=== PATIENT | female | born 1945 | race Caucasian/White ===

== ENCOUNTER 2016-10-11 08:05 | Observation (INO) ==
[2016-10-11] MEDS ORDERED: Nitroglycerin 25 MG/250 ML INFUS..BTL IVC SCH (08:15)
[2016-10-11 08:36] LABS: Basophils % 0.2 %; Eosinophils % 0.6 %; Hemoglobin 14.2 g/dL (11.5-15.4); Immature Granulocytes % 0.6 % (0-4); Lymphocytes # 2.1 K/mcL (0.6-4.6); Lymphocytes % 38.7 %; Mean Corpuscular HGB Conc 34.6 g/dL (31.6-35.5); Mean Corpuscular Hemoglobin 32.4 pg (28.0-33.3); Mean Corpuscular Volume 93.6 fL (83.0-100.0); Mean Platelet Volume 8.8 fL (9.4-12.4); Monocytes # 0.5 K/mcL (0.0-1.3); Monocytes % 8.7 %; Neutrophils # 2.8 K/mcL (1.6-8.9); Platelet Count 291 K/mcL (140-400); Red Blood Count 4.38 M/mcL (3.82-4.97); Red Cell Distribution Width 12.4 % (11.5-14.5); Segmented Neutrophils % 51.2 %
[2016-10-11 08:41] LABS: Prothrombin Time 11.2 Seconds (9.4-12.1)
[2016-10-11 08:43] LABS: Activated Partial Thrombo Time 28.5 Seconds (26.0-36.0)
[2016-10-11 08:44] LABS: BUN/Creatinine Ratio 15 (6-26); Blood Urea Nitrogen 13 mg/dL (7-20); Calcium 9.8 mg/dL (8.6-10.8); Carbon Dioxide 22 mEq/L (19-29); Chloride 102 mEq/L (98-109); Glucose 206 mg/dL (70-99); Osmolality,Calculated 288 (280-300); Potassium 3.7 mEq/L (3.5-4.5); Sodium 136 mEq/L (136-145); eGFR For African Americans > 60 (> 60); eGFR For Non-African Americans > 60 (> 60)
[2016-10-11] MEDS ORDERED: Acetaminophen 325 MG TABLET PO ONE (09:01)
[2016-10-11] MEDS ORDERED: *HR* Heparin 5,000 UNIT/ML VIAL IVP ONE (09:02)
[2016-10-11] MEDS ORDERED: *HR* Heparin 5,000 UNIT/ML VIAL IVP PRN ×2 (09:02)
[2016-10-11] MEDS ORDERED: Heparin 25,000 UNIT/500 ML D5W 25,000 UNIT/500 ML MLS IVC SCH (09:15)
--- NOTE | 2016-10-11 09:15 | Emergency Department Note ---
Disposition Clinical Impression: CAD (coronary artery disease) Qualifiers: Coronary Disease-Associated Artery/Lesion type: unspecified vessel or lesion type [place] vs. transplanted heart: [place] heart Associated angina: with stable angina Qualified Code(s): I25.118 - Atherosclerotic heart disease of [place] coronary artery with other forms of angina pectoris Hypertension Qualifiers: Hypertension type: other secondary hypertension Qualified Code(s): I15.8 - Other secondary hypertension Chest pain Qualifiers: Chest pain type: unspecified Qualified Code(s): R07.9 - Chest pain, unspecified Disposition: Admitted As Inpatient Condition: Good Time of Disposition: 09:40 Chest Pain HPI - General Stated Complaint: Chest Pain Time Seen by Provider: 10/11/16 08:08 Source: patient Limitations: no limitations Vital Signs Reviewed: Yes Nursing Notes Reviewed: Yes - History of Present Illness HPI Narrative: Patient presented to emergency room with complaint of chest pain and pressure up into her right neck. She says this is very similar to the other times when she needed catheterization. She was seen by her heel top lift splitter Dr. Irwin yesterday for these exact same complaints and was scheduled for an outpatient catheterization this coming Sunday. Patient went home last night and the symptoms came back again acutely in the middle the night. She taken 3 nitroglycerin home with some intermittent relief of the symptoms. She said that the pain will completely level come back within 30 minutes. Patient side to come in the emergency room at that time for evaluation. Denies any other symptoms changes or trauma at this time Pt complaint: chest pain Onset (ago): [employer] [facility] [facility] [employer] Duration: constant Onset: during rest Pain Location: substernal Severity: moderate Severity scale (1-10): 7 Quality: tightness, aching, heaviness, similar to prior [place] Improves with: nitroglycerin Worsens with: nothing - Related Data Home Medications Medication Instructions Recorded Confirmed Alprazolam [Xanax 0.25 MG Tablet] 0.25 mg PO BID PRN 07/12/16 10/11/16 Aspirin 81 mg PO DAILY 07/12/16 10/11/16 Clopidogrel [Plavix] 75 mg PO DAILY 07/12/16 10/11/16 Isosorbide MONOnitrate [Isosorbide 240 mg PO DAILY 07/12/16 10/11/16 Mononitrate ER] Nitroglycerin [Nitrostat] 0.4 mg SL AD PRN 07/12/16 10/11/16 Pantoprazole Sodium [Protonix] 40 mg PO BID 07/12/16 10/11/16 Ubidecarenone/Vit E Acetate [Co 200 mg PO DAILY 07/12/16 10/11/16 Q-10 100 mg Softgel] Glimepiride [Glimepiride] 1.5 mg PO BID 08/16/16 10/11/16 Metformin [Glucophage] 500 mg PO BID 08/16/16 10/11/16 Metoprolol Tartrate [Metoprolol 50 mg PO BID 08/16/16 10/11/16 Tartrate] Cholecalciferol (D-3) [Vitamin D] 2,000 unit PO DAILY 10/11/16 10/11/16 Loratadine [Allergy Relief] 10 mg PO DAILY 10/11/16 10/11/16 Previous Rx's Medication Instructions Recorded Lisinopril [Zestril] 10 mg PO DAILY #15 tablet 07/14/16 Allergies Allergy/AdvReac Type Severity Reaction Status Date / Time penicillin V Allergy Anaphylaxis Verified 08/16/16 08:11 atorvastatin [From Lipitor] AdvReac Muscle Pain Verified 08/16/16 08:11 All systems ED: reviewed and negative except as stated. Constitutional: Denies: fever, chills, weakness Cardiovascular: Reports: chest pain. Denies: palpitations, dyspnea on exertion , orthopnea, edema, syncope Respiratory: Denies: cough, dyspnea, wheezes, hemoptysis, sputum production Gastrointestinal: Denies: abdominal pain, nausea, vomiting, diarrhea, constipation Genitourinary: Denies: urgency, dysuria, frequency, hematuria, discharge Musculoskeletal: Denies: back pain, neck pain, joint swelling Integumentary: Denies: rash, abrasion, lesions, change in hair/nails Neurological: Denies: headache Psychiatric: Denies: anxiety Endocrine: Denies: fatigue Chest Pain PMH - Past Medical History Medical history: Reports: coronary artery disease, diabetes, GERD, kidney stones , liver disease, myocardial infarction, other Surgical history: Reports: hysterectomy, other Psychiatric history: Reports: no psych history LAP WELDER history: Reports: no LAP WELDER history - Social History Smoking Status: Never smoker Alcohol use: Reports: occasionally Drug use: Reports: none Physical Exam - General Limitations: no limitations General appearance: alert, in no apparent distress - Head Head exam: atraumatic, normocephalic - Neck Neck exam: Present: normal inspection, full ROM, trachea midline. Absent: tenderness, meningismus, lymphadenopathy - Chest Chest inspection: Present: normal inspection, symmetric chest wall rise. Absent : tenderness - Respiratory Respiratory exam: Present: normal lung sounds bilaterally. Absent: respiratory distress, wheezes, stridor, accessory muscle use - Cardiovascular Cardiovascular exam: Present: regular rate, normal rhythm, normal heart sounds - Abdominal Exam Abdominal exam: Present: soft, Non-Tender, normal bowel sounds. Absent: tenderness, distention, guarding, rebound, rigidity - Extremities Exam Extremities exam: Present: normal inspection, full ROM, normal capillary refill. Absent: tenderness, pedal edema - Back Exam Back exam: Present: normal inspection, full ROM. Absent: tenderness, CVA tenderness (R), CVA tenderness (L) - Neurological Exam Neurological exam: Present: alert, oriented X3 - Psychiatric Psychiatric exam: Present: normal affect, normal mood - Skin Skin exam: Present: warm, dry, intact, normal color Course Course Narrative: Patient seen and examined the time of arrival. See history of present illness. This is a 71-year-old female that presents emergency room today for evaluation of chest pressure similar to previous stenting. She has a partially [address] She is not taking any blood thinners according to her. Patient had onset of symptoms yesterday that resolved later last night and came on again acutely today. She was evaluated by her heel top lift splitter Dr. Irwin yesterday afternoon the office and he had scheduled for an outpatient catheterization on this coming Sunday. Patient has not been able to tolerate a control his symptoms at home today. She will up acutely with the chest pressure and pain up into the right side of her neck. She took 3 nitroglycerin at that time possibly 45 minutes apart. In between each nitroglycerin treatment she had complete resolution of the symptoms. She came back here today for evaluation because she was concerned about the chest pressure and pain. Patient otherwise has no other complaints no recent changes in medications and no recent illnesses. She is concerned about a cardiac source. EKG done on initial triage shows normal sinus rhythm no acute ST segment changes at this time. This was compared to an EKG done on 08/16/16. Because of her history and symptom presentation cardiac evaluation will be ordered at this time including EKG and basic left her workup and troponins. Chest x-ray also ordered. CT head as well as the patient complaining of a headache but appears to be secondary to the neck pain related up in the right side of her neck. Patient was discussed with the heel top lift splitter Dr. Irby.. We will review the patient's presentation his surgery and evaluation by Dr. Irwin yesterday. He recommended admission to hospital for arrangement like symptoms and then she will get set up for catheterization at some point. We will continue monitoring in emergency room until disposition is completed admission process to be completed as well. Patient given aspirin at this time. Vital signs are stable she is afebrile nitroglycerin drip to be secondary to symptom control - Reevaluation(s) Reevaluation #1: Labs all within normal limits except for a mildly elevated troponin at 0.05. Patient's symptoms of uncontrolled nitroglycerin drip. Tylenol was given for her headache. Consultation with the hospitalist Dr. Capps was completed. Detailed review of the patient's presentation symptoms and consultation with the heel top lift splitter were discussed. Heparin drip was ordered secondary to ACS protocol. Patient is in no distress resting comfortably in the bed at this time. Symptoms abated completely resolved. No other intervention requested this time hospitals. Patient be admitted to the floor for evaluation and the most likely catheterization and his hospital course of care. EKG again was reviewed and does not show any acute pathology. Troponin is mildly elevated. This will be trended 3. Patient stable admission process completed this point Time: 09:37 Vital Signs Temperature 98.3 F 10/11/16 08:13 Pulse Rate 79 10/11/16 08:13 Respiratory Rate 16 10/11/16 08:13 Blood Pressure 154/92 10/11/16 08:13 O2 Sat by Pulse Oximetry 100 10/11/16 08:13 Temperature 98.3 F 10/11/16 08:13 Pulse Rate 75 10/11/16 09:45 Respiratory Rate 16 10/11/16 09:45 Blood Pressure 142/83 10/11/16 09:45 O2 Sat by Pulse Oximetry 97 10/11/16 09:45 Oxygen Delivery Oxygen Delivery Room Air Chest Pain - MDM Narrative Medical decision making narrative: Chest pain, ACS, patient will have catheterization - Medical Records Medical records reviewed: Yes I reviewed the patient's medical records. - Lab Data Lab results reviewed: Yes I reviewed the patient's lab results. Result diagrams: 10/11/16 08:12 10/11/16 08:12 Lab Results 10/11/16 10/11/16 10/11/16 Range/Units 08:12 08:12 08:12 WBC 5.4 (4.3-11.1) K/mcL RBC 4.38 (3.82-4.97) M/mcL Hgb 14.2 D (11.5-15.4) g/dL Hct 41.0 (35.3-44.9) % MCV 93.6 (83.0-100.0) fL MCH 32.4 (28.0-33.3) pg MCHC 34.6 (31.6-35.5) g/dL RDW 12.4 (11.5-14.5) % Plt Count 291 (140-400) K/mcL MPV 8.8 L (9.4-12.4) fL Immature Gran % 0.6 (0-4) % Seg Neutrophils % 51.2 % Lymphocytes % 38.7 % Monocytes % 8.7 % Eosinophils % 0.6 % Basophils % 0.2 % Neutrophils # 2.8 (1.6-8.9) K/mcL Lymphocytes # 2.1 (0.6-4.6) K/mcL Monocytes # 0.5 (0.0-1.3) K/mcL Eosinophils # 0.0 (0.0-0.6) K/mcL Basophils # 0.0 (0.0-0.2) K/mcL PT 11.2 (9.4-12.1) Seconds INR 1.0 APTT 28.5 (26.0-36.0) Seconds Sodium (136-145) mEq/L Potassium (3.5-4.5) mEq/L Chloride (98-109) mEq/L Carbon Dioxide (19-29) mEq/L BUN (7-20) mg/dL Creatinine (0.57-1.11) mg/dL Est GFR ( Amer) (> 60) Est GFR (Non-Af Amer) (> 60) BUN/Creatinine Ratio (6-26) Glucose (70-99) mg/dL Calculated Osmolality (280-300) Calcium (8.6-10.8) mg/dL Troponin I (0-0.03) ng/mL B-Natriuretic Peptide 41 (0-100) pg/mL 10/11/16 10/11/16 Range/Units 08:12 08:12 WBC (4.3-11.1) K/mcL RBC (3.82-4.97) M/mcL Hgb (11.5-15.4) g/dL Hct (35.3-44.9) % MCV (83.0-100.0) fL MCH (28.0-33.3) pg MCHC (31.6-35.5) g/dL RDW (11.5-14.5) % Plt Count (140-400) K/mcL MPV (9.4-12.4) fL Immature Gran % (0-4) % Seg Neutrophils % % Lymphocytes % % Monocytes % % Eosinophils % % Basophils % % Neutrophils # (1.6-8.9) K/mcL Lymphocytes # (0.6-4.6) K/mcL Monocytes # (0.0-1.3) K/mcL Eosinophils # (0.0-0.6) K/mcL Basophils # (0.0-0.2) K/mcL PT (9.4-12.1) Seconds INR APTT (26.0-36.0) Seconds Sodium 136 (136-145) mEq/L Potassium 3.7 (3.5-4.5) mEq/L Chloride 102 (98-109) mEq/L Carbon Dioxide 22 (19-29) mEq/L BUN 13 (7-20) mg/dL Creatinine 0.88 (0.57-1.11) mg/dL Est GFR ( Amer) > 60 (> 60) Est GFR (Non-Af Amer) > 60 (> 60) BUN/Creatinine Ratio 15 (6-26) Glucose 206 H (70-99) mg/dL Calculated Osmolality 288 (280-300) Calcium 9.8 (8.6-10.8) mg/dL Troponin I 0.05 H* (0-0.03) ng/mL B-Natriuretic Peptide (0-100) pg/mL - Radiology Data Radiology results reviewed: Yes I reviewed the patient's radiology results. Chest x-ray is negative The mediastinum or infiltrate. No acute signs of intrathoracic pathology. Reviewed by myself and confirmed by radiology. CT of the head is negative for acute intracranial bleed - EKG Data EKG attestation: Yes I reviewed and interpreted this EKG. EKG shows normal: sinus rhythm, axis, intervals, QRS complexes, ST-T waves Rate: normal Rhythm: NSR [place]/QRS: normal When compared to previous EKG there are: no significant changes Interpretation: no acute changes, unchanged when compared to prior tracing (date ) (eKG reviewed from 08/16/16) Heart Score - Score History: Moderately Suspicious EKG: Non Specific repolarisation Disturbance Age: Greater than 65 Risk Factors: Equal/Greater than 3 risk factor or history of atherosclerotic disease Troponin: 1-3x normal limit HEART Score Total: 7 Attestation Statement - Attestation Attestation: I examined this patient and my medical decision-making was reviewed with the Resident Physician. I agree with the documented findings, disposition and treatment plan as described except to the extent set forth below. ROS negative except as noted by Dr. Jimenez. CP suspicious for ischemia, scheduled for cath in 5 days, last cath 2 years ago. Pain resolved w NTG (APAP given for NTG TREVIZO), only residual throbbing in left trapezius. Troponin mildly elevated at 0.05. Anticoagulation ordered (no sx of abnormal bleeding), admitted.
[2016-10-11] MEDS ORDERED: Acetaminophen 325 MG TABLET PO PRN ×2 (11:06→14:39)
[2016-10-11] MEDS ORDERED: *HR* Morphine 2 MG/ML SYRINGE IVP PRN (11:06)
[2016-10-11] MEDS ORDERED: Ondansetron 4 MG/2 ML VIAL IVP PRN (11:06)
[2016-10-11] MEDS ORDERED: Naloxone 0.4 MG/ML INJ IVP PRN (11:06)
[2016-10-11] MEDS ORDERED: ALPRAZolam 0.25 MG TABLET PO PRN (11:12)
--- NOTE | 2016-10-11 11:29 | Internal Med History&Physical ---
<Julieth Wilcox - Last Filed: 10/11/16 11:58> Date of Encounter: 10/11/16 Time of Encounter: 11:00 Assessment and Plan (1) Unstable angina Current visit: Yes Status: Acute 1 patient has been awaken overnight with chest pain, which continues despite 3 nitroglycerin. She has history of CAD and stent placements. We will continue with heparin drip as well as nitroglycerin and titrate for chest pain 2 continuous cardiac monitoring 3 cycle cardiac troponins 4 cardiology consult is for cardiac catheterization-nothing by mouth after midnight 5 cardiac diet (2) DVT prophylaxis Current visit: Yes Status: Acute 1 on heparin drip (3) CAD (coronary artery disease) Current visit: Yes Status: Chronic 1 has cardiac stents will continue with dual antiplatelet therapy-continue with beta shlomo Nicholas will check lipid profile-we will hold Imdur for now due to on nitroglycerin drip Qualifiers: Coronary Disease-Associated Artery/Lesion type: unspecified vessel or lesion type [place] vs. transplanted heart: [place] heart Associated angina: with stable angina Qualified Code(s): I25.118 - Atherosclerotic heart disease of [place] coronary artery with other forms of angina pectoris (4) Diabetes mellitus type 2, noninsulin dependent Current visit: Yes Status: Chronic 1 patient is on metformin and glyburide at home will hold for now Accu-Cheks before meals at bedtime with slight scale insulin goal is for postprandial less than 180 Internal Medicine - H&P: HPI Chief complaint: CP Admitted From: Home History of present illness: Ms. Seth is a 71 year old female with past medical history of CAD with stents 6 -diabetes2 hypertension. According to the patient she was awake and Sunday morning approximately 3 or 4:00 in the morning by chest pain which she described as burning starting in her right arm radiating to her right neck and the pain is relieved with nitroglycerin. She went to see her hide cooking operator Dr. Irwin later that day, he scheduled a cardiac catheter for next Sunday. The patient was awakened this morning approximately 4 AM again with burning in her right arm radiating to her neck. She took a nitroglycerin and the pain was relieved however it returned within 1 hour and again she took a nitroglycerin. In 1 hour the patient experienced sharp midsternal chest pain with shortness of breath nausea she again took a nitroglycerin which relieved her pain and went to the emergency department for evaluation. According to the patient she has been experiencing this type of chest pain off and on since about June. She has had cardiac catheter in the past with 6 stents placed in the last catheterization was performed 2 years ago. She has been seen by cardiology for this chest pain and she states she has been putting off having the catheterization but now she knows it is time because the chest pain is very similar to when she had her last catheterization. In the emergency department the patient's first set of cardiac troponins were elevated at 0.05. Chest x- ray with no acute process and CT of head was completed due to patient had a headache on presentation was negative EKG with normal sinus rhythm noted some T- wave inversion in leads V4 V5. ER spoke with Dr. Mendoza concerning patient, suggesting admit patient and he will see concerning possible cardiac catheterization. Patient started on heparin drip as well as nitroglycerin drip. Presently the patient denies any chest pain or shortness of breath she is hemodynamically stable at this time. I reviewed this case with Dr. Capps who agrees with plan. Past Med Surg Social Fam HX - Past Medical History Medical history: coronary artery disease, diabetes, GERD, kidney stones, liver disease, myocardial infarction, other Psychiatric history: no psych history - Past Surgical History Surgical History: hysterectomy, other - Social History Smoking Status: Never smoker Smokeless Tobacco Status: No Alcohol use: occasionally Drug use: none - Family History Father Living Status: Grandmother Hx Family Endocrine Disorder: Yes (Diabetes) Internal Medicine - H&P: Meds Alprazolam [Xanax 0.25 MG Tablet] 0.25 mg PO BID PRN 07/12/16 [History] Aspirin 81 mg PO DAILY 07/12/16 [History] Clopidogrel [Plavix] 75 mg PO DAILY 07/12/16 [History] Isosorbide MONOnitrate [Isosorbide Mononitrate ER] 240 mg PO DAILY 07/12/16 [ History] Nitroglycerin [Nitrostat] 0.4 mg SL AD PRN 07/12/16 [History] Pantoprazole Sodium [Protonix] 40 mg PO BID 07/12/16 [History] Ubidecarenone/Vit E Acetate [Co Q-10 100 mg Softgel] 200 mg PO DAILY 07/12/16 [ History] Lisinopril [Zestril] 10 mg PO DAILY #15 tablet 07/14/16 [Rx] Glimepiride [Glimepiride] 1.5 mg PO BID 08/16/16 [History] Metformin [Glucophage] 500 mg PO BID 08/16/16 [History] Metoprolol Tartrate [Metoprolol Tartrate] 50 mg PO BID 08/16/16 [History] Cholecalciferol (D-3) [Vitamin D] 2,000 unit PO DAILY 10/11/16 [History] Loratadine [Allergy Relief] 10 mg PO DAILY 10/11/16 [History] Allergies penicillin V Allergy (Verified 08/16/16 08:11) Anaphylaxis atorvastatin [From Lipitor] Adverse Reaction (Verified 08/16/16 08:11) Muscle Pain All Systems PM: A 10-system review of systems was performed and is negative for pertinent findings except as documented above in the HPI. - Constitutional Constitutional: no chills, no fever(s), no night sweats - Cardiovascular Cardiovascular ROS IM: chest pain - Respiratory Respiratory: no cough, no dyspnea, no wheezing, no excessive phlegm production - Gastrointestinal Gastrointestinal: nausea - Genitourinary Genitourinary: no change in urinary stream, no dysuria, no flank pain, no hematuria - Neurological Neurological ROS: no confusion, no convulsions, no focal weakness, no numbness, no tingling, no tremor(s) - Constitutional Vitals: Temp Pulse Resp BP Pulse Ox 97.6 F 62 18 153/89 98 10/11/16 10:55 10/11/16 10:55 10/11/16 10:55 10/11/16 10:55 10/11/16 10:55 General appearance: Present: A&O X 3, answers questions appropriately - Head Head exam: Present: atraumatic, normocephalic - Eye Eye exam: Present: PERRL, conjuntiva pink, sclera anicteric Pupils: Present: PERRL - Respiratory Respiratory exam: Present: CTAB. Absent: accessory muscle use, rales, rhonchi, wheezes - GI/Abdominal GI/Abdominal exam: Present: normal bowel sounds, soft, no peritoneal signs. Absent: distended, tenderness - Extremities Exam Extremities exam: Present: warm, radial pulses palpable and symetrical. Absent : calf tenderness, cyanotic, pedal edema - Neurological Exam Neurological exam: Present: CN II-XII intact, oriented X3, no focal deficits. Absent: pronater drift, facial droop, speech deficit - Skin Skin exam: Present: dry, intact Internal Med - H&P Results - Labs CBC & Chem 7: 10/11/16 08:12 10/11/16 08:12 - EKG Data EKG shows normal: sinus rhythm - EKG Data Prior EKG available for review: yes When compared to previous EKG: there is no significant change EKG comments: 10/11/16 12:17 T-wave inversion in V4 V5 reviewed EKG with Dr. Guido - Diagnostic Studies Chest x-ray Additional comments: Per radiology read no acute cardiopulmonary process <Cassandra Young - Last Filed: 10/11/16 15:59> Internal Medicine - H&P: HPI History of present illness: Ms. Seth is a 71 year old female All Systems PM: A 10-system review of systems was performed and is negative for pertinent findings except as documented above in the HPI. - Constitutional Vitals: Temp Pulse Resp BP Pulse Ox 97.6 F 71 14 124/70 98 10/11/16 10:55 10/11/16 13:12 10/11/16 13:12 10/11/16 13:12 10/11/16 14:42 Internal Med - H&P Results - Labs CBC & Chem 7: 10/11/16 08:12 10/11/16 08:12 Labs: Cardiac Enzymes 10/11/16 Range/Units 14:19 Troponin I 0.15 H* (0-0.03) ng/mL - Attending Attestation I examined this patient and reviewed laboratory, imaging and all diagnostic data. My medical decision-making was reviewed with ANGELICA Clancy. I agree with the documented findings, disposition and treatment plan as described below. Place patient in observation status. 71-year-old female with concern for unstable angina, started on heparin drip and nitroglycerin due to intractable chest pain. Cardiology consulted for possible LHC.
[2016-10-11] MEDS ORDERED: Dextrose Gel 15 GM PO PRN ×2 (11:30)
[2016-10-11] MEDS ORDERED: *HR* Dextrose 50 % in Water (Syg) 50 ML SYRINGE IVP PRN (11:30)
[2016-10-11] MEDS ORDERED: D5% in Water 1,000 ML IV PRN (11:30)
[2016-10-11] MEDS: Insulin LISPRO 300 UNITS/3 ML VIAL SQ SCH ×2 (12:26→18:15)
--- NOTE | 2016-10-11 13:57 | Pre-Sedation Evaluation ---
Pre-sedation evaluation - Pre-sedation checklist Date of procedure: 10/11/16 Procedure: [facility] Recent Vitals: Last Vital Signs Temp 97.6 F 10/11/16 10:55 Pulse 71 10/11/16 13:12 Resp 14 10/11/16 13:12 BP 124/70 10/11/16 13:12 Pulse Ox 99 10/11/16 13:12 H&P (including ROS) documented in medical record: Yes Previous reaction to sedatives/anesthetics: No Dietary Status: No solid food in preceding 4 hrs and no liquid in preceding 2 hrs Airway Assessment: Patient can open mouth completely, TMJ function normal ASA Classification *see protocol: CLASS II-Mild systemic disease Plan of Care: Pt appropriate candidate for procedure/moderate/conscious sedation , Risks/benefits of procedure/sedation discussed w/ patient/family
--- NOTE | 2016-10-11 14:25 | Cardiology History & Physical ---
Date of Encounter: 10/11/16 Time of Encounter: 15:30 Assessment and Plan (1) Unstable angina Current Visit: Yes Status: Acute LHC today. 1% chance of [place]//CVA/bleeding/[place]/contrast allergy explained to patient. She is aware and agreeable with proceeding. Continue medical therapy. The assessment and plan as outlined above was discussed with the patient and/or family members who expressed understanding and agreement. All questions were answered. (2) Hypertension Current Visit: Yes Status: Acute The assessment and plan as outlined above was discussed with the patient and/or family members who expressed understanding and agreement. All questions were answered. Qualifiers: Hypertension type: other secondary hypertension Qualified Code(s): I15.8 - Other secondary hypertension (3) CAD (coronary artery disease) Current Visit: Yes Status: Chronic The assessment and plan as outlined above was discussed with the patient and/or family members who expressed understanding and agreement. All questions were answered. Qualifiers: Coronary Disease-Associated Artery/Lesion type: unspecified vessel or lesion type [place] vs. transplanted heart: [place] heart Associated angina: with stable angina Qualified Code(s): I25.118 - Atherosclerotic heart disease of [place] coronary artery with other forms of angina pectoris History of Present Illness Chief complaint: chest pain HPI: Ms. Seth is a 71 year old female with history of CAD s/p PCI RCA and LAD 2014. FFR of proximal LAD and LCX that year were not significant followed by stress test 08/2015 without ischemia. She continues to complain of chest pain that radiates into her neck and was to have outpatient LHC on Sunday but had another severe episode overnight prompting her hospitalization. Past Med Surg Social Fam HX - Past Medical History Medical history: coronary artery disease, diabetes, GERD, kidney stones, liver disease, myocardial infarction, other Psychiatric history: no psych history - Past Surgical History Surgical History: hysterectomy, other - Social History Smoking Status: Never smoker Smokeless Tobacco Status: No Alcohol use: occasionally Drug use: none - Family History Father History Unknown: Yes Adopted: [place]: Adolfo Dyer Age: 48 Family Member Ethnicity: Non- Living Status: Age at : 48 Hx Family Cardiac Disorders: Yes Hx Family Respiratory Disorders: Yes (COPD) Hx Family Cancer: No Hx Family GI Disorders: No Hx Family Genitourinary Disorders: No Hx Family Endocrine Disorder: No Hx Family Musculoskeletal Disorders: No Hx Family Neuromuscular Disorders: No Hx Family Neurologic Disorders: No Hx Family HEENT Disorders: No Hx Family Autoimmune Disorders: No Hx Family Reproductive Disorders: No Hx Family Psychosocial Disorders: Yes (DEPRESSION) Hx Family Medical Disorders: No Grandmother Hx Family Endocrine Disorder: Yes (Diabetes) Medications and Allergies Alprazolam [Xanax 0.25 MG Tablet] 0.25 mg PO BID PRN 07/12/16 [History] Aspirin 81 mg PO DAILY 07/12/16 [History] Clopidogrel [Plavix] 75 mg PO DAILY 07/12/16 [History] Isosorbide MONOnitrate [Isosorbide Mononitrate ER] 240 mg PO DAILY 07/12/16 [ History] Nitroglycerin [Nitrostat] 0.4 mg SL AD PRN 07/12/16 [History] Pantoprazole Sodium [Protonix] 40 mg PO BID 07/12/16 [History] Ubidecarenone/Vit E Acetate [Co Q-10 100 mg Softgel] 200 mg PO DAILY 07/12/16 [ History] Lisinopril [Zestril] 10 mg PO DAILY #15 tablet 07/14/16 [Rx] Glimepiride [Glimepiride] 1.5 mg PO BID 08/16/16 [History] Metformin [Glucophage] 500 mg PO BID 08/16/16 [History] Metoprolol Tartrate [Metoprolol Tartrate] 50 mg PO BID 08/16/16 [History] Cholecalciferol (D-3) [Vitamin D] 2,000 unit PO DAILY 10/11/16 [History] Loratadine [Allergy Relief] 10 mg PO DAILY 10/11/16 [History] Allergies penicillin V Allergy (Verified 08/16/16 08:11) Anaphylaxis atorvastatin [From Lipitor] Adverse Reaction (Verified 08/16/16 08:11) Muscle Pain All Systems Review: A 10-system review of systems was performed and is negative for pertinent findings except as documented above in the HPI. - Constitutional Constitutional: no chills, no fever(s) - EENT Eyes: no blurred vision, no loss of vision Nose, mouth and throat: no bleeding gums, no epistaxis - Cardiovascular Cardiovascular: chest pain at rest, chest pain with exertion - Respiratory Respiratory: no hemoptysis, no wheezing - Gastrointestinal Gastrointestinal: no hematemesis, no hematochezia - Genitourinary Genitourinary: no dysuria, no hematuria - Musculoskeletal Musculoskeletal: no arthralgias, no myalgias - Integumentary Integumentary: no erythema, no rash - Neurological Neurological: no dizziness, no focal weakness - Psychiatric Psychiatric: no anxiety, no depression - Hematological/Lymphatic Hematologic/Lymphatic: no easy bleeding, no easy bruising Physical Examination Vital Signs, Last 4 Hours Temp Pulse Resp BP Pulse Ox 10/11/16 13:12 71 14 124/70 99 10/11/16 10:55 97.6 F 62 18 153/89 98 10/11/16 10:30 16 145/96 10/11/16 10:00 69 16 143/86 99 General: Conversant HEENT: Atraumatic Neck: No JVD Cardiac: Reg Rate and Rhythm, Normal S1 and S2 Lungs: Normal Breath Sounds Neuro: Alert and responsive Abdomen: Soft Skin: No rashes noted on visualized skin Musculoskeletal: No Chest Wall Tenderness Extremities: No Clubbing, No Cyanosis, No Edema, Normal Pulses Results 10/11/16 08:12 10/11/16 08:12 - EKG Interpretation EKG results cardiology: personally reviewed
[2016-10-11] MEDS ORDERED: Verapamil 5 MG/2 ML VIAL ONE (14:46)
[2016-10-11] MEDS ORDERED: 0.9 % Sodium Chloride 1,000 ML ONE ×2 (14:46→15:15)
[2016-10-11] MEDS ORDERED: Heparin 1,000 UNITS/500 mL NS 500 ML ONE (14:47)
[2016-10-11] MEDS ORDERED: *HR* Heparin 10,000 UNIT/10 ML VIAL ONE (14:47)
[2016-10-11] MEDS ORDERED: Nitroglycerin 1,000 MCG/10 ML VIAL IV ONE (14:47)
[2016-10-11] MEDS ORDERED: *HR* Midazolam HCl 5 MG/5 ML VIAL IVP ONE (15:21)
[2016-10-11] MEDS ORDERED: *HR* FentaNYL (PF) 100 MCG/2 ML VIAL ONE (15:21)
[2016-10-11] MEDS ORDERED: *HR* Midazolam HCl 2 MG/2 ML VIAL ONE (16:03)
[2016-10-11 16:54] LABS: Hematocrit 35.7 % (35.3-44.9); Hemoglobin 12.5 g/dL (11.5-15.4); Mean Corpuscular Hemoglobin 32.2 pg (28.0-33.3); Mean Platelet Volume 8.8 fL (9.4-12.4); Platelet Count 257 K/mcL (140-400); Red Blood Count 3.88 M/mcL (3.82-4.97); Red Cell Distribution Width 12.2 % (11.5-14.5)
[2016-10-11 17:08] LABS: INR 1.1; Prothrombin Time 12.1 Seconds (9.4-12.1)
[2016-10-11 17:27] LABS: Activated Partial Thrombo Time 163.6 Seconds (26.0-36.0)
[2016-10-11 17:32] LABS: Heparin anti-factor XA UFH 0.93 IU/mL (0.30-0.70)
--- NOTE | 2016-10-11 18:09 | Invasive Diagnostic Lab Proc ---
Name: Lidia Seth Date of Study: 10/11/2016 Date: 1945 Ht: 66.1in Medical Record#: [id number] Age: 71 Wt: 147.71lb Gender: Female BSA: 1.76 Order #: [id number] BMI: 23.74 Physicians Procedure Physician: Jerod Garner MD, [facility] Referring MD: Myranda Lauren DO Referring MD: Staff Name Position Time In Sites, Rachell RT (R) Monitor 03:23 PM Rocío Hanley RT (R) Scrub 03:23 PM Obdulia Panda RN Quill Cleaning Machine Operator 03:23 PM Kylah Roe RN Quill Cleaning Machine Operator Kylah Roe RN Quill Cleaning Machine Operator 03:26 PM Indications Indication Non-Stemi Procedures Performed Procedure L HRT ARTERY/VENTRICLE ANGIO PRQ CARD YOSELIN STENT W/ANGIO 1 VSL MOD SED OTH PHYS/QHP 5/>YRS MOD SED OTHER PHYS/QHP EA Pre-Procedure Checklist Informed consent is complete signed and on chart. H\\T\\P is on chart. ID band is on and ID verified with patient. Patient NPO for procedure The procedure was described for the patient and questions were answered. Blood Pressure: 124/70 ECG is on chart. Rhythm: NSR Plan of Care Patient will tolerate the procedure without complications. Adequate level of comfort will be maintained. Hemodynamics will remain stable Patient will recover from procedure without complications. Respiratory function will be maintained. Cardiac rhythm will remain stable. Patient temperature will be maintained. Patient and/or family have verbalized understanding of the procedure. Patient Education Intravenous Access Time IV Size Location DC'd Fluid/Drip Rate Units RN 02:59 PM 18g 1 09/20" Patent On Arrival Lt Antecubital 0.9NaCl 25 ml/hr Kylah Roe RN Allergies lovastatin Amoxicillin penicillin V atorvastatin Vital Signs Time BP (mmHg) HR (bpm) O2 Sat. RR (bpm) LOC 03:03 PM 124 / 70 71 98 % 14 5 = Fully awake and oriented or at pre-proc level 03:28 PM / % 4 = Oriented but drowsy 03:21 PM 173 / 86 69 100 % 19 03:25 PM 163 / 82 74 100 % 10 03:30 PM 149 / 80 73 100 % 13 03:35 PM 154 / 79 72 100 % 15 03:40 PM 158 / 86 80 100 % 10 03:45 PM 157 / 69 74 100 % 14 03:50 PM 159 / 78 75 100 % 16 03:55 PM 159 / 82 80 100 % 13 04:00 PM 171 / 88 78 100 % 30 04:20 PM 174 / 82 65 99 % 18 5 = Fully awake and oriented or at pre-proc level 04:35 PM 156 / 86 68 98 % 18 5 = Fully awake and oriented or at pre-proc level 04:55 PM 154 / 87 63 97 % 18 5 = Fully awake and oriented or at pre-proc level 05:10 PM 143 / 88 65 98 % 18 5 = Fully awake and oriented or at pre-proc level 05:30 PM 146 / 96 65 97 % 16 5 = Fully awake and oriented or at pre-proc level 05:45 PM 138 / 73 68 98 % 18 5 = Fully awake and oriented or at pre-proc level Procedural Medications Time Medication Dose Units Method Given By 03:27 PM Oxygen 2 L/min nasal cannula Obdulia Panda RN 03:27 PM Versed 3 mg Intravenous Obdulia Panda RN 03:27 PM Fentanyl 50 mcg Intravenous Obdulia Panda RN 03:27 PM Oxygen 6 L/min simple face mask Obdulia Panda RN 03:31 PM Lidocaine 2% 15 ml Subcutaneous Jerod Garner MD, FACC 03:41 PM Heparin 3500 units Intravenous Kylah Roe RN 03:42 PM Oxygen 4 L/min nasal cannula Kylah Roe RN 03:46 PM Nitroglycerin 100 mcg Intracoronary Jerod Garner MD 03:59 PM Plavix 300 mg Orally Kylah Roe RN ASA Classification: CLASS II- Mild systemic disease (i.e. well-controlled diabetes, hypertension, asthma, cigarette smoking) Truman Score Preprocedure Postprocedure Activity 2- Moves 4 extremities sustained head lift Activity 2- Moves 4 extremities sustained head lift Circulation 2- SBP +/= 20 points of pre-anesthetic level Circulation 2- SBP +/= 20 points of pre-anesthetic level Consciousness 2- Awake and alert oriented x 3 Consciousness 2- Awake and alert oriented x 3 O2 Saturation 2- Able to maintain O2 satruation of 92% on room air O2 Saturation 2- Able to maintain O2 satruation of 92% on room air Respiratory 2- Able to deep breathe and cough well Respiratory 2- Able to deep breathe and cough well Total Score 10 Total Score 10 Contrast Agent: Isovue Diagnostic Contrast: 113 ml Total Contrast: 113 ml Fluoro Dose: 411 mGy Activated Clotting Time Time Seconds to Clot 04:01 PM 226 05:10 PM 162 Procedure Log Time Note Enter By 02:56 PM CathStat 03:19 PM Vitals capture started with the following parameters, Patient=Adult, Interval=5 min, Initial Hsvcvnbu=900 mmHg, Deflation Rate=5 mmHg, Cuff placed on Right Arm 03:21 PM HR=69 bpm, AQSP=501/86 mmhg, JiI8=097 %, Resp=19 B/min 03:22 PM Pt arrived to bundle tier and labeler 2 at 15:22 [email or web address] 03:22 PM Patient charges- Angio tray pack, Navilyst 3mm J, Pulse Oximetry and ACIST tubing and transducer [email or web address] 03:22 PM Physician arrived 15:22 [email or web address] 03:22 PM Meet and greet completed [email or web address] 03:22 PM Sign in performed according to hospital policy. [email or web address] 03:22 PM Procedure start 15:22 [email or web address] 03:23 PM Rachell Claros RT (R) Position: Monitor Time in: 15:23 [email or web address] 03:23 PM Rocío Hanley RT (R) Position: Scrub Time in: 15:23 [email or web address] 03:23 PM Obdulia Panda RN Position: Quill Cleaning Machine Operator Time in: 15:23 [email or web address] 03:23 PM Recorded ECG: HR=75 Condition=Condition 1 03:25 PM HR=74 bpm, SZMI=205/82 mmhg, UxE0=208 %, Resp=10 B/min 03:26 PM Kylah Roe RN Position: Quill Cleaning Machine Operator Time in: 15:26 tsites 03:27 PM Hair removed from procedure site in procedure lab using clippers. Bilateral groin prepped with Chloraprep by Rachell Claros (R) then patient draped. Skin intact. tsites 03: PM Time: 15:27 Oxygen on at 2 L/min per nasal cannula by Obdulia Panda RN 03: PM Time: 15:27 Versed 3 mg Intravenous Given by Obdulia Panda RN 03: PM Time: 15:27 Fentanyl 50 mcg Intravenous Given by Obdulia Panda RN 03: PM Time: 15:27 Oxygen on at 6 L/min per simple face mask by Obdulia Panda RN tsites 03:27 PM Time: 15:27 Patient comfortable and pain free: Yes tsites 03:28 PM Time: 15:28LOC: 4 = Oriented but drowsy tsites 03:28 PM Clinical Presentation: Non-STEMI tsites 03:30 PM Time out performed according to hospital policy tsites 03:30 PM HR=73 bpm, CAOH=416/80 mmhg, VqV2=121.0 %, Resp=13 B/min 03:30 PM Pressure channel 1 zero failed. 03:30 PM Pressure channel 1 zeroed. 03:31 PM Time: 15:31 15 ml Lidocaine 2% to right groin Subcutaneous Given by Jerod Garner MD, [facility] tsites 03:32 PM Access obtained by percutaneous puncture. 5Fr 10cm Terumo [place] sheath placed in right Femoral artery. [id number] tsites 03:32 PM 0.035 145cm Navilyst 3mmJ wire [id number] tsites 03:32 PM 5Fr FL 4 catheter inserted over the wire [facility] tsites 03:33 PM LCA angiography performed in multiple views. tsites 03:33 PM Recorded Pressure: Ao, HR=74, Condition=Condition 1 (Aorta) Ao 144/80/109 03:34 PM wire reinserted catheter removed tsites 03:34 PM 5Fr FR 4 catheter inserted over the wire DN tsites 03:35 PM HR=72 bpm, IMKA=343/79 mmhg, KwH2=335.0 %, Resp=15 B/min 03:35 PM Recorded Pressure: Ao, HR=74, Condition=Condition 1 (Aorta) Ao 162/67/117 03:36 PM RCA angiography performed in multiple views. tsites 03:37 PM wire reinserted catheter removed tsites 03:37 PM 5Fr Pigtail catheter inserted over the wire [facility] tsites 03:37 PM Catheter selectively placed in left ventricle tsites 03:37 PM Recorded Pressure: LV, HR=80, Condition=Condition 1 (Left Ventricle) LV 170/-18/10 03:37 PM Bolus angiogram of left Ventricle complete: 10 ml/sec for a total of 20 mls tsites 03:38 PM Recorded Pressure: LV, Ao, HR=85, Condition=Condition 1 (Left Ventricle) LV 192/49/55, (Aorta) Ao 190/81/129 03:38 PM Catheter removed tsites 03:39 PM PCI lesion in Mid LAD. Pre Stenosis: 85 Pre ZAC Flow: 3: Complete and Brisk Flow/Perfusion tsites 03:39 PM PCI lesion in Mid LAD. tsites 03:39 PM Sheath exchanged for a 6 Fr 11 cm Cordis Mayte sheath [id number] tsites 03:40 PM 6Fr EBU 3.25 Medtronic guide catheter was used to cannulate the PCI vessel successfully. reused? No tsites 03:40 PM HR=80 bpm, IBFO=200/86 mmhg, KkL0=592.0 %, Resp=10 B/min 03:40 PM .014 PT Graphix 182cm guide wire across target lesion- successful. reused? No tsites 03:40 PM Inflation device was opened. tsites 03:41 PM Time: 15:41 Heparin 3500 units Intravenous Given by Kylah Roe RN tsites 03:42 PM Time: 15:42 Oxygen on at 4 L/min per nasal cannula by Kylah Roe RN tsites 03:42 PM reshaping wire tsites 03:43 PM Recorded Pressure: Ao, HR=77, Condition=Condition 1 (Aorta) Ao 158/74/109 03:45 PM HR=74 bpm, CBHP=494/69 mmhg, DqY2=667.0 %, Resp=14 B/min 03:46 PM Time: 15:46 Nitroglycerin 100 mcg Intracoronary Given by Jerod Garner MD tsites 03:47 PM 2.0 mm x 12 mm Mini Trek Rx balloon across target lesion- successful. reused? No tsites 03:48 PM Balloon inflated @ 12 obdulio for 11 seconds tsites 03:49 PM Balloon catheter removed intact. tsites 03:49 PM 2.25mm x 20mm Synergy drug-eluting stent across target lesion- successful Lot #[id number] tsites 03:50 PM HR=75 bpm, GIWW=652/78 mmhg, ZzB6=829 %, Resp=16 B/min 03:51 PM Stent deployed @ 14 obdulio for 7 seconds tsites 03:52 PM Stent delivery system removed intact. tsites 03:52 PM 2.25 mm x 12mm NC Emerge balloon across target lesion- successful. reused? No tsites 03:53 PM Balloon inflated @ 18 obdulio for 8 seconds tsites 03:53 PM Balloon inflated @ 18 obdulio for 14 seconds tsites 03:54 PM Balloon catheter removed intact. tsites 03:54 PM Guide wire removed intact. tsites 03:54 PM Guide catheter removed intact. tsites 03:55 PM HR=80 bpm, SLHV=441/82 mmhg, ZgX2=630.0 %, Resp=13 B/min 03:56 PM Bolus angiogram of right Femoral complete: 2 ml/sec for a total of 4 mls tsites 03:56 PM Coronary Dominance: right tsites 03:56 PM Lesion found in Proximal LAD. Pre Stenosis: 60 Pre ZAC Flow: tsites 03:56 PM Lesion found in Proximal Circumflex. Pre Stenosis: 60 Pre ZAC Flow: tsites 03:56 PM Proximal Left Anterior Descending Coronary Artery with 60% stenosis. If graft is supplying this territory, % stenosis. tsites 03:56 PM Mid/Distal Left Anterior Descending Coronary Artery and diagonal branches with 85% stenosis. If graft is supplying this area, % stenosis tsites 03:56 PM Circumflex, Obtuse Marginal, Left Posterior Descending, and Left Posterolateral Coronary Arteries with 60 % stenosis. If graft is supplying this area, % stenosis tsites 03:56 PM Procedure completed at 15:56 tsites 03:57 PM Sign out completed: Radiation Dose 411 mGy Fluoro Time: 7.4 Isovue 370 - 500ml contrast 113 ml given by Jerod Garner MD, [facility]. Complications: NoneCardiac Rehab Consult needed: YesConfirmed administered medications: Yes tsites 03:57 PM Isovue 370 - 500ml,1 Bottle(s) used. tsites 03:57 PM Sheath left in place to be pulled on floor/holding areaV+Pad tsites 03:57 PM Post ECG NSR tsites 03:57 PM Post Blood Pressure 159/82 tsites 03:57 PM 15:57 Post Pulses Bilateral DP \\T\\ PT 1+ tsites 03:57 PM Information taught Cardiac Cath and PCI tsites 03:58 PM Education needs Procedure, Plan of Care, and Responsibilities of Patient in Care tsites 03:58 PM Learning barriers :None tsites 03:58 PM Education Methods Verbal tsites 03:58 PM Education evaluation Able to repeat information tsites 03:58 PM Site status No bleeding/hematoma - Rt Groin as reported by Rocío Hanley RT (R) at 15:58 tsites 03:58 PM Opsite applied tsites 03:58 PM Plavix, Effient or Brilinta given Yes tsites 03:59 PM Time: 15:59 Plavix 300 mg Orally Given by Kylah Roe RN tsites 04:00 PM Patient out of room: 15:59 tsites 04:00 PM Family placed in consult room. tsites 04:00 PM HR=78 bpm, DCUD=302/88 mmhg, FeM1=897 %, Resp=30 B/min 04:01 PM At 16:01 the ACT was 226 seconds. tsites 04:01 PM Report given to antonio WOLFE Pt taken to Room #10. 16:01 tsites 04:04 PM Delay to floor Bed availability room dirty tsites 04:04 PM Report given to patrice WOLFE Pt taken to Holding room Room #3. 16:04 tsites 05:08 PM ACT drawn [email or web address] 05:10 PM At 17:10 the ACT was 162 seconds. [email or web address] 05:14 PM Arterial sheath pulled by Patrice Mcqueen RN, V+Pad closure device used. [email or web address] 05:22 PM Report given to Marisol WOLFE Pt taken to [facility] Room #34. 17:22 [email or web address] 05:38 PM pressure still being held per Nena Mcqueen RN [email or web address] 05:43 PM Manual pressure continues with [facility] RT at present. [email or web address] 05:55 PM Hemostasis obtained to right femoral artery [email or web address] 06:05 PM Patient out of room: 18:05 [email or web address] 06:05 PM Patient transported to [address] [place] [address] Complications Complication None Hemodynamics Pressures Site Systolic/A Wave Diastolic/V Wave Mean AO 144 80 109 AO 162 67 117 LV 170 -18 10 LV 192 49 55 AO 190 81 129 AO 158 74 109 Post Procedure Information Blood Pressure: 159/82 mmHg Rhythm: NSR Post procedural instructions were given Closure Device Time Device Success/Fail 10/11/2016 4:05:00 PM V+Pad Site Checks Time Location Status Staff Sheath In? Note 03:58 PM Rt Groin No bleeding/hematoma Rocío Hanley RT (R) Yes 04:20 PM Rt Groin No bleeding/ No Hematoma Patrice Mcqueen RN Yes 04:35 PM Rt Groin No bleeding/ No Hematoma Patrice Mcqueen RN Yes 04:55 PM Rt Groin No bleeding/ No Hematoma Patrice Mcqueen RN Yes 05:10 PM Rt Groin No bleeding/ No Hematoma Patrice Mcqueen RN Yes 05:32 PM Rt Groin Bleeding Patrice Mcqueen RN 05:45 PM Rt Groin No bleeding/ No Hematoma Patrice Mcqueen RN Pulses Time Site Pre-Procedure Post-Procedure Note 10/11/2016 3:03:00 PM Bilateral radial 2+ 10/11/2016 3:03:00 PM Bilateral DP \\T\\ PT 2+ 3:57:00 PM Bilateral DP \\T\\ PT 1+ 10/11/2016 4:20:00 PM Bilateral DP \\T\\ PT 1+ 10/11/2016 4:55:00 PM Bilateral DP \\T\\ PT 1+ Updated by Patrice Mcqueen RN on 10/11/2016 6:05:54 PM Patrice Mcqueen RN electronically signed on 10/11/2016 6:06:30 PM with status of Final
[2016-10-11] MEDS: Aspirin 81 MG TAB.CHEW PO SCH (20:38)
[2016-10-11] MEDS ORDERED: Insulin LISPRO 300 UNITS/3 ML VIAL SQ SCH (21:00)
[2016-10-12] MEDS ORDERED: Nitroglycerin 0.4 MG TAB.SUBL SL ONE (03:43)
[2016-10-12 05:25] LABS: Basophils % 0.2 %; Eosinophils % 0.7 %; Hematocrit 36.3 % (35.3-44.9); Hemoglobin 12.7 g/dL (11.5-15.4); Immature Granulocytes % 0.3 % (0-4); Lymphocytes # 2.2 K/mcL (0.6-4.6); Lymphocytes % 36.5 %; Mean Corpuscular Hemoglobin 32.1 pg (28.0-33.3); Mean Corpuscular Volume 91.7 fL (83.0-100.0); Mean Platelet Volume 8.8 fL (9.4-12.4); Monocytes # 0.5 K/mcL (0.0-1.3); Monocytes % 7.9 %; Neutrophils # 3.3 K/mcL (1.6-8.9); Platelet Count 253 K/mcL (140-400); Red Blood Count 3.96 M/mcL (3.82-4.97); Red Cell Distribution Width 12.2 % (11.5-14.5); Segmented Neutrophils % 54.4 %
[2016-10-12 05:41] LABS: BUN/Creatinine Ratio 17 (6-26); Blood Urea Nitrogen 13 mg/dL (7-20); Calcium 9.3 mg/dL (8.6-10.8); Carbon Dioxide 23 mEq/L (19-29); Chloride 104 mEq/L (98-109); Chol/HDL Ratio 5.7 (0-4.9); Cholesterol 223 mg/dL (< 200); Glucose 133 mg/dL (70-99); HDL Cholesterol 39 mg/dL (40-59); LDL Cholesterol,Calculated 139 mg/dL (0-99); Osmolality,Calculated 286 (280-300); Potassium 4.2 mEq/L (3.5-4.5); Sodium 137 mEq/L (136-145); Triglycerides 223 mg/dL (< 150); eGFR For African Americans > 60 (> 60); eGFR For Non-African Americans > 60 (> 60)
--- NOTE | 2016-10-12 06:11 | Electrocardiograph Report ---
Test Date: 2016-10-11 Pat Name: Lidia Seth Department: 105 Room: 2N4 Gender: F Staffing And Scheduling Coordinator: CYNTHIA : 1945 Requested By: Gonzalo Jimenez Order Number: [id number] Reading MD: Clarence Fritz MD Measurements Intervals [place] Rate: 79 P: 51 [place]: 164 QRS: 59 QRSD: 105 T: 45 QT: 323 QTc: 357 Interpretive Statements SINUS RHYTHM NONSPECIFIC T-WAVE ABNORMALITY Electronically Signed On 10-12-16 06:08:26 EST by Clarence Fritz MD
[2016-10-12] MEDS: Insulin LISPRO 300 UNITS/3 ML VIAL SQ SCH ×2 (08:15→11:57)
[2016-10-12] MEDS: Aspirin 81 MG TAB.CHEW PO SCH (08:17)
[2016-10-12] MEDS ORDERED: Cholecalciferol (D-3) 1,000 UNIT TABLET PO SCH (09:00)
[2016-10-12] MEDS ORDERED: Aspirin 81 MG TAB.CHEW PO SCH (09:00)
[2016-10-12] MEDS ORDERED: Loratadine 10 MG TABLET PO SCH (09:00)
--- NOTE | 2016-10-12 10:41 | Invasive Diagnostic Lab ---
Name: Lidia Seth Date of Study: 10/11/2016 Date: 1945 Ht: 168.0 cm /66.1 in Medical Record#: [id number] Age: 71 Wt: 67. kg / 147.71 lb Account/Order#: [id number] Gender: Female BSA: 1.76 Order #: [id number] Fluoro Dose: 411 mGy BMI: 23.74 Procedure Physician: Jerod Garner MD, [facility] Referring MD: Myranda Lauren DO Referring MD: Procedures Performed: LEFT HEART CATH Stent w/ PTCA Single Major Vessel Moderate sedation Iliofemoral angiography Indications: Non-Stemi Impressions: There is severe one vessel coronary artery disease. The left ventricle is normal and has normal contractility EF 55% Patient had successful PTCA/Drug-Eluting Stent placement in the mid LAD. Stent placed from a prior procedure in the Proximal RCA is patent. Stent placed from a prior procedure in the ostial-Mid RCA is patent. Recommendations: Optimal medical therapy of patient's disease. Aggressive risk factor modification. Patient being referred for cardiac rehab. History/Risk Factors: GERD Diabetes Family History of CAD Prior [place] Procedure Access obtained in the right Femoral artery by percutaneous puncture Patient had successful PTCA/Drug-Eluting Stent placement in the mid LAD. Complications: None Contrast: Isovue 113ml Closure Device: V+Pad Hemodynamics: Pressures Site Systolic/ A Wave Diastolic/ V Wave End Diastolic/ Mean HR AO 144 80 109 74 AO 162 67 117 74 LV 170 -18 10 80 LV 192 49 55 85 AO 190 81 129 85 AO 158 74 109 77 LV Ventriculography Ejection Method: LV Gram Ejection Fraction: 55% Wall Motion: MAYEN Anterobasal Normal Anterolateral Normal Apical: Normal Inferoapical Normal Inferobasal Normal Coronary Dominance: right Lesion Findings/Interventions * Left Main Coronary Artery The LMCA is angiographically free of disease. * Left Anterior Descending There is a 60% stenosis in the Proximal LAD. FFR was not significant for this lesion which has not changed compared to 2015 There is a 20 mm long, 90% stenosis in the Mid LAD. The lesion has a ZAC flow of 3 and has no thrombus present. An intervention was performed on the Mid LAD with a final stenosis of 0%. There were no lesion complications. The final ZAC flow was 3. * Circumflex There is a 60% stenosis in the Proximal Circumflex. Similar to previous angiogram 2014 with FFR not significant. * Right Coronary Artery The Proximal RCA has patent stents present from a previous procedure. The RCA is angiographically free of disease. The Mid RCA has patent stents present from a previous procedure. The Right PDA is angiographically free of disease. Visualized portion of external iliac, SFA, SPINNING MULE OPERATOR, and profunda without significant disease. Interventional Device(s) Vessel Segment Type Name Diameter (mm) Length (mm) Mid LAD Balloon Mini Trek Rx 2 12 Mid LAD Drug Eluting Stent Synergy 2.25 20 Mid LAD Balloon NC Emerge 2.25 12 Updated by Rachellha Claros, RT (R) on 10/11/2016 4:11:07 PM Jerod Garner MD, FACC electronically signed on 10/12/2016 10:36:38 AM with status of Final
--- NOTE | 2016-10-12 10:58 | Cardiology Progress Note ---
Date of Encounter: 10/12/16 Time of Encounter: 10:56 Assessment and Plan (1) Unstable angina Current Visit: Yes Status: Acute Patient presented with chest pain and troponin found to be elevated at 0.05, 0.15, and 0.10. LHC revealed a 90% stenosis in the mid LAD. She had a successful PTCA and drug- eluting stent placement to the mid LAD. 60% stenosis pLAD, 60% stenosis pLCx. There were patent stent in the proximal and mid RCA. DAPT with asa and plavix for a minimum of 1 year. continue Lopressor. Patient reports myalgias with statins. She has tried multiple times to take a statin with the same side effects. Healthy diet and exercise discussed. Chest pain reported last night. Chest pain was atypical and occurred on inspiration. She did have nonspecific T-wave changes in her anterior lateral leads. EKG was reviewed with Dr. Garner. If she is ambulating in the hallway this morning without chest pain okay for discharge from cardiology standpoint. Patient ambulated around the [facility] unit for 6 minutes. She denied any chest pain. Continue sublingual nitroglycerin and isosorbide as needed. Follow-up will be coordinated by [place] [facility], to be scheduled in 1-2 weeks. Please call with questions. (2) CAD (coronary artery disease) Current Visit: Yes Status: Chronic History of RCA and LAD stents in 2014. Status post PCI to the mid LAD with a drug-eluting stent and PTCA. See plan above. Qualifiers: Coronary Disease-Associated Artery/Lesion type: unspecified vessel or lesion type [place] vs. transplanted heart: [place] heart Associated angina: with stable angina Qualified Code(s): I25.118 - Atherosclerotic heart disease of [place] coronary artery with other forms of angina pectoris (3) Dyslipidemia Current Visit: Yes Status: Acute Lipids reviewed with patient. We discussed statin therapy. She reports trying multiple different statin. Complains of myalgia while on statins. Healthy diet and exercise discussed. Discussion w patient/family: The assessment and plan as outlined above was discussed with the patient and/or family members who expressed understanding and agreement. All questions were answered. Thank you for involving us in the care of your patient. Please call with any questions. Subjective Principal diagnosis: NSTEMI Interval history: Mrs. Seth denies c/o midsternal chest pain for a few seconds last night while resting in bed. She reported to the nurse that she was not given her scheduled Xanax. She was given Xanax after her chest pain. She did not have any recurrent pain. Her EKG did show sinus rhythm with a heart rate of 61, nonspecific moderate T-wave abnormalities in leads V2 through V5. Repeat EKG this morning showed persistent T wave inversions in leads V2 through V5. She denies chest pain at this time. Objective Vital Signs Temp Pulse Resp BP Pulse Ox 10/12/16 06:52 97.7 F 75 18 130/69 98 10/12/16 04:40 98.3 F 70 16 128/80 96 10/12/16 04:20 133/71 10/11/16 23:14 67 16 139/79 97 10/11/16 22:21 71 16 134/77 98 10/11/16 22:00 70 142/78 10/11/16 21:45 65 139/75 10/11/16 21:30 65 145/78 10/11/16 21:15 68 10/11/16 19:45 77 16 161/84 97 10/11/16 19:30 77 156/78 10/11/16 19:19 97.9 F 73 15 138/74 97 10/11/16 19:15 71 138/74 10/11/16 19:00 68 159/72 97 10/11/16 18:45 63 149/85 97 10/11/16 18:30 68 13 165/93 96 10/11/16 18:15 64 156/94 98 10/11/16 18:05 68 171/88 10/11/16 14:42 98 10/11/16 13:12 71 14 124/70 99 Intake and Output 10/11/16 10/12/16 10/12/16 23:59 07:59 15:59 Intake Total 220 / 220 Output Total 300 / 300 Balance -80 / -80 Intake: Oral 220 / 220 Output: Urine 300 / 300 Other: # Voids 1 Weight 67.2 kg Blood Glucose* 229 132 Patient Weight 10/12/16 23:59 Weight 67.2 kg General: Conversant, No Apparent Distress HEENT: Atraumatic, Normocephaly, Mucus Membranes Moist Neck: No JVD, Normal carotid pulses Cardiac: Reg Rate and Rhythm, Normal S1 and S2, No Murmur Lungs: Normal Breath Sounds, No Wheeze, Rales, Rhonchi Neuro: Alert and responsive, No focal deficits noted Abdomen: Soft, Non-Tender Skin: No rashes noted on visualized skin Musculoskeletal: No Chest Wall Tenderness Extremities: No Clubbing, No Cyanosis, No Edema, Normal Pulses Results 10/12/16 05:09 10/12/16 05:09 Lab Results 10/11/16 10/11/16 10/11/16 14:19 16:38 16:38 WBC 4.9 Hgb 12.5 D Hct 35.7 Plt Count 257 INR 1.1 APTT 163.6 H* D Sodium Potassium Chloride Carbon Dioxide BUN Creatinine Glucose Calcium Troponin I 0.15 H* 10/11/16 10/12/16 10/12/16 20:28 05:09 05:09 WBC 6.1 Hgb 12.7 Hct 36.3 Plt Count 253 INR APTT Sodium 137 Potassium 4.2 Chloride 104 Carbon Dioxide 23 BUN 13 Creatinine 0.77 Glucose 133 H Calcium 9.3 Troponin I 0.10 H* - Imaging and Cardiology Echo: report reviewed Cardiac cath: report reviewed - EKG Interpretation EKG results cardiology: personally reviewed Consult Discharge Plan - Plan
--- NOTE | 2016-10-12 11:08 | Electrocardiograph Report ---
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
--- NOTE | 2016-10-12 11:08 | Electrocardiograph Report ---
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
[2016-10-12 11:49] VITALS: BP 129/68
--- NOTE | 2016-10-12 12:41 | Discharge Summary ---
Date of Encounter: 10/12/16 Time of Encounter: 12:38 - Discharge Diagnosis (1) Unstable angina Priority: Primary Status: Acute (2) CAD (coronary artery disease) Priority: Secondary Status: Chronic Qualifiers: Coronary Disease-Associated Artery/Lesion type: unspecified vessel or lesion type [place] vs. transplanted heart: [place] heart Associated angina: with stable angina Qualified Code(s): I25.118 - Atherosclerotic heart disease of [place] coronary artery with other forms of angina pectoris (3) Dyslipidemia Priority: Secondary Status: Acute (4) Hypertension Priority: Secondary Status: Chronic Qualifiers: Hypertension type: essential hypertension Qualified Code(s): I10 - Essential (primary) hypertension (5) Diabetes mellitus type 2, noninsulin dependent Priority: Secondary Status: Chronic (6) GERD (gastroesophageal reflux disease) Priority: Secondary Status: Chronic Qualifiers: Esophagitis presence: without esophagitis Qualified Code(s): K21.9 - Gastro -esophageal reflux disease without esophagitis - Discharge Medications Home Medications: Alprazolam [Xanax 0.25 MG Tablet] 0.25 mg PO BID PRN 07/12/16 [History] Aspirin 81 mg PO DAILY 07/12/16 [History] Clopidogrel [Plavix] 75 mg PO DAILY 07/12/16 [History] Isosorbide MONOnitrate [Isosorbide Mononitrate ER] 240 mg PO DAILY 07/12/16 [ History] Nitroglycerin [Nitrostat] 0.4 mg SL AD PRN 07/12/16 [History] Pantoprazole Sodium [Protonix] 40 mg PO BID 07/12/16 [History] Ubidecarenone/Vit E Acetate [Co Q-10 100 mg Softgel] 200 mg PO DAILY 07/12/16 [ History] Lisinopril [Zestril] 10 mg PO DAILY #15 tablet 07/14/16 [Rx] Glimepiride 1.5 mg PO BID 08/16/16 [History] Metformin [Glucophage] 500 mg PO BID 08/16/16 [History] Metoprolol Tartrate 50 mg PO BID 08/16/16 [History] Cholecalciferol (D-3) [Vitamin D] 2,000 unit PO DAILY 10/11/16 [History] Loratadine [Allergy Relief] 10 mg PO DAILY 10/11/16 [History] Allergies/Adverse Reactions: Allergies penicillin V Allergy (Verified 08/16/16 08:11) Anaphylaxis atorvastatin [From Lipitor] Adverse Reaction (Verified 08/16/16 08:11) Muscle Pain Procedures/tests Complete & Pending: Procedures Performed prior 72 hours Category Date Time Status CL Cardiac Catheterization [CL] 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 10/11/16 14:32 Completed ECG 12 lead ECG [ECG] Routine Y 10/12/16 04:07 Completed EKG [ECG 12 lead ECG] [ECG] Stat Y 10/12/16 03:40 Completed Date of admission: 10/11/16 09:55 Primary care physician: Myranda Lauren DO Consults: 10/11/16 11:57 Consult to Cardiology [CONS] Routine Comment: Consulting Provider: Elizabeth Serrano Reason for Consult: CP- possible cardiac cath - notifed by ED Time Notified: 11:57 Call Completed: No 10/11/16 16:10 Consult to Cardiac Rehabilitation-Phase1 [CONS] Routine Comment: Reason for Consult: post op cath Call Completed: Yes Discharging clinician: Carl Vincent Anticipated date of discharge: 10/12/16 - Patient Status Disposition: Home, Self-Care Overall status at discharge: patient is progressing back to baseline - Discharge Instructions Instructions: Chest Pain (DC), Urinary Tract Infection in Women (DC), Diabetes Mellitus Type 2 in Adults (DC), Chronic Hypertension (DC) Follow Up With: Myranda Lauren DO [Primary Care Provider] - Forms: ED Satisfaction Letter - Diet and Activity Activity: increase activity as tolerated Diet: advance to your usual diet Hospital course: Ms. Seth is a 71 year old female with hx of DM, HTN and CAD presented to ED with chest pain. She was to have an outpatient LHC next week. She was found to have a slightly elevated troponin and was subsequently placed in observation for unstable angina. Ms. Seth was placed in observation on [place]. She was evaluated by cardiology and due to her symptoms, labs and prior history she was taken for LHC. She was found to have 90% occlusion of LAD and had PTCA and drug eluting stent. She tolerated this well. During the night she developed some chest tightness - ultimately relieved with her home Xanax. In the morning of 10/12/16 she was feeling well. She was able to ambulate in the [facility] without discomfort. At that time she was cleared for discharge by cardiology. Currently she is asymptomatic. Her BP is good and she is afebrile. She is medically stable for discharge home. - Time Spent with Patient Total time spent providing and/or coordinating discharge services: 40min - Constitutional Vitals: Temp Pulse Resp BP Pulse Ox 97.4 F L 71 18 129/68 98 10/12/16 11:46 10/12/16 11:46 10/12/16 11:46 10/12/16 11:46 10/12/16 12:29 General appearance: Present: A&O X 3, answers questions appropriately - Head Head exam: Present: normocephalic - Eye Eye exam: Present: conjuntiva pink - ENT ENT exam: Present: mucous membranes moist - Respiratory Respiratory exam: Present: CTAB. Absent: wheezes - Cardiovascular Cardiovascular exam: Present: RRR. Absent: tachycardia - GI/Abdominal GI/Abdominal exam: Present: soft. Absent: tenderness - Extremities Exam Extremities exam: Present: warm. Absent: pedal edema - Neurological Exam Neurological exam: Present: alert, oriented X3 - Psychiatric Psychiatric exam: Present: normal affect, normal mood - Skin Skin exam: Present: warm. Absent: rash
== END 2016-10-12 13:20 | disposition home or self-care (01) ==
LOC: EMEROO 08:05 → 2NENU 08:05
PROVIDERS: ADMIT Internal Medicine; ATTEND Internal Medicine

== ENCOUNTER 2016-12-13 15:56 | Observation (INO) ==
--- NOTE | 2016-12-13 16:04 | Emergency Department Note ---
Disposition Clinical Impression: Dyslipidemia, Diabetes mellitus type 2, noninsulin dependent, CAD (coronary artery disease), Hypertension, Chest pain, Abnormal EKG, Abnormal EKG, Frail elderly Disposition: Admitted As Inpatient General Adult HPI - General Stated complaint: Chest Pain Time Seen by Provider: 12/13/16 16:02 - History of Present Illness HPI Narrative: 71-year-old female with a history of coronary disease status post recent stent placement in September of this year reports the emergency department complaining of midsternal chest pain which is sharp. The patient has had no syncope or coughing up blood. She has had a cough which she attributes to her AISHA inhibitor. There is no history of leg swelling or pain or syncope. The patient has no previous history of DVT PE or cancer. No history of aneurysm. The patient denies abdominal pain vomiting or diarrhea. She states she does have gallbladder disease but does not have right upper abdominal pain. There is no history of bloody stool. The patient does take antiplatelet agents. There is no history of fever or tearing back pain. The patient has had no trauma or rash. There is no history of radiating pain to the left arm or left jaw or right side. No jaundice or icterus described. She reports she has another coronary artery over 65% occluded which was not stented. - Related Data Home Medications Medication Instructions Recorded Confirmed Alprazolam [Xanax 0.25 MG Tablet] 0.25 mg PO BID PRN 07/12/16 10/31/16 Aspirin 81 mg PO DAILY 07/12/16 10/31/16 Clopidogrel [Plavix] 75 mg PO DAILY 07/12/16 10/31/16 Isosorbide MONOnitrate [Isosorbide 240 mg PO DAILY 07/12/16 10/31/16 Mononitrate ER] Nitroglycerin [Nitrostat] 0.4 mg SL PRN PRN 07/12/16 10/31/16 Pantoprazole Sodium [Protonix] 40 mg PO BID 07/12/16 10/31/16 Ubidecarenone/Vit E Acetate [Co 200 mg PO DAILY 07/12/16 10/31/16 Q-10 100 mg Softgel] Glimepiride 1.5 mg PO BID 08/16/16 10/31/16 Metformin [Glucophage] 500 mg PO BID 08/16/16 10/31/16 Metoprolol Tartrate 50 mg PO BID 08/16/16 10/31/16 Cholecalciferol (D-3) [Vitamin D] 2,000 unit PO DAILY 10/11/16 10/31/16 Loratadine [Allergy Relief] 10 mg PO DAILY 10/11/16 10/31/16 Lactobacillus Acidophilus 2 each PO DAILY 10/31/16 10/31/16 [Acidophilus] Previous Rx's Medication Instructions Recorded Lisinopril [Zestril] 10 mg PO DAILY #15 tablet 07/14/16 Allergies Allergy/AdvReac Type Severity Reaction Status Date / Time penicillin V Allergy Anaphylaxis Verified 08/16/16 08:11 atorvastatin [From Lipitor] AdvReac Muscle Pain Verified 08/16/16 08:11 All systems ED: reviewed and negative except as stated. 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 Absent: scleral icterus, conjunctival injection, miosis, mydriasis - ENT ENT exam: normal exam, normal oropharynx, mucous membranes moist, TM's normal bilaterally, normal external ear exam - Neck Neck exam: Present: normal inspection, full ROM, trachea midline - Chest Chest inspection: Present: symmetric chest wall rise. Absent: tenderness - Respiratory Respiratory exam: Present: normal lung sounds bilaterally. Absent: respiratory distress - Cardiovascular Cardiovascular exam: Present: normal rhythm, tachycardia - Abdominal Exam Abdominal exam: Present: soft, Non-Tender. Absent: tenderness, distention, guarding, rebound, rigidity, normal bowel sounds, trauma, Markham's sign, pulsatile mass - Extremities Exam Extremities exam: Present: normal inspection, full ROM, normal capillary refill. Absent: tenderness, pedal edema, joint swelling, calf tenderness - Expanded Lower Extremity Exam Lower leg exam: Absent: Homans' sign Neurovascular/Tendon exam: Absent: pulse deficit, motor deficit, sensory deficit , tendon deficit, extremity cold to touch, pallor - Back Exam Back exam: Present: normal inspection, full ROM. Absent: tenderness, CVA tenderness (R), CVA tenderness (L), vertebral tenderness - Neurological Exam Neurological exam: Present: alert, oriented X3, CN II-XII intact. Absent: motor sensory deficit - Psychiatric Psychiatric exam: Present: normal affect, normal mood - Skin Skin exam: Present: warm, dry, intact, normal color. Absent: rash, cyanosis, diaphoresis, erythema, pallor, mottled Course Vital Signs Temperature 98.0 F 12/13/16 16:01 Pulse Rate 114 12/13/16 16:01 Respiratory Rate 18 12/13/16 16:01 Blood Pressure 177/100 12/13/16 16:01 O2 Sat by Pulse Oximetry 98 12/13/16 16:01 Temperature 98.0 F 12/13/16 16:01 Pulse Rate 114 12/13/16 16:01 Respiratory Rate 18 12/13/16 16:01 Blood Pressure 177/100 12/13/16 16:01 O2 Sat by Pulse Oximetry 98 12/13/16 16:01 Oxygen Delivery Oxygen Delivery Room Air Medical Decision Making - MDM Narrative Medical decision making narrative: The patient is elderly, has a history of diabetes, hypertension, hyperlipidemia , CAD, multiple coronary stents, and abnormal EKG and is complaining of chest pain. Based on her risk factors and acute presentation, I thought it be appropriate to admit the patient to the hospital. Aspirin was given the ED as well as morphine and Zofran. The patient is currently stable. - Lab Data Lab results reviewed: Yes I reviewed the patient's lab results. Result diagrams: 12/13/16 16:17 12/13/16 16:17 Lab Results 12/13/16 12/13/16 12/13/16 Range/Units 16:17 16:17 16:17 WBC 5.8 (4.3-11.1) K/mcL RBC 3.99 (3.82-4.97) M/mcL Hgb 12.9 (11.5-15.4) g/dL Hct 36.5 (35.3-44.9) % MCV 91.5 (83.0-100.0) fL MCH 32.3 (28.0-33.3) pg MCHC 35.3 (31.6-35.5) g/dL RDW 13.2 (11.5-14.5) % Plt Count 312 (140-400) K/mcL MPV 9.0 L (9.4-12.4) fL Immature Gran % 0.3 (0-4) % Seg Neutrophils % 55.9 % Lymphocytes % 33.5 % Monocytes % 9.0 % Eosinophils % 1.0 % Basophils % 0.3 % Neutrophils # 3.2 (1.6-8.9) K/mcL Lymphocytes # 1.9 (0.6-4.6) K/mcL Monocytes # 0.5 (0.0-1.3) K/mcL Eosinophils # 0.1 (0.0-0.6) K/mcL Basophils # 0.0 (0.0-0.2) K/mcL Immature Plt Fraction 1.8 (1.1-6.1) % PT 10.6 (9.4-12.1) Seconds INR 1.0 APTT 26.3 (26.0-36.0) Seconds Sodium 140 (136-145) mEq/L Potassium 3.7 (3.5-4.5) mEq/L Chloride 104 (98-109) mEq/L Carbon Dioxide 20 (19-29) mEq/L BUN 12 (7-20) mg/dL Creatinine 0.86 (0.57-1.11) mg/dL Est GFR ( Amer) > 60 (> 60) Est GFR (Non-Af Amer) > 60 (> 60) BUN/Creatinine Ratio 14 (6-26) Glucose 162 H (70-99) mg/dL Calculated Osmolality 293 (280-300) Calcium 9.8 (8.6-10.8) mg/dL Total Bilirubin 0.4 (0.2-1.2) mg/dL Direct Bilirubin 0.1 (0.0-0.5) mg/dL Indirect Bilirubin 0.3 (0.0-1.2) mg/dL AST 16 (5-34) Units/L ALT 16 (0-55) Units/L Alkaline Phosphatase 70 (38-126) Units/L Serum Total Protein 7.9 (6.0-8.3) g/dL Albumin 4.2 (3.5-5.0) g/dL Globulin 3.7 H (2.4-3.5) g/dL Albumin/Globulin Ratio 1.1 (1.1-2.2) Lipase 43 (8-78) Units/L - Radiology Data Radiology results reviewed: Yes I reviewed the patient's radiology results. - EKG Data EKG #1 EKG shows normal: sinus rhythm Rate: tachycardia When compared to previous EKG there are: other (Slight ST depressions laterally , possibly rate related, abnormal EKG.)
[2016-12-13] MEDS ORDERED: Aspirin 325 MG TABLET PO ONE (16:13)
[2016-12-13] MEDS ORDERED: *HR* Morphine 2 MG/ML SYRINGE IVP ONE (16:13)
[2016-12-13] MEDS ORDERED: Ondansetron 4 MG/2 ML VIAL IVP ONE (16:14)
[2016-12-13 16:41] LABS: Basophils % 0.3 %; Eosinophils # 0.1 K/mcL (0.0-0.6); Hematocrit 36.5 % (35.3-44.9); Hemoglobin 12.9 g/dL (11.5-15.4); Immature Granulocytes % 0.3 % (0-4); Immature Platelets 1.8 % (1.1-6.1); Lymphocytes # 1.9 K/mcL (0.6-4.6); Lymphocytes % 33.5 %; Mean Corpuscular HGB Conc 35.3 g/dL (31.6-35.5); Mean Corpuscular Hemoglobin 32.3 pg (28.0-33.3); Mean Corpuscular Volume 91.5 fL (83.0-100.0); Monocytes # 0.5 K/mcL (0.0-1.3); Neutrophils # 3.2 K/mcL (1.6-8.9); Platelet Count 312 K/mcL (140-400); Red Blood Count 3.99 M/mcL (3.82-4.97); Red Cell Distribution Width 13.2 % (11.5-14.5); Segmented Neutrophils % 55.9 %
[2016-12-13 16:51] LABS: Prothrombin Time 10.6 Seconds (9.4-12.1)
[2016-12-13 16:54] LABS: Activated Partial Thrombo Time 26.3 Seconds (26.0-36.0)
[2016-12-13 17:03] LABS: Alanine Aminotransferase 16 Units/L (0-55); Albumin 4.2 g/dL (3.5-5.0); Albumin/Globulin Ratio 1.1 (1.1-2.2); Alkaline Phosphatase 70 Units/L (38-126); Aspartate Amino Transferase 16 Units/L (5-34); BUN/Creatinine Ratio 14 (6-26); Bilirubin,Direct 0.1 mg/dL (0.0-0.5); Bilirubin,Indirect 0.3 mg/dL (0.0-1.2); Bilirubin,Total 0.4 mg/dL (0.2-1.2); Blood Urea Nitrogen 12 mg/dL (7-20); Calcium 9.8 mg/dL (8.6-10.8); Carbon Dioxide 20 mEq/L (19-29); Chloride 104 mEq/L (98-109); Globulin 3.7 g/dL (2.4-3.5); Glucose 162 mg/dL (70-99); Lipase 43 Units/L (8-78); Osmolality,Calculated 293 (280-300); Potassium 3.7 mEq/L (3.5-4.5); Sodium 140 mEq/L (136-145); Total Protein 7.9 g/dL (6.0-8.3); eGFR For African Americans > 60 (> 60); eGFR For Non-African Americans > 60 (> 60)
[2016-12-13 17:07] LABS: C-Reactive Protein 1 mg/L (Less than 5)
--- NOTE | 2016-12-13 20:06 | Internal Med History&Physical ---
Date of Encounter: 12/13/16 Time of Encounter: 20:02 Assessment and Plan (1) Chest pain Current visit: No Status: Acute History of coronary artery disease, stent placed in Sep 2016. Taking DAPT. Will check trend of troponins. Telemetry monitoring. Continue with aspirin, Plavix, statins. Cardio evaluation for further recommendations. DVT prophylaxis. D/W patient. Qualifiers: Chest pain type: unspecified Qualified Code(s): R07.9 - Chest pain, unspecified (2) Diabetes mellitus type 2, noninsulin dependent Current visit: Yes Status: Chronic Monitor fingerstick. Insulin sliding scale for now. Hold metformin. (3) CAD (coronary artery disease) Current visit: Yes Status: Chronic Qualifiers: Coronary Disease-Associated Artery/Lesion type: three [place] artery [place] vs. transplanted heart: three affiliated heart Associated angina: angina presence unspecified Qualified Code(s): I25.10 - Atherosclerotic heart disease of [place] coronary artery without angina pectoris (4) Hypertension Current visit: Yes Status: Chronic Qualifiers: Hypertension type: essential hypertension Qualified Code(s): I10 - Essential (primary) hypertension (5) GERD (gastroesophageal reflux disease) Current visit: No Status: Chronic Qualifiers: Esophagitis presence: without esophagitis Qualified Code(s): K21.9 - Gastro -esophageal reflux disease without esophagitis Internal Medicine - H&P: HPI Chief complaint: Chest pain Admitted From: Emergency Dept Plans for Post Hospital Care: Home History of present illness: Ms. Seth is a 71 year old female with past medical history of coronary artery disease, she underwent a PTCA with drug eluting stent placed in the medial LAD on September of this year, hypertension, diabetes, cholelithiasis. She presented to our emergency department complaining of substernal chest pain, pressure-like , intermittent which is started 2 days ago. Upon presentation to the emergency department her blood pressure was 177/100, heart rate 114, oxygen saturation 98% , respiratory rate 18 minutes, temperature 90.8. Chest x-ray unremarkable. Initial blood work was otherwise unremarkable. Troponin was 0.00. The patient was admitted for further management and workup. On my encounter with the patient she was already in the observation unit, she denies chest pain, shortness of breath, fever, chills, diarrhea, constipation. She states it has been dealing with issues with her gallbladder for a few years already. She is taking both aspirin and Plavix as prescribed, she follows up with cardiology on a regular basis, her creative art director is Dr. Irwin. Past Med Surg Social Fam HX - Past Medical History Medical history: arthritis, coronary artery disease, diabetes, GERD, GI bleed, hyperlipidemia, hypertension, kidney stones, myocardial infarction Psychiatric history: no psych history - Past Surgical History Surgical History: hysterectomy, other - Social History Smoking Status: Never smoker Smokeless Tobacco Status: No Alcohol use: occasionally Drug use: none - Family History Mother Living Status: Hx Family Medical Disorders: Yes (esophageal varicies) Father Adopted: No Family Member Ethnicity: Non- Living Status: Hx Family Cardiac Disorders: Yes (smoker) Hx Family Respiratory Disorders: Yes (smoker) Hx Family Cancer: No Hx Family GI Disorders: Yes (self) Hx Family Endocrine Disorder: Yes (self, cousin,mother) Hx Family Neuromuscular Disorders: No Hx Family Neurologic Disorders: Yes (grandfather) Hx Family HEENT Disorders: No Hx Family Autoimmune Disorders: No Grandmother Hx Family Endocrine Disorder: Yes (Diabetes) Internal Medicine - H&P: Meds Alprazolam [Xanax 0.25 MG Tablet] 0.25 mg PO HS 07/12/16 [History] Aspirin 81 mg PO DAILY 07/12/16 [History] Clopidogrel [Plavix] 75 mg PO DAILY 07/12/16 [History] Isosorbide MONOnitrate [Isosorbide Mononitrate ER] 240 mg PO DAILY 07/12/16 [ History] Nitroglycerin [Nitrostat] 0.4 mg SL Q5M PRN 07/12/16 [History] Pantoprazole Sodium [Protonix] 40 mg PO BID 07/12/16 [History] Ubidecarenone/Vit E Acetate [Co Q-10 100 mg Softgel] 200 mg PO DAILY 07/12/16 [ History] Lisinopril [Zestril] 10 mg PO DAILY #15 tablet 07/14/16 [Rx] Glimepiride 1.5 mg PO BID 08/16/16 [History] Metformin [Glucophage] 500 mg PO BID 08/16/16 [History] Metoprolol Tartrate 50 mg PO BID 08/16/16 [History] Cholecalciferol (D-3) [Vitamin D] 2,000 unit PO DAILY 10/11/16 [History] Loratadine [Allergy Relief] 10 mg PO DAILY PRN 10/11/16 [History] Atorvastatin Calcium [Lipitor] 20 mg PO TUFR 12/13/16 [History] Dicyclomine [Bentyl] 10 mg PO QID PRN 12/13/16 [History] Sucralfate [Carafate] 1 gm PO TIDAC 12/13/16 [History] Allergies penicillin V Allergy (Verified 08/16/16 08:11) Anaphylaxis All Systems PM: A 10-system review of systems was performed and is negative for pertinent findings except as documented above in the HPI. - Constitutional Constitutional: as per HPI, no chills, no fever(s), no night sweats - EENT Eyes: as per HPI, no change in vision, no discharge, no pain, no photophobia Ears: as per HPI, no ear discharge, no ear pain, no tinnitus Nose, mouth and throat: as per HPI, no dysphagia, no nasal discharge, no neck pain, no sore throat - Breasts Breasts: as per HPI - Cardiovascular Cardiovascular ROS IM: as per HPI, no chest pain, no diaphoresis, no dyspnea, no lightheadedness, no palpitations, no syncope - Respiratory Respiratory: as per HPI, no cough, no dyspnea, no wheezing, no excessive phlegm production - Gastrointestinal Gastrointestinal: as per HPI, no abdominal pain, no diarrhea, no hematemesis, no hematochezia, no melena, no nausea, no vomiting - Genitourinary Genitourinary: as per HPI, no change in urinary stream, no dysuria, no flank pain, no hematuria Menstruation: as per HPI - Musculoskeletal Musculoskeletal ROS IM: as per HPI, no numbness, no tingling - Integumentary Integumentary IM: as per HPI, no rash, no unusual bruising - Neurological Neurological ROS: as per HPI, no confusion, no convulsions, no focal weakness, no numbness, no tingling, no tremor(s) - Psychiatric Psychiatric: as per HPI - Endocrine Endocrine IM: as per HPI - Hematologic/Lymphatic Hematologic/Lymphatic: as per HPI, no easy bruising - Allergic/Immunologic Allergic/Immunologic: as per HPI - Constitutional Vitals: Temp Pulse Resp BP Pulse Ox 98.1 F 79 12 119/50 96 03/29/17 18:53 12/13/16 18:53 12/13/16 18:53 12/13/16 18:53 12/13/16 18:53 General appearance: Present: cooperative, A&O X 3, pleasant, no acute distress - Head Head exam: Present: atraumatic, normocephalic - Eye Eye exam: Present: PERRL, conjuntiva pink, sclera anicteric Pupils: Present: PERRL - Neck Neck exam general surgery: Present: supple, trachea midline. Absent: lymphadenopathy - Respiratory Respiratory exam: Present: CTAB. Absent: accessory muscle use, rales, rhonchi, wheezes - Cardiovascular Cardiovascular exam: Present: RRR, +S1, +S2. Absent: diastolic murmur, gallop, rubs, systolic murmur - GI/Abdominal GI/Abdominal exam: Present: normal bowel sounds, soft, no peritoneal signs. Absent: distended, tenderness - Extremities Exam Extremities exam: Present: warm, radial pulses palpable and symetrical. Absent : calf tenderness, cyanotic, pedal edema - Neurological Exam Neurological exam: Present: CN II-XII intact, oriented X3, no focal deficits. Absent: pronater drift, facial droop, speech deficit - Skin Skin exam: Present: dry, intact Internal Med - H&P Results - Labs CBC & Chem 7: 12/13/16 16:17 12/13/16 16:17
[2016-12-13] MEDS ORDERED: Naloxone 0.4 MG/ML INJ IVP PRN (20:10)
[2016-12-13] MEDS ORDERED: Ondansetron 4 MG/2 ML VIAL IVP PRN (20:10)
[2016-12-13] MEDS ORDERED: *HR* Morphine 2 MG/ML SYRINGE IVP PRN (20:10)
[2016-12-13] MEDS ORDERED: Acetaminophen 325 MG TABLET PO PRN (20:10)
[2016-12-13] MEDS ORDERED: Nitroglycerin 0.4 MG TAB.SUBL SL PRN (20:12)
[2016-12-13] MEDS ORDERED: *HR* Morphine 2 MG/ML SYRINGE ONE (20:56)
[2016-12-13] MEDS ORDERED: ALPRAZolam 0.25 MG TABLET PO SCH (21:00)
[2016-12-14] MEDS ORDERED: *HR* Heparin 5,000 UNIT/ML VIAL SQ SCH (06:00)
[2016-12-14] MEDS ORDERED: Aspirin 81 MG TAB.CHEW PO SCH (09:00)
[2016-12-14] MEDS ORDERED: Isosorbide MONOnitrate (24 HR) 60 MG TAB.ER.24H PO SCH (09:00)
[2016-12-14] MEDS ORDERED: Cholecalciferol (D-3) 1,000 UNIT TABLET PO SCH (09:00)
--- NOTE | 2016-12-14 10:46 | Cardiology Consult Note ---
<Maynor Garza - Last Filed: 12/14/16 10:42> Date of Encounter: 12/13/16 Time of Encounter: 10:42 Assessment and Plan (1) Chest pain Current Visit: Yes Status: Acute Presents with mostly atypical CP--has been constant since Sunday after eating Mozzarella sticks. It does however worsen with exertion, but also worsens with cough and deep breaths. Somewhat reproducible on palpation. Troponins negative x 3. No acute EKG changes. [facility] 10/11/2016: Left main normal. LAD proximal 60% stenosis (FFR not significant) , mid LAD 95% stenosis (YOSELIN placed). Circumflex proximal 60% stenosis. RCA proximal and mid patent stents. RPDA normal. Reviewed films with Dr. Garner, interventional and he sees no reason to repeat [facility] at this time. Continue ASA, Statin, Plavix, BB, Imdur. Will start Ranexa 500mg BID. Hypertensive on presentation, now resolved. Anticipate cardiology will sign off after seen and evaluated by Dr. Veliz. Follow-up with Dr. Irwin as outpt in 2-3 weeks. Qualifiers: Chest pain type: unspecified Qualified Code(s): R07.9 - Chest pain, unspecified (2) CAD (coronary artery disease) Current Visit: Yes Status: Chronic [facility] 10/11/2016: Left main normal. LAD proximal 60% stenosis (FFR not significant) , mid LAD 95% stenosis (YOSELIN placed). Circumflex proximal 60% stenosis. RCA proximal and mid patent stents. RPDA normal. Continue ASA, Plavix, Statin, BB, Nitrates. Qualifiers: Coronary Disease-Associated Artery/Lesion type: [place] artery [place] vs. transplanted heart: [place] heart Associated angina: angina presence unspecified Qualified Code(s): I25.10 - Atherosclerotic heart disease of [place] coronary artery without angina pectoris (3) Hypertension Current Visit: Yes Status: Chronic Hypertensive on admission, now resolved. Continue to monitor. Qualifiers: Hypertension type: essential hypertension Qualified Code(s): I10 - Essential (primary) hypertension Discussion w patient/family: The assessment and plan as outlined above was discussed with the patient and/or family members who expressed understanding and agreement. All questions were answered. Thank you for involving us in the care of your patient. Please call with any questions. I will discuss all the above with Dr. Veliz and make changes as necessary. History of Present Illness Consult date: 12/14/16 Requesting physician: Kun Jacobson Consult reason: chest pain Chief complaint: chest pain History of present illness: Ms. Seth is a 71 year old female with PMH of CAD, prior PCI to RCA (3 Brant 2014 , 1 YOSELIN 2013), and prior PCI to LAD (1 YOSELIN 2013, 1 YOSELIN 2016). [facility] 10/11/16 that resulted in YOSELIN placement in the mid LAD. Patent stents in the proximal and mid RCA. Pt presented to ED for chest pain that has been constant since Sunday. She reports it is across her upper chest, sharp and heavy, worse with exertion, deep inspiration and coughing. Currently CP 11/24. No worsening of dyspnea. She does report Sunday she ate mozzarella sticks from [employer]. On presentation BP elevated 177/100 and HR was 112, SR. Troponins have been negative. No EKG changes. Prior cardiovascular testing: Holter monitor 09/2015: Rare PACs averaging 1/h. Rare PACs averaging 0.4/h. Carotid duplex 09/2015: Minimal plaque bilaterally. Exercise nuclear stress test 08/25/2015: Negative for ischemia or prior infarct. Fair exercise capacity. Echocardiogram 07/13/2016: LVEF 60-65%. Normal LV, RV size and function. Mild diastolic dysfunction. No significant pulmonary hypertension. No significant valvular dysfunction. [facility] 10/11/2016: Left main normal. LAD proximal 60% stenosis (FFR not significant) , mid LAD 95% stenosis (YOSELIN placed). Circumflex proximal 60% stenosis. RCA proximal and mid patent stents. RPDA normal. Past Med Surg Social Fam HX - Past Medical History Medical history: arthritis, coronary artery disease, diabetes, GERD, GI bleed, hyperlipidemia, hypertension, kidney stones, myocardial infarction Psychiatric history: no psych history - Past Surgical History Surgical History: angioplasty/stent, hysterectomy, other - Social History Smoking Status: Never smoker Smokeless Tobacco Status: No Alcohol use: occasionally Drug use: none - Family History Mother Living Status: Hx Family Medical Disorders: Yes (esophageal varicies) Father Adopted: No Family Member Ethnicity: Non- Living Status: Hx Family Cardiac Disorders: Yes (smoker) Hx Family Respiratory Disorders: Yes (smoker) Hx Family Cancer: No Hx Family GI Disorders: Yes (self) Hx Family Endocrine Disorder: Yes (self, cousin,mother) Hx Family Neuromuscular Disorders: No Hx Family Neurologic Disorders: Yes (grandfather) Hx Family HEENT Disorders: No Hx Family Autoimmune Disorders: No Grandmother Hx Family Endocrine Disorder: Yes (Diabetes) Medications and Allergies Alprazolam [Xanax 0.25 MG Tablet] 0.25 mg PO HS 07/12/16 [History] Aspirin 81 mg PO DAILY 07/12/16 [History] Clopidogrel [Plavix] 75 mg PO DAILY 07/12/16 [History] Isosorbide MONOnitrate [Isosorbide Mononitrate ER] 240 mg PO DAILY 07/12/16 [ History] Nitroglycerin [Nitrostat] 0.4 mg SL Q5M PRN 07/12/16 [History] Pantoprazole Sodium [Protonix] 40 mg PO BID 07/12/16 [History] Ubidecarenone/Vit E Acetate [Co Q-10 100 mg Softgel] 200 mg PO DAILY 07/12/16 [ History] Lisinopril [Zestril] 10 mg PO DAILY #15 tablet 07/14/16 [Rx] Glimepiride 1.5 mg PO BID 08/16/16 [History] Metformin [Glucophage] 500 mg PO BID 08/16/16 [History] Metoprolol Tartrate 50 mg PO BID 08/16/16 [History] Cholecalciferol (D-3) [Vitamin D] 2,000 unit PO DAILY 10/11/16 [History] Loratadine [Allergy Relief] 10 mg PO DAILY PRN 10/11/16 [History] Atorvastatin Calcium [Lipitor] 20 mg PO TUFR 12/13/16 [History] Dicyclomine [Bentyl] 10 mg PO QID PRN 12/13/16 [History] Sucralfate [Carafate] 1 gm PO TIDAC 12/13/16 [History] Allergies penicillin V Allergy (Verified 08/16/16 08:11) Anaphylaxis All Systems Review: A 10-system review of systems was performed and is negative for pertinent findings except as documented above in the HPI. - Cardiovascular Cardiovascular: as per HPI, chest pain at rest, chest pain with exertion Physical Examination Vital Signs, Last 4 Hours Temp Pulse Resp BP Pulse Ox 12/14/16 08:11 97.8 F 67 14 100/59 97 Vital Signs Temp Pulse Resp BP Pulse Ox 12/14/16 08:11 97.8 F 67 14 100/59 97 12/14/16 04:40 97.7 F 61 16 104/60 96 12/13/16 23:30 98.0 F 69 16 112/61 97 12/13/16 18:53 98.1 F 79 12 119/50 96 12/13/16 18:14 16 144/99 12/13/16 16:01 98.0 F 114 18 177/100 98 Intake and Output 12/13/16 12/14/16 12/14/16 23:59 07:59 15:59 Other: Weight 68.901 kg 70.67 kg Blood Glucose* 128 Patient Weight 12/14/16 23:59 Weight 70.67 kg General: Conversant, No Apparent Distress HEENT: Atraumatic, Normocephaly, Mucus Membranes Moist Neck: No JVD, Normal carotid pulses Cardiac: Reg Rate and Rhythm, Normal S1 and S2, No Murmur Lungs: Normal Breath Sounds, No Wheeze, Rales, Rhonchi Neuro: Alert and responsive, No focal deficits noted Abdomen: Soft, Non-Tender Skin: No rashes noted on visualized skin Musculoskeletal: No Chest Wall Tenderness Extremities: No Clubbing, No Cyanosis, No Edema, Normal Pulses Results 12/13/16 16:17 12/13/16 16:17 Lab Results 12/13/16 12/14/16 20:21 01:50 Troponin I 0.00 0.01 Short CBC 12/13/16 Range/Units 16:17 WBC 5.8 (4.3-11.1) K/mcL Hgb 12.9 (11.5-15.4) g/dL Hct 36.5 (35.3-44.9) % Plt Count 312 (140-400) K/mcL Neutrophils # 3.2 (1.6-8.9) K/mcL BMP 12/13/16 Range/Units 16:17 Sodium 140 (136-145) mEq/L Potassium 3.7 (3.5-4.5) mEq/L Chloride 104 (98-109) mEq/L Carbon Dioxide 20 (19-29) mEq/L BUN 12 (7-20) mg/dL Creatinine 0.86 (0.57-1.11) mg/dL Glucose 162 H (70-99) mg/dL Calcium 9.8 (8.6-10.8) mg/dL Cardiac Enzymes 12/14/16 12/13/16 12/13/16 Range/Units 01:50 20:21 16:17 Troponin I 0.01 0.00 0.00 (0-0.03) ng/mL Liver Function 12/13/16 Range/Units 16:17 Total Bilirubin 0.4 (0.2-1.2) mg/dL Direct Bilirubin 0.1 (0.0-0.5) mg/dL AST 16 (5-34) Units/L ALT 16 (0-55) Units/L Alkaline Phosphatase 70 (38-126) Units/L Albumin 4.2 (3.5-5.0) g/dL Impressions Chest X-Ray 12/13/16 16:02 IMPRESSION: No acute abnormality. D/ / Axel Alejo MD / Axel Alejo MD Interpreting Provider: Axel Alejo MD Active Medications Acetaminophen (Tylenol) 650 mg PO Q6HR PRN PRN Reason: Mild Pain (1-3) Stop: 06/14/17 20:11 Last Admin: 12/14/16 08:01 Dose: 650 mg Alprazolam (Xanax) 0.25 mg PO HS [facility] PRN Reason: Protocol Stop: 06/14/17 21:01 Last Admin: 12/13/16 22:23 Dose: 0.25 mg Aspirin (Aspirin) 81 mg PO DAILY [facility] Stop: 06/15/17 09:01 Last Admin: 12/14/16 07:42 Dose: 81 mg Clopidogrel Bisulfate (Plavix) 75 mg PO DAILY [facility] Stop: 06/15/17 09:01 Last Admin: 12/14/16 07:42 Dose: 75 mg Heparin Sodium (Porcine) (Heparin) 5,000 unit SQ Q12HCO [facility] Stop: 06/15/17 06:01 Last Admin: 12/14/16 05:57 Dose: 5,000 unit Isosorbide Mononitrate (Imdur) 240 mg PO DAILY [facility] Stop: 06/15/17 09:01 Last Admin: 12/14/16 07:42 Dose: 240 mg Metoprolol Tartrate (Lopressor) 50 mg PO BID [facility] Stop: 06/14/17 21:01 Last Admin: 12/14/16 07:41 Dose: 50 mg Morphine Sulfate (Morphine Sulfate) 2 mg IVP Q4HR PRN PRN Reason: Severe Pain (7-10) Stop: 06/14/17 20:11 Last Admin: 12/13/16 20:58 Dose: 2 mg Naloxone HCl (Narcan) 0.4 mg IVP Q2MIN PRN PRN Reason: Opioid Reversal Stop: 06/14/17 20:11 Nitroglycerin (Nitroglycerin) 0.4 mg SL Q5M PRN PRN Reason: Chest Pain Stop: 06/14/17 20:13 Omeprazole (Prilosec) 20 mg PO BID [facility] Stop: 06/14/17 21:01 Last Admin: 12/14/16 07:42 Dose: 20 mg Ondansetron HCl (Zofran) 4 mg IVP Q8HR PRN PRN Reason: Nausea And Vomiting Stop: 06/14/17 20:11 Simvastatin (Zocor) 40 mg PO TUFR [facility] Stop: 06/16/17 20:13 Vitamin D (Vitamin D) 2,000 unit PO DAILY [facility] Stop: 06/15/17 09:01 Last Admin: 12/14/16 07:42 Dose: 2,000 unit - Imaging and Cardiology Chest Xray: report reviewed Echo: report reviewed Cardiac cath: report reviewed - EKG Interpretation EKG results cardiology: personally reviewed (Sinus tach, rate 112.), other (24 hour tele AVG HR 69, SR, no significant pauses or arrhythmias.) Consult Discharge Plan - Plan Referrals: Myranda Lauren DO [Primary Care Provider] - 12/19/16 2:15 pm <Georgette Veliz - Last Filed: 12/14/16 12:41> Date of Encounter: 12/13/16 Assessment and Plan Discussion w patient/family: The assessment and plan as outlined above was discussed with the patient and/or family members who expressed understanding and agreement. All questions were answered. Thank you for involving us in the care of your patient. Please call with any questions. History of Present Illness History of present illness: Ms. Seth is a 71 year old female All Systems Review: A 10-system review of systems was performed and is negative for pertinent findings except as documented above in the HPI. Physical Examination Vital Signs, Last 4 Hours Temp Pulse Resp BP Pulse Ox 12/14/16 12:05 97.9 F 67 14 164/74 99 Results 12/13/16 16:17 12/13/16 16:17 Lab Results 12/13/16 12/14/16 20:21 01:50 Troponin I 0.00 0.01 - Attending Attestation I examined this patient and my medical decision-making was reviewed with the BRAILLE PROOFREADER/PA/Advanced Practice Nurse/Resident Physician. I agree with the documented findings, disposition and treatment plan. Ms. Seth presents with atypical symptoms described as constant since Sunday and precipitated by eating Mozzarella sticks and sometimes worse with deep inspiration. Although she feels that symptoms are worse with exertion. I described to the patient that the objective data do not support a cardiac cause to her symptoms; no ECG changes, negative troponin, mixed presentation of symptoms. Also, it would be unusual to develop obstructive CAD in the time interval since her last cath earlier this year. We also had Dr. Garner review her most recent cath films and concluded that there does not appear to be any lesions to intervene upon. I described this to the patient. However, she was very upset, crying and somewhat histrionic in her responses. She feels as if we are making this "all in her head." She seemed very upset. She feels that her symptoms may be similar to symptoms she had prior to last cath. I then suggested that although a cath is not absolutely indicated, it would provide a diagnostic evaluation for her symptoms. She was educated on the risks of the procedure which have to be weighed against the benefits. After a discussion of the R/B/A, she declined cath. We discussed this a few times and each time she declined cath. She is interested in following up with GI. She will also follow up with her primary gymnastic coach as an outpatient. We will sign off. Please call with questions.
[2016-12-14] MEDS ORDERED: Ranolazine 500 MG TAB.ER.12H PO SCH (11:00)
[2016-12-14 12:06] VITALS: BP 164/74
--- NOTE | 2016-12-14 14:27 | Discharge Summary ---
Date of Encounter: 12/13/16 Time of Encounter: 09:30 - Discharge Diagnosis (1) Chest pain Priority: Primary Status: Acute Comments: Patient reports chest pain since August. In September she had a heart catheter and stent, YOSELIN, placed. Patient states that she has never been pain-free, and pain is worse when she is at cardiac rehabilitation but does any exertion. Until 3 days ago, patient had sharp intermittent right chest pain with radiation into her right neck. 3 days ago changed to midsternal chest pressure that was aggravated with exertion. She also still had the right upper chest pain with radiation into her neck. Patient states that about 5-6 days ago she was assisting her son with moving some boxes, and then the day that the heaviness began she had increased exertion and had done a lot of walking that day. Pain is slightly reproducible with palpation over the sternum. She denies nausea vomiting or diaphoresis. Patient states that she has an intermittent cough as well, states that she believes it is from her lisinopril, however after listening to her describe it as a tickle in her throat and she can feel mucus in her throat, I feel that is more allergy related and I will give her Claritin and Flonase for home. Cardiology was here to see patient and she was insistent that the chest pain has not changed. Dr. Veliz did offer to heart catheter the patient, patient declined. EKG is normal sinus. Her films were reviewed by cardiology and IR. We will continue her aspirin, statin, Plavix, beta shlomo, Imdur, and we will start Ranexa 500 mg twice a day. She is to follow-up with Dr. Irwin outpatient in 2-3 weeks. Qualifiers: Chest pain type: unspecified Qualified Code(s): R07.9 - Chest pain, unspecified (2) CAD (coronary artery disease) Priority: Secondary Status: Chronic Comments: Plan as above. Qualifiers: Coronary Disease-Associated Artery/Lesion type: [place] artery [place] vs. transplanted heart: [place] heart Associated angina: angina presence unspecified Qualified Code(s): I25.10 - Atherosclerotic heart disease of [place] coronary artery without angina pectoris (3) Diabetes mellitus type 2, noninsulin dependent Priority: Secondary Status: Chronic Comments: Patient will continue home medications. Follow-up with primary care physician. A1c was 6.2% less than 2 months ago. Serum glucose is 162 today. (4) Hypertension Priority: Secondary Status: Chronic Comments: Chronic. Continue home medications. Qualifiers: Hypertension type: essential hypertension Qualified Code(s): I10 - Essential (primary) hypertension (5) GERD (gastroesophageal reflux disease) Priority: Secondary Status: Chronic Comments: Chronic. Continue home medications. Qualifiers: Esophagitis presence: without esophagitis Qualified Code(s): K21.9 - Gastro -esophageal reflux disease without esophagitis - Discharge Medications Prescriptions: Fluticasone Propionate Nasal [Flonase] 50 mcg NS DAILY #1 bottle Ranolazine [Ranexa] 500 mg PO BID #60 tab.er.12h Home Medications: Alprazolam [Xanax 0.25 MG Tablet] 0.25 mg PO HS 07/12/16 [History] Aspirin 81 mg PO DAILY 07/12/16 [History] Clopidogrel [Plavix] 75 mg PO DAILY 07/12/16 [History] Isosorbide MONOnitrate [Isosorbide Mononitrate ER] 240 mg PO DAILY 07/12/16 [ History] Nitroglycerin [Nitrostat] 0.4 mg SL Q5M PRN 07/12/16 [History] Pantoprazole Sodium [Protonix] 40 mg PO BID 07/12/16 [History] Ubidecarenone/Vit E Acetate [Co Q-10 100 mg Softgel] 200 mg PO DAILY 07/12/16 [ History] Lisinopril [Zestril] 10 mg PO DAILY #15 tablet 07/14/16 [Rx] Glimepiride 1.5 mg PO BID 08/16/16 [History] Metformin [Glucophage] 500 mg PO BID 08/16/16 [History] Metoprolol Tartrate 50 mg PO BID 08/16/16 [History] Cholecalciferol (D-3) [Vitamin D] 2,000 unit PO DAILY 10/11/16 [History] Loratadine [Allergy Relief] 10 mg PO DAILY PRN 10/11/16 [History] Atorvastatin Calcium [Lipitor] 20 mg PO TUFR 12/13/16 [History] Dicyclomine [Bentyl] 10 mg PO QID PRN 12/13/16 [History] Sucralfate [Carafate] 1 gm PO TIDAC 12/13/16 [History] Fluticasone Propionate Nasal [Flonase] 50 mcg NS DAILY #1 bottle 12/14/16 [Rx] Ranolazine [Ranexa] 500 mg PO BID #60 tab.er.12h 12/14/16 [Rx] Allergies/Adverse Reactions: Allergies penicillin V Allergy (Verified 08/16/16 08:11) Anaphylaxis Date of admission: 12/13/16 17:28 Primary care physician: Myranda Lauren DO Consults: 12/14/16 07:00 Consult to Cardiology [CONS] Routine Comment: Consulting Provider: Cardiology Maggie Reason for Consult: chest pain, S/P PTCA YOSELIN LAD sep 2016 Call Completed: No Discharging clinician: Yesenia Queen Anticipated date of discharge: 12/14/16 - Patient Status Disposition: Home, Self-Care Condition: Good Functional capacity at discharge: independent ambulation Overall status at discharge: patient is back to baseline - Discharge Instructions Follow Up With: Myranda Lauren DO [Primary Care Provider] - 12/19/16 2:15 pm Forms: ED Satisfaction Letter Additional Instructions: Please follow up with Dr. Costello for your A1c, you may need to see the family living educator, or have a medication adjustment. Start Ranexa 500mg by mouth 2 times daily Start Flonase, 1 spray each nostril daily. Follow up with Dr. Irwin in 2-3 weeks. Continue the rest of your home medications Return to ER as needed for any other problems or concerns, or if you begin to have any other symptoms. - Diet and Activity Activity: as per the cardiac rehab, increase activity as tolerated Diet: advance to your usual diet Hospital course: Ms. Seth is a 71 year old female who was admitted in the hospital last night with chest pain. She has had chest pain since approximately August. She had a left heart catheter in September with drug-eluting stent placement. She has had pain since. She reports increasing pain with cardiac rehabilitation and exertion. She describes it as right upper chest pain that radiates into her neck, sometimes with shortness of breath, denies nausea or vomiting. 3 days ago the pain changed into a midsternal pressure without radiation. This began after walking in a parking lot multiple times, and assisting her son with moving some boxes some days before. Pain can be reproduced slightly with palpation over sternum. Patient appears to be very anxious and begins talking rapidly. Her lungs are clear, troponins are negative 3, patient has been evaluated by cardiology here today. We will start her on Ranexa 500 mg by mouth twice a day in addition to her regular home medications. She reports a cough that she attempts to attribute to her lisinopril, however in listening to her discuss it it sounds more like postnasal drip and she states that it started about 3 weeks ago and agrees that it could just be allergy season. She already has Claritin listed as a home medication and I will give her Flonase. Her chest x-ray is negative for any new cardiopulmonary disease or process. All of her labs are within normal limits. Her glucose is slightly elevated, as is her A1c. She will will follow up with her family doctor for this as we discussed. She is stable for discharge. - Time Spent with Patient Total time spent providing and/or coordinating discharge services: Greater than 30 minutes - Constitutional Vitals: Temp Pulse Resp BP Pulse Ox 97.9 F 67 14 164/74 99 12/14/16 12:05 12/14/16 12:05 12/14/16 12:05 12/14/16 12:05 12/14/16 12:05 General appearance: Present: cooperative, A&O X 3, pleasant, no acute distress, answers questions appropriately - Head Head exam: Present: normal inspection - Eye Eye exam: Present: normal appearance, conjuntiva pink - ENT ENT exam: Present: mucous membranes moist, normal exam - Neck Neck exam general surgery: Present: normal inspection. Absent: lymphadenopathy , tenderness - Respiratory Respiratory exam: Present: CTAB. Absent: rales, respiratory distress, rhonchi, stridor, wheezes, tachypnea - Cardiovascular Cardiovascular exam: Present: RRR, +S1, +S2. Absent: diastolic murmur, systolic murmur - GI/Abdominal GI/Abdominal exam: Present: normal bowel sounds, soft. Absent: hepatomegaly, tenderness - Extremities Exam Extremities exam: Present: normal capillary refill, normal inspection, warm, radial pulses palpable and symetrical. Absent: pedal edema, tenderness
--- NOTE | 2016-12-14 16:53 | Electrocardiograph Report ---
[place] [id number] Test Date: 2016-12-13 Pat Name: Lidia Seth Department: 103 Room: 3B32 Gender: F Code Inspector: ANDREW : 1945 Requested By: Prasanna Leonard Order Number: [id number] Reading MD: Jerod Garner MD Measurements Intervals [place] Rate: 112 P: 74 [place]: 162 QRS: 73 QRSD: 97 T: 74 QT: 300 QTc: 366 Interpretive Statements SINUS TACHYCARDIA RIGHT ATRIAL ENLARGEMENT Electronically Signed On 12-14-2016 16:52:15 EDT by Jerod Garner MD
== END 2016-12-14 15:30 | disposition home or self-care (01) ==
LOC: 3BNU 15:56 → EMEROO 15:56 → 3BNU 18:28
PROVIDERS: ADMIT Internal Medicine; ATTEND Registered Nurse

== ENCOUNTER 2017-01-08 10:31 | Inpatient (IN) ==
[2017-01-08] MEDS ORDERED: *HR* Heparin 10,000 UNIT/10 ML VIAL ONE (13:06)
[2017-01-08] MEDS ORDERED: Heparin 1,000 UNITS/500 mL NS 500 ML ONE (13:06)
[2017-01-08] MEDS ORDERED: 0.9 % Sodium Chloride 2,000 ML ONE (13:06)
[2017-01-08] MEDS ORDERED: Verapamil 5 MG/2 ML VIAL ONE (13:14)
[2017-01-08] MEDS ORDERED: Nitroglycerin 1,000 MCG/10 ML VIAL IV ONE ×2 (13:15→14:10)
[2017-01-08] MEDS ORDERED: *HR* FentaNYL (PF) 100 MCG/2 ML VIAL ONE ×2 (13:19→14:04)
[2017-01-08] MEDS ORDERED: *HR* Midazolam HCl 5 MG/5 ML VIAL IVP ONE (13:19)
--- NOTE | 2017-01-08 13:22 | Cardiology History & Physical ---
Date of Encounter: 01/08/17 Time of Encounter: 13:18 Assessment and Plan (1) STEMI (ST elevation myocardial infarction) Current Visit: Yes Status: Acute ST elevation throughout leads s/p outpt exercise stress test. Severe chest pain >10/10 R/B/A of LHC discussed. Pt agreed to proceed, taken emergently to pathology laboratory aide. BMP within 30 days showed normal renal function. Further recommendations to follow cath results. ASA, Statin, Plavix, BB, AISHA-I. Pt admitted as inpt under cardiology service. Qualifiers: Involved coronary artery: unspecified coronary artery Qualified Code(s): I21.3 - ST elevation (STEMI) myocardial infarction of unspecified site (2) CAD (coronary artery disease) Current Visit: Yes Status: Chronic Hx of multiple PCIs, as recent as 09/2016. ASA, Plavix, Statin, BB, nitrates. Taken emergently to pathology laboratory aide for STEMI. Qualifiers: Coronary Disease-Associated Artery/Lesion type: [place] artery [place] vs. transplanted heart: [place] heart Associated angina: angina presence unspecified Qualified Code(s): I25.10 - Atherosclerotic heart disease of [place] coronary artery without angina pectoris History of Present Illness Chief complaint: Chest Pain HPI: Ms. Seth is a 71 year old female with a significant history of CAD, prior PCI to RCA (3 Brant 2014, 1 YOSELIN 2013), and prior PCI to LAD (1 YOSELIN 2013, 1 YOSELIN 09/2016 ). Since revascularization, she has been having recurrent chest discomfort. She was seen by Dr. Irwin 01/04/17 at which time an exercise nuclear stress test was ordered. She presented to stress lab today. She was able to achieve her target HR, but experienced sudden, severe chest pain. After stopping the treadmill, 1 spray of sublingual nitro was administered. Shortly after, she had EKG changes, ST elevation throughout and a STEMI was called. Pt was given sublingual nitro and two 325mg ASA to crush with no relief. R/B/A to C were discussed. Pt agreed and was taken emergenty to pathology laboratory aide. Prior cardiovascular testing: Holter monitor 09/2015: Rare PACs averaging 1/h. Rare PACs averaging 0.4/h. Carotid duplex 09/2015: Minimal plaque bilaterally. Exercise nuclear stress test 08/25/2015: Negative for ischemia or prior infarct. Fair exercise capacity. Echocardiogram 01/2015: EF 55-60%. Mild AI. No pulmonary hypertension. Echocardiogram 07/13/2016: LVEF 60-65%. Normal LV, RV size and function. Mild diastolic dysfunction. No significant pulmonary hypertension. No significant valvular dysfunction. [facility] 10/11/2016: Left main normal. LAD proximal 60% stenosis (FFR not significant) , mid LAD 95% stenosis (YOSELIN placed). Circumflex proximal 60% stenosis. RCA proximal and mid patent stents. RPDA normal. Past Med Surg Social Fam HX - Past Medical History Medical history: arthritis, coronary artery disease, diabetes, GERD, GI bleed, hyperlipidemia, hypertension, kidney stones, myocardial infarction Psychiatric history: no psych history - Past Surgical History Surgical History: angioplasty/stent, hysterectomy, other - Social History Smoking Status: Never smoker Smokeless Tobacco Status: No Alcohol use: occasionally Drug use: none - Family History Mother Living Status: Father Adopted: No Family Member Ethnicity: Non- Living Status: Hx Family Cardiac Disorders: Yes (smoker) Hx Family Respiratory Disorders: Yes (smoker) Hx Family Cancer: No Hx Family GI Disorders: Yes (self) Hx Family Endocrine Disorder: Yes (self, cousin,mother) Hx Family Neuromuscular Disorders: No Hx Family Neurologic Disorders: Yes (grandfather) Hx Family HEENT Disorders: No Hx Family Autoimmune Disorders: No Grandmother Hx Family Endocrine Disorder: Yes (Diabetes) Medications and Allergies Alprazolam [Xanax 0.25 MG Tablet] 0.25 mg PO HS 07/12/16 [History] Aspirin 81 mg PO DAILY 07/12/16 [History] Clopidogrel [Plavix] 75 mg PO DAILY 07/12/16 [History] Isosorbide MONOnitrate [Isosorbide Mononitrate ER] 240 mg PO DAILY 07/12/16 [ History] Nitroglycerin [Nitrostat] 0.4 mg SL Q5M PRN 07/12/16 [History] Pantoprazole Sodium [Protonix] 40 mg PO BID 07/12/16 [History] Ubidecarenone/Vit E Acetate [Co Q-10 100 mg Softgel] 200 mg PO DAILY 07/12/16 [ History] Lisinopril [Zestril] 10 mg PO DAILY #15 tablet 07/14/16 [Rx] Glimepiride 1.5 mg PO BID 08/16/16 [History] Metformin [Glucophage] 500 mg PO BID 08/16/16 [History] Metoprolol Tartrate 50 mg PO BID 08/16/16 [History] Cholecalciferol (D-3) [Vitamin D] 2,000 unit PO DAILY 10/11/16 [History] Loratadine [Allergy Relief] 10 mg PO DAILY PRN 10/11/16 [History] Atorvastatin Calcium [Lipitor] 20 mg PO TUFR 12/13/16 [History] Dicyclomine [Bentyl] 10 mg PO QID PRN 12/13/16 [History] Sucralfate [Carafate] 1 gm PO TIDAC 12/13/16 [History] Fluticasone Propionate Nasal [Flonase] 50 mcg NS DAILY #1 bottle 12/14/16 [Rx] Ranolazine [Ranexa] 500 mg PO BID #60 tab.er.12h 12/14/16 [Rx] Allergies penicillin V Allergy (Verified 08/16/16 08:11) Anaphylaxis All Systems Review: A 10-system review of systems was performed and is negative for pertinent findings except as documented above in the HPI. - Cardiovascular Cardiovascular: as per HPI, chest pain at rest, chest pain with exertion, dyspnea on exertion - Respiratory Respiratory: dyspnea Physical Examination General: Conversant, Other (severe chest pain, anxious) HEENT: Atraumatic, Normocephaly, Mucus Membranes Moist Neck: No JVD, Normal carotid pulses Cardiac: Reg Rate and Rhythm, Normal S1 and S2, No Murmur Lungs: Normal Breath Sounds, No Wheeze, Rales, Rhonchi Neuro: Alert and responsive, No focal deficits noted Abdomen: Soft, Non-Tender Skin: No rashes noted on visualized skin Musculoskeletal: No Chest Wall Tenderness Extremities: No Clubbing, No Cyanosis, No Edema, Normal Pulses Results - Imaging and Cardiology Echo: report reviewed Cardiac cath: pending - EKG Interpretation EKG results cardiology: personally reviewed (ST elevation throughout)
[2017-01-08] MEDS ORDERED: *HR* Adenosine 6 MG/2 ML VIAL IVP ONE (13:40)
[2017-01-08] MEDS ORDERED: Nitroglycerin 0.4 MG TAB.SUBL SL PRN (14:30)
[2017-01-08] MEDS ORDERED: Loratadine 10 MG TABLET PO PRN (14:30)
[2017-01-08] MEDS ORDERED: Acetaminophen 325 MG TABLET PO ONE (15:01)
[2017-01-08] MEDS ORDERED: Ondansetron 4 MG/2 ML VIAL IVP PRN (15:22)
[2017-01-08] MEDS ORDERED: *HR* Morphine 2 MG/ML SYRINGE IVP PRN (15:22)
--- NOTE | 2017-01-08 15:22 | Pre-Sedation Evaluation ---
Pre-sedation evaluation - Pre-sedation checklist Date of procedure: 01/08/17 Procedure: [facility] Recent Vitals: VS as documented in eMR H&P (including ROS) documented in medical record: Yes Previous reaction to sedatives/anesthetics: No Dietary Status: No solid food in preceding 4 hrs and no liquid in preceding 2 hrs Dentition: No loose teeth or bridges ASA Classification *see protocol: CLASS II-Mild systemic disease, E-EMERGENCY- Add to any of the above to indicate emergent Plan of Care: Pt appropriate candidate for procedure/moderate/conscious sedation , Risks/benefits of procedure/sedation discussed w/ patient/family, If not NPO; Risk of intake outweiged by necessity to perform procedure
--- NOTE | 2017-01-08 15:40 | Invasive Diagnostic Lab Proc ---
Name: Lidia Seth Date of Study: 01/08/2017 Date: 1945 Ht: 66.0in Medical Record#: [id number] Age: 71 Wt: 148.37lb Gender: Female BSA: 1.76 Order #: [id number] BMI: 23.96 Physicians Procedure Physician: [facility]ner MD, [facility] Referring MD: Referring MD: Staff Name Position Time In Sandra Mariano RT (R) Monitor 01:20 PM Rachell Ardon RT (R) Scrub 01:20 PM Obdulia Panda RN Solar Energy Technician 01:20 PM Kylah Roe RN Monitor 02:08 PM Indications Indication Non-Stemi Procedures Performed Procedure L HRT ARTERY/VENTRICLE ANGIO IV Doppler BLD Flow 1st Vessel PRQ CARD BM STENT W/ANGIO 1 VSL IV Doppler BLD Flow Ad'l Vessel PRQ CARD YOSELIN STENT W/ANGIO 1 VSL Pre-Procedure Checklist Informed consent is complete signed and on chart. H\\T\\P is on chart. ID band is on and ID verified with patient. Patient NPO for procedure The procedure was described for the patient and questions were answered. Blood Pressure: 179/111 ECG is on chart. Rhythm: Sinus Tachycardia Plan of Care Patient will tolerate the procedure without complications. Adequate level of comfort will be maintained. Hemodynamics will remain stable Patient will recover from procedure without complications. Respiratory function will be maintained. Cardiac rhythm will remain stable. Patient temperature will be maintained. Patient and/or family have verbalized understanding of the procedure. Patient Education Intravenous Access Time IV Size Location DC'd Fluid/Drip Rate Units RN 01:22 PM 22g 1" Patent On Arrival Lt Antecubital 0.9NaCl 25 ml/hr Kylah Roe RN 01:22 PM 22g 1" Patent On Arrival Rt Hand Allergies lovastatin Amoxicillin penicillin V atorvastatin Vital Signs Time BP (mmHg) HR (bpm) O2 Sat. RR (bpm) LOC 01:16 PM 171 / 94 106 100 % 16 5 = Fully awake and oriented or at pre-proc level 01:21 PM / % 4 = Oriented but drowsy 01:21 PM / % 4 = Oriented but drowsy 02:17 PM / % 4 = Oriented but drowsy 02:17 PM / % 4 = Oriented but drowsy 01:22 PM 171 / 94 99 100 % 12 01:26 PM 180 / 105 100 99 % 10 01:31 PM 159 / 84 107 90 % 13 01:36 PM 152 / 71 102 92 % 21 01:41 PM 154 / 82 105 92 % 14 01:46 PM 162 / 78 102 94 % 18 01:51 PM 168 / 87 104 98 % 15 01:56 PM 177 / 89 99 99 % 24 02:01 PM 161 / 87 93 99 % 10 02:06 PM 162 / 81 93 100 % 27 01:16 PM 179 / 111 102 100 % 20 02:11 PM 167 / 89 94 99 % 32 02:16 PM 150 / 80 91 97 % 16 02:21 PM 162 / 87 90 98 % 13 02:26 PM 153 / 83 81 100 % 23 02:31 PM 167 / 92 94 98 % 19 02:36 PM 154 / 93 92 98 % 21 02:41 PM 139 / 81 88 97 % 19 02:46 PM 151 / 85 87 98 % 22 Procedural Medications Time Medication Dose Units Method Given By 01:21 PM Versed 2 mg Intravenous Obdulia Panda RN 01:21 PM Fentanyl 50 mcg Intravenous Obdulia Panda RN 01:23 PM Versed 2 mg Intravenous Obdulia Panda RN 01:23 PM Fentanyl 50 mcg Intravenous Obdulia Panda RN 01:23 PM Lidocaine 2% 19 ml Subcutaneous Jerod Garner MD, FACC 01:25 PM Oxygen 6 L/min nasal cannula Obdulia Panda RN 01:26 PM Oxygen 15 L/min simple face mask Obdulia Panda RN 01:28 PM Nitroglycerin 200 mcg Intracoronary Jerod Garner MD 01:31 PM Nitroglycerin 200 mcg IntracoronJerod Anthony MD 01:32 PM Nitroglycerin 200 mcg Intracoronary Jerod Garner MD 01:41 PM Heparin 4000 units Intravenous Obdulia Panda RN 01:46 PM Adenosine 300 mcg Intracoronary Jerod Garner MD, FACC 01:47 PM Adenosine 300 mcg Intracoronary Jerod Garner MD, FACC 01:49 PM Adenosine 400 mcg Intracoronary Jerod Garner MD, FACC 02:05 PM Fentanyl 25 mcg Intravenous Obdulia Panda RN 02:09 PM Adenosine 200 mcg Intracoronary Jerod Garner MD, FACC 02:09 PM Nitroglycerin 200 mcg Intracoronary Jerod Garner MD 02:11 PM Nitroglycerin 200 mcg Intracoronary Jerod Garner MD 02:12 PM Adenosine 200 mcg Intracoronary Jerod Garner MD, FACC 02:36 PM Heparin 3000 units Intravenous Obdulia Panda RN 02:37 PM Nitroglycerin 200 mcg Intracoronary Jerod Garner MD 02:39 PM Nitroglycerin 200 mcg Intracoronary Jerod Garner MD 02:47 PM Plavix 300 mg Orally Obdulia Panda RN 03:01 PM Tylenol 650 mg Orally Obdulia Panda RN ASA Classification: CLASS II- Mild systemic disease (i.e. well-controlled diabetes, hypertension, asthma, cigarette smoking) Truman Score Preprocedure Postprocedure Activity Activity Circulation Circulation Consciousness Consciousness O2 Saturation O2 Saturation Respiratory Respiratory Total Score Total Score Contrast Agent: Isovue Diagnostic Contrast: 249 ml Total Contrast: 249 ml Fluoro Dose: 1344 mGy Activated Clotting Time Time Seconds to Clot 02:36 PM 194 Procedure Log Time Note Enter By 01:13 PM CathStat 01:13 PM Case Start 01:15 PM Vitals capture started with the following parameters, Patient=Adult, Interval=5 min, Initial Jyeqowis=917 mmHg, Deflation Rate=5 mmHg, Cuff placed on Left Arm 01:16 PM HO=175 bpm, QGXH=265/111 mmhg, BiA2=061.0 %, Resp=20 B/min, Comment=NSR 01:17 PM Recorded ECG: HR=97 Condition=Condition 1 01:20 PM Pt arrived to golf course laborer 2 at 13:20 [email or web address] 01:20 PM Sandra Mariano RT (R) Position: Monitor Time in: 13:20 [email or web address] 01:20 PM Rachell Ardon RT (R) Position: Scrub Time in: 13:20 [email or web address] 01:20 PM Obdulia Panda RN Position: Solar Energy Technician Time in: 13:20 [email or web address] 01:20 PM Patient charges- Angio tray pack, Navilyst 3mm J, Pulse Oximetry and ACIST tubing and transducer [email or web address] 01:21 PM Case Delayed No [email or web address] :21 PM Hair removed from procedure site in holding area using clippers. Bilateral groin prepped with Chloraprep by Obdulia Panda RN, safety strap applied then patient was draped. Skin intact. [email or web address] 01:21 PM Physician arrived 13:21 [email or web address] 01:21 PM Meet and greet completed [email or web address] :21 PM Sign in performed according to hospital policy. [email or web address] 01:21 PM Procedure start 13:21 [email or web address] 01: PM Time: 13:21 Versed 2 mg Intravenous Given by Obdulia Panda RN [email or web address] : PM Time: 13: Fentanyl 50 mcg Intravenous Given by Obdulia Panda RN [email or web address] : PM Time: 13:21 Patient comfortable and pain free: Yes [email or web address] : PM Time: 13:21LOC: 4 = Oriented but drowsy [email or web address] : PM ASA Class CLASS II- Mild systemic disease (i.e. well-controlled diabetes, hypertension, asthma, cigarette smoking) [email or web address] : PM HR=99 bpm, WZDN=772/94 mmhg, ApO0=680.0 %, Resp=12 B/min 01: PM Time out performed according to hospital policy [email or web address] : PM Time: 13: Versed 2 mg Intravenous Given by Obdulia Panda RN [email or web address] : PM Time: 13: Fentanyl 50 mcg Intravenous Given by Obdulia Panda RN [email or web address] : PM Pressure channel 1 zeroed. 01:24 PM Time: 13:23 19 ml Lidocaine 2% to right groin Subcutaneous [email or web address] PM Access obtained by percutaneous puncture. 6Fr 10cm Terumo [place] sheath placed in right Femoral artery. [id number] [email or web address] PM Time: 13:25 Oxygen on at 6 L/min per nasal cannula by Obdulia Panda RN [email or web address] : PM Time: 13:26 Oxygen on at 15 L/min per simple face mask by Obdulia Panda RN [email or web address] : PM RK=431 bpm, CPJI=365/105 mmhg, SpO2=99.0 %, Resp=10 B/min, Comment=NSR 01: PM 5Fr FL 4 catheter inserted over the wire [facility] [email or web address] : PM 0.035 145cm Navilyst 3mmJ wire [id number] [email or web address] :27 PM LCA angiography performed in multiple views. [email or web address] : PM Recorded Pressure: Ao, MF=617, Condition=Condition 1 (Aorta) Ao 71/46/58 01: PM Time: 13:28 Nitroglycerin 200 mcg Intracoronary Given by Jerod Garner MD [email or web address] 01:28 PM Recorded Pressure: Ao, QS=334, Condition=Condition 1 (Aorta) Ao 123/89/106 01:29 PM Catheter removed [email or web address] 01:29 PM 5Fr FR 4 catheter inserted over the wire [facility] [email or web address] 01:29 PM RCA angiography performed in multiple views. [email or web address] 01:30 PM Recorded Pressure: Ao, HR=98, Condition=Condition 1 (Aorta) Ao 96/69/81 01:31 PM Time: 13:31 Nitroglycerin 200 mcg Intracoronary Given by Jerod Garner MD [email or web address] 01:31 PM VE=964 bpm, DTHP=895/84 mmhg, SpO2=90.0 %, Resp=13 B/min, Comment=NSR 01:32 PM Time: 13:32 Nitroglycerin 200 mcg Intracoronary Given by Jerod Garner MD [email or web address] 01:34 PM Catheter removed elle 01:34 PM 5Fr Pigtail catheter inserted over the wire [facility] [email or web address] 01:34 PM Catheter selectively placed in left ventricle [email or web address] 01:34 PM Recorded Pressure: LV, YU=737, Condition=Condition 1 (Left Ventricle) LV 125/-1/18 01:34 PM Bolus angiogram of left Ventricle complete: 10 ml/sec for a total of 25 mls [email or web address] 01:35 PM Recorded Pressure: LV, Ao, IX=000, Condition=Condition 1 (Left Ventricle) LV 130/-4/4, (Aorta) Ao 123/71/93 01:36 PM Catheter removed [email or web address] 01:36 PM XZ=841 bpm, QMUY=718/71 mmhg, SpO2=92.0 %, Resp=21 B/min, Comment=NSR 01:36 PM Time: 13:21LOC: 4 = Oriented but drowsy [email or web address] 01:36 PM Time: 13:21 Patient comfortable and pain free: Yes [email or web address] 01:40 PM Inflation device was opened. [email or web address] 01:41 PM 6Fr EBU 3.5 Medtronic guide catheter was used to cannulate the PCI vessel successfully. reused? No [email or web address] 01:41 PM HL=549 bpm, HOFE=504/82 mmhg, SpO2=92.0 %, Resp=14 B/min, Comment=NSR 01:41 PM Time: 13:41 Heparin 4000 units Intravenous Given by Obdulia Panda RN [email or web address] 01:42 PM Comet Prime Wire Prestige advanced to target lesion. [email or web address] 01:46 PM Time: 13:46 Adenosine 300 mcg administered Intracoronary by Jerod Garner MD, [facility] [email or web address] 01:46 PM BN=496 bpm, PYCR=956/78 mmhg, SpO2=94.0 %, Resp=18 B/min, Comment=NSR 01:46 PM FFR Measurement: 0.84 [email or web address] 01:48 PM Time: 13:47 Adenosine 300 mcg administered Intracoronary by Jerod Garner MD, [facility] [email or web address] 01:49 PM FFR Measurement: 0.80 [email or web address] 01:49 PM Time: 13:49 Adenosine 400 mcg administered Intracoronary by Jerod Garner MD, [facility] [email or web address] 01:50 PM FFR Measurement: 0.93 [email or web address] 01:51 PM NX=079 bpm, KYIZ=965/87 mmhg, SpO2=98.0 %, Resp=15 B/min, Comment=NSR 01:51 PM 2.5mm x 12mm Synergy drug-eluting stent across target lesion- successful Lot #[id number] [email or web address] 01:53 PM Balloon inflated @ 11 obdulio for 17 seconds [email or web address] 01:54 PM Stent delivery system removed intact. [email or web address] 01:55 PM Recorded Pressure: Ao, HR=95, Condition=Condition 1 (Aorta) Ao 144/80/108 01:55 PM 3.5 mm x 6mm NC Trek Rx balloon across target lesion- successful. reused? No [email or web address] 01:56 PM HR=99 bpm, XYHY=516/89 mmhg, SpO2=99.0 %, Resp=24 B/min, Comment=NSR 01:56 PM Balloon inflated @ 18 obdulio for 15 seconds [email or web address] 01:58 PM Balloon catheter removed intact. [email or web address] 02:00 PM 4.0 mm x 6mm NC Emerge balloon across target lesion- successful. reused? No [email or web address] 02:01 PM HR=93 bpm, VZKM=235/87 mmhg, SpO2=99.0 %, Resp=10 B/min, Comment=NSR 02:02 PM Balloon inflated @ 4 obdulio for 7 seconds [email or web address] 02:02 PM Balloon inflated @ 3 obdulio for 11 seconds [email or web address] 02:03 PM Balloon catheter removed intact. [email or web address] 02:05 PM Time: 14:05 Fentanyl 25 mcg Intravenous Given by Obdulia Panda RN [email or web address] 02:05 PM Guide catheter removed intact. [email or web address] 02:06 PM 6Fr JR 4 Runway guide catheter was used to cannulate the PCI vessel successfully. reused? No [email or web address] 02:06 PM HR=93 bpm, WNTV=043/81 mmhg, WuV9=868.0 %, Resp=27 B/min, Comment=NSR 02:07 PM FFR wire reinserted into the RCA for measurement [email or web address] 02:09 PM Kylah Roe RN Position: Monitor Time in: 14:08 to relieve Sandra Mariano RT (R) [email or web address] 02:09 PM Time: 14:09 Adenosine 200 mcg administered Intracoronary by Jerod Garner MD, [facility] [email or web address] 02:09 PM FFR Measurement: 1.02 [email or web address] 02:10 PM Time: 14:09 Nitroglycerin 200 mcg Intracoronary Given by Jerod Garner MD [email or web address] 02:11 PM Time: 14:11 Nitroglycerin 200 mcg Intracoronary Given by Jerod Garner MD [email or web address] 02:11 PM HR=94 bpm, GYDT=398/89 mmhg, SpO2=99.0 %, Resp=32 B/min, Comment=NSR 02:11 PM Recorded Pressure: Ao, OR=110, Condition=Condition 1 (Aorta) Ao 105/57/78 02:12 PM Time: 14:12 Adenosine 200 mcg administered Intracoronary by Jerod Garner MD, [facility] [email or web address] 02:12 PM FFR Measurement: 0.79 [email or web address] 02:16 PM HR=91 bpm, TERJ=705/80 mmhg, SpO2=97.0 %, Resp=16 B/min, Comment=NSR 02:17 PM .014 Prowater 180cm guide wire across target lesion- successful. reused? No [email or web address] 02:17 PM Time: 14:17 Patient comfortable and pain free: Yes [email or web address] 02:17 PM Time: 14:17LOC: 4 = Oriented but drowsy [email or web address] 02:18 PM Coronary Dominance: right [email or web address] 02:18 PM Lesion found in Mid RCA. Pre Stenosis: 70 Pre ZAC Flow: 3: Complete and Brisk Flow/Perfusion [email or web address] 02:19 PM prowater removed intact [email or web address] 02:19 PM stent removed, not deployed, intact [email or web address] 02:20 PM .014 Choice Extra Support 182cm guide wire across target lesion- successful. reused? No [email or web address] 02:20 PM Flow Wire removed intact [email or web address] 02:21 PM HR=90 bpm, QYLR=189/87 mmhg, SpO2=98.0 %, Resp=13 B/min, Comment=NSR 02:22 PM 2.5x12 stent re inserted into the RCA [email or web address] 02:22 PM stent removed intact, not delployed. [email or web address] 02:24 PM .014 PT Graphix 182cm guide wire across target lesion- successful. reused? No [email or web address] 02:26 PM HR=81 bpm, NYXF=297/83 mmhg, NnQ2=389.0 %, Resp=23 B/min, Comment=NSR 02:26 PM 2.5mm x 12mm Synergy drug-eluting stent across target lesion- successful Lot #[id number] [email or web address] 02:28 PM Stent deployed @ 11 obdulio for 11 seconds [email or web address] 02:29 PM Stent delivery system removed intact. [email or web address] 02:29 PM 3.0 mm x 6mm NC Emerge balloon across target lesion- successful. reused? No [email or web address] 02:31 PM Recorded Pressure: Ao, HR=96, Condition=Condition 1 (Aorta) Ao 134/88/110 02:31 PM HR=94 bpm, MMFA=302/92 mmhg, SpO2=98.0 %, Resp=19 B/min, Comment=NSR 02:31 PM Balloon inflated @ 20 obdulio for 17 seconds [email or web address] 02:31 PM Balloon inflated @ 12 obdulio for 7 seconds [email or web address] 02:33 PM Time: 14:17LOC: 4 = Oriented but drowsy [email or web address] 02:33 PM Time: 14:17 Patient comfortable and pain free: Yes [email or web address] 02:33 PM Balloon catheter removed intact. [email or web address] 02:33 PM 3.25 mm x 6mm NC Emerge balloon across target lesion- successful. reused? No [email or web address] 02:36 PM HR=92 bpm, AERB=100/93 mmhg, SpO2=98.0 %, Resp=21 B/min, Comment=NSR 02:36 PM At 14:36 the ACT was 194 seconds. [email or web address] 02:36 PM Balloon inflated @ 16 obdulio for 13 seconds [email or web address] 02:36 PM Time: 14:36 Heparin 3000 units Intravenous Given by Obdulia Panda RN [email or web address] 02:37 PM Time: 14:37 Nitroglycerin 200 mcg Intracoronary Given by Jerod Garner [email or web address] 02:39 PM Time: 14:39 Nitroglycerin 200 mcg Intracoronary Given by Jerod Garner MD [email or web address] 02:41 PM HR=88 bpm, MTCY=162/81 mmhg, SpO2=97.0 %, Resp=19 B/min, Comment=NSR 02:42 PM Lesion found in Proximal RCA. Pre Stenosis: 70 Pre ZAC Flow: 3: Complete and Brisk Flow/Perfusion [email or web address] 02:43 PM 3.0x6 Nc balloon reinsterted into the Proximal RCA [email or web address] 02:43 PM Balloon inflated @ 14 obdulio for 12 seconds [email or web address] 02:44 PM Balloon inflated @ 12 obdulio for 8 seconds [email or web address] 02:44 PM Balloon inflated @ 16 obdulio for 11 seconds [email or web address] 02:46 PM HR=87 bpm, VJYW=067/85 mmhg, SpO2=98.0 %, Resp=22 B/min, Comment=NSR 02:46 PM Balloon catheter removed intact. [email or web address] 02:46 PM Guide wire removed intact x2 [email or web address] 02:47 PM Guide catheter removed intact. [email or web address] 02:47 PM Bolus angiogram of right Femoral complete: 4 ml/sec for a total of 7 mls [email or web address] 02:48 PM Time: 14:47 Plavix 300 mg Orally Given by Obdulia Panda RN [email or web address] 02:53 PM Lesion found in Proximal LAD. Pre Stenosis: 60 Pre ZAC Flow: [email or web address] 02:53 PM Procedure completed at 14:53 [email or web address] 02:54 PM Sign out completed: Radiation Dose 1344 mGy Fluoro Time: 22.5 Isovue 370 - 200ml contrast 249 ml given by Jerod Garner MD, FACC. Complications: NoneCardiac Rehab Consult needed: YesConfirmed administered medications: Yes [email or web address] 02:54 PM Isovue 370 - 500ml,1 Bottle(s) used. [email or web address] 02:54 PM Sheath left in place to be pulled on floor/holding area [email or web address] 02:55 PM Post ECG NSR [email or web address] 02:55 PM Post Blood Pressure 151/85 [email or web address] 02:55 PM 14:55 Post Pulses Bilateral DP \\T\\ PT 1+ [email or web address] 02:56 PM Information taught Cardiac Cath and PCI [email or web address] 02:56 PM Education needs Procedure, Plan of Care, and Responsibilities of Patient in Care [email or web address] 02:56 PM Learning barriers :None [email or web address] 02:56 PM Education Methods Verbal [email or web address] 02:56 PM Education evaluation Able to repeat information [email or web address] 02:56 PM Site status No bleeding/hematoma - Rt Groin as reported by Rachell Ardon RT (R) at 14:56 [email or web address] 02:56 PM Opsite applied [email or web address] 03:02 PM Time: 15:01 Tylenol 650 mg Orally Given by Obdulia Panda RN [email or web address] 03:03 PM Patient out of room: 15:03 [email or web address] 03:03 PM Report given to Clyde WOLFE Pt taken to 2N Room #12. 15:03 [email or web address] 03:05 PM Plavix, Effient or Brilinta given Yes scoates 03:05 PM Delay to floor No scoates 03:06 PM Family placed in consult room. scoates 03:06 PM Complications: None scoates 03:10 PM Proximal Left Anterior Descending Coronary Artery with 60% stenosis. If graft is supplying this territory, 0 % stenosis. scoates 03:10 PM Circumflex, Obtuse Marginal, Left Posterior Descending, and Left Posterolateral Coronary Arteries with 70 % stenosis. If graft is supplying this area, 0 % stenosis scoates 03:10 PM Right Coronary, Right Posterior Descending Arteries with Right Posterolateral and Acute Marginal branches with 70 % stenosis. If graft is supplying this area, 0 % stenosis scoates Complications Complication None None Hemodynamics Pressures Site Systolic/A Wave Diastolic/V Wave Mean AO 71 46 58 AO 123 89 106 AO 96 69 81 LV 125 -1 18 LV 130 -4 4 AO 123 71 93 AO 144 80 108 AO 105 57 78 AO 134 88 110 Post Procedure Information Blood Pressure: 151/85 mmHg Rhythm: NSR Post procedural instructions were given Closure Device Time Device Success/Fail 01/08/2017 2:40:00 PM Manual Compression - sheath to be pulled when ACt is appropriate Successful Site Checks Time Location Status Staff Sheath In? Note 02:56 PM Rt Groin No bleeding/hematoma Rachell Ardon RT (R) Pulses Time Site Pre-Procedure Post-Procedure Note 01/08/2017 1:15:00 PM Bilateral DP \\T\\ PT 1+ 01/08/2017 1:15:00 PM Bilateral radial 2+ 2:55:00 PM Bilateral DP \\T\\ PT 1+ Updated by Kylah Lees RN on 01/08/2017 3:31:59 PM electronically signed on 01/08/2017 3:34:44 PM with status of Final
[2017-01-08 15:46] LABS: Basophils % 0.1 %; Eosinophils # 0.1 K/mcL (0.0-0.6); Eosinophils % 1.2 %; Hematocrit 33.9 % (35.3-44.9); Hemoglobin 11.8 g/dL (11.5-15.4); Immature Granulocytes % 0.5 % (0-4); Lymphocytes # 1.4 K/mcL (0.6-4.6); Mean Corpuscular HGB Conc 34.8 g/dL (31.6-35.5); Mean Corpuscular Hemoglobin 33.2 pg (28.0-33.3); Mean Corpuscular Volume 95.5 fL (83.0-100.0); Monocytes # 0.3 K/mcL (0.0-1.3); Monocytes % 4.4 %; Neutrophils # 5.5 K/mcL (1.6-8.9); Platelet Count 220 K/mcL (140-400); Red Blood Count 3.55 M/mcL (3.82-4.97); Red Cell Distribution Width 12.5 % (11.5-14.5); Segmented Neutrophils % 74.8 %
[2017-01-08 16:01] LABS: BUN/Creatinine Ratio 15 (6-26); Blood Urea Nitrogen 11 mg/dL (7-20); Carbon Dioxide 24 mEq/L (19-29); Chloride 107 mEq/L (98-109); Glucose 164 mg/dL (70-99); Osmolality,Calculated 287 (280-300); Potassium 4.4 mEq/L (3.5-4.5); Sodium 137 mEq/L (136-145); eGFR For African Americans > 60 (> 60); eGFR For Non-African Americans > 60 (> 60)
[2017-01-08] MEDS: *HR* Morphine 2 MG/ML SYRINGE IVP PRN (16:15)
[2017-01-08] MEDS: Sucralfate 1 GM TABLET PO SCH (16:17)
[2017-01-08] MEDS ORDERED: *HR* Atropine Sulfate 1 MG/10 ML SYRINGE ONE (17:17)
[2017-01-08] MEDS ORDERED: *HR* Heparin 5,000 UNIT/ML VIAL ONE (17:47)
[2017-01-08] MEDS: *HR* Heparin 5,000 UNIT/ML VIAL SQ SCH (18:25)
[2017-01-08] MEDS: *HR* LORazepam 2 MG/ML VIAL IVP PRN (18:45)
--- NOTE | 2017-01-08 19:23 | Invasive Diagnostic Lab ---
Name: Lidia Seth Date of Study: 01/08/2017 Date: 1945 Ht: 167.6 cm /66.0 in Medical Record#: [id number] Age: 71 Wt: 67.3 kg / 148.37 lb Account/Order#: [id number] Gender: Female BSA: 1.76 Order #: [id number] Fluoro Dose: 1344 mGy BMI: 23.96 Procedure Physician: Jerod Garner MD, [facility] Referring MD: Referring MD: Procedures Performed: LEFT HEART CATH IV Doppler BLD Flow 1st Vessel Lcx Stent w/ PTCA Single Major Vessel Lcx IV Doppler BLD Flow Ad'l Vessel RCA Stent w/ PTCA Single Major Vessel RCA Indications: Non-Stemi Impressions: There is severe LV Dysfunction EF 25% Patient is noted to have Takotsubo. Patient had successful PTCA/Drug-Eluting Stent placement in the proximal Circ. FFR Measurement: 0.80 MID Circ Patient had successful PTCA/Drug-Eluting Stent placement in the Mid RCA. FFR Measurement: 0.78 for MID RCA There is severe two vessel coronary artery disease. 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 Aggressive risk factor modification. Patient being referred for cardiac rehab. Procedure Access obtained in the right Femoral artery by percutaneous puncture Patient had successful PTCA/Drug-Eluting Stent placement in the Mid and Mid RCA. A pressure tipped wire was advanced through the catheter into the Circumflex. Measurements of FFR were made during hyperemia induced by intracoronary adenosine. FFR Measurement 0.80 A pressure tipped wire was advanced through the catheter into the RCA. Measurements of FFR were made during hyperemia induced by intracoronary adenosine. FFR Measurement 0.78 Complications: None, None Contrast: Isovue 249ml Closure Device: Manual Compression - sheath to be pulled when ACt is appropriate Hemodynamics: Pressures Site Systolic/ A Wave Diastolic/ V Wave End Diastolic/ Mean HR AO 71 46 58 100 AO 123 89 106 110 AO 96 69 81 98 LV 125 -1 18 104 LV 130 -4 4 106 AO 123 71 93 104 AO 144 80 108 95 AO 105 57 78 101 AO 134 88 110 96 LV Ventriculography Ejection Method: LV Gram Ejection Fraction: 25% Wall Motion: MAYEN Anterobasal Hyperkinesis Anterolateral Akinesis Apical: Akinesis Inferoapical Akinesis Inferobasal Hyperkinesis Coronary Dominance: right Lesion Findings/Interventions * Left Main Coronary Artery The LMCA is angiographically free of disease. * Left Anterior Descending There is a 50-60% stenosis in the Proximal LAD. * Circumflex There is a 12 mm long, 70% stenosis in the Proximal Circumflex. The lesion has a ZAC flow of 3 and has no thrombus present. An intervention was performed on the Proximal Circumflex with a final stenosis of 0%. There were no lesion complications. The final ZAC flow was 3. FFR functionally significant * Right Coronary Artery There is a 6 mm long, 70% instent stenosis in the Proximal RCA. The lesion has a ZAC flow of 3. An intervention was performed on the Proximal RCA with a final stenosis of 0%. There were no lesion complications. The final ZAC flow was 3. There is a 12 mm long, 70% stenosis in the Mid RCA. The lesion has a ZAC flow of 3. An intervention was performed on the Mid RCA with a final stenosis of 0%. There were no lesion complications. The final ZAC flow was 3. FFR was functionally significant Interventional Device(s) Vessel Segment Type Name Diameter (mm) Length (mm) Mid RCA Drug Eluting Stent Synergy 2.5 12 Mid RCA Balloon NC Emerge 3 6 Proximal RCA Balloon NC Emerge 3 6 Proximal Circumflex Drug Eluting Stent Synergy 2.5 12 Proximal Circumflex Balloon NC Trek Rx 3.5 6 Proximal Circumflex balloon NC Emerge 4 6 Updated by Kylah Lees RN on 01/08/2017 3:32:55 PM Jerod Garner MD, [facility] electronically signed on 01/08/2017 7:18:30 PM with status of Final
[2017-01-08] MEDS ORDERED: 0.9 % Sodium Chloride 500 ML ONE (19:35)
[2017-01-08] MEDS: Nitroglycerin 25 MG/250 ML INFUS..BTL IVC SCH (19:59)
[2017-01-08] MEDS: (Cranberry Fruit Concentrate [Cranberry] 450 MG) PO SCH (21:40)
[2017-01-08] MEDS: ALPRAZolam 0.25 MG TABLET PO SCH (21:54)
[2017-01-09] MEDS: Acetaminophen 325 MG TABLET PO PRN ×3 (01:33→20:00)
[2017-01-09] MEDS: *HR* Morphine 2 MG/ML SYRINGE IVP PRN ×2 (03:29→22:54)
--- NOTE | 2017-01-09 06:25 | Electrocardiograph Report ---
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
[2017-01-09] MEDS: *HR* Heparin 5,000 UNIT/ML VIAL SQ SCH ×2 (06:27→17:29)
[2017-01-09 06:55] LABS: Basophils % 0.1 %; Eosinophils % 0.3 %; Hematocrit 31.5 % (35.3-44.9); Hemoglobin 10.9 g/dL (11.5-15.4); Immature Granulocytes % 0.4 % (0-4); Lymphocytes # 1.6 K/mcL (0.6-4.6); Lymphocytes % 22.7 %; Mean Corpuscular HGB Conc 34.6 g/dL (31.6-35.5); Mean Corpuscular Hemoglobin 33.1 pg (28.0-33.3); Mean Corpuscular Volume 95.7 fL (83.0-100.0); Mean Platelet Volume 9.3 fL (9.4-12.4); Monocytes # 0.4 K/mcL (0.0-1.3); Monocytes % 6.5 %; Neutrophils # 4.8 K/mcL (1.6-8.9); Platelet Count 214 K/mcL (140-400); Red Blood Count 3.29 M/mcL (3.82-4.97); Red Cell Distribution Width 12.9 % (11.5-14.5)
[2017-01-09 07:10] LABS: BUN/Creatinine Ratio 14 (6-26); Blood Urea Nitrogen 10 mg/dL (7-20); Calcium 8.5 mg/dL (8.6-10.8); Carbon Dioxide 24 mEq/L (19-29); Chloride 104 mEq/L (98-109); Glucose 158 mg/dL (70-99); Osmolality,Calculated 284 (280-300); Potassium 4.4 mEq/L (3.5-4.5); Sodium 136 mEq/L (136-145); eGFR For African Americans > 60 (> 60); eGFR For Non-African Americans > 60 (> 60)
[2017-01-09] MEDS ORDERED: Perflutren Lipid Microsphere 1.3 ML in 0.9 % Sodium Chloride 8.7 ML IVP ONE (07:45)
[2017-01-09] MEDS ORDERED: Perflutren Lipid Microsphere 2 ML VIAL ONE (07:53)
[2017-01-09] MEDS: Cholecalciferol (D-3) 1,000 UNIT TABLET PO SCH (08:22)
[2017-01-09] MEDS: Aspirin 81 MG TAB.CHEW PO SCH (08:22)
[2017-01-09] MEDS: Sucralfate 1 GM TABLET PO SCH ×3 (08:22→16:45)
[2017-01-09] MEDS: Isosorbide MONOnitrate (24 HR) 60 MG TAB.ER.24H PO SCH (08:23)
[2017-01-09] MEDS: Fluticasone Propionate Nasal 50 MCG/SPRAY BOTTLE NS SCH (08:27)
[2017-01-09] MEDS: (Cranberry Fruit Concentrate [Cranberry] 450 MG) PO SCH ×2 (08:27→21:18)
[2017-01-09] MEDS: (Ubidecarenone/Vit E Acetate [Co Q-10 100 Mg Softgel] PO SCH (08:27)
[2017-01-09] MEDS ORDERED: Metoprolol XL (24 HR) Succ 25 MG TAB.ER.24H PO SCH (09:00)
--- NOTE | 2017-01-09 09:23 | Nuclear Medicine Stress Report ---
Exercise Nuclear Stress Name: Lidia Seth Date of Study: 01/08/2017 Date: 1945 Ht: 66.0 in Medical Record#: [id number] Age: 71 Wt: 148.0 lb Gender: Female Order #: [id number] Location: [facility] OP Room: opt Supervising Provider: Maynor Garza CNP Reading Physician: Georgette Veliz DO Ordering Physician: Héctor Irwin DO,AMANDA,FLO LYNCH Primary Care Physician: Myranda Lauren DO Stress Technologist: Kari Goddard, EVENT COORDINATOR, CCT, CPFT Custom Bookbinder: Cristopher Herndon Indications: Chest Pain Impression: At 5:52 of recovery, the ECG demonstrated 1-[address] elevation in II, III, aVF, V4-V6, lead I and 1-[address] depression in aVR. Patient complained of severe chest pain at end exercise and throughout the recovery period. Patient was urgently taken to the geophysical laboratory supervisor for ST elevation changes and chest pain. Resting perfusion studies demonstrate normal perfusion. Hypertensive response to exercise. History: Hypertension Diabetes Hypercholesteremia Prior PCI Stress Test Summary: Stress Test Type: Treadmill Protocol: Jerod Baseline Information: Initial Heart Rate: 63 Blood Pressure: 124/60 Stress Information: Stress Time: 4 min 40 sec Test Terminated Due to (primary): Chest pain Maximum Blood Pressure: 192/70 Maximum Heart Rate: 133 Percent Maximum Heart Rate Achieved: 89 Double Product: [id number] METS Reached: 6 Symptoms: Chest pain Nuclear Summary: SPECT myocardial perfusion imaging using Tc99m Sestamibi given intravenously was performed at rest and following cardiac stress testing. The resting images were obtained following initial dose of 10.3 mCi. Following stress an additional dose of 35.4 mCi was given at peak exercise or 30 seconds post regadenoson infusion. Medication Given: Time Medication Dose Units Route Findings: Stress Note * Resting ECG demonstrated normal sinus rhythm with nonspecific ST abnormalities. * At peak exercise, there are 2mm of flat to upsloping ST depressions in the inferior leads and 1 mm of flat to upsloping ST depressions in V5-V6. 1mm of ST elevation in aVR. * At 5:52 of recovery, the ECG demonstrated 1-[address] elevation in II, III, aVF, V4-V6, lead I and 1-[address] depression in aVR. * Patient had severe chest pain/pressure during stress and the recovery period. * Occasional PVCs noted during recovery. * The exercise capacity was fair. Study Quality * Incomplete study. NORMALS * Normal Segmental Perfusion in rest. Hemodynamic responses * The patient demonstrated a hypertensive blood pressure response, 201/100 mmHg. Updated by Georgette eVliz on 01/09/2017 9:15:54 AM electronically signed on 01/09/2017 9:17:44 AM with status of Final
--- NOTE | 2017-01-09 10:31 | Electrocardiograph Report ---
Echo with Imaging Enhancement Agent Name: Lidia Seth Date of Study: 01/09/2017 Date: 1945 Ht: 66.0 in Medical Record#: [id number] Age: 71 Wt: 182.0 lb Gender: Female BSA: 1.92 Order #: [id number] Location: [facility] Room #: 2N12 Reading Physician: Georgette Veliz DO Employment Supervisor: Jovi Braswell RN Ordering Physician: Maynor Garza CNP Primary Physician: Myranda Lauren DO Indications: Chest pain Impressions: Moderately reduced LV systolic function, estimated 35% with regional variations commonly seen with stress-induced cardiomyopathy. Hyperkinetic LV basal segments and hypokinetic to akinetic mid to apical segments. Normal right ventricular size and function. Mild aortic regurgitation. Mild mitral regurgitation. Mild-moderate tricuspid regurgitation. Mild pulmonary hypertension. Left Ventricular Wall Motion: Rest Echo Findings The apex, apical inferior, mid inferior, apical anterior, mid anterior, apical septal, mid inferior septal, apical lateral, mid anterior lateral and mid anterior septal fonseca were hypokinetic. The basal inferior, basal anterior, basal inferior septal, basal anterior lateral, basal anterior septal and basal inferior lateral fonseca were hyperkinetic. The mid inferior lateral wall was not visualized. Findings: Study Quality * Technically adequate exam. ECG Findings * Normal sinus rhythm. Aorta * Normally sized aortic root. Right Ventricle * Normal right ventricular structure and function. Left Atrium * Normal left atrial size. Mitral Valve * Normal mitral valve structure. * No mitral stenosis. * Mild mitral regurgitation. Aortic Valve * Trileaflet aortic valve. * Normal aortic valve structure. * No aortic stenosis. * Mild aortic regurgitation. Tricuspid Valve * Tricuspid valve not well visualized. * Mild-moderate tricuspid regurgitation. * Estimated RA pressure is 3 mmHg. * Estimated RVSP is 40 mmHg. * Mild pulmonary hypertension. Pulmonic Valve * Pulmonic valve is not well visualized. * No pulmonic stenosis. * No pulmonic regurgitation. Pulmonary Artery * Pulmonary artery not well visualized. Left Ventricle * Mild left ventricular diastolic dysfunction. * Definity echo contrast was used. * There is no LV thrombus. * Hyperkinetic basal segments and hypokinetic to akinetic mid to apical segments. * LVEF estimated 35%. Right Atrium * Normal right atrial size. Interatrial Septum * No evidence of PFO by color Doppler. Pericardium * There is no pericardial effusion present. IVC * Normal IVC dimensions and inspiratory collapse. History Hypertension Diabetes Hypercholesteremia Family History of CAD History of CAD/PTCA Myocardial Infarction 07/13/2016 a Previous Echo was performed. Contrast: Definity 1.3 ml in 8.7 ml of saline 2 ml. Measurements: BP: 101/ 65 2D Normal Values RVIDd: 2.90 cm <2.7 cm IVSd: 1.10 cm 0.6 - 1.0 cm LVIDd: 4.10 cm 3.7 - 5.6 cm LVPWd: 1.10 cm 0.6 - 1.1 cm LVIDs: 2.70 cm 1.5 - 3.6 cm LA: 3.90 cm 2.0 - 4.0cm %FS: 34.10 cm >25 % LVOT Diam: 2.00 cm LA volume: 59 Mitral Valve Peak E:.84 m/sec Peak A:.83 m/sec E/A Ratio:1 Peak E' Lat Lamonte:7.31 cm/s Peak E' Med Lamonte:5.95 cm/s E/E' Lat Ratio:11.5 E/E' Med Ratio:14.2 Aortic Valve AI pressure Half-time: 376.00 msec Tricuspid Valve TV Regurg Peak Grad: 37.00mmHg TV Regurg Peak Lamonte: 3.06m/sec Updated by Georgette Veliz on 01/09/2017 10:23:48 AM electronically signed on 01/09/2017 10:25:37 AM with status of Final Wall Motion Burns: 1=Normal, 2=Hypokinesis, 3=Akinesis, 4=Dyskinesis, 5=Aneurysmal, 6=Hyperkinetic, X=Not Visualized (Blank)=Missing
--- NOTE | 2017-01-09 11:58 | Cardiology Progress Note ---
Date of Encounter: 01/09/17 Time of Encounter: 11:30 Assessment and Plan (1) Takotsubo cardiomyopathy Current Visit: Yes Status: Acute Patient developed ST abnormalities after exercise nuclear stress test on . Troponin 1.3 She was emergently taken to the crime lab analyst; changes felt to be secondary to Takotsubo cardiomyopathy. [facility] 01/08/17: severe LV dysfunction, EF 25%; successfl PTCA/YOSELIN to pLCx and mRCA. Cardiac rehab consulted Echo: pending. Prior EF normal per TTE 06/2016. Reports "slight" chest discomfort this AM while making bed. Has ambulated in room without issues. No issues with right groin cath site. Metoprolol tartrate changed to succinate. Continue ACEi and nitrates. Appears euvolemic upon exam. NTG has been off since 2AM. Will continue to monitor labs and telemetry overnight. Encouraged ambulation in hallway. Await echo report. If stable, plan for d/c home in AM. (2) CAD (coronary artery disease) Current Visit: Yes Status: Chronic Hx of multiple PCIs, as recent as 09/2016. ASA, Plavix, Statin, BB, nitrates. Qualifiers: Coronary Disease-Associated Artery/Lesion type: [place] artery [place] vs. transplanted heart: [place] heart Associated angina: angina presence unspecified Qualified Code(s): I25.10 - Atherosclerotic heart disease of [place] coronary artery without angina pectoris Discussion w patient/family: The assessment and plan as outlined above was discussed with the patient and/or family members who expressed understanding and agreement. All questions were answered. Thank you for involving us in the care of your patient. Please call with any questions. The patient was discussed and reviewed with Dr. Irby. Subjective Principal diagnosis: NSTEMI, takotsubo Interval history: Seen and examined. NTG gtt has been off since 2AM. Reports "slight" chest discomfort this AM while making her bed. Denies any other symptoms including dyspnea, palpitations, dizziness, or syncope. Has ambulated in her room without symptoms. Objective Vital Signs, Last 4 Hours Temp Pulse Resp BP Pulse Ox 01/09/17 11:07 102 18 102/63 96 01/09/17 08:25 98.0 F 90 18 109/75 93 01/09/17 08:20 91 General: Conversant, No Apparent Distress HEENT: Atraumatic, Normocephaly, Mucus Membranes Moist Cardiac: Reg Rate and Rhythm, Normal S1 and S2 Lungs: Normal Breath Sounds Neuro: Alert and responsive Abdomen: Soft Skin: No rashes noted on visualized skin Musculoskeletal: No Chest Wall Tenderness Extremities: No Edema, Normal Pulses Other: right groin: dressing clean dry and intact. No oozing or hematoma noted. +2 distal BLE pulses. Results 01/09/17 06:37 01/09/17 06:37 Lab Results 01/08/17 01/08/17 01/08/17 15:38 15:38 15:43 WBC 7.4 Hgb 11.8 Hct 33.9 L Plt Count 220 Sodium 137 Potassium 4.4 Chloride 107 Carbon Dioxide 24 BUN 11 Creatinine 0.73 Glucose 164 H Calcium 8.0 L Troponin I 1.35 H* 01/09/17 01/09/17 06:37 06:37 WBC 6.8 Hgb 10.9 L Hct 31.5 L Plt Count 214 Sodium 136 Potassium 4.4 Chloride 104 Carbon Dioxide 24 BUN 10 Creatinine 0.73 Glucose 158 H Calcium 8.5 L Troponin I Active Medications Acetaminophen (Tylenol) 650 mg PO Q6HR PRN PRN Reason: Fever Stop: 07/10/17 14:34 Last Admin: 01/09/17 09:50 Dose: 650 mg Acetaminophen (Tylenol) 500 mg PO Q6HR PRN PRN Reason: Mild Pain Stop: 07/10/17 15:23 Alprazolam (Xanax) 0.25 mg PO HS SUSAN PRN Reason: Protocol Stop: 07/10/17 21:01 Last Admin: 01/08/17 21:54 Dose: 0.25 mg Aspirin (Aspirin) 81 mg PO DAILY [facility] Stop: 07/11/17 09:01 Last Admin: 01/09/17 08:22 Dose: 81 mg Atorvastatin Calcium (Lipitor) 20 mg PO TUFR [facility] Stop: 07/11/17 14:31 Clopidogrel Bisulfate (Plavix) 75 mg PO DAILY [facility] Stop: 07/11/17 09:01 Last Admin: 01/09/17 08:22 Dose: 75 mg Dicyclomine HCl (Bentyl) 10 mg PO QID PRN PRN Reason: Abdominal Pain Stop: 07/10/17 14:31 Diphenhydramine HCl (Benadryl) 25 mg PO HS PRN PRN Reason: Insomnia Stop: 07/10/17 15:25 Escitalopram Oxalate (Lexapro) 10 mg PO DAILY [facility] Stop: 07/11/17 09:01 Last Admin: 01/09/17 08:22 Dose: 10 mg Fluticasone Propionate (Flonase) 50 mcg NS DAILY SUSAN PRN Reason: Protocol Stop: 07/11/17 09:01 Last Admin: 01/09/17 08:27 Dose: Not Given Heparin Sodium (Porcine) (Heparin) 5,000 unit SQ Q12HCO [facility] Stop: 07/10/17 18:01 Last Admin: 01/09/17 06:27 Dose: 5,000 unit Nitroglycerin (Nitroglycerin) 25 mg in 250 mls @ 3 mls/hr IVC .Q24H SUSAN; 5 MCG/ MIN PRN Reason: Protocol Stop: 07/10/17 19:01 Last Infusion: 01/09/17 03:09 Dose: 0 mcg/min, 0 mls/hr Isosorbide Mononitrate (Imdur) 240 mg PO DAILY [facility] Stop: 07/11/17 09:01 Last Admin: 01/09/17 08:23 Dose: 240 mg Lisinopril (Zestril) 10 mg PO DAILY [facility] PRN Reason: Protocol Stop: 07/11/17 09:01 Last Admin: 01/09/17 08:28 Dose: Not Given Loratadine (Claritin) 10 mg PO DAILY PRN; Protocol PRN Reason: Allergy Symptoms Stop: 07/10/17 14:31 Lorazepam (Ativan) 2 mg IVP Q6HR PRN PRN Reason: Anxiety Stop: 07/10/17 15:26 Last Admin: 01/08/17 18:45 Dose: 2 mg Metoprolol Succinate (Toprol Xl) 25 mg PO DAILY [facility] Stop: 07/11/17 09:01 Last Admin: 01/09/17 08:28 Dose: Not Given Morphine Sulfate (Morphine Sulfate) 4 mg IVP Q3H PRN PRN Reason: Severe Pain (7-10) Stop: 07/10/17 16:11 Last Admin: 01/09/17 03:29 Dose: 4 mg Nitroglycerin (Nitroglycerin) 0.4 mg SL Q5M PRN PRN Reason: Chest Pain Stop: 07/10/17 14:31 Omeprazole (Prilosec) 20 mg PO BID [facility] Stop: 07/10/17 21:01 Last Admin: 01/09/17 08:22 Dose: 20 mg Ondansetron HCl (Zofran) 4 mg IVP Q8HR PRN PRN Reason: Nausea And Vomiting Stop: 07/10/17 15:23 Last Admin: 01/08/17 17:55 Dose: 4 mg Pharmacy Profile Note (Patient Taking Own Medication) 0 each PO BID [facility] Stop: 07/10/17 21:01 Last Admin: 01/09/17 08:27 Dose: Not Given Pharmacy Profile Note (Patient Taking Own Medication) 0 each PO DAILY [facility] Stop: 07/11/17 09:01 Last Admin: 01/09/17 08:27 Dose: Not Given Sucralfate (Carafate) 1 gm PO TIDAC [facility] Stop: 07/10/17 16:31 Last Admin: 01/09/17 11:07 Dose: 1 gm Vitamin D (Vitamin D) 1,000 unit PO DAILY [facility] Stop: 07/11/17 09:01 Last Admin: 01/09/17 08:22 Dose: 1,000 unit - Imaging and Cardiology Echo: pending Cardiac cath: report reviewed Other Results: Tele: avg HR=87 SR. No significant event noted. - EKG Interpretation EKG results cardiology: sinus rhythm - VTE Reasons for not Prescribing Prophylaxis: Not indicated-Anticoagulated or INR therapeutic Consult Discharge Plan - Plan Referrals: Myranda Lauren DO [Primary Care Provider] - 01/12/17 10:45 am
[2017-01-09] MEDS: amLODIPine 5 MG TABLET PO SCH (17:28)
--- NOTE | 2017-01-09 17:29 | Event Note ---
Date of Encounter: 01/09/17 Time of Encounter: 17:00 - Cardiology Event Note Seen and examined at after page at 1645. Paged regarding 10/10 chest pain while ambulating. Pain improved to 7/10 with SL NTG. Repeat ECG demonstrated anterolateral T wave changes. Reviewed with Dr. Irby. [facility] film from 01/08/[address] Alexandra Payne; no other lesions noted. Suspect may be secondary to coronary vasospasm--will start Norvasc 5 mg daily. Re-start NTG gtt. Trend troponin. Will continue to monitor closely. Re-evaluated at 1730--pain now 3/10, patient appears comfortable. All questions and concerns were addressed.
[2017-01-09] MEDS: ALPRAZolam 0.25 MG TABLET PO SCH (22:03)
[2017-01-10] MEDS: *HR* Heparin 5,000 UNIT/ML VIAL SQ SCH ×2 (06:13→17:47)
[2017-01-10] MEDS: Nitroglycerin 25 MG/250 ML INFUS..BTL IVC SCH (07:10)
[2017-01-10] MEDS: Sucralfate 1 GM TABLET PO SCH ×3 (07:30→16:03)
[2017-01-10] MEDS: amLODIPine 5 MG TABLET PO SCH ×2 (08:49→22:07)
[2017-01-10] MEDS: Aspirin 81 MG TAB.CHEW PO SCH (08:49)
[2017-01-10] MEDS: Isosorbide MONOnitrate (24 HR) 60 MG TAB.ER.24H PO SCH (08:49)
[2017-01-10] MEDS: Cholecalciferol (D-3) 1,000 UNIT TABLET PO SCH (08:49)
[2017-01-10] MEDS: Fluticasone Propionate Nasal 50 MCG/SPRAY BOTTLE NS SCH (08:50)
[2017-01-10] MEDS: (Ubidecarenone/Vit E Acetate [Co Q-10 100 Mg Softgel] PO SCH (08:52)
[2017-01-10] MEDS: Metoprolol XL (24 HR) Succ 50 MG TAB.ER.24H PO SCH ×2 (08:52→09:13)
[2017-01-10] MEDS: (Cranberry Fruit Concentrate [Cranberry] 450 MG) PO SCH ×2 (08:52→21:07)
--- NOTE | 2017-01-10 09:43 | Cardiology Progress Note ---
Date of Encounter: 01/10/17 Time of Encounter: 09:00 Assessment and Plan (1) Takotsubo cardiomyopathy Current Visit: Yes Status: Acute Patient developed ST abnormalities after exercise nuclear stress test on . Troponin 1.3 She was emergently taken to the cytology laboratory manager; changes felt to be secondary to Takotsubo cardiomyopathy. [facility] 01/08/17: severe LV dysfunction, EF 25%; successfl PTCA/YOSELIN to pLCx and mRCA. Cardiac rehab consulted TTE 01/09/17: moderately reduced LV systolic dysfunction, est 35% with regional variations consisted with stress-induced cardiomyopathy; hyperkinetic LV basal segments and hypokinetic to akinetic mid to apical segments, mild AR, mild MR, mild-moderate TR, mild PH Prior EF normal per TTE 06/2016. Episode of chest discomfort with ECG changes yesterday afternoon (see event note ). Chest pain has improved, still persistent 3-4/10. Norvasc started, wean off ntg gtt. No issues with right groin cath site. Toprol XL held yesterday due to borderline BP; BP is stable, and will increase dose to 50 mg daily (HR low 100's). Continue ACEi and nitrates. Appears euvolemic upon exam. (2) CAD (coronary artery disease) Current Visit: Yes Status: Chronic Hx of multiple PCIs, as recent as 09/2016. ASA, Plavix, Statin, BB, nitrates. Qualifiers: Coronary Disease-Associated Artery/Lesion type: [place] artery [place] vs. transplanted heart: [place]omon heart Associated angina: angina presence unspecified Qualified Code(s): I25.10 - Atherosclerotic heart disease of [place] coronary artery without angina pectoris Discussion w patient/family: The assessment and plan as outlined above was discussed with the patient and/or family members who expressed understanding and agreement. All questions were answered. Thank you for involving us in the care of your patient. Please call with any questions. The patient was discussed and reviewed with Dr. Irby. Subjective Principal diagnosis: NSTEMI, takotsubo Interval history: Seen and examined. After recurrent chest pain yesterday afternoon (see event note), NTG resumed. Reports 4-5/10 chest discomfort this AM. Appears stable, BP stable, patient sitting up in bed eating breakfast. Objective Vital Signs, Last 4 Hours Temp Pulse Resp BP Pulse Ox 01/10/17 07:15 98.5 F 95 16 110/73 99 General: Conversant, No Apparent Distress HEENT: Atraumatic, Normocephaly Cardiac: Reg Rate and Rhythm (tachycardiac) Lungs: Normal Breath Sounds Neuro: Alert and responsive Abdomen: Soft Skin: No rashes noted on visualized skin Musculoskeletal: No Chest Wall Tenderness Extremities: No Edema, Normal Pulses Results 01/09/17 06:37 01/09/17 06:37 Lab Results 01/09/17 01/10/17 17:37 01:43 Troponin I 1.54 H* 1.17 H* Active Medications Acetaminophen (Tylenol) 650 mg PO Q6HR PRN PRN Reason: Fever Stop: 07/10/17 14:34 Last Admin: 01/09/17 20:00 Dose: 650 mg Acetaminophen (Tylenol) 500 mg PO Q6HR PRN PRN Reason: Mild Pain Stop: 07/10/17 15:23 Alprazolam (Xanax) 0.25 mg PO HS SUSAN PRN Reason: Protocol Stop: 07/10/17 21:01 Last Admin: 01/09/17 22:03 Dose: 0.25 mg Amlodipine Besylate (Norvasc) 5 mg PO DAILY SUSAN PRN Reason: Protocol Stop: 07/11/17 17:16 Last Admin: 01/10/17 08:49 Dose: 5 mg Aspirin (Aspirin) 81 mg PO DAILY [facility] Stop: 07/11/17 09:01 Last Admin: 01/10/17 08:49 Dose: 81 mg Atorvastatin Calcium (Lipitor) 20 mg PO TUFR [facility] Stop: 07/11/17 14:31 Last Admin: 01/09/17 15:14 Dose: 20 mg Clopidogrel Bisulfate (Plavix) 75 mg PO DAILY [facility] Stop: 07/11/17 09:01 Last Admin: 01/10/17 08:49 Dose: 75 mg Dicyclomine HCl (Bentyl) 10 mg PO QID PRN PRN Reason: Abdominal Pain Stop: 07/10/17 14:31 Diphenhydramine HCl (Benadryl) 25 mg PO HS PRN PRN Reason: Insomnia Stop: 07/10/17 15:25 Escitalopram Oxalate (Lexapro) 10 mg PO DAILY [facility] Stop: 07/11/17 09:01 Last Admin: 01/10/17 08:49 Dose: 10 mg Fluticasone Propionate (Flonase) 50 mcg NS DAILY SUSAN PRN Reason: Protocol Stop: 07/11/17 09:01 Last Admin: 01/10/17 08:50 Dose: Not Given Heparin Sodium (Porcine) (Heparin) 5,000 unit SQ Q12HCO [facility] Stop: 07/10/17 18:01 Last Admin: 01/10/17 06:13 Dose: 5,000 unit Nitroglycerin (Nitroglycerin) 25 mg in 250 mls @ 3 mls/hr IVC .Q24H SUSAN; 5 MCG/ MIN PRN Reason: Protocol Stop: 07/10/17 19:01 Last Infusion: 01/10/17 09:15 Dose: 15 mcg/min, 9 mls/hr Isosorbide Mononitrate (Imdur) 240 mg PO DAILY [facility] Stop: 07/11/17 09:01 Last Admin: 01/10/17 08:49 Dose: 240 mg Lisinopril (Zestril) 10 mg PO DAILY [facility] PRN Reason: Protocol Stop: 07/11/17 09:01 Last Admin: 01/10/17 08:49 Dose: 10 mg Loratadine (Claritin) 10 mg PO DAILY PRN; Protocol PRN Reason: Allergy Symptoms Stop: 07/10/17 14:31 Lorazepam (Ativan) 2 mg IVP Q6HR PRN PRN Reason: Anxiety Stop: 07/10/17 15:26 Last Admin: 01/08/17 18:45 Dose: 2 mg Metoprolol Succinate (Toprol Xl) 50 mg PO DAILY [facility] Stop: 07/12/17 09:01 Last Admin: 01/10/17 09:13 Dose: 50 mg Morphine Sulfate (Morphine Sulfate) 4 mg IVP Q3H PRN PRN Reason: Severe Pain (7-10) Stop: 07/10/17 16:11 Last Admin: 01/09/17 22:54 Dose: 4 mg Nitroglycerin (Nitroglycerin) 0.4 mg SL Q5M PRN PRN Reason: Chest Pain Stop: 07/10/17 14:31 Last Admin: 01/09/17 16:45 Dose: 0.4 mg Omeprazole (Prilosec) 20 mg PO BID [facility] Stop: 07/10/17 21:01 Last Admin: 01/10/17 08:49 Dose: 20 mg Ondansetron HCl (Zofran) 4 mg IVP Q8HR PRN PRN Reason: Nausea And Vomiting Stop: 07/10/17 15:23 Last Admin: 01/08/17 17:55 Dose: 4 mg Pharmacy Profile Note (Patient Taking Own Medication) 0 each PO BID [facility] Stop: 07/10/17 21:01 Last Admin: 01/10/17 08:52 Dose: Not Given Pharmacy Profile Note (Patient Taking Own Medication) 0 each PO DAILY [facility] Stop: 07/11/17 09:01 Last Admin: 01/10/17 08:52 Dose: Not Given Sucralfate (Carafate) 1 gm PO TIDAC [facility] Stop: 07/10/17 16:31 Last Admin: 01/10/17 07:30 Dose: 1 gm Vitamin D (Vitamin D) 1,000 unit PO DAILY [facility] Stop: 07/11/17 09:01 Last Admin: 01/10/17 08:49 Dose: 1,000 unit - Imaging and Cardiology Echo: report reviewed Cardiac cath: report reviewed Other Results: 12 hour tele: avg HR=98 SR. HR 100's upon exam. - EKG Interpretation EKG results cardiology: personally reviewed - VTE Reasons for not Prescribing Prophylaxis: Not indicated-Anticoagulated or INR therapeutic Consult Discharge Plan - Plan Referrals: Myranda Lauren DO [Primary Care Provider] - (SENT WEB REQUEST TO CANCEL THE 01-12-17 @ 7831 AND TO RESCHEDULE 5-7 DAYS FROM 01-12-17 ON 01-10-17 @ [id number])
[2017-01-10] MEDS ORDERED: 0.9 % Sodium Chloride 500 ML ONE (11:08)
[2017-01-10] MEDS: *HR* Glimepiride 2 MG TABLET PO SCH ×2 (12:17→22:07)
[2017-01-10] MEDS: *HR* Morphine 2 MG/ML SYRINGE IVP PRN (15:35)
[2017-01-10] MEDS: *HR* LORazepam 2 MG/ML VIAL IVP PRN (16:03)
--- NOTE | 2017-01-10 18:18 | Electrocardiograph Report ---
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
--- NOTE | 2017-01-10 18:22 | Electrocardiograph Report ---
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
[2017-01-11] MEDS: *HR* Morphine 2 MG/ML SYRINGE IVP PRN (02:41)
[2017-01-11] MEDS: Nitroglycerin 25 MG/250 ML INFUS..BTL IVC SCH (02:44)
[2017-01-11] MEDS: *HR* Heparin 5,000 UNIT/ML VIAL SQ SCH (06:46)
[2017-01-11] MEDS: Cholecalciferol (D-3) 1,000 UNIT TABLET PO SCH (07:35)
[2017-01-11] MEDS: *HR* Glimepiride 2 MG TABLET PO SCH (07:35)
[2017-01-11] MEDS: Metoprolol XL (24 HR) Succ 50 MG TAB.ER.24H PO SCH (07:35)
[2017-01-11] MEDS: Sucralfate 1 GM TABLET PO SCH ×2 (07:35→11:14)
[2017-01-11] MEDS: Aspirin 81 MG TAB.CHEW PO SCH (07:36)
[2017-01-11] MEDS: Isosorbide MONOnitrate (24 HR) 60 MG TAB.ER.24H PO SCH (07:36)
[2017-01-11] MEDS: amLODIPine 5 MG TABLET PO SCH (07:36)
[2017-01-11] MEDS: (Cranberry Fruit Concentrate [Cranberry] 450 MG) PO SCH (07:37)
[2017-01-11] MEDS: (Ubidecarenone/Vit E Acetate [Co Q-10 100 Mg Softgel] PO SCH (07:37)
[2017-01-11] MEDS: Acetaminophen 325 MG TABLET PO PRN (07:45)
[2017-01-11] MEDS: Fluticasone Propionate Nasal 50 MCG/SPRAY BOTTLE NS SCH (08:37)
[2017-01-11] MEDS ORDERED: ALPRAZolam 0.25 MG TABLET PO SCH (09:00)
[2017-01-11 11:16] VITALS: BP 112/64
--- NOTE | 2017-01-11 11:43 | Discharge Summary ---
Date of Encounter: 01/11/17 Time of Encounter: 11:00 - Discharge Diagnosis (1) Takotsubo cardiomyopathy Priority: Primary Status: Acute (2) CAD (coronary artery disease) Priority: Secondary Status: Chronic Qualifiers: Coronary Disease-Associated Artery/Lesion type: beaver artery [place] vs. transplanted heart: beaver heart Associated angina: angina presence unspecified Qualified Code(s): I25.10 - Atherosclerotic heart disease of beaver coronary artery without angina pectoris - Discharge Medications Prescriptions: Amlodipine [Norvasc] 5 mg PO BID #60 tablet Docusate [Colace] 100 mg PO DAILY PRN #30 capsule PRN Reason: Constipation Metoprolol XL (24 HR) Succ [Toprol Xl] 50 mg PO DAILY #30 tab.er.24h Home Medications: Alprazolam [Xanax 0.25 MG Tablet] 0.25 mg PO HS 07/12/16 [History] Aspirin 81 mg PO DAILY 07/12/16 [History] Clopidogrel [Plavix] 75 mg PO DAILY 07/12/16 [History] Isosorbide MONOnitrate [Isosorbide Mononitrate ER] 240 mg PO DAILY 07/12/16 [ History] Nitroglycerin [Nitrostat] 0.4 mg SL Q5M PRN 07/12/16 [History] Pantoprazole Sodium [Protonix] 40 mg PO BID 07/12/16 [History] Ubidecarenone/Vit E Acetate [Co Q-10 100 mg Softgel] 200 mg PO DAILY 07/12/16 [ History] Lisinopril [Zestril] 10 mg PO DAILY #15 tablet 07/14/16 [Rx] Glimepiride 1 mg PO BID 08/16/16 [History] Metformin [Glucophage] 500 mg PO BID 08/16/16 [History] Cholecalciferol (D-3) [Vitamin D] 2,000 unit PO DAILY 10/11/16 [History] Loratadine [Allergy Relief] 10 mg PO DAILY PRN 10/11/16 [History] Atorvastatin Calcium [Lipitor] 20 mg PO TUFR 12/13/16 [History] Dicyclomine [Bentyl] 10 mg PO QID PRN 12/13/16 [History] Sucralfate [Carafate] 1 gm PO TIDAC 12/13/16 [History] Cranberry Fruit Concentrate [Cranberry] 450 mg PO BID 01/08/17 [History] Escitalopram [Lexapro] 10 mg PO DAILY 01/08/17 [History] Fluticasone Propionate Nasal [Flonase] 1 spray NS DAILY 01/08/17 [History] Amlodipine [Norvasc] 5 mg PO BID #60 tablet 01/11/17 [Rx] Docusate [Colace] 100 mg PO DAILY PRN #30 capsule 01/11/17 [Rx] Metoprolol XL (24 HR) Succ [Toprol Xl] 50 mg PO DAILY #30 tab.er.24h 01/11/17 [ Rx] Allergies/Adverse Reactions: Allergies penicillin V Allergy (Verified 08/16/16 08:11) Anaphylaxis Procedures/tests Complete & Pending: Procedures Performed prior 72 hours Category Date Time Status Left Heart Cath [CL Cardiac Catheterization] [CL] Stat Nylon Hot Wire Cutter 01/08/17 12: 59 Completed ECG 12 lead ECG [ECG] Routine Y 01/09/17 07:00 Completed ECG 12 lead ECG [ECG] Routine Y 01/09/17 17:10 Completed ECG 12 lead ECG [ECG] Stat Y 01/08/17 19:01 Completed EV echocardiogram w enhance Routine Y 01/09/17 14:33 Completed Date of admission: 01/08/17 14:35 Primary care physician: Myranda Lauren DO Consults: 01/08/17 15:22 Consult to Cardiac Rehabilitation-Phase1 [CONS] Routine Comment: Reason for Consult: AMI Call Completed: Yes Consult to Nurse Navigator [CONS] Routine Comment: 01/08/17 16:36 Consult to Pastoral Services [CONS] Routine Comment: Discharging clinician: Key Rivera Anticipated date of discharge: 01/11/17 - Patient Status Disposition: Home, Self-Care Condition: Good Functional capacity at discharge: independent ambulation Overall status at discharge: patient is progressing back to baseline - Discharge Instructions Follow Up With: Pili Smith CNP [Partnered Physician] - 01/18/17 1:25 pm Myranda Lauren DO [Primary Care Provider] - () Key Rivera CNP [Partnered Physician] - 01/18/17 (Office will call to confirm apppointment time. ) Additional Instructions: RISK FACTORS: STOP SMOKING: If you smoke, STOP. Smoking or tobacco use significantly increases your risk of heart disease because nicotine causes the arteries to narrow or constrict. It also causes fats to stick to the artery. Your chances of having a heart attack are greatly increased if you continue to smoke. For more information, call the education line for smoking cessation 2-857-SDYWWOJ EAT A LOW FAT/CHOLESTEROL/SODIUM DIET: This diet may help reduce your chances of having a heart attack. LIFTING: Avoid lifting anything more than 10 pounds for 5-7 days Prior to straining, laughing, sneezing and/or coughing, apply manual pressure directly over insertion site. ACTIVITY: You may walk or climb stairs as tolerated You can resume sexual activity as tolerated In general, you are encouraged to engage in a minimum of 30 minutes or more of moderate intensity physical activity, such as brisk walking, daily or at least 3 -4 times weekly BATHING Do not submerge the site into water (bath tub, hot tub, swimming pool) for 1 week. This can be a source for infection into the blood stream. You may shower after 24 hours SITE CARE: After 24 hours, you may remove the dressing and leave the site open to air. Keep the site clean and dry. Clean gently and pat dry. You can expect bruising and tenderness that gradually resolve within a week or two. Return to work as instructed per your physician Resume driving as instructed per physician Keep all scheduled follow up appointments Resume medications as instructed IMPORTANT: If prescribed a Platelet Aggregation Inhibitor such as, Plavix, Brilinta or Effient: Duration of therapy is minimum one year These medications are often used in combination with Aspirin in prevention of future heart attacks Never discontinue unless consult with your Patient Transport Officer STROKE (CVA) Risk factors for a stroke are: Age, cigarette smoking, diabetes, excessive alcohol consumption, family history, high blood pressure, overweight, physical inactivity, prior stroke, heart attack, diagnosis of carotid artery stenosis or other artery disease. Warning signs: Sudden numbness or weakness of the face, arm or leg; especially on one side of the body, sudden confusion, trouble speaking or understanding, sudden trouble seeing in one or both eyes, sudden trouble walking, dizziness, loss of balance or coordination, sudden severe headache with no cause. Call 911 or go to the Emergency Room. CONGESTIVE HEART FAILURE: If you have been diagnosed with Congestive Heart Failure (CHF) and your symptoms return, make an appointment with your physician Weigh yourself daily. Notify your physician if you have a weight gain of two or more pounds in one day or five or more pounds in one week. If you experience any difficulty breathing, please call 911 BLEEDING: Although the risk of bleeding is minimal, it can happen. If you have any bleeding from the site, apply firm pressure above the puncture site for 10-15 minutes. If the bleeding does not stop, continue manual pressure and call 911 Contact your physician if: You develop a fever greater than 101 degrees Fahrenheit Your site becomes reddened or has any drainage You have an increase in pain or burning at the site or if a large knot forms at the site. If you experience chest pain, shortness of breath, dizziness, or extreme tiredness, stop the activity and rest. Please notify your physicians office if you experience any of these symptoms and they are not relieved by rest please call 911! - Diet and Activity Activity: increase activity as tolerated (per post PCI instructions) Diet: low fat, low cholesterol, low salt diet - Hospital Course Hospital course: Ms. Seth is a 71 year old female who was admitted after she developed ST abnormalities after exercise nuclear stress test on 01/08/17. 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 TTE demonstrated moderately reduced LV systolic dysfunction, est 35% with regional variations consisted with stress-induced cardiomyopathy; hyperkinetic LV basal segments and hypokinetic to akinetic mid to apical segments, mild AR, mild MR, mild-moderate TR, mild PH She continued to have chest discomfort for the past several days--episode s/p LHC felt to be secondary to coronary vasospasm; Amlodipine added. This morning upon exam, she is free of discomfort. Continues to report atypical chest pain symptoms--worsens with inspiration, increases after eating fatty foods, and does not improve with SL NTG. Of note, has been recommended to have cholecystectomy in the past. Vital signs, labs, and telemetry have been stable. No issues with right groin cath site. She is on appropriate medical therapy for new cardiomyopathy including ACEi and betablocker. Lopressor changed to Toprol XL. Amlodipine added. No other changes were made to home medications. Post PCI discharge instructions discussed at length including care of site and importance of uninterrupted DAPT (asa + plavix ) for at least 1 year. All questions and concerns were addressed; Ms. Seth is being prepped for discharge to home in stable condition. Patient was discussed and reviewed with Dr. Irby who agrees with plan. - Time Spent with Patient Total time spent providing and/or coordinating discharge services: Greater than 30 minutes Specific discharge activities: per post PCI discharge instructions--please provide written copy. Physical Examination Vital Signs, Last 4 Hours Temp Pulse Resp BP Pulse Ox 01/11/17 11:14 98.0 F 69 18 112/64 97 01/11/17 11:00 77 01/11/17 08:43 85 114/69 01/11/17 07:55 98 01/11/17 07:42 98.2 F 83 18 124/75 96 General: Conversant HEENT: Atraumatic, Normocephaly Cardiac: Reg Rate and Rhythm, Normal S1 and S2 Lungs: Normal Breath Sounds Neuro: Alert and responsive Abdomen: Soft Skin: No rashes noted on visualized skin Musculoskeletal: No Chest Wall Tenderness Extremities: No Edema, Normal Pulses Other: right groin: +2 pulses PT/DP; no hematoma, ecchymosis, or bleeding noted. - VTE Reasons for not Prescribing Prophylaxis: Not indicated-Anticoagulated or INR therapeutic
== END 2017-01-11 13:25 | disposition home or self-care (01) | DRG 247 ==
LOC: ICNU 10:31 → CARSER 10:31 → 2NNU 13:53
PROVIDERS: ADMIT Emergency Medicine; ATTEND Emergency Medicine

== ENCOUNTER 2017-08-31 15:02 | Observation (INO) ==
[2017-08-31 15:40] LABS: Basophils % 0.4 %; Eosinophils % 0.8 %; Hematocrit 33.4 % (35.3-44.9); Hemoglobin 11.8 g/dL (11.5-15.4); Immature Granulocytes % 0.4 % (0-4); Lymphocytes # 1.5 K/mcL (0.6-4.6); Mean Corpuscular HGB Conc 35.3 g/dL (31.6-35.5); Mean Corpuscular Volume 93.3 fL (83.0-100.0); Mean Platelet Volume 8.7 fL (9.4-12.4); Monocytes # 0.5 K/mcL (0.0-1.3); Monocytes % 9.5 %; Neutrophils # 2.9 K/mcL (1.6-8.9); Platelet Count 269 K/mcL (140-400); Red Blood Count 3.58 M/mcL (3.82-4.97); Red Cell Distribution Width 12.7 % (11.5-14.5); Segmented Neutrophils % 58.9 %
[2017-08-31 15:45] LABS: Prothrombin Time 11.1 Seconds (9.4-12.1)
[2017-08-31 15:52] LABS: BUN/Creatinine Ratio 14 (6-26); Blood Urea Nitrogen 11 mg/dL (7-20); Calcium 9.3 mg/dL (8.6-10.8); Carbon Dioxide 24 mEq/L (19-29); Chloride 106 mEq/L (98-109); Glucose 146 mg/dL (70-99); Osmolality,Calculated 292 (280-300); Sodium 140 mEq/L (136-145); eGFR For African Americans > 60 (> 60); eGFR For Non-African Americans > 60 (> 60)
--- NOTE | 2017-08-31 16:19 | Emergency Department Note ---
Disposition Clinical Impression: Unstable angina Chest pain Qualifiers: Chest pain type: unspecified Qualified Code(s): R07.9 - Chest pain, unspecified Disposition: Admitted As Inpatient Condition: Fair Time of Disposition: 17:31 Chest Pain HPI - General Chief Complaint: ED Chest Pain Stated Complaint: chest pain Time Seen by Provider: 08/31/17 15:24 Source: patient Mode of arrival: ambulatory Limitations: no limitations Vital Signs Reviewed: Yes Nursing Notes Reviewed: Yes - History of Present Illness HPI Narrative: 71-year-old female presented to the emergency department with chest pain. Says it is 8 out of 10 all across her chest. Says been going on since May but is worsened today which caused her to come in. She was actually seen at her process helper's office Dr. Irwin who sent her over due to the chest pain. She says she has a also going up into her jaw as well as her right shoulder. Patient does have an extensive cardiac history as she has had 10 stents placed. Patient states she is also having some upper abdominal pain has been going on for a while but his gallbladder issues. She is getting this worked up currently. She also has kidney stones and this is also given worked up by Dr. Panda. Says this chest pain is completely separate from this. She is not having any short of breath at this time, nausea/vomiting, fevers, changes in abdominal pain, changes in urination or pain with urination, change in bowel movements, pain or tingling of the arms or legs, generalized weakness, headaches , blurry vision, neck pain, back pain. Patient otherwise having no complaint. Severity scale (1-10): 8 - Related Data Home Medications Medication Instructions Recorded Confirmed ALPRAZolam [Xanax 0.25 MG Tablet] 0.25 mg PO HS 07/12/16 01/08/17 Aspirin 81 mg PO DAILY 07/12/16 01/08/17 Clopidogrel [Plavix] 75 mg PO DAILY 07/12/16 01/08/17 Isosorbide MONOnitrate [Isosorbide 240 mg PO DAILY 07/12/16 01/08/17 Mononitrate ER] Nitroglycerin [Nitrostat] 0.4 mg SL Q5M PRN 07/12/16 01/08/17 Pantoprazole Sodium [Protonix] 40 mg PO BID 07/12/16 01/08/17 Ubidecarenone/Vit E Acetate [Co 200 mg PO DAILY 07/12/16 01/08/17 Q-10 100 mg Softgel] Glimepiride 1 mg PO BID 08/16/16 01/08/17 metFORMIN [Glucophage] 500 mg PO BID 08/16/16 01/08/17 Cholecalciferol (D-3) [Vitamin D] 2,000 unit PO DAILY 10/11/16 01/08/17 Loratadine [Allergy Relief] 10 mg PO DAILY PRN 10/11/16 01/08/17 Atorvastatin Calcium [Lipitor] 20 mg PO TUFR 12/13/16 01/08/17 Dicyclomine [Bentyl] 10 mg PO QID PRN 12/13/16 01/08/17 Sucralfate [Carafate] 1 gm PO TIDAC 12/13/16 01/08/17 Cranberry Fruit Concentrate 450 mg PO BID 01/08/17 01/08/17 [Cranberry] Escitalopram [Lexapro] 10 mg PO DAILY 01/08/17 01/08/17 Fluticasone Propionate Nasal 1 spray NS DAILY 01/08/17 01/08/17 [Flonase] Previous Rx's Medication Instructions Recorded Lisinopril [Zestril] 10 mg PO DAILY #15 tablet 07/14/16 Docusate [Colace] 100 mg PO DAILY PRN #30 capsule 01/11/17 Metoprolol XL (24 HR) Succ [Toprol 50 mg PO DAILY #30 tab.er.24h 01/11/17 Xl] amLODIPine [Norvasc] 5 mg PO BID #60 tablet 01/11/17 Acetaminophen [Tylenol] 500 mg PO Q6HR PRN #20 tablet 04/04/17 Sulfamethoxazole/Trimeth DS 1 each PO BID #14 tablet 06/13/17 [Bactrim DS] predniSONE [PredniSONE] 0 mg PO DAILY #10 tablet 06/13/17 Nitrofurantoin (BID) [Macrobid] 100 mg PO BID #14 capsule 07/16/17 Allergies Allergy/AdvReac Type Severity Reaction Status Date / Time atorvastatin [From Lipitor] Allergy Muscle Pain Verified 08/31/17 15:32 lovastatin Allergy Muscle Pain Verified 08/31/17 15:32 penicillin V Allergy Anaphylaxis Verified 08/31/17 15:32 Review of Systems: 10 point review of systems done and negative unless otherwise stated in history of present illness. All systems ED: reviewed and negative except as stated. Review of Systems: As Per HPI Chest Pain PMH - Past Medical History Medical history: Reports: coronary artery disease, hyperlipidemia, hypertension , myocardial infarction, osteoporosis, RA Surgical history: Reports: angioplasty/stent, hysterectomy, other Psychiatric history: Reports: depression BABY [employer] MIXER history: Reports: no BABY [employer]MUL[employer] MIXER history - Social History Smoking Status: Never smoker Alcohol use: Reports: none Drug use: Reports: none Physical Exam - General General appearance: alert, in no apparent distress - Head Head exam: atraumatic, normocephalic, normal inspection - Eye Eye exam: Present: normal appearance, PERRL, EOMI - ENT ENT exam: normal exam, normal oropharynx, mucous membranes moist - Neck Neck exam: Present: normal inspection, full ROM, trachea midline - Chest Chest inspection: Present: normal inspection, symmetric chest wall rise. Absent : tenderness - Respiratory Respiratory exam: Present: normal lung sounds bilaterally. Absent: respiratory distress, wheezes, accessory muscle use - Cardiovascular Cardiovascular exam: Present: regular rate, normal rhythm, normal heart sounds - Abdominal Exam Abdominal exam: Present: soft, Non-Tender. Absent: tenderness, distention, guarding, rebound, rigidity - Extremities Exam Extremities exam: Present: normal inspection, full ROM. Absent: tenderness, pedal edema - Expanded Lower Extremity Exam Neurovascular/Tendon exam: Present: normal capillary refill. Absent: pulse deficit, motor deficit, sensory deficit, tendon deficit - Back Exam Back exam: Present: normal inspection, full ROM. Absent: tenderness, CVA tenderness (R), CVA tenderness (L) - Neurological Exam Neurological exam: Present: alert, oriented X3 - Skin Skin exam: Present: warm, dry, intact, normal color Course Course Narrative: 71-year-old female presents to emergency department with chest pain. She does have extensive cardiac history including 10 since. She was sent here from process helper's office. We will get CBC, BMP, troponin, chest x-ray, EKG as well as coags. Patient's okay with this plan. We will give her aspirin and nitroglycerin. Vital Signs Temperature 98.3 F 08/31/17 15:26 Pulse Rate 81 08/31/17 15:26 Respiratory Rate 16 08/31/17 15:26 Blood Pressure 162/92 08/31/17 15:26 O2 Sat by Pulse Oximetry 96 08/31/17 15:26 Temperature 98.3 F 08/31/17 15:26 Pulse Rate 81 08/31/17 15:26 Respiratory Rate 16 08/31/17 17:17 Blood Pressure 139/72 08/31/17 17:17 O2 Sat by Pulse Oximetry 96 08/31/17 15:26 Oxygen Delivery Oxygen Delivery Room Air Chest Pain - MDM Narrative Medical decision making narrative: 71-year-old female presents to the emergency department complaining of chest pain. It is a 10. We did give her nitroglycerin and aspirin which did help with the pain. Patient does have an extensive cardiac history where she had 10 cardiac stents placed in the past. She was seen by her process helper today who recommended she come here for possible admission for possible heart catheterization. Spoke with the on-call process helper Dr. Irwin who agreed the patient needed to be admitted for further evaluation. They said they would see her. And to admit to the hospitalist service. At this time I spoke with the hospitalist Dr. Pruitt who agreed to admission the patient to their service. Patient's labs all came back normal she had normal troponin. No acute ST changes. Her any other EKG changes. Chest x-ray was normal as well. Patient is admitted to hospital service in stable condition. Chest X-Ray 08/31/17 15:25 IMPRESSION: No acute cardiopulmonary abnormality. D/ / Thomas Silva / Thomas Silva Interpreting Provider: Thomas Silva - Medical Records Medical records reviewed: Yes I reviewed the patient's medical records. - Lab Data Lab results reviewed: Yes I reviewed the patient's lab results. Result diagrams: 08/31/17 15:34 08/31/17 15:34 Lab Results 08/31/17 08/31/17 08/31/17 Range/Units 15:34 15:34 15:34 WBC 4.9 (4.3-11.1) K/mcL RBC 3.58 L (3.82-4.97) M/mcL Hgb 11.8 (11.5-15.4) g/dL Hct 33.4 L (35.3-44.9) % MCV 93.3 (83.0-100.0) fL MCH 33.0 (28.0-33.3) pg MCHC 35.3 (31.6-35.5) g/dL RDW 12.7 (11.5-14.5) % Plt Count 269 (140-400) K/mcL MPV 8.7 L (9.4-12.4) fL Immature Gran % 0.4 (0-4) % Seg Neutrophils % 58.9 % Lymphocytes % 30.0 % Monocytes % 9.5 % Eosinophils % 0.8 % Basophils % 0.4 % Neutrophils # 2.9 (1.6-8.9) K/mcL Lymphocytes # 1.5 (0.6-4.6) K/mcL Monocytes # 0.5 (0.0-1.3) K/mcL Eosinophils # 0.0 (0.0-0.6) K/mcL Basophils # 0.0 (0.0-0.2) K/mcL PT 11.1 (9.4-12.1) Seconds INR 1.0 APTT 25.0 L (26.0-36.0) Seconds Sodium 140 (136-145) mEq/L Potassium 4.0 (3.5-4.5) mEq/L Chloride 106 (98-109) mEq/L Carbon Dioxide 24 (19-29) mEq/L BUN 11 (7-20) mg/dL Creatinine 0.80 (0.57-1.11) mg/dL Est GFR ( Amer) > 60 (> 60) Est GFR (Non-Af Amer) > 60 (> 60) BUN/Creatinine Ratio 14 (6-26) Glucose 146 H (70-99) mg/dL Calculated Osmolality 292 (280-300) Calcium 9.3 (8.6-10.8) mg/dL Troponin I (0-0.03) ng/mL 08/31/17 Range/Units 15:34 WBC (4.3-11.1) K/mcL RBC (3.82-4.97) M/mcL Hgb (11.5-15.4) g/dL Hct (35.3-44.9) % MCV (83.0-100.0) fL MCH (28.0-33.3) pg MCHC (31.6-35.5) g/dL RDW (11.5-14.5) % Plt Count (140-400) K/mcL MPV (9.4-12.4) fL Immature Gran % (0-4) % Seg Neutrophils % % Lymphocytes % % Monocytes % % Eosinophils % % Basophils % % Neutrophils # (1.6-8.9) K/mcL Lymphocytes # (0.6-4.6) K/mcL Monocytes # (0.0-1.3) K/mcL Eosinophils # (0.0-0.6) K/mcL Basophils # (0.0-0.2) K/mcL PT (9.4-12.1) Seconds INR APTT (26.0-36.0) Seconds Sodium (136-145) mEq/L Potassium (3.5-4.5) mEq/L Chloride (98-109) mEq/L Carbon Dioxide (19-29) mEq/L BUN (7-20) mg/dL Creatinine (0.57-1.11) mg/dL Est GFR ( Amer) (> 60) Est GFR (Non-Af Amer) (> 60) BUN/Creatinine Ratio (6-26) Glucose (70-99) mg/dL Calculated Osmolality (280-300) Calcium (8.6-10.8) mg/dL Troponin I 0.00 (0-0.03) ng/mL - Radiology Data Radiology results reviewed: Yes I reviewed the patient's radiology results. - EKG Data EKG attestation: Yes I reviewed and interpreted this EKG. EKG results narrative: EKG done at 1521 myself and attending shows normal sinus rhythm at a rate of 77 , IL interval 161, QRS 95, QTC 398 with a normal axis. There is no acute ST changes, no acute T-wave abnormalities, no signs of any heart strain or hypertrophy, no signs of any heart blocks, no signs of the repeat OB/Brugada syndrome. This EKG is unchanged based on old EKG done earlier today at . Heart Score - Score History: Moderately Suspicious EKG: Non Specific repolarisation Disturbance Age: Greater than 65 Risk Factors: Equal/Greater than 3 risk factor or history of atherosclerotic disease Troponin: Less than normal limit HEART Score Total: 6 Attestation Statement - Attestation Attestation: I, Henry Hernandez, examined this patient and my medical decision-making was reviewed with the HOSPITAL PERSONNEL DIRECTOR/PA/Advanced Practice Nurse/Resident Physician. I agree with the documented findings, disposition and treatment plan as described except to the extent set forth below. 71-year-old female presents emergency Department with concerns of recurrent chest pain. Patient states her pain has been occurring intermittently over the past few months. This pain feels similar to the pain she had prior to getting her cardiac stents. Patient has a total of 10 stents and is currently taking Plavix. Patient denies fever, chills, nausea, vomiting, diarrhea. Patient states her pain became especially worse today, she was apparently sent to the emergency department by cardiology, Dr. Irwin. EKG did not show evidence of acute STEMI. EKG had normal sinus rhythm with rate of 77. Initial troponin was negative. Chest x-ray did not show acute infiltrate. Patient will be admitted to the hospital for further care and evaluation. Resident spoke with Dr. Irwin who agreed with the plan.
[2017-08-31] MEDS ORDERED: Aspirin 81 MG TAB.CHEW PO ONE (16:24)
[2017-08-31] MEDS ORDERED: Naloxone 0.4 MG/ML INJ IVP PRN (19:57)
[2017-08-31] MEDS ORDERED: *HR* HYDROcodone/Acet 5/325 mg TABLET PO PRN (19:57)
[2017-08-31] MEDS ORDERED: Ondansetron 4 MG/2 ML VIAL IVP PRN (19:57)
[2017-08-31] MEDS ORDERED: *HR* Promethazine 25 MG/ML VIAL IVP PRN (19:57)
[2017-08-31] MEDS ORDERED: *HR* Morphine 2 MG/ML SYRINGE IVP PRN (19:57)
[2017-08-31] MEDS ORDERED: Loratadine 10 MG TABLET PO PRN (22:03)
[2017-08-31] MEDS ORDERED: Nitroglycerin 0.4 MG TAB.SUBL SL PRN (22:03)
--- NOTE | 2017-08-31 22:12 | Internal Med History&Physical ---
Date of Encounter: 08/31/17 Time of Encounter: 20:20 Assessment and Plan (1) Chest pain Current visit: Yes Status: Acute Will place the pt into Tele for observation she is an very high risk pt for CAD.. with underling multiple cardiac stents .. severe vasculo path disease so far negative troponin place her on child monitor check serial troponin EKG showed normal sinus rhythm at a rate of 7&, normal axis.and no acute ST and T changes noticed cont home med ASA and Plavix No need of anti coag now Cont Imdur, B shlomo, ACEI and Statin Card consulted NPO after mid night, if she needs to for LHC in AM Qualifiers: Chest pain type: unspecified Qualified Code(s): R07.9 - Chest pain, unspecified (2) CAD (coronary artery disease) Current visit: No Status: Chronic severe and extensive h/o CAD, prior PCI to RCA (3 Brant 2014, 1 YOSELIN 2013), and prior PCI to LAD (1 YOSELIN 2013, 1 YOSELIN 09/2016) and to Mid RCA and Circumflex in 2016 resumed all home meds may need LHC again in AM Qualifiers: Coronary Disease-Associated Artery/Lesion type: [place] artery [place] vs. transplanted heart: [place] heart Associated angina: angina presence unspecified Qualified Code(s): I25.10 - Atherosclerotic heart disease of [place] coronary artery without angina pectoris (3) Diabetes mellitus type 2, noninsulin dependent Current visit: No Status: Chronic hold PO meds started her on ISS (4) Dyslipidemia Current visit: No Status: Acute on statin (5) GERD (gastroesophageal reflux disease) Current visit: No Status: Chronic on PPI Qualifiers: Esophagitis presence: without esophagitis Qualified Code(s): K21.9 - Gastro -esophageal reflux disease without esophagitis (6) Takotsubo cardiomyopathy Current visit: No Status: Acute Resolved reviewed recent 2 D Echo from 04/02 showed preserved LVEF (7) Cholelithiases Current visit: Yes Status: Acute will get RUQ US to r/o [place] cystitis check LFT's Qualifiers: Qualified Code(s): K80.20 - Calculus of gallbladder without cholecystitis without obstruction (8) Nephrolithiasis Current visit: Yes Status: Acute check UA Internal Medicine - H&P: HPI Chief complaint: Chest pain Admitted From: Emergency Dept Plans for Post Hospital Care: Home History of present illness: Ms. Seth is a 71 year old female with a significant history of Cholelithiasis, HTN, HLD, h/o Takotsubo cardiomyopathy, with severe and extensive h/o CAD, prior PCI to RCA (3 Brant 2014, 1 YOSELIN 2013), and prior PCI to LAD (1 YOSELIN 2013, 1 YOSELIN 09/2016) and PCI to Mid RCA and Circumflex in 12/[address] Irwin closely was sent to ER from Dr. Irwin's office after pt started c/o worsening intermittent recurrent CP from last 2-3 weeks especially from last 2 days increased in frequency too. Pt denied any active CP now. When she gets CP , it was more in sub sternal and left chest wall, radiating to neck both side and Rt Arm. She also c/o on and off RUQ abdominal pain, she is scheduled for an elective cholecystectomy in December. Past Med Surg Social Fam HX - Past Medical History Medical history: coronary artery disease, hyperlipidemia, hypertension, myocardial infarction, osteoporosis, RA Psychiatric history: depression - Past Surgical History Surgical History: angioplasty/stent, hysterectomy, other - Social History Smoking Status: Never smoker Smokeless Tobacco Status: No Alcohol use: none Drug use: none - Family History Mother Living Status: Hx Family Cardiac Disorders: No Hx Family Respiratory Disorders: No Hx Family Cancer: No Hx Family GI Disorders: No Hx Family Genitourinary Disorders: No Hx Family Endocrine Disorder: Yes (DM type 2) Hx Family Musculoskeletal Disorders: No Hx Family Neuromuscular Disorders: No Hx Family Neurologic Disorders: No Hx Family HEENT Disorders: No Hx Family Autoimmune Disorders: No Hx Family Reproductive Disorders: No Hx Family Psychosocial Disorders: No Hx Family Medical Disorders: No Father Adopted: No Family Member Ethnicity: Non- Living Status: Hx Family Cardiac Disorders: Yes (smoker) Hx Family Respiratory Disorders: Yes (smoker) Hx Family Cancer: No Hx Family GI Disorders: Yes (self) Hx Family Endocrine Disorder: Yes (self, cousin,mother) Hx Family Neuromuscular Disorders: No Hx Family Neurologic Disorders: Yes (grandfather) Hx Family HEENT Disorders: No Hx Family Autoimmune Disorders: No Grandmother Hx Family Endocrine Disorder: Yes (Diabetes) Internal Medicine - H&P: Meds ALPRAZolam [Xanax 0.25 MG Tablet] 0.25 mg PO DAILY PRN 07/12/16 [History] Aspirin 81 mg PO DAILY 07/12/16 [History] Clopidogrel [Plavix] 75 mg PO DAILY 07/12/16 [History] Isosorbide MONOnitrate [Isosorbide Mononitrate ER] 240 mg PO DAILY 07/12/16 [ History] Nitroglycerin [Nitrostat] 0.4 mg SL Q5M PRN 07/12/16 [History] Pantoprazole Sodium [Protonix] 40 mg PO BID 07/12/16 [History] Lisinopril [Zestril] 10 mg PO DAILY #15 tablet 07/14/16 [Rx] Glimepiride 1 mg PO BID 08/16/16 [History] metFORMIN [Glucophage] 500 mg PO BID 08/16/16 [History] Cholecalciferol (D-3) [Vitamin D] 2,000 unit PO 1400 10/11/16 [History] Loratadine [Allergy Relief] 10 mg PO DAILY PRN 10/11/16 [History] Dicyclomine [Bentyl] 10 mg PO QID PRN 12/13/16 [History] Sucralfate [Carafate] 1 gm PO TIDAC 12/13/16 [History] Metoprolol XL (24 HR) Succ [Toprol Xl] 50 mg PO HS 08/31/17 [History] 3 Allergy/AdvReac Type Severity Reaction Status Date / Time atorvastatin [From Lipitor] Allergy Muscle Pain Verified 08/31/17 15:32 lovastatin Allergy Muscle Pain Verified 08/31/17 15:32 penicillin V Allergy Anaphylaxis Verified 08/31/17 15:32 All Systems PM: A 10-system review of systems was performed and is negative for pertinent findings except as documented above in the HPI. Review of systems: All the systems are reviewed everything is benign except the systems and symptoms I mentioned in the history of present illness - Constitutional Vitals: Temp Pulse Resp BP Pulse Ox 98.3 F 72 16 165/89 97 08/31/17 15:26 08/31/17 18:45 08/31/17 18:45 08/31/17 18:45 08/31/17 18:45 General appearance: Present: A&O X 3, no acute distress, answers questions appropriately - Head Head exam: Present: atraumatic, normal inspection - Neck Neck exam general surgery: Present: supple - Respiratory Respiratory exam: Present: CTAB. Absent: accessory muscle use, rales, rhonchi, wheezes - Cardiovascular Cardiovascular exam: Present: RRR, +S1, +S2. Absent: diastolic murmur, gallop, rubs, systolic murmur - GI/Abdominal GI/Abdominal exam: Present: normal bowel sounds, soft. Absent: rebound, rigid, tenderness - Extremities Exam Extremities exam: Absent: calf tenderness, pedal edema, tenderness - Back Exam Back exam: Absent: CVA tenderness (L), CVA tenderness (R) - Neurological Exam Neurological exam: Present: alert, oriented X3 - Psychiatric Psychiatric exam: Present: normal affect, normal mood - Skin Skin exam: Absent: rash Internal Med - H&P Results - Labs CBC & Chem 7: 08/31/17 15:34 08/31/17 15:34
[2017-08-31] MEDS ORDERED: Dextrose Gel 15 GM PO PRN ×2 (22:28)
[2017-08-31] MEDS ORDERED: *HR* Dextrose 50 % in Water (Syg) 50 ML SYRINGE IVP PRN (22:28)
[2017-08-31] MEDS ORDERED: D5% in Water 1,000 ML IVC PRN (22:28)
[2017-08-31] MEDS: ALPRAZolam 0.25 MG TABLET PO PRN (22:58)
[2017-08-31] MEDS: Metoprolol XL (24 HR) Succ 50 MG TAB.ER.24H PO SCH (22:58)
[2017-08-31] MEDS: Insulin LISPRO 300 UNITS/3 ML VIAL SQ SCH (23:09)
[2017-09-01 00:25] LABS: Bilirubin,Urine Negative (Negative); Blood,Urine Trace (Negative); Clarity,Urine Clear (Clear); Color,Urine Yellow (Yellow); Glucose,Urine (UA) >=1000 mg/dL (Normal); Ketones,Urine Negative (Negative); Leukocyte Esterase,Urine Small (Negative); Nitrite,Urine Negative (Negative); Protein,Urine Negative (Neg-Trace); Specific Gravity,Urine 1.027 (1.010-1.025); Urobilinogen,Urine Normal (Normal)
[2017-09-01 00:26] LABS: Bacteria,Urine None Seen per hpf (None-Few); Hyaline Casts,Urine None Seen per lpf (None-Few); Squamous Epithelial Cell,Urine Moderate per lpf (None-Few); WBC,Urine 15-30 per hpf (0-3)
[2017-09-01 05:04] LABS: Albumin 3.4 g/dL (3.5-5.0); Bilirubin,Direct 0.2 mg/dL (0.0-0.5); Bilirubin,Indirect 0.1 mg/dL (0.0-1.2); Bilirubin,Total 0.3 mg/dL (0.2-1.2); Chol/HDL Ratio 5.6 (0-4.9); Globulin 3.3 g/dL (2.4-3.5); Total Protein 6.7 g/dL (6.0-8.3)
[2017-09-01] MEDS: Insulin LISPRO 300 UNITS/3 ML VIAL SQ SCH ×4 (08:24→21:01)
[2017-09-01] MEDS: Aspirin 81 MG TAB.CHEW PO SCH (10:41)
[2017-09-01] MEDS: Isosorbide MONOnitrate (24 HR) 60 MG TAB.ER.24H PO SCH (10:41)
[2017-09-01] MEDS: Sucralfate 1 GM TABLET PO SCH ×3 (10:41→17:51)
[2017-09-01] MEDS: ALPRAZolam 0.25 MG TABLET PO PRN (10:51)
--- NOTE | 2017-09-01 12:03 | Cardiology Consult Note ---
Date of Encounter: 09/01/17 Time of Encounter: 11:51 Assessment and Plan (1) Unstable angina Current Visit: Yes Status: Acute Patient reports increasing chest discomfort over the past few weeks. Symptoms suggestive of angina. Given history of progressive CAD despite revascularization and medical therapy, patient admitted to the hospital for further evaluation and treatment. Currently, she seems to be comfortable. Recommend continue dual antiplatelet therapy, metoprolol, lisinopril, and Imdur therapy. Patient has a statin intolerance. Options to evaluate symptoms discussed, including a stress test versus cardiac catheterization. Patient had an ACS event during last stress test, and is fearful of performing another stress test. As an alternative, we discussed the risks, benefits, and alternatives to cardiac catheterization. She prefers to have this performed. We will plan for Sunday unless her condition should require a more urgent catheterization. (2) CAD (coronary artery disease) Current Visit: No Status: Chronic Qualifiers: Coronary Disease-Associated Artery/Lesion type: [place] artery [place] vs. transplanted heart: [place] heart Associated angina: angina presence unspecified Qualified Code(s): I25.10 - Atherosclerotic heart disease of [place] coronary artery without angina pectoris Discussion w patient/family: The assessment and plan as outlined above was discussed with the patient and/or family members who expressed understanding and agreement. All questions were answered. Thank you for involving us in the care of your patient. Please call with any questions. History of Present Illness Consult date: 09/01/17 Requesting physician: Vicki Singh Consult reason: Chest discomfort Chief complaint: Chest discomfort History of present illness: Ms. Seth is a 71 year old female with a known history of significant, recurrent CAD. Previous catheterization performed earlier this year resulted in multivessel PCI. She presented to the office yesterday with complaints of chest discomfort. She stated that these symptoms have been worsening over the previous 2-1/2 weeks. Describes as a substernal discomfort, burning sensation. Describes radiation to her neck and left arm. Initially, symptoms occurred with activity, but she also reported that she has started to notice symptoms while at rest. She was admitted to the hospital for further evaluation and treatment. Overnight , cardiac enzymes are negative. No significant ECG changes compared to baseline. Overall, seems more comfortable today. Prior cardiovascular testing: Holter monitor 09/2015: Rare PACs averaging 1/h. Rare PACs averaging 0.4/h. Carotid duplex 09/2015: Minimal plaque bilaterally. Exercise nuclear stress test 08/25/2015: Negative for ischemia or prior infarct. Fair exercise capacity. TTE 01/2015: EF 55-60%. Mild AI. No pulmonary hypertension. TTE 07/13/2016: LVEF 60-65%. Normal LV, RV size and function. Mild diastolic dysfunction. No significant pulmonary hypertension. No significant valvular dysfunction. TTE 03/30/2017: LVEF 60-65%. Normal LV chamber size, wall thickness, and function. Mild diastolic dysfunction. Normal RV size and function. No pulmonary hypertension. No significant valvular dysfunction. [facility] 10/11/2016: Left main normal. LAD proximal 60% stenosis (FFR not significant) , mid LAD 95% stenosis (YOSELIN placed). Circumflex proximal 60% stenosis. RCA proximal and mid patent stents. RPDA normal. Exercise nuclear stress test 01/08/2017: Severe chest pain end of exercise and in recovery. ST elevation in recovery - II, III, aVF, V4-6. C 01/08/2017: LVEF 25%, Takotsubo. LM nl. LAD proximal 50-60% stenosis. Cx 70% proximal stenosis (FFR, YOSELIN x1). RCA proximal 70% ISR (PTCA only), mid 70% stenosis (FFR, YOSELIN x1 placed). Past Med Surg Social Fam HX - Past Medical History Medical history: coronary artery disease, hyperlipidemia, hypertension, myocardial infarction, osteoporosis, RA Psychiatric history: depression - Past Surgical History Surgical History: angioplasty/stent, hysterectomy, other - Social History Smoking Status: Never smoker Smokeless Tobacco Status: No Alcohol use: none Drug use: none - Family History Mother Living Status: Hx Family Cardiac Disorders: No Hx Family Respiratory Disorders: No Hx Family Cancer: No Hx Family GI Disorders: No Hx Family Genitourinary Disorders: No Hx Family Endocrine Disorder: Yes (DM type 2) Hx Family Musculoskeletal Disorders: No Hx Family Neuromuscular Disorders: No Hx Family Neurologic Disorders: No Hx Family HEENT Disorders: No Hx Family Autoimmune Disorders: No Hx Family Reproductive Disorders: No Hx Family Psychosocial Disorders: No Hx Family Medical Disorders: No Father Adopted: No Family Member Ethnicity: Non- Living Status: Hx Family Cardiac Disorders: Yes (smoker) Hx Family Respiratory Disorders: Yes (smoker) Hx Family Cancer: No Hx Family GI Disorders: Yes (self) Hx Family Endocrine Disorder: Yes (self, cousin,mother) Hx Family Neuromuscular Disorders: No Hx Family Neurologic Disorders: Yes (grandfather) Hx Family HEENT Disorders: No Hx Family Autoimmune Disorders: No Grandmother Hx Family Endocrine Disorder: Yes (Diabetes) Medications and Allergies RX: ALPRAZolam [Xanax 0.25 MG Tablet] 0.25 mg PO DAILY PRN 07/12/16 [History] RX: Aspirin 81 mg PO DAILY 07/12/16 [History] RX: Clopidogrel [Plavix] 75 mg PO DAILY 07/12/16 [History] RX: Isosorbide MONOnitrate [Isosorbide Mononitrate ER] 240 mg PO DAILY 07/12/16 [History] RX: Nitroglycerin [Nitrostat] 0.4 mg SL Q5M PRN 07/12/16 [History] RX: Pantoprazole Sodium [Protonix] 40 mg PO BID 07/12/16 [History] RX: Lisinopril [Zestril] 10 mg PO DAILY #15 tablet 07/14/16 [Rx] RX: Glimepiride 1 mg PO BID 08/16/16 [History] RX: metFORMIN [Glucophage] 500 mg PO BID 08/16/16 [History] RX: Cholecalciferol (D-3) [Vitamin D] 2,000 unit PO 1400 10/11/16 [History] RX: Loratadine [Allergy Relief] 10 mg PO DAILY PRN 10/11/16 [History] RX: Dicyclomine [Bentyl] 10 mg PO QID PRN 12/13/16 [History] RX: Sucralfate [Carafate] 1 gm PO TIDAC 12/13/16 [History] RX: Metoprolol XL (24 HR) Succ [Toprol Xl] 50 mg PO HS 08/31/17 [History] 3 Allergy/AdvReac Type Severity Reaction Status Date / Time atorvastatin [From Lipitor] Allergy Muscle Pain Verified 08/31/17 15:32 lovastatin Allergy Muscle Pain Verified 08/31/17 15:32 penicillin V Allergy Anaphylaxis Verified 08/31/17 15:32 [id number] Reductase Allergy Muscle Pain Verified 09/01/17 06:44 Inhibitor [Statins] All Systems Review: A 10-system review of systems was performed and is negative for pertinent findings except as documented above in the HPI. - Cardiovascular Cardiovascular: as per HPI, chest pain at rest, chest pain with exertion Physical Examination Vital Signs, Last 4 Hours Temp Pulse Resp BP Pulse Ox 09/01/17 11:26 98.4 F 71 18 144/78 95 09/01/17 08:09 15 09/01/17 07:58 97.6 F 69 129/78 96 General: Conversant, No Apparent Distress HEENT: Atraumatic, Normocephaly, Mucus Membranes Moist Neck: No JVD, Normal carotid pulses Cardiac: Reg Rate and Rhythm, Normal S1 and S2, No Murmur Lungs: Normal Breath Sounds, No Wheeze, Rales, Rhonchi Neuro: Alert and responsive, No focal deficits noted Abdomen: Soft, Non-Tender Skin: No rashes noted on visualized skin Musculoskeletal: No Chest Wall Tenderness Extremities: No Clubbing, No Cyanosis, No Edema Results 08/31/17 15:34 08/31/17 15:34 Lab Results 08/31/17 09/01/17 09/01/17 21:44 01:49 04:43 Total Bilirubin 0.3 AST 14 ALT 20 Alkaline Phosphatase 62 Troponin I 0.01 0.00 - Imaging and Cardiology Echo: report reviewed Cardiac cath: report reviewed - EKG Interpretation EKG results cardiology: personally reviewed Consult Discharge Plan - Plan Referrals: Myranda Lauren DO [Primary Care Provider] -
[2017-09-01] MEDS: Cholecalciferol (D-3) 1,000 UNIT TABLET PO SCH (13:51)
--- NOTE | 2017-09-01 14:41 | Internal Med Progress Note ---
Date of Encounter: 09/01/17 Time of Encounter: 14:38 - Assessment and plan (1) CAD (coronary artery disease) Current Visit: No Status: Chronic Assessment and plan: with hx AL and 10 stents. Had C that resulted in multivessel PCI. Now with increasing chest discomfort at rest and with activity concerning for unstable angina. Evaluated by cardiology who is planning [facility]. Continue ASA, Plavix, BB, nitrate. No statin due to intolerance. Cardiology following Qualifiers: Coronary Disease-Associated Artery/Lesion type: [place] artery [place] vs. transplanted heart: [place] heart Associated angina: angina presence unspecified Qualified Code(s): I25.10 - Atherosclerotic heart disease of [place] coronary artery without angina pectoris (2) Nephrolithiasis Current Visit: Yes Status: Acute Assessment and plan: per patient reported history. Follows with urology. Patient reports recent hematuria and urology apparently concerned for stone migration. UA with trace microscopic hematuria. ABD CT pending (3) Hypertension Current Visit: No Status: Chronic Assessment and plan: per hx. BP variable but acceptable. Continue home BP medication. Monitor BP and titrate PRN Qualifiers: Hypertension type: essential hypertension Qualified Code(s): I10 - Essential (primary) hypertension (4) Diabetes mellitus type 2, noninsulin dependent Current Visit: No Status: Chronic Assessment and plan: per hx. holding home oral hypoglycemics. SSI. Monitor blood sugar and titrate PRN (5) Cholelithiases Current Visit: Yes Status: Acute Assessment and plan: per hx. with recurrent biliary colic. RUQ US with cholelithiasis, no evidence of cholecystitis. Can follow up with GI outpatient as previously planned. Qualifiers: Qualified Code(s): K80.20 - Calculus of gallbladder without cholecystitis without obstruction - Subjective Interval history: Seen and examined at bedside. Patient is new to me; information obtained from chart review and patient report. Patient says she still having intermittent chest pain. Describes as a twinge. Chest pain is intermittent and resolves spontaneously. No shortness of breath. She is aware of need to stay inpatient for left heart catheter on Sunday. She reports recent hematuria and was supposed to have renal ultrasound per her urologist however not ordered she is requesting inpatient. - Constitutional Vitals: Temp Pulse Resp BP Pulse Ox 98.4 F 71 18 144/78 95 09/01/17 11:26 09/01/17 11:26 09/01/17 11:26 09/01/17 11:26 09/01/17 11:26 General appearance: Present: A&O X 3, no acute distress, answers questions appropriately - Head Head exam: Present: atraumatic, normocephalic - Eye Eye exam: Present: PERRL, conjuntiva pink, sclera anicteric Pupils: Present: PERRL - Neck Neck exam general surgery: Present: supple, trachea midline. Absent: lymphadenopathy - Respiratory Respiratory exam: Present: CTAB. Absent: accessory muscle use, rales, rhonchi, wheezes - Cardiovascular Cardiovascular exam: Present: RRR, +S1, +S2. Absent: diastolic murmur, gallop, rubs, systolic murmur - GI/Abdominal GI/Abdominal exam: Present: normal bowel sounds, soft, no peritoneal signs. Absent: distended, tenderness - Extremities Exam Extremities exam: Present: warm, radial pulses palpable and symmetrical. Absent : calf tenderness, cyanotic, pedal edema - Neurological Exam Neurological exam: Present: CN II-XII intact, oriented X3, no focal deficits. Absent: pronater drift, facial droop, speech deficit - Skin Skin exam: Present: dry, intact Internal Medicine: Result - Labs CBC & Chem 7: 08/31/17 15:34 08/31/17 15:34 Labs: Cardiac Enzymes 08/31/17 09/01/17 Range/Units 21:44 01:49 Troponin I 0.01 0.00 (0-0.03) ng/mL Liver Function 09/01/17 Range/Units 04:43 Total Bilirubin 0.3 (0.2-1.2) mg/dL Direct Bilirubin 0.2 (0.0-0.5) mg/dL AST 14 (5-34) Units/L ALT 20 (0-55) Units/L Alkaline Phosphatase 62 (38-126) Units/L Albumin 3.4 L (3.5-5.0) g/dL Urine 09/01/17 Range/Units 00:16 Urine Color Yellow (Yellow) Urine Clarity Clear (Clear) Urine pH 6.0 (5.0-8.0) pH Units Ur Specific [place] 1.027 H (1.010-1.025) Urine Protein Negative (Neg-Trace) mg/dL Urine Glucose (UA) >=1000 H (Normal) mg/dL - ABG Interpretation ABG results: PT/INR, D-dimer PT 11.1 Seconds (9.4-12.1) 08/31/17 15:34 - Impressions Impressions Gallbladder Ultrasound 09/01/17 09:00 IMPRESSION: Cholelithiasis without sonographic evidence of acute cholecystitis. Moderate fatty infiltration of the liver. D/ / Imtiaz Cruz MD / Imtiaz Cruz MD Interpreting Provider: Imtiaz Cruz MD Consult Discharge Plan - Plan Referrals: Myranda Lauren DO [Primary Care Provider] -
[2017-09-01] MEDS: Acetaminophen 325 MG TABLET PO PRN (18:27)
[2017-09-01] MEDS: Metoprolol XL (24 HR) Succ 50 MG TAB.ER.24H PO SCH (21:03)
[2017-09-02] MEDS: Nitroglycerin 0.4 MG TAB.SUBL SL PRN ×3 (04:02→04:17)
[2017-09-02] MEDS: Acetaminophen 325 MG TABLET PO PRN ×2 (04:10→16:20)
[2017-09-02] MEDS: *HR* Enoxaparin 40 MG/0.4 ML SYRINGE SQ SCH (04:51)
[2017-09-02] MEDS: *HR* LORazepam 0.5 MG TABLET PO PRN ×2 (04:52→20:59)
[2017-09-02] MEDS: Aspirin 81 MG TAB.CHEW PO SCH (07:58)
[2017-09-02] MEDS: Isosorbide MONOnitrate (24 HR) 60 MG TAB.ER.24H PO SCH (07:58)
[2017-09-02] MEDS: Insulin LISPRO 300 UNITS/3 ML VIAL SQ SCH ×4 (07:59→20:59)
[2017-09-02] MEDS: Sucralfate 1 GM TABLET PO SCH ×3 (07:59→16:20)
--- NOTE | 2017-09-02 11:42 | Cardiology Progress Note ---
Date of Encounter: 09/02/17 Time of Encounter: 11:40 Assessment and Plan (1) Unstable angina Current Visit: Yes Status: Acute Per Cardiology: Patient reports increasing chest discomfort over the past few weeks. Symptoms suggestive of angina. Given history of progressive CAD despite revascularization and medical therapy, patient admitted to the hospital for further evaluation and treatment. On asa, plavix, BB, ACEI, and Imdur therapy. Patient has a statin intolerance. CP free currently ambulating hallway. Patient had an ACS event during last stress test, and is fearful of performing another stress test. Plan for [facility] tomorrow. All questions answered. . (2) Nephrolithiasis Current Visit: Yes Status: Acute Per Cardiology: IMPRESSION: Mild to moderate left-sided hydronephrosis secondary to a 12 mm stone within the mid ureter. Discussion w patient/family: The assessment and plan as outlined above was discussed with the patient who expressed understanding and agreement. All questions were answered. Thank you for involving us in the care of your patient. Please call with any questions. Subjective Principal diagnosis: CP Interval history: Patient seen ambulating in hallway with no chest pain symptoms. Denies any new concerns complaints. Objective Vital Signs, Last 4 Hours Temp Pulse Resp BP Pulse Ox 09/02/17 10:44 98.1 F 72 18 118/66 96 General: Conversant, No Apparent Distress, Other (slightly anxious) HEENT: Atraumatic, Normocephaly, Mucus Membranes Moist Neck: No JVD, Normal carotid pulses Cardiac: Reg Rate and Rhythm, Normal S1 and S2, No Murmur Lungs: Normal Breath Sounds, No Wheeze, Rales, Rhonchi Neuro: Alert and responsive, No focal deficits noted Abdomen: Soft, Non-Tender Skin: No rashes noted on visualized skin Musculoskeletal: No Chest Wall Tenderness Extremities: No Clubbing, No Cyanosis, No Edema, Normal Pulses Results 08/31/17 15:34 08/31/17 15:34 Laboratory Tests 08/31/17 08/31/17 09/01/17 15:34 21:44 00:16 Troponin I 0.00 0.01 Ur Leukocyte Esterase Small H Ur Culture Indicated? YES A 09/01/17 01:49 Troponin I 0.00 Ur Leukocyte Esterase Ur Culture Indicated? ITS Impressions Chest X-Ray 08/31/17 15:25 IMPRESSION: No acute cardiopulmonary abnormality. D/ / Thomas Silva / Thomas Silva Interpreting Provider: Thomas Silva Gallbladder Ultrasound 09/01/17 09:00 IMPRESSION: Cholelithiasis without sonographic evidence of acute cholecystitis. Moderate fatty infiltration of the liver. D/ / Imtiaz Cruz MD / Imtiaz Cruz MD Interpreting Provider: Imtiaz Cruz MD Abdomen/Pelvis CT 09/01/17 14:57 IMPRESSION: Mild to moderate left-sided hydronephrosis secondary to a 12 mm stone within the mid ureter. Fatty, mildly enlarged liver. Cholelithiasis. Diverticulosis coli and duodenal diverticulum. Apparent focal masslike thickening of the ascending colon, possibly related to decompression. However, consider further imaging or direct inspection if the patient has not had a recent colonoscopy. D/ / Herberth Mcfadden MD / Herberth Mcfadden MD Interpreting Provider: Herberth Mcfadden MD Active Medications Acetaminophen (Tylenol) 650 mg PO Q6HR PRN PRN Reason: Mild Pain (1-3) Stop: 03/02/18 19:58 Last Admin: 09/02/17 04:10 Dose: 650 mg Hydrocodone Bitart/Acetaminophen ([place]arton 5-325 Mg) 1 tab PO Q4HR PRN PRN Reason: Moderate Pain (4-6) Stop: 03/02/18 19:58 Aspirin (Aspirin) 81 mg PO DAILY SUSAN Stop: 03/03/18 09:01 Last Admin: 09/02/17 07:58 Dose: 81 mg Clopidogrel Bisulfate (Plavix) 75 mg PO 1400 SUSAN Stop: 03/02/18 18:16 Last Admin: 09/01/17 13:51 Dose: 75 mg Dextrose/Water (Dextrose 50% (Syg)) 25 ml IVP AD PRN PRN Reason: Hypoglycemia Stop: 03/02/18 22:29 Dicyclomine HCl (Bentyl) 10 mg PO QID PRN PRN Reason: Abdominal Pain Stop: 03/02/18 22:04 Docusate Sodium (Colace) 100 mg PO BID PRN PRN Reason: Constipation Stop: 03/02/18 19:58 Enoxaparin Sodium (Lovenox) 40 mg SQ 0600 SUSAN PRN Reason: Protocol Stop: 03/04/18 06:01 Last Admin: 09/02/17 04:51 Dose: Not Given Glucagon (Glucagen) 1 mg IM ONCE PRN PRN Reason: Hypoglycemia Stop: 03/02/18 22:29 Glucose (Gluctose) 15 gm PO ONCE PRN PRN Reason: Hypoglycemia Stop: 03/02/18 22:29 Glucose (Gluctose) 30 gm PO ONCE PRN PRN Reason: Hypoglycemia Stop: 03/02/18 22:29 Dextrose (Dextrose 5%) 1,000 mls @ 100 mls/hr IVC .Q10H PRN PRN Reason: HYPOGLYCEMIA Stop: 03/02/18 22:29 Insulin Human Lispro (Humalog) 0 units SQ TIDAC [facility] PRN Reason: Protocol Stop: 03/03/18 07:31 Last Admin: 09/02/17 07:59 Dose: 4 units Insulin Human Lispro (Humalog) 0 units [address] [facility] PRN Reason: Protocol Stop: 03/02/18 22:46 Last Admin: 09/01/17 21:01 Dose: Not Given Isosorbide Mononitrate (Imdur) 240 mg PO DAILY [facility] Stop: 03/03/18 09:01 Last Admin: 09/02/17 07:58 Dose: 240 mg Lisinopril (Zestril) 10 mg PO DAILY [facility] PRN Reason: Protocol Stop: 03/03/18 09:01 Last Admin: 09/02/17 07:58 Dose: 10 mg Loratadine (Claritin) 10 mg PO DAILY PRN; Protocol PRN Reason: Allergy Symptoms Stop: 03/02/18 22:04 Lorazepam (Ativan) 0.5 mg PO TID PRN PRN Reason: Anxiety Stop: 03/04/18 04:34 Last Admin: 09/02/17 04:52 Dose: 0.5 mg Metoprolol Succinate (Toprol Xl) 50 mg PO HS [facility] Stop: 03/02/18 22:16 Last Admin: 09/01/17 21:03 Dose: 50 mg Morphine Sulfate (Morphine Sulfate) 2 mg IVP Q4HR PRN PRN Reason: Severe Pain (7-10) Stop: 03/02/18 19:58 Last Admin: 09/02/17 04:25 Dose: 2 mg Naloxone HCl (Narcan) 0.4 mg IVP Q2MIN PRN PRN Reason: Opioid Reversal Stop: 03/02/18 19:58 Nitroglycerin (Nitroglycerin) 0.4 mg SL Q5MIN PRN PRN Reason: Chest Pain Stop: 03/02/18 16:25 Last Admin: 09/02/17 04:17 Dose: 0.4 mg Nitroglycerin (Nitroglycerin) 0.4 mg SL Q5M PRN PRN Reason: Chest Pain Stop: 03/02/18 22:04 Omeprazole (Prilosec) 20 mg PO BIDAC [facility] Stop: 03/03/18 07:31 Last Admin: 09/02/17 07:59 Dose: 20 mg Ondansetron HCl (Zofran) 4 mg IVP Q8HR PRN PRN Reason: Nausea And Vomiting Stop: 03/02/18 19:58 Promethazine HCl (Phenergan) 12.5 mg IVP Q6HR PRN PRN Reason: Nausea And Vomiting Stop: 03/02/18 19:58 Sucralfate (Carafate) 1 gm PO TIDAC [facility] Stop: 03/03/18 07:31 Last Admin: 09/02/17 07:59 Dose: 1 gm Vitamin D (Vitamin D) 2,000 unit PO 1400 SUSAN Stop: 03/03/18 14:01 Last Admin: 09/01/17 13:51 Dose: 2,000 unit - Imaging and Cardiology Cardiac cath: pending Consult Discharge Plan - Plan Referrals: Myranda Lauren DO [Primary Care Provider] -
--- NOTE | 2017-09-02 13:21 | Urology - Consult Note ---
Date of Encounter: 09/02/17 Time of Encounter: 13:18 - Assessment and Plan (1) Left ureteral stone Current Visit: Yes Status: Acute Assessment and plan: At this point I believe the patient can be monitored in regards to her left ureteral stone. Her pain is well-controlled and her serum creatinine is normal. Patient is to undergo a heart catheterization tomorrow. Patient is to be scheduled as an outpatient per Dr. Panda for stone extraction. We will continue with this plan unless something changes during this hospitalization. Urology CN:HPI Consult date: 09/02/17 Requesting physician: Brenda Bustamante History of present illness: Lidia is a 71-year-old female with a history of left-sided flank pain. Patient's pain is well-controlled this time. She is a known patient of Dr. Panda's where she has been found to have a left mid ureteral stone. Patient denies any nausea or vomiting. No fevers. Pain is controlled with oral medication. She is admitted currently for chest pain and is to undergo a heart catheterization tomorrow. CT scan done yesterday revealed mid ureteral 7 mm stone with some proximal hydronephrosis with no obvious stranding. Past Med Surg Social Fam HX - Past Medical History Medical history: coronary artery disease, hyperlipidemia, hypertension, myocardial infarction, osteoporosis, RA Psychiatric history: depression - Past Surgical History Surgical History: angioplasty/stent, hysterectomy, other - Social History Smoking Status: Never smoker Smokeless Tobacco Status: No Alcohol use: none Drug use: none - Family History Mother Living Status: Hx Family Cardiac Disorders: No Hx Family Respiratory Disorders: No Hx Family Cancer: No Hx Family GI Disorders: No Hx Family Genitourinary Disorders: No Hx Family Endocrine Disorder: Yes (DM type 2) Hx Family Musculoskeletal Disorders: No Hx Family Neuromuscular Disorders: No Hx Family Neurologic Disorders: No Hx Family HEENT Disorders: No Hx Family Autoimmune Disorders: No Hx Family Reproductive Disorders: No Hx Family Psychosocial Disorders: No Hx Family Medical Disorders: No Father Adopted: No Family Member Ethnicity: Non- Living Status: Hx Family Cardiac Disorders: Yes (smoker) Hx Family Respiratory Disorders: Yes (smoker) Hx Family Cancer: No Hx Family GI Disorders: Yes (self) Hx Family Endocrine Disorder: Yes (self, cousin,mother) Hx Family Neuromuscular Disorders: No Hx Family Neurologic Disorders: Yes (grandfather) Hx Family HEENT Disorders: No Hx Family Autoimmune Disorders: No Grandmother Hx Family Endocrine Disorder: Yes (Diabetes) Medications and Allergies ALPRAZolam [Xanax 0.25 MG Tablet] 0.25 mg PO DAILY PRN 07/12/16 [History] Aspirin 81 mg PO DAILY 07/12/16 [History] Clopidogrel [Plavix] 75 mg PO DAILY 07/12/16 [History] Isosorbide MONOnitrate [Isosorbide Mononitrate ER] 240 mg PO DAILY 07/12/16 [ History] Nitroglycerin [Nitrostat] 0.4 mg SL Q5M PRN 07/12/16 [History] Pantoprazole Sodium [Protonix] 40 mg PO BID 07/12/16 [History] Lisinopril [Zestril] 10 mg PO DAILY #15 tablet 07/14/16 [Rx] Glimepiride 1 mg PO BID 08/16/16 [History] metFORMIN [Glucophage] 500 mg PO BID 08/16/16 [History] Cholecalciferol (D-3) [Vitamin D] 2,000 unit PO 1400 10/11/16 [History] Loratadine [Allergy Relief] 10 mg PO DAILY PRN 10/11/16 [History] Dicyclomine [Bentyl] 10 mg PO QID PRN 12/13/16 [History] Sucralfate [Carafate] 1 gm PO TIDAC 12/13/16 [History] Ezetimibe [Zetia] 10 mg PO DAILY 09/01/17 [History] Metoprolol [Lopressor] 12.5 mg PO BID 09/01/17 [History] 3 Allergy/AdvReac Type Severity Reaction Status Date / Time atorvastatin [From Lipitor] Allergy Muscle Pain Verified 08/31/17 15:32 lovastatin Allergy Muscle Pain Verified 08/31/17 15:32 penicillin V Allergy Anaphylaxis Verified 08/31/17 15:32 Johcklk-Rmf-Dpb Reductase Allergy Muscle Pain Verified 09/01/17 06:44 Inhibitor [Statins] Review of Systems - Constitutional no chills - EENT Nose, mouth and throat: no dizziness - Cardiovascular chest pain - Respiratory no cough - Gastrointestinal no abdominal pain - Musculoskeletal no back pain - Integumentary no erythema Exam Initial Vital Signs Temp Pulse Resp BP Pulse Ox 98.3 F 81 16 162/92 96 12/15/17 15:26 08/31/17 15:26 08/31/17 15:26 08/31/17 15:26 08/31/17 15:26 - General physical appearance Present: well developed - Respiratory Present: normal respiratory effort - Abdomen Abdomen: Present: soft - Integumentary Present: no rash - Neurologic Present: normal coordination Urology Results - Labs 08/31/17 15:34 08/31/17 15:34 Abnormal lab results RBC 3.58 M/mcL (3.82-4.97) L 08/31/17 15:34 Hct 33.4 % (35.3-44.9) L 08/31/17 15:34 MPV 8.7 fL (9.4-12.4) L 08/31/17 15:34 APTT 25.0 Seconds (26.0-36.0) L 08/31/17 15:34 Glucose 146 mg/dL (70-99) H 08/31/17 15:34 POC Glucose 216 (58-89) H 09/01/17 20:04 Albumin 3.4 g/dL (3.5-5.0) L 09/01/17 04:43 Albumin/Globulin Ratio 1.0 (1.1-2.2) L 09/01/17 04:43 Triglycerides 225 mg/dL (< 150) H 09/01/17 04:43 LDL Cholesterol, Calc 110 mg/dL (0-99) H 09/01/17 04:43 VLDL Cholesterol, Calc 45 mg/dL (< 31) H 09/01/17 04:43 HDL Cholesterol 34 mg/dL (40-59) L 09/01/17 04:43 Cholesterol/HDL Ratio 5.6 (0-4.9) H 09/01/17 04:43 Ur Specific [place] 1.027 (1.010-1.025) H 09/01/17 00:16 Urine Glucose (UA) >=1000 mg/dL (Normal) H 09/01/17 00:16 Urine Blood Trace (Negative) H 09/01/17 00:16 Ur Leukocyte Esterase Small (Negative) H 09/01/17 00:16 Urine Microscopic RBC 5-15 per hpf (0-3) H 09/01/17 00:16 Urine Microscopic WBC 15-30 per hpf (0-3) H 09/01/17 00:16 Ur Squamous Epith Cells Moderate per lpf (None-Few) H 09/01/17 00:16 Ur Culture Indicated? YES (NO) A 09/01/17 00:16 All other labs normal. - Imaging CT scan - abdomen: image reviewed CT scan - pelvis: image reviewed Consult Discharge Plan - Plan Referrals: Myranda Lauren DO [Primary Care Provider] -
--- NOTE | 2017-09-02 15:06 | Internal Med Progress Note ---
Date of Encounter: 09/02/17 Time of Encounter: 15:04 - Assessment and plan (1) CAD (coronary artery disease) Current Visit: No Status: Chronic Assessment and plan: with hx [place] and 10 stents. Had [facility] that resulted in multivessel PCI. Now with increasing chest discomfort at rest and with activity concerning for unstable angina. Evaluated by cardiology who is planning [facility] Continue ASA, Plavix, BB, nitrate. No statin due to intolerance. Cardiology following. Plan for [facility] 09/03 Qualifiers: Coronary Disease-Associated Artery/Lesion type: [place] artery [place] vs. transplanted heart: [place] heart Associated angina: angina presence unspecified Qualified Code(s): I25.10 - Atherosclerotic heart disease of [place] coronary artery without angina pectoris (2) Nephrolithiasis Current Visit: Yes Status: Acute Assessment and plan: per patient reported history. Follows with urology. ABD CT with mild to moderate left hydronephrosis with 12 mm stone within the mid ureter. Evaluated by urology who recommended supportive management with continued monitoring at this time. Plan for follow-up with outpatient urologist for stone extraction. (3) Hypertension Current Visit: No Status: Chronic Assessment and plan: per hx. BP variable but acceptable. Continue home BP medication. Monitor BP and titrate PRN Qualifiers: Hypertension type: essential hypertension Qualified Code(s): I10 - Essential (primary) hypertension (4) Diabetes mellitus type 2, noninsulin dependent Current Visit: No Status: Chronic Assessment and plan: per hx. holding home oral hypoglycemics. SSI. Monitor blood sugar and titrate PRN (5) Cholelithiases Current Visit: Yes Status: Acute Assessment and plan: per hx. with recurrent biliary colic. RUQ US with cholelithiasis, no evidence of cholecystitis. Can follow up with GI outpatient as previously planned. Qualifiers: Qualified Code(s): K80.20 - Calculus of gallbladder without cholecystitis without obstruction (6) Abnormal abdominal CT scan Current Visit: Yes Status: Acute Assessment and plan: ABD CT showed an apparent focal masslike thickening of the ascending colon which appears to be new when compared to 06/[address] Consult GI for further evaluation. (7) DVT prophylaxis Current Visit: No Status: Acute Assessment and plan: ambulation - Subjective Interval history: Seen and examined at bedside. Patient reports acute episode of chest pain at 0400 this morning. Relieved with nitroglycerin and morphine. Currently chest pain-free. No shortness of breath. She does report intermittent left flank pain which is controlled. She is aware of need to be NPO at midnight for C tomorrow. - Constitutional Vitals: Temp Pulse Resp BP Pulse Ox 98.1 F 72 18 118/66 96 09/02/17 10:44 09/02/17 10:44 09/02/17 10:44 09/02/17 10:44 09/02/17 10:44 General appearance: Present: A&O X 3, no acute distress, answers questions appropriately - Head Head exam: Present: atraumatic, normocephalic - Eye Eye exam: Present: PERRL, conjuntiva pink, sclera anicteric Pupils: Present: PERRL - Neck Neck exam general surgery: Present: supple, trachea midline. Absent: lymphadenopathy - Respiratory Respiratory exam: Present: CTAB. Absent: accessory muscle use, rales, rhonchi, wheezes - Cardiovascular Cardiovascular exam: Present: RRR, +S1, +S2. Absent: diastolic murmur, gallop, rubs, systolic murmur - GI/Abdominal GI/Abdominal exam: Present: normal bowel sounds, soft, no peritoneal signs. Absent: distended, tenderness - Extremities Exam Extremities exam: Present: warm, radial pulses palpable and symmetrical. Absent : calf tenderness, cyanotic, pedal edema - Neurological Exam Neurological exam: Present: CN II-XII intact, oriented X3, no focal deficits. Absent: pronater drift, facial droop, speech deficit - Skin Skin exam: Present: dry, intact Internal Medicine: Result - Labs CBC & Chem 7: 08/31/17 15:34 08/31/17 15:34 - ABG Interpretation ABG results: PT/INR, D-dimer PT 11.1 Seconds (9.4-12.1) 08/31/17 15:34 - Impressions Impressions Abdomen/Pelvis CT 09/01/17 14:57 IMPRESSION: Mild to moderate left-sided hydronephrosis secondary to a 12 mm stone within the mid ureter. Fatty, mildly enlarged liver. Cholelithiasis. Diverticulosis coli and duodenal diverticulum. Apparent focal masslike thickening of the ascending colon, possibly related to decompression. However, consider further imaging or direct inspection if the patient has not had a recent colonoscopy. D/ / Herberth Mcfadden MD / Herberth Mcfadden MD Interpreting Provider: Herberth Mcfadden MD Consult Discharge Plan - Plan Referrals: Myranda Lauren DO [Primary Care Provider] -
[2017-09-02] MEDS: Cholecalciferol (D-3) 1,000 UNIT TABLET PO SCH (15:21)
[2017-09-02] MEDS: Metoprolol XL (24 HR) Succ 50 MG TAB.ER.24H PO SCH (20:59)
[2017-09-03] MEDS: *HR* Enoxaparin 40 MG/0.4 ML SYRINGE SQ SCH (04:46)
[2017-09-03 06:15] LABS: Hematocrit 31.2 % (35.3-44.9); Hemoglobin 10.9 g/dL (11.5-15.4); Mean Corpuscular HGB Conc 34.9 g/dL (31.6-35.5); Mean Corpuscular Hemoglobin 32.9 pg (28.0-33.3); Mean Corpuscular Volume 94.3 fL (83.0-100.0); Platelet Count 234 K/mcL (140-400); Red Blood Count 3.31 M/mcL (3.82-4.97); Red Cell Distribution Width 12.4 % (11.5-14.5)
[2017-09-03 06:27] LABS: Alanine Aminotransferase 17 Units/L (0-55); Albumin 3.6 g/dL (3.5-5.0); Alkaline Phosphatase 66 Units/L (38-126); Aspartate Amino Transferase 15 Units/L (5-34); BUN/Creatinine Ratio 23 (6-26); Bilirubin,Total 0.4 mg/dL (0.2-1.2); Blood Urea Nitrogen 18 mg/dL (7-20); Calcium 9.4 mg/dL (8.6-10.8); Carbon Dioxide 24 mEq/L (19-29); Chloride 108 mEq/L (98-109); Globulin 3.6 g/dL (2.4-3.5); Glucose 146 mg/dL (70-99); Osmolality,Calculated 299 (280-300); Potassium 4.2 mEq/L (3.5-4.5); Sodium 142 mEq/L (136-145); Total Protein 7.2 g/dL (6.0-8.3); eGFR For African Americans > 60 (> 60); eGFR For Non-African Americans > 60 (> 60)
[2017-09-03] MEDS ORDERED: Heparin 1,000 UNIT, 0.9 % Sodium Chloride 500 ML INARTERIAL ONE (08:15)
--- NOTE | 2017-09-03 08:24 | Event Note ---
Date of Encounter: 09/03/17 Time of Encounter: 08:20 - Cardiology Event Note Laboratory Tests 09/03/17 09/03/17 05:30 05:30 INR 1.0 Creatinine 0.77 Est GFR (Non-Af Amer) > 60 Denies any CP. Plan for [facility] today.
[2017-09-03] MEDS: Sucralfate 1 GM TABLET PO SCH ×3 (08:49→19:49)
[2017-09-03] MEDS: Aspirin 81 MG TAB.CHEW PO SCH (08:50)
[2017-09-03] MEDS: Isosorbide MONOnitrate (24 HR) 60 MG TAB.ER.24H PO SCH (08:50)
[2017-09-03] MEDS: Insulin LISPRO 300 UNITS/3 ML VIAL SQ SCH ×4 (08:51→22:01)
--- NOTE | 2017-09-03 10:42 | Electrocardiograph Report ---
[address] [address] Test Date: 2017-09-02 Pat Name: Lidia Seth Department: 113 Room: 3B44 Gender: F Charrer: : 1945 Requested By: Vicki Singh Order Number: [id number] Reading MD: Jerod Garner MD Measurements Intervals [place] Rate: 67 P: 34 SD: 176 QRS: 50 QRSD: 99 T: 63 QT: 385 QTc: 401 Interpretive Statements SINUS RHYTHM Electronically Signed On 09-03-2017 10:41:02 EST by Jerod Garner MD
[2017-09-03] MEDS: Cholecalciferol (D-3) 1,000 UNIT TABLET PO SCH (13:17)
[2017-09-03] MEDS: *HR* LORazepam 0.5 MG TABLET PO PRN (13:17)
[2017-09-03] MEDS: Acetaminophen 325 MG TABLET PO PRN ×2 (13:17→22:09)
--- NOTE | 2017-09-03 13:51 | Gastroenterology Consult Note ---
Date of Encounter: 09/03/17 Time of Encounter: 11:50 - Assessment and plan (1) Abnormal abdominal CT scan Current Visit: Yes Status: Acute Assessment and plan: CT showed mass like thickening of the ascending colon. She needs colonoscopy but wants to have as an outpatient. She has severe CAD with multiple stents, last 01/01. She had negative colonoscopy 08/02. - Time Spent With Patient Total time spent is greater than 50% in coordination of care (as documented) at patient's floor/unit and/or counseling patient: GI History of Present Illness - Data of Consult Patient: known to practice within the last 3 years Consult date: 09/03/17 Requesting Physician: Brenda Bustamante CNP - Consult Narrative Reason for consult: abnormal ct History of present illness: Ms. Seth is a 71 year old female with a significant pmhx of Cholelithiasis, HTN , HLD, h/o Takotsubo cardiomyopathy, with severe and extensive h/o CAD. She has had multiple coronary stents, last PCI to Mid RCA and Circumflex in 12/2016. She presented with worsening intermittent recurrent CP from last 2-3 weeks especially from last 2 days. She reports pain is sub sternal and left chest wall , radiating to neck both side and Rt Arm. She also c/o on and off RUQ abdominal pain, she is scheduled for an elective cholecystectomy in December. She is scheduled for left heart cath today. CT showed apparent focal masslike thickening of the ascending colon, possibly related to decompression. Hgb is 10.9. She denies diarrhea, bloody or tarry stools. NSAIDS: ASA 81 mg Anticoagulants: Plavix EGD: 08/02 gastritis COLON:08/02 diverticulosis, hyperplastic polyp Past Med Surg Social Fam HX - Past Medical History Medical history: coronary artery disease, hyperlipidemia, hypertension, myocardial infarction, osteoporosis, RA Psychiatric history: depression - Past Surgical History Surgical History: angioplasty/stent, hysterectomy, other - Social History Smoking Status: Never smoker Smokeless Tobacco Status: No Alcohol use: none Drug use: none - Family History Mother Living Status: Hx Family Cardiac Disorders: No Hx Family Respiratory Disorders: No Hx Family Cancer: No Hx Family GI Disorders: No Hx Family Genitourinary Disorders: No Hx Family Endocrine Disorder: Yes (DM type 2) Hx Family Musculoskeletal Disorders: No Hx Family Neuromuscular Disorders: No Hx Family Neurologic Disorders: No Hx Family HEENT Disorders: No Hx Family Autoimmune Disorders: No Hx Family Reproductive Disorders: No Hx Family Psychosocial Disorders: No Hx Family Medical Disorders: No Father Adopted: No Family Member Ethnicity: Non- Living Status: Hx Family Cardiac Disorders: Yes (smoker) Hx Family Respiratory Disorders: Yes (smoker) Hx Family Cancer: No Hx Family GI Disorders: Yes (self) Hx Family Endocrine Disorder: Yes (self, cousin,mother) Hx Family Neuromuscular Disorders: No Hx Family Neurologic Disorders: Yes (grandfather) Hx Family HEENT Disorders: No Hx Family Autoimmune Disorders: No Grandmother Hx Family Endocrine Disorder: Yes (Diabetes) Review of Systems: GI: as per [place] GENERAL: denies fever, or chills EYES: denies yellow discoloration ENT: denies pain with swallowing or difficulty swallowing CARDIO: see HPI RESP: No Shortness of breath with exertion : denies change in color of urine NEURO: denies any weakness HEME: Denies any bruising MS: denies joint pain, joint swelling or back pain. DERM: denies rash or itching PSYCH: history of anxiety and depression - Constitutional Vitals: Temp Pulse Resp BP Pulse Ox 98.0 F 78 17 134/87 96 09/03/17 07:32 09/03/17 07:32 09/03/17 07:32 09/03/17 07:32 09/03/17 07:32 Exam: CONSTITUTIONAL:~alert, no acute distress.~HEAD:~normocephalic.~EYES:~no jaundice.~NECK:~no obvious swelling.~HEART:~regular rate and rhythm, no murmurs. ~LUNGS:~bilateral good air entry.~ABDOMEN:~non distended, soft, tender upper quadrants, no masses palpable, no organomegaly.~RECTAL EXAM:~Deferred.~ EXTREMITIES:~no clubbing, cyanosis or edema.~SKIN:~no stigmata of chronic liver disease.~NEUROLOGIC:~no obvious focal defect.~~~~ Results - Labs CBC & Chem 7: 09/03/17 05:30 09/03/17 05:30 Labs: Last Result Calcium 9.4 mg/dL (8.6-10.8) 09/03/17 05:30 Troponin I 0.00 ng/mL (0-0.03) 09/01/17 01:49 Triglycerides 225 mg/dL (< 150) H 09/01/17 04:43 Entire Visit Hgb 10.9 g/dL (11.5-15.4) L 09/03/17 05:30 Hct 31.2 % (35.3-44.9) L 09/03/17 05:30 PT 11.0 Seconds (9.4-12.1) 09/03/17 05:30 Total Bilirubin 0.4 mg/dL (0.2-1.2) 09/03/17 05:30 AST 15 Units/L (5-34) 09/03/17 05:30 ALT 17 Units/L (0-55) 09/03/17 05:30 - ABG ABG results: PT/INR, D-dimer PT 11.0 Seconds (9.4-12.1) 09/03/17 05:30 Consult Discharge Plan - Plan Referrals: Myranda Lauren DO [Primary Care Provider] -
--- NOTE | 2017-09-03 14:08 | Discharge Summary ---
Date of Encounter: 09/03/17 Time of Encounter: 14:04 - Discharge Diagnosis (1) CAD (coronary artery disease) Priority: Primary Status: Chronic Comments: with hx SC and 10 stents. Had C that resulted in multivessel PCI. Now with increasing chest discomfort at rest and with activity concerning for unstable angina. Evaluated by cardiology who is planning [facility]. Continue ASA, Plavix, BB, nitrate. No statin due to intolerance. Anticipate discharge home 09/03 if left heart catheterization unremarkable and no intervention required. Qualifiers: Coronary Disease-Associated Artery/Lesion type: [place] artery [place] vs. transplanted heart: [place] heart Associated angina: angina presence unspecified Qualified Code(s): I25.10 - Atherosclerotic heart disease of [place] coronary artery without angina pectoris (2) Nephrolithiasis Priority: Primary Status: Chronic Comments: per patient reported history. Follows with urology. Renal function normal. ABD CT with mild to moderate left hydronephrosis with 12 mm stone within the mid ureter. Evaluated by urology who recommended supportive management with continued monitoring at this time. Plan for follow-up with outpatient urologist for stone extraction. (3) Hypertension Priority: Primary Status: Chronic Comments: per hx. BP variable but acceptable. Continue home BP medication. Qualifiers: Hypertension type: essential hypertension Qualified Code(s): I10 - Essential (primary) hypertension (4) Diabetes mellitus type 2, noninsulin dependent Priority: Primary Status: Chronic Comments: per hx. continue home diabetes medication regimen. (5) Cholelithiases Priority: Primary Status: Acute Comments: per hx. with recurrent biliary colic. RUQ US with cholelithiasis, no evidence of cholecystitis. Follow-up with GI outpatient Qualifiers: Qualified Code(s): K80.20 - Calculus of gallbladder without cholecystitis without obstruction (6) Abnormal abdominal CT scan Priority: Primary Status: Acute Comments: CT showed mass like thickening of the ascending colon. She had negative colonoscopy 08/02. Evaluated by GI who recommended repeating colonoscopy and patient prefers to have this done on outpatient basis. Follow-up with GI - Discharge Medications Home Medications: ALPRAZolam [Xanax 0.25 MG Tablet] 0.25 mg PO DAILY PRN 07/12/16 [History] Aspirin 81 mg PO DAILY 07/12/16 [History] Clopidogrel [Plavix] 75 mg PO DAILY 07/12/16 [History] Isosorbide MONOnitrate [Isosorbide Mononitrate ER] 240 mg PO DAILY 07/12/16 [ History] Nitroglycerin [Nitrostat] 0.4 mg SL Q5M PRN 07/12/16 [History] Pantoprazole Sodium [Protonix] 40 mg PO BID 07/12/16 [History] Lisinopril [Zestril] 10 mg PO DAILY #15 tablet 07/14/16 [Rx] Glimepiride 1 mg PO BID 08/16/16 [History] metFORMIN [Glucophage] 500 mg PO BID 08/16/16 [History] Cholecalciferol (D-3) [Vitamin D] 2,000 unit PO 1400 10/11/16 [History] Loratadine [Allergy Relief] 10 mg PO DAILY PRN 10/11/16 [History] Dicyclomine [Bentyl] 10 mg PO QID PRN 12/13/16 [History] Sucralfate [Carafate] 1 gm PO TIDAC 12/13/16 [History] Ezetimibe [Zetia] 10 mg PO DAILY 09/01/17 [History] Metoprolol [Lopressor] 12.5 mg PO BID 09/01/17 [History] Allergies/Adverse Reactions: 3 Allergy/AdvReac Type Severity Reaction Status Date / Time atorvastatin [From Lipitor] Allergy Muscle Pain Verified 08/31/17 15:32 lovastatin Allergy Muscle Pain Verified 08/31/17 15:32 penicillin V Allergy Anaphylaxis Verified 08/31/17 15:32 Ajminnu-Vwa-Azx Reductase Allergy Muscle Pain Verified 09/01/17 06:44 Inhibitor [Statins] Procedures/tests Complete & Pending: Procedures Performed prior 72 hours Category Date Time Status CT abd pelvis wo no iv no oral [CT] Routine Cat Scan 09/01/17 14:57 Completed CL Cardiac Catheterization [CL] Routine Scientific Informatics Leader 09/03/17 11:45 Ordered US gall bladder [US] Routine Exams 09/01/17 09:00 Completed EKG [ECG 12 lead ECG] [ECG] Stat Y 09/02/17 04:30 Completed Date of admission: 08/31/17 17:02 Primary care physician: Myranda Lauren DO Consults: 08/31/17 17:07 Consult to Cardiology [CONS] Routine Comment: Consulting Provider: Cardiology Maggie Reason for Consult: chest pain with cardiac hx Time Notified: 17:08 Call Completed: Yes 09/02/17 12:32 Consult to Urology [CONS] Routine Consulting Provider: Urology Maggie Reason for Consult: hydronephrosis Call Completed: Yes 09/02/17 15:11 Consult to Gastroenterology [CONS] Routine Consulting Provider: Gastroenterology Maggie Reason for Consult: ABD CT with possible colonic mass Call Completed: Yes Discharging clinician: Brenda Bustamante Anticipated date of discharge: 09/03/17 - Patient Status Disposition: Home, Self-Care Condition: Good Functional capacity at discharge: independent ambulation Overall status at discharge: patient is back to baseline - Discharge Instructions Instructions: Coronary Artery Disease (DC) Follow Up With: Myranda Lauren DO [Primary Care Provider] - Jason Love MD [Partnered Physician] - Héctor Irwin DO [Partnered Physician] - Jose Panda MD [Partnered Physician] - Additional Instructions: Please follow-up with your PCP within 1-2 weeks. Follow-up with cardiology and urology as previously planned. It is recommended that you have a repeat colonoscopy; please follow-up with your PCP for gastroenterology referral. RISK FACTORS: STOP SMOKING: If you smoke, STOP. Smoking or tobacco use significantly increases your risk of heart disease because nicotine causes the arteries to narrow or constrict. It also causes fats to stick to the artery. Your chances of having a heart attack are greatly increased if you continue to smoke. For more information, call the education line for smoking cessation 2-822-ZWFSBUT EAT A LOW FAT/CHOLESTEROL/SODIUM DIET: This diet may help reduce your chances of having a heart attack. LIFTING: Avoid lifting anything more than 10 pounds for 5-7 days Prior to straining, laughing, sneezing and/or coughing, apply manual pressure directly over insertion site. ACTIVITY: You may walk or climb stairs as tolerated You can resume sexual activity as tolerated In general, you are encouraged to engage in a minimum of 30 minutes or more of moderate intensity physical activity, such as brisk walking, daily or at least 3 -4 times weekly BATHING Do not submerge the site into water (bath tub, hot tub, swimming pool) for 1 week. This can be a source for infection into the blood stream. You may shower after 24 hours SITE CARE: After 24 hours, you may remove the dressing and leave the site open to air. Keep the site clean and dry. Clean gently and pat dry. You can expect bruising and tenderness that gradually resolve within a week or two. Return to work as instructed per your physician Resume driving as instructed per physician Keep all scheduled follow up appointments Resume medications as instructed IMPORTANT: If prescribed a Platelet Aggregation Inhibitor such as, Plavix, Brilinta or Effient: Duration of therapy is minimum one year These medications are often used in combination with Aspirin in prevention of future heart attacks Never discontinue unless consult with your House Calls Nurse STROKE (CVA) Risk factors for a stroke are: Age, cigarette smoking, diabetes, excessive alcohol consumption, family history, high blood pressure, overweight, physical inactivity, prior stroke, heart attack, diagnosis of carotid artery stenosis or other artery disease. Warning signs: Sudden numbness or weakness of the face, arm or leg; especially on one side of the body, sudden confusion, trouble speaking or understanding, sudden trouble seeing in one or both eyes, sudden trouble walking, dizziness, loss of balance or coordination, sudden severe headache with no cause. Call 911 or go to the Emergency Room. CONGESTIVE HEART FAILURE: If you have been diagnosed with Congestive Heart Failure (CHF) and your symptoms return, make an appointment with your physician Weigh yourself daily. Notify your physician if you have a weight gain of two or more pounds in one day or five or more pounds in one week. If you experience any difficulty breathing, please call 911 BLEEDING: Although the risk of bleeding is minimal, it can happen. If you have any bleeding from the site, apply firm pressure above the puncture site for 10-15 minutes. If the bleeding does not stop, continue manual pressure and call 911 Contact your physician if: You develop a fever greater than 101 degrees Fahrenheit Your site becomes reddened or has any drainage You have an increase in pain or burning at the site or if a large knot forms at the site. If you experience chest pain, shortness of breath, dizziness, or extreme tiredness, stop the activity and rest. Please notify your physicians office if you experience any of these symptoms and they are not relieved by rest please call 911! - Diet and Activity Activity: increase activity as tolerated, resume usual activities as tolerated Diet: diabetic diet, low fat, low cholesterol Interval History: Seen and examined at bedside; uneventful night. No changes in assessment to report. Patient actually had inquired about being discharged on following up with left heart catheterization outpatient. Discussed with cardiology decided to stay inpatient. No further chest pain recurrence. No shortness of breath. Anticipating discharge home after left heart catheterization. Hospital course: See assessment and plan for hospital course - Time Spent with Patient Total time spent providing and/or coordinating discharge services: - Constitutional Vitals: Temp Pulse Resp BP Pulse Ox 98.0 F 78 17 134/87 96 09/03/17 07:32 09/03/17 07:32 09/03/17 07:32 09/03/17 07:32 09/03/17 07:32 General appearance: Present: A&O X 3, no acute distress, answers questions appropriately - Head Head exam: Present: atraumatic, normocephalic - Eye Eye exam: Present: PERRL, conjuntiva pink, sclera anicteric Pupils: Present: PERRL - Neck Neck exam general surgery: Present: supple, trachea midline. Absent: lymphadenopathy - Respiratory Respiratory exam: Present: CTAB. Absent: accessory muscle use, rales, rhonchi, wheezes - Cardiovascular Cardiovascular exam: Present: RRR, +S1, +S2. Absent: diastolic murmur, gallop, rubs, systolic murmur - GI/Abdominal GI/Abdominal exam: Present: normal bowel sounds, soft, no peritoneal signs. Absent: distended, tenderness - Extremities Exam Extremities exam: Present: warm, radial pulses palpable and symmetrical. Absent : calf tenderness, cyanotic, pedal edema - Neurological Exam Neurological exam: Present: CN II-XII intact, oriented X3, no focal deficits. Absent: pronater drift, facial droop, speech deficit - Skin Skin exam: Present: dry, intact
[2017-09-03] MEDS ORDERED: *HR* Heparin 10,000 UNIT/10 ML VIAL ONE (14:17)
[2017-09-03] MEDS ORDERED: 0.9 % Sodium Chloride 1,000 ML ONE (14:17)
[2017-09-03] MEDS ORDERED: Nitroglycerin 1,000 MCG/10 ML VIAL IV ONE (14:17)
--- NOTE | 2017-09-03 14:49 | Pre-Sedation Evaluation ---
Pre-sedation evaluation - Pre-sedation checklist Date of procedure: 09/03/17 Procedure: [facility] Recent Vitals: Last Vital Signs Temp 98.0 F 09/03/17 07:32 Pulse 78 09/03/17 07:32 Resp 17 09/03/17 07:32 BP 134/87 09/03/17 07:32 Pulse Ox 96 09/03/17 07:32 H&P (including ROS) documented in medical record: Yes Previous reaction to sedatives/anesthetics: No Dietary Status: No solid food in preceding 4 hrs and no liquid in preceding 2 hrs Dentition: No loose teeth or bridges ASA Classification *see protocol: CLASS II-Mild systemic disease Plan of Care: Pt appropriate candidate for procedure/moderate/conscious sedation
[2017-09-03] MEDS ORDERED: *HR* Midazolam HCl 2 MG/2 ML VIAL ONE (14:57)
[2017-09-03] MEDS ORDERED: *HR* FentaNYL (PF) 100 MCG/2 ML VIAL ONE (14:57)
[2017-09-03] MEDS ORDERED: Tirofiban 12.5 MG/250ML 12.5 MG/250 ML BAG ONE (15:18)
--- NOTE | 2017-09-03 16:54 | Electrocardiograph Report ---
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
--- NOTE | 2017-09-03 17:58 | Invasive Diagnostic Lab Proc ---
Name: Lidia Seth Date of Study: 09/03/2017 Date: 1945 Ht: 65.0in Medical Record#: [id number] Age: 71 Wt: 152.34lb Gender: Female BSA: 1.76 Order #: [id number] BMI: 25.35 Physicians Procedure Physician: Venice Glynn MD Referring MD: Referring MD: Staff Name Position Time In DominiquerebelBrittany verdin RN Monitor 02:56 PM Obdulia Panda RN Pyridine Operator 02:56 PM Sandra Mariano RT (R) Scrub 02:56 PM Indications Indication Unstable Angina Procedures Performed Procedure L HRT ARTERY/VENTRICLE ANGIO PRQ CARD YOSELIN STENT W/ANGIO 1 VSL Pre-Procedure Checklist Informed consent is complete signed and on chart. H&P is on chart. ID band is on and ID verified with patient. Patient NPO for procedure The procedure was described for the patient and questions were answered. ECG is on chart. Plan of Care Patient will tolerate the procedure without complications. Adequate level of comfort will be maintained. Hemodynamics will remain stable Patient will recover from procedure without complications. Respiratory function will be maintained. Cardiac rhythm will remain stable. Patient temperature will be maintained. Patient and/or family have verbalized understanding of the procedure. Patient Education Chief Complaint/Reason for Test: Cardiac Cath Developmental Category: Geriatric (65+ years) Developmentally Appropriate for Age: Yes Learning Barriers: None Education Needs: Procedure Education Method: Verbal Information Taught: Cardiac Cath Educational Evaluation: Able to repeat information Intravenous Access Time IV Size Location DC'd Fluid/Drip Rate Units RN 0.9NaCl Allergies lovastatin Rypnlds-Nxo-Rpq Reductase Inhibitor Amoxicillin penicillin V atorvastatin Vital Signs Time BP (mmHg) HR (bpm) O2 Sat. RR (bpm) LOC 152 / 82 72 97 % 14 03:02 PM / % 5 = Fully awake and oriented or at pre-proc level 03:03 PM / % 5 = Fully awake and oriented or at pre-proc level 03:03 PM / % 4 = Oriented but drowsy 03:18 PM / % 5 = Fully awake and oriented or at pre-proc level 02:57 PM 155 / 85 74 100 % 12 03:02 PM 153 / 76 75 100 % 14 03:07 PM 150 / 83 83 100 % 12 03:12 PM 152 / 76 86 100 % 14 03:17 PM 154 / 86 94 100 % 14 03:22 PM 143 / 80 90 100 % 14 03:27 PM 189 / 96 90 100 % 18 03:32 PM 145 / 80 77 100 % 12 03:38 PM 171 / 105 92 100 % 16 03:33 PM / % 5 = Fully awake and oriented or at pre-proc level 03:55 PM 140 / 74 75 97 % 16 5 = Fully awake and oriented or at pre-proc level 04:16 PM 141 / 62 76 95 % 16 5 = Fully awake and oriented or at pre-proc level 04:31 PM 127 / 72 79 99 % 15 5 = Fully awake and oriented or at pre-proc level 04:45 PM 126 / 71 73 99 % 16 5 = Fully awake and oriented or at pre-proc level 05:00 PM 113 / 73 77 99 % 18 5 = Fully awake and oriented or at pre-proc level 05:15 PM 135 / 83 74 98 % 18 5 = Fully awake and oriented or at pre-proc level 05:36 PM 125 / 75 78 99 % 16 5 = Fully awake and oriented or at pre-proc level 05:27 PM 127 / 70 70 99 % 14 5 = Fully awake and oriented or at pre-proc level 05:30 PM 138 / 70 75 99 % 16 5 = Fully awake and oriented or at pre-proc level 05:33 PM 122 / 80 77 99 % 15 5 = Fully awake and oriented or at pre-proc level 05:40 PM 127 / 69 78 99 % 16 5 = Fully awake and oriented or at pre-proc level 05:44 PM 120 / 75 76 99 % 15 5 = Fully awake and oriented or at pre-proc level Procedural Medications Time Medication Dose Units Method Given By 02:56 PM Oxygen 2 L/min nasal cannula Brittany Adams RN 03:05 PM Versed 1 mg Intravenous Obdulia Panda RN 03:05 PM Fentanyl 50 mcg Intravenous Obdulia Panda RN 03:07 PM Lidocaine 2% 20 ml Subcutaneous Venice Glynn MD 03:18 PM Heparin 3500 units Intravenous Odbulia Panda RN 03:18 PM Aggrastat Bolus: 33 ml Intravenous Obdulia Panda RN 03:19 PM Aggrastat 12.5mg/250ml 12 ml/hr Intravenous Obdulia Panda RN 03:28 PM Nitroglycerin 100 mcg Intracoronary Yissel Glynn MD 03:30 PM Nitroglycerin 100 mcg Intracoronary Yissel Glynn MD 03:31 PM Nitroglycerin 100 mcg Intracoronary Yissel Glynn MD 03:32 PM Nitroglycerin 100 mcg Intracoronary RomarioussYissel bonner MD 03:32 PM Nitroglycerin 150 mcg Intracoronary Yissel Glynn MD 03:33 PM Nitroglycerin 50 mcg Intracoronary Yissel Glynn MD 03:36 PM Plavix 75 mg Orally Obdulia Panda RN ASA Classification: CLASS II- Mild systemic disease (i.e. well-controlled diabetes, hypertension, asthma, cigarette smoking) Truman Score Preprocedure Postprocedure Activity 2- Moves 4 extremities sustained head lift Activity 2- Moves 4 extremities sustained head lift Circulation 2- SBP +/= 20 points of pre-anesthetic level Circulation 2- SBP +/= 20 points of pre-anesthetic level Consciousness 2- Awake and alert oriented x 3 Consciousness 2- Awake and alert oriented x 3 O2 Saturation 2- Able to maintain O2 satruation of 92% on room air O2 Saturation 2- Able to maintain O2 satruation of 92% on room air Respiratory 2- Able to deep breathe and cough well Respiratory 2- Able to deep breathe and cough well Total Score 10 Total Score 10 Contrast Agent: Isovue Diagnostic Contrast: 155 ml Total Contrast: 155 ml Fluoro Dose: 180 mGy Activated Clotting Time Time Seconds to Clot 03:39 PM 211 05:15 PM 148 Procedure Log Time Note Enter By 02:55 PM Pt arrived to laboratory inspector 2 at 14:55 [email or web address] 02:56 PM Brittany Adams RN Position: Monitor Time in: 14:56 ejohnson 02:56 PM Obdulia Panda RN Position: Pyridine Operator Time in: 14:56 ejohnson 02:56 PM Sandra Mariano RT (R) Position: Scrub Time in: 14:56 ejohnson 02:56 PM Patient charges- Angio tray pack, Navilyst 3mm J, Pulse Oximetry and ACIST tubing and transducer ejohnson 02:56 PM Case Delayed No ejohnson 02:56 PM Hair removed from procedure site in procedure lab using clippers. Bilateral groin prepped with Chloraprep by Brittany Adams RN, safety strap applied then patient was draped. Skin intact. ejohnson 02:56 PM Physican paged/called 14:56. ejohnson 02:56 PM Physican responded and notified patient is ready 14:56 ejohnson 02:56 PM Physician arrived 14:56 ejohnson 02:56 PM Meet and greet completed ejohnson 02:56 PM Sign in performed according to hospital policy. ejohnson 02:56 PM CathStat 02:56 PM Procedure start 14:56 ejohnson 02:56 PM Vitals capture started with the following parameters, Patient=Adult, Interval=5 min, Initial Xpjejxfy=449 mmHg, Deflation Rate=5 mmHg, Cuff placed on Right Arm 02:56 PM Time: 14:56 Oxygen on at 2 L/min per nasal cannula by Brittany Adams RN ohnson 02:57 PM HR=74 bpm, GHKY=423/85 mmhg, ZrY5=830.0 %, Resp=12 B/min, Comment=NSR 02:57 PM Case Start 02:57 PM Recorded ECG: HR=74 Condition=Condition 1 03:01 PM ASA Class CLASS II- Mild systemic disease (i.e. well-controlled diabetes, hypertension, asthma, cigarette smoking) ejohnson 03:02 PM Time: 15:02 Patient comfortable and pain free: Yes ejmanson 03:02 PM Time: 15:02LOC: 5 = Fully awake and oriented or at pre-proc level ejmanson 03:02 PM HR=75 bpm, RAWQ=454/76 mmhg, BxD2=077.0 %, Resp=14 B/min, Comment=NSR 03:03 PM Time: 15:03LOC: 5 = Fully awake and oriented or at pre-proc level [facility] 03[facility] PM Pressure channel 1 zeroed. 03:05 PM Time: 15:03 Patient comfortable and pain free: Yes [facility] 03[facility] PM Time: 15:05 Versed 1 mg Intravenous Given by Obdulia Panda RN 03:05 PM Time: 15:05 Fentanyl 50 mcg Intravenous Given by Obdulia Panda RN 03:06 PM Clinical Presentation: Unstable angina kee 03:06 PM Time out performed according to hospital policy kee 03:07 PM HR=83 bpm, TTCH=102/83 mmhg, HmA4=880.0 %, Resp=12 B/min, Comment=NSR 03:08 PM Time: 15:07 20 ml Lidocaine 2% to right groin Subcutaneous Given by Venice Glynn MD [facility] 03:08 PM Micro-Introducer Kit utilized for sheath [facility] 03:10 PM Access obtained by percutaneous puncture. 6Fr 10cm Terumo Ravalli sheath placed in right Femoral artery. [id number] [facility] 03:10 PM 0.035 145cm Navilyst 3mmJ wire [id number] [facility] 03:10 PM 5Fr FR 4 catheter inserted over the wire [facility] 03:11 PM RCA angiography performed in multiple views. mm 03:11 PM Recorded Pressure: Ao, HR=85, Condition=Condition 1 (Aorta) Ao 101/39/75 03:12 PM HR=86 bpm, OPFA=020/76 mmhg, StS0=201.0 %, Resp=14 B/min, Comment=NSR 03:12 PM Catheter removed [facility] 03:12 PM 5Fr FL 4 catheter inserted over the wire [facility] 03:12 PM LCA angiography performed in multiple views. [facility] 03:13 PM Recorded Pressure: Ao, HR=90, Condition=Condition 1 (Aorta) Ao 135/83/107 03:15 PM Catheter removed [facility] 03:15 PM 5Fr Pigtail catheter inserted over the wire [facility] 03:16 PM Recorded Pressure: LV, HR=89, Condition=Condition 1 (Left Ventricle) LV 156/8/9 03:16 PM Recorded Pressure: LV, Ao, HR=89, Condition=Condition 1 (Left Ventricle) LV -111/-122/-132, (Aorta) Ao 159/63/107 03:16 PM Recorded Pressure: LV, Ao, HR=87, Condition=Condition 1 (Left Ventricle) LV 153/50/64, (Aorta) Ao 140/37/83 03:17 PM Catheter removed [facility] 03:17 PM HR=94 bpm, IRFS=496/86 mmhg, IkH0=845.0 %, Resp=14 B/min, Comment=NSR 03:18 PM 6Fr XB LAD 3.5 Hurt Bright-Tip guide catheter was used to cannulate the PCI vessel successfully. reused? No tsoummers 03:18 PM .014 Fielder 180cm guide wire across target lesion- successful. reused? No tsoummers 03:18 PM Recorded Pressure: Ao, HR=90, Condition=Condition 1 (Aorta) Ao 140/76/104 03:18 PM Time: 15:03LOC: 4 = Oriented but drowsy tsoummers 03:18 PM Time: 15:05 Patient comfortable and pain free: Yes tsoummers 03:18 PM Time: 15:18 Heparin 3500 units Intravenous Given by Obdulia Panda RN [email or web address] 03:19 PM Time: 15:18 Aggrastat Bolus: 33 ml Intravenous Given by Obdulia Panda RN Gallo pump [email or web address] 03:19 PM Time: 15:19 Aggrastat 12.5mg/250ml 12 ml/hr Intravenous Given by Obdulia Panda RN Gallo pump [email or web address] 03:22 PM 2.0 mm x 12 mm Emerge Monorail balloon across target lesion- successful. reused? No tsoummers 03:22 PM HR=90 bpm, OUMV=239/80 mmhg, TyY1=594.0 %, Resp=14 B/min, Comment=NSR 03:22 PM Balloon inflated @ 10 obdulio for 15 seconds tsoummers 03:22 PM Balloon inflated @ 6 obdulio for 6 seconds tsoummers 03:23 PM Balloon inflated @ 6 obdulio for 8 seconds tsoummers 03:23 PM Balloon catheter removed intact. tsoummers 03:25 PM 2.5mm x 16mm Synergy drug-eluting stent across target lesion- successful Lot #[id number] tsoummers 03:25 PM Coronary Dominance: right tsoummers 03:25 PM Lesion found in Mid LAD. Pre Stenosis: 80 Pre ZAC Flow: 3: Complete and Brisk Flow/Perfusion tsoummers 03:26 PM Lesion found in Proximal RCA. Pre Stenosis: 40 Pre ZAC Flow: tsoummers 03:26 PM Stent deployed @ 11 obdulio for 11 seconds tsoummers 03:26 PM Stent balloon reinflated @ 14 obdulio for 12 seconds tsoummers 03:27 PM Stent balloon reinflated @ 16 obdulio for 12 seconds tsoummers 03:27 PM Stent delivery system removed intact. tsoummers 03:27 PM HR=90 bpm, BAJP=846/96 mmhg, ZpP2=628.0 %, Resp=18 B/min, Comment=NSR 03:29 PM Time: 15:28 Nitroglycerin 100 mcg Intracoronary Given by Yissel Glynn MD 03:29 PM Right Coronary, Right Posterior Descending Arteries with Right Posterolateral and Acute Marginal branches with 40 % stenosis. kee 03:29 PM Mid/Distal Left Anterior Descending Coronary Artery and diagonal branches with 80% stenosis. kee 03:30 PM Time: 15:30 Nitroglycerin 100 mcg Intracoronary Given by Yissel Glynn MD 03:30 PM Recorded Pressure: Ao, HR=80, Condition=Condition 1 (Aorta) Ao 174/86/125 03:31 PM Time: 15:31 Nitroglycerin 100 mcg Intracoronary Given by Yissel Glynn MD 03:32 PM Time: 15:32 Nitroglycerin 100 mcg Intracoronary Given by Yissel Glynn MD 03:32 PM HR=77 bpm, HQYO=825/80 mmhg, FjY5=082.0 %, Resp=12 B/min, Comment=NSR 03:32 PM Time: 15:32 Nitroglycerin 150 mcg Intracoronary Given by Yissel Glynn MD 03:33 PM Recorded Pressure: Ao, HR=79, Condition=Condition 1 (Aorta) Ao 156/89/122 03:33 PM Time: 15:18LOC: 5 = Fully awake and oriented or at pre-proc level cesar 03:33 PM Time: 15:18 Patient comfortable and pain free: Yes kee 03:33 PM Time: 15:33 Nitroglycerin 50 mcg Intracoronary Given by Yissel Glynn MD 03:34 PM Guide wire removed intact. kee 03:35 PM Guide catheter removed intact. [email or web address] 03:35 PM Procedure completed at 15:35 [email or web address] 03:36 PM Sign out completed: Radiation Dose 180.37 mGy Fluoro Time: 6.0 Isovue 370 - 200ml contrast 155 ml given by Venice Glynn MD. Complications: NoneCardiac Rehab Consult needed: YesConfirmed administered medications: Yes kee 03:36 PM Isovue 370 - 200ml,1 Bottle(s) used. kelliemm 03:36 PM Sheath left in place to be pulled on floor/holding area tsoumm 03:37 PM Time: 15:36 Plavix 75 mg Orally Given by Obdulia Panda RN oumm 03:37 PM Estimated Blood Loss: minimal tsmm 03:37 PM Post ECG NSR tsoumm 03:37 PM Post Blood Pressure 156/89 tsoumm 03:37 PM Information taught Cardiac Cath and PCI tsoumm 03:37 PM Education needs Procedure, Plan of Care, and Responsibilities of Patient in Care oumm 03:38 PM HR=92 bpm, OSAP=115/105 mmhg, KuL5=835.0 %, Resp=16 B/min, Comment=NSR 03:38 PM Learning barriers :None mm 03:38 PM Education Methods Verbal oumm 03:38 PM Education evaluation Able to repeat information mm 03:38 PM Site status No bleeding/hematoma - Rt Groin as reported by Sandra Mariano RT (R) at 15:38 mm 03:38 PM Opsite applied mm 03:38 PM Plavix, Effient or Brilinta given Yes mm 03:38 PM Delay to floor Bed availability tsoumm 03:38 PM Family placed in consult room. mm 03:39 PM Complications: None 03:39 PM At 15:39 the ACT was 211 seconds. tsoumm 03:39 PM Fluoro Time: 6 mm 03:39 PM Isovue 370 - 200ml contrast 155 ml given by Venice Glynn MD. mm 03:39 PM Radiation Dose 180.37 mGy mm 03:42 PM Report given to Yonathan RT Pt taken to Holding room Room #2. 15:42 tsoumm 03:47 PM Patient out of room: 15:47 tsoumm 03:47 PM Family placed in consult room. tsoumm 03:48 PM Time: 15:33 Patient comfortable and pain free: Yes oumm 03:48 PM Time: 15:33LOC: 5 = Fully awake and oriented or at pre-proc level tsoumm 05:36 PM Arterial sheath pulled using manual compression for 15 minutes by Yonathan Ardon RT (R) csmith 05:44 PM no bleeding/hematoma noted after manual pressure abandoned. pt education provided per Yonathan W RT and understanding verbalized per patient csmith 05:53 PM Report given to Mariel WOLFE Pt taken to Room #44. 17:53 csmith Complications Complication None Hemodynamics Pressures Site Systolic/A Wave Diastolic/V Wave Mean AO 101 39 75 AO 135 83 107 LV 156 8 9 LV -111 -122 -132 AO 159 63 107 LV 153 50 64 AO 140 37 83 AO 140 76 104 AO 174 86 125 AO 156 89 122 Post Procedure Information Blood Pressure: 156/89 mmHg Rhythm: NSR Post procedural instructions were given Site Checks Time Location Status Staff Sheath In? Note 03:38 PM Rt Groin No bleeding/hematoma Sandra Mariano RT (R) 03:54 PM Rt Groin No bleeding/ No Hematoma Yonathan Ardon RT (R) Yes 04:15 PM Rt Groin No bleeding/ No Hematoma Yonathan Ardon RT (R) Yes 04:30 PM Rt Groin No bleeding/ No Hematoma Yonathan Ardon RT (R) Yes 04:45 PM Rt Groin No bleeding/ No Hematoma Kenya Vo RN Yes 05:00 PM Rt Groin No bleeding/ No Hematoma Kenya Vo RN Yes 05:13 PM Rt Groin No bleeding/ No Hematoma Kenya Vo RN Yes Pulses Time Site Pre-Procedure Post-Procedure Note Bilateral DP & PT 2+ 09/03/2017 3:54:00 PM Bilateral DP & PT 2+ 09/03/2017 4:16:00 PM Bilateral DP & PT 2+ 09/03/2017 4:31:00 PM Bilateral DP & PT 2+ 09/03/2017 5:13:00 PM Bilateral DP & PT 2+ Updated by Arnold Conner RN on 09/03/2017 5:53:39 PM electronically signed on 09/03/2017 5:54:20 PM with status of Final
[2017-09-03] MEDS: Metoprolol XL (24 HR) Succ 50 MG TAB.ER.24H PO SCH (22:02)
[2017-09-04] MEDS: *HR* Enoxaparin 40 MG/0.4 ML SYRINGE SQ SCH (05:08)
[2017-09-04 07:18] VITALS: BP 120/65
[2017-09-04] MEDS: Insulin LISPRO 300 UNITS/3 ML VIAL SQ SCH (08:04)
[2017-09-04] MEDS: Sucralfate 1 GM TABLET PO SCH (08:04)
[2017-09-04] MEDS: Aspirin 81 MG TAB.CHEW PO SCH (08:04)
[2017-09-04] MEDS: Isosorbide MONOnitrate (24 HR) 60 MG TAB.ER.24H PO SCH (08:04)
--- NOTE | 2017-09-04 08:47 | Cardiology Progress Note ---
Date of Encounter: 09/04/17 Time of Encounter: 08:45 Assessment and Plan (1) Unstable angina Current Visit: Yes Status: Acute Per Cardiology: S/p PCI/YOSELIN to mid LAD 80%. On asa, plavix, BB, ACEI, Imdur. Does not take statin. I had a lengthy discussion with patient about addition of statin therapy , however she prefers to continue to monitor. We also discussed potentially switching from Plavix to Effient or Brilinta. Patient prefers to continue with Plavix and will discuss with primary crtts follow-up. As pain free. Education regarding post cath and medications provided. All questions answered. Cardiology signing off, reconsult as needed, follow-up scheduled. . Discussion w patient/family: The assessment and plan as outlined above was discussed with the patient who expressed understanding and agreement. All questions were answered. Thank you for involving us in the care of your patient. Please call with any questions. Subjective Principal diagnosis: CP Interval history: Patient seen ambulating in hallway with no chest pain symptoms. Denies any new concerns complaints. Objective Vital Signs, Last 4 Hours Temp Pulse Resp BP Pulse Ox 09/04/17 07:17 97.7 F 67 17 120/65 97 General: Conversant, No Apparent Distress HEENT: Atraumatic, Normocephaly, Mucus Membranes Moist Neck: No JVD, Normal carotid pulses Cardiac: Reg Rate and Rhythm, Normal S1 and S2, No Murmur Lungs: Normal Breath Sounds, No Wheeze, Rales, Rhonchi Neuro: Alert and responsive, No focal deficits noted Abdomen: Soft, Non-Tender Skin: No rashes noted on visualized skin, Other (Right groin site dry and intact , no hematoma, very mild ecchymosis, no bleeding, 2+ palpable DP and PT pulses) Musculoskeletal: No Chest Wall Tenderness Extremities: No Clubbing, No Cyanosis, No Edema, Normal Pulses Results 09/03/17 05:30 09/03/17 05:30 Active Medications Acetaminophen (Tylenol) 650 mg PO Q6HR PRN PRN Reason: Mild Pain (1-3) Stop: 03/02/18 19:58 Last Admin: 09/03/17 22:09 Dose: 650 mg Hydrocodone Bitart/Acetaminophen ([place] 5-325 Mg) 1 tab PO Q4HR PRN PRN Reason: Moderate Pain (4-6) Stop: 03/02/18 19:58 Aspirin (Aspirin) 81 mg PO DAILY [facility] Stop: 03/03/18 09:01 Last Admin: 09/04/17 08:04 Dose: 81 mg Clopidogrel Bisulfate (Plavix) 75 mg PO 1400 [facility] Stop: 03/02/18 18:16 Last Admin: 09/03/17 13:17 Dose: 75 mg Dextrose/Water (Dextrose 50% (Syg)) 25 ml IVP AD PRN PRN Reason: Hypoglycemia Stop: 03/02/18 22:29 Dicyclomine HCl (Bentyl) 10 mg PO QID PRN PRN Reason: Abdominal Pain Stop: 03/02/18 22:04 Docusate Sodium (Colace) 100 mg PO BID PRN PRN Reason: Constipation Stop: 03/02/18 19:58 Enoxaparin Sodium (Lovenox) 40 mg SQ 0600 [facility] PRN Reason: Protocol Stop: 03/04/18 06:01 Last Admin: 09/04/17 05:08 Dose: Not Given Glucagon (Glucagen) 1 mg IM ONCE PRN PRN Reason: Hypoglycemia Stop: 03/02/18 22:29 Glucose (Gluctose) 15 gm PO ONCE PRN PRN Reason: Hypoglycemia Stop: 03/02/18 22:29 Glucose (Gluctose) 30 gm PO ONCE PRN PRN Reason: Hypoglycemia Stop: 03/02/18 22:29 Dextrose (Dextrose 5%) 1,000 mls @ 100 mls/hr IVC .Q10H PRN PRN Reason: HYPOGLYCEMIA Stop: 03/02/18 22:29 Insulin Human Lispro (Humalog) 0 units SQ TIDAC [facility] PRN Reason: Protocol Stop: 03/03/18 07:31 Last Admin: 09/04/17 08:04 Dose: 4 units Insulin Human Lispro (Humalog) 0 units SQ HS [facility] PRN Reason: Protocol Stop: 03/02/18 22:46 Last Admin: 09/03/17 22:01 Dose: Not Given Isosorbide Mononitrate (Imdur) 240 mg PO DAILY [facility] Stop: 03/03/18 09:01 Last Admin: 09/04/17 08:04 Dose: 240 mg Lisinopril (Zestril) 10 mg PO DAILY [facility] PRN Reason: Protocol Stop: 03/03/18 09:01 Last Admin: 09/04/17 08:04 Dose: 10 mg Loratadine (Claritin) 10 mg PO DAILY PRN; Protocol PRN Reason: Allergy Symptoms Stop: 03/02/18 22:04 Lorazepam (Ativan) 0.5 mg PO TID PRN PRN Reason: Anxiety Stop: 03/04/18 04:34 Last Admin: 09/03/17 13:17 Dose: 0.5 mg Metoprolol Succinate (Toprol Xl) 50 mg PO HS [facility] Stop: 03/02/18 22:16 Last Admin: 09/03/17 22:02 Dose: 50 mg Morphine Sulfate (Morphine Sulfate) 2 mg IVP Q4HR PRN PRN Reason: Severe Pain (7-10) Stop: 03/02/18 19:58 Last Admin: 09/02/17 04:25 Dose: 2 mg Naloxone HCl (Narcan) 0.4 mg IVP Q2MIN PRN PRN Reason: Opioid Reversal Stop: 03/02/18 19:58 Nitroglycerin (Nitroglycerin) 0.4 mg SL Q5MIN PRN PRN Reason: Chest Pain Stop: 03/02/18 16:25 Last Admin: 09/02/17 04:17 Dose: 0.4 mg Nitroglycerin (Nitroglycerin) 0.4 mg SL Q5M PRN PRN Reason: Chest Pain Stop: 03/02/18 22:04 Omeprazole (Prilosec) 20 mg PO BIDAC [facility] Stop: 03/03/18 07:31 Last Admin: 09/04/17 08:04 Dose: 20 mg Ondansetron HCl (Zofran) 4 mg IVP Q8HR PRN PRN Reason: Nausea And Vomiting Stop: 03/02/18 19:58 Promethazine HCl (Phenergan) 12.5 mg IVP Q6HR PRN PRN Reason: Nausea And Vomiting Stop: 03/02/18 19:58 Sucralfate (Carafate) 1 gm PO TIDAC [facility] Stop: 03/03/18 07:31 Last Admin: 09/04/17 08:04 Dose: 1 gm Vitamin D (Vitamin D) 2,000 unit PO 1400 [facility] Stop: 03/03/18 14:01 Last Admin: 09/03/17 13:17 Dose: 2,000 unit Consult Discharge Plan - Plan Instructions: Coronary Artery Disease (DC) Additional Instructions: Please follow-up with your PCP within 1-2 weeks. Follow-up with cardiology and urology as previously planned. It is recommended that you have a repeat colonoscopy; please follow-up with your PCP for gastroenterology referral. RISK FACTORS: STOP SMOKING: If you smoke, STOP. Smoking or tobacco use significantly increases your risk of heart disease because nicotine causes the arteries to narrow or constrict. It also causes fats to stick to the artery. Your chances of having a heart attack are greatly increased if you continue to smoke. For more information, call the education line for smoking cessation 2-254-EGLWDIV EAT A LOW FAT/CHOLESTEROL/SODIUM DIET: This diet may help reduce your chances of having a heart attack. LIFTING: Avoid lifting anything more than 10 pounds for 5-7 days Prior to straining, laughing, sneezing and/or coughing, apply manual pressure directly over insertion site. ACTIVITY: You may walk or climb stairs as tolerated You can resume sexual activity as tolerated In general, you are encouraged to engage in a minimum of 30 minutes or more of moderate intensity physical activity, such as brisk walking, daily or at least 3 -4 times weekly BATHING Do not submerge the site into water (bath tub, hot tub, swimming pool) for 1 week. This can be a source for infection into the blood stream. You may shower after 24 hours SITE CARE: After 24 hours, you may remove the dressing and leave the site open to air. Keep the site clean and dry. Clean gently and pat dry. You can expect bruising and tenderness that gradually resolve within a week or two. Return to work as instructed per your physician Resume driving as instructed per physician Keep all scheduled follow up appointments Resume medications as instructed IMPORTANT: If prescribed a Platelet Aggregation Inhibitor such as, Plavix, Brilinta or Effient: Duration of therapy is minimum one year These medications are often used in combination with Aspirin in prevention of future heart attacks Never discontinue unless consult with your Incident Response Engineer STROKE (CVA) Risk factors for a stroke are: Age, cigarette smoking, diabetes, excessive alcohol consumption, family history, high blood pressure, overweight, physical inactivity, prior stroke, heart attack, diagnosis of carotid artery stenosis or other artery disease. Warning signs: Sudden numbness or weakness of the face, arm or leg; especially on one side of the body, sudden confusion, trouble speaking or understanding, sudden trouble seeing in one or both eyes, sudden trouble walking, dizziness, loss of balance or coordination, sudden severe headache with no cause. Call 911 or go to the Emergency Room. CONGESTIVE HEART FAILURE: If you have been diagnosed with Congestive Heart Failure (CHF) and your symptoms return, make an appointment with your physician Weigh yourself daily. Notify your physician if you have a weight gain of two or more pounds in one day or five or more pounds in one week. If you experience any difficulty breathing, please call 911 BLEEDING: Although the risk of bleeding is minimal, it can happen. If you have any bleeding from the site, apply firm pressure above the puncture site for 10-15 minutes. If the bleeding does not stop, continue manual pressure and call 911 Contact your physician if: You develop a fever greater than 101 degrees Fahrenheit Your site becomes reddened or has any drainage You have an increase in pain or burning at the site or if a large knot forms at the site. If you experience chest pain, shortness of breath, dizziness, or extreme tiredness, stop the activity and rest. Please notify your physicians office if you experience any of these symptoms and they are not relieved by rest please call 911! Referrals: Myranda Lauren DO [Primary Care Provider] - Héctor Irwin DO [Partnered Physician] - Jose Panda MD [Partnered Physician] - Jason Love MD [Partnered Physician] -
--- NOTE | 2017-09-04 10:13 | Discharge Summary ---
Date of Encounter: 09/04/17 Time of Encounter: 10:10 - Discharge Diagnosis (1) CAD (coronary artery disease) Priority: Primary Status: Chronic Comments: with hx IN and 10 stents. Had C that resulted in multivessel PCI. Now with increasing chest discomfort at rest and with activity concerning for unstable angina. 09/03/2017 [facility] with mid LAD 80% stenosis; s/p PCI/YOSELIN. Cardiology recommneded initiating statin and possibly switching from Plavix to Effient or [place] to however patient prefers to continue with Plavix and hold on statin at this time (hx myalgia with statin). She will discuss antiplatelet therapy with primary mechanical design engineer out follow-up. Chest pain free at time of discharge. Continue ASA, Plavix, BB, nitrate. Follow-up with cardiology outpatient. Qualifiers: Coronary Disease-Associated Artery/Lesion type: [place] artery [place] vs. transplanted heart: [place] heart Associated angina: with unstable angina Qualified Code(s): I25.110 - Atherosclerotic heart disease of [place] coronary artery with unstable angina pectoris (2) Nephrolithiasis Priority: Secondary Status: Chronic Comments: per patient reported history. Follows with urology. Renal function normal. ABD CT with mild to moderate left hydronephrosis with 12 mm stone within the mid ureter. Evaluated by urology who recommended supportive management with continued monitoring at this time. Plan for follow-up with outpatient urologist for stone extraction. (3) Hypertension Priority: Secondary Status: Chronic Comments: per hx. BP variable but acceptable. Continue home BP medication. Qualifiers: Hypertension type: essential hypertension Qualified Code(s): I10 - Essential (primary) hypertension (4) Diabetes mellitus type 2, noninsulin dependent Priority: Secondary Status: Chronic Comments: per hx. continue home diabetes medication regimen. (5) Cholelithiases Priority: Secondary Status: Acute Comments: per hx. with recurrent biliary colic. RUQ US with cholelithiasis, no evidence of cholecystitis. Unable to have cholecystectomy secondary to antiplatelets required with YOSELIN. Patient will follow-up with GI outpatient Qualifiers: Qualified Code(s): K80.20 - Calculus of gallbladder without cholecystitis without obstruction (6) Abnormal abdominal CT scan Priority: Secondary Status: Acute Comments: CT showed mass like thickening of the ascending colon. She had negative colonoscopy 08/02. Evaluated by GI who recommended repeating colonoscopy and patient prefers to have this done on outpatient basis. Follow-up with GI - Discharge Medications Home Medications: ALPRAZolam [Xanax 0.25 MG Tablet] 0.25 mg PO DAILY PRN 07/12/16 [History] Aspirin 81 mg PO DAILY 07/12/16 [History] Clopidogrel [Plavix] 75 mg PO DAILY 07/12/16 [History] Isosorbide MONOnitrate [Isosorbide Mononitrate ER] 240 mg PO DAILY 07/12/16 [ History] Nitroglycerin [Nitrostat] 0.4 mg SL Q5M PRN 07/12/16 [History] Pantoprazole Sodium [Protonix] 40 mg PO BID 07/12/16 [History] Lisinopril [Zestril] 10 mg PO DAILY #15 tablet 07/14/16 [Rx] Glimepiride 1 mg PO BID 08/16/16 [History] metFORMIN [Glucophage] 500 mg PO BID 08/16/16 [History] Cholecalciferol (D-3) [Vitamin D] 2,000 unit PO 1400 10/11/16 [History] Loratadine [Allergy Relief] 10 mg PO DAILY PRN 10/11/16 [History] Dicyclomine [Bentyl] 10 mg PO QID PRN 12/13/16 [History] Sucralfate [Carafate] 1 gm PO TIDAC 12/13/16 [History] Ezetimibe [Zetia] 10 mg PO DAILY 09/01/17 [History] Metoprolol [Lopressor] 12.5 mg PO BID 09/01/17 [History] Allergies/Adverse Reactions: 3 Allergy/AdvReac Type Severity Reaction Status Date / Time atorvastatin [From Lipitor] Allergy Muscle Pain Verified 08/31/17 15:32 lovastatin Allergy Muscle Pain Verified 08/31/17 15:32 penicillin V Allergy Anaphylaxis Verified 08/31/17 15:32 [id number] Reductase Allergy Muscle Pain Verified 09/01/17 06:44 Inhibitor [Statins] Procedures/tests Complete & Pending: Procedures Performed prior 72 hours Category Date Time Status CT abd pelvis wo no iv no oral [CT] Routine Cat Scan 09/01/17 14:57 Completed CL Cardiac Catheterization [CL] Routine Double Surface Operator 09/03/17 11:45 Completed EKG [ECG 12 lead ECG] [ECG] Stat Y 09/02/17 04:30 Completed Date of admission: 08/31/17 17:02 Primary care physician: Myranda Lauren DO Consults: 08/31/17 17:07 Consult to Cardiology [CONS] Routine Comment: Consulting Provider: Cardiology [place] Reason for Consult: chest pain with cardiac hx Time Notified: 17:08 Call Completed: Yes 09/02/17 12:32 Consult to Urology [CONS] Routine Consulting Provider: [facility] [place] Reason for Consult: hydronephrosis Call Completed: Yes 09/02/17 15:11 Consult to Gastroenterology [CONS] Routine Consulting Provider: Gastroenter[facility] [place] Reason for Consult: ABD CT with possible colonic mass Call Completed: Yes Discharging clinician: Brenda Bustamante Anticipated date of discharge: 09/04/17 - Patient Status Disposition: Home, Self-Care Condition: Good Functional capacity at discharge: independent ambulation Overall status at discharge: patient is back to baseline - Discharge Instructions Instructions: Coronary Artery Disease (DC) Follow Up With: Myranda Lauren DO [Primary Care Provider] - Héctor Irwin DO [Partnered Physician] - Jose Panda MD [Partnered Physician] - Jason Love MD [Partnered Physician] - Additional Instructions: Please follow-up with your PCP within 1-2 weeks. Follow-up with cardiology within 1-2 weeks. You can discuss potentially switching from Plavix to Effient or Brilinta at that time. Follow up with Urology as previously planned. It is recommended that you have a repeat colonoscopy; please follow-up with your PCP for gastroenterology referral. RISK FACTORS: STOP SMOKING: If you smoke, STOP. Smoking or tobacco use significantly increases your risk of heart disease because nicotine causes the arteries to narrow or constrict. It also causes fats to stick to the artery. Your chances of having a heart attack are greatly increased if you continue to smoke. For more information, call the education line for smoking cessation 5-389-MKMRNLR EAT A LOW FAT/CHOLESTEROL/SODIUM DIET: This diet may help reduce your chances of having a heart attack. LIFTING: Avoid lifting anything more than 10 pounds for 5-7 days Prior to straining, laughing, sneezing and/or coughing, apply manual pressure directly over insertion site. ACTIVITY: You may walk or climb stairs as tolerated You can resume sexual activity as tolerated In general, you are encouraged to engage in a minimum of 30 minutes or more of moderate intensity physical activity, such as brisk walking, daily or at least 3 -4 times weekly BATHING Do not submerge the site into water (bath tub, hot tub, swimming pool) for 1 week. This can be a source for infection into the blood stream. You may shower after 24 hours SITE CARE: After 24 hours, you may remove the dressing and leave the site open to air. Keep the site clean and dry. Clean gently and pat dry. You can expect bruising and tenderness that gradually resolve within a week or two. Return to work as instructed per your physician Resume driving as instructed per physician Keep all scheduled follow up appointments Resume medications as instructed IMPORTANT: If prescribed a Platelet Aggregation Inhibitor such as, Plavix, Brilinta or Effient: Duration of therapy is minimum one year These medications are often used in combination with Aspirin in prevention of future heart attacks Never discontinue unless consult with your Driver Medic STROKE (CVA) Risk factors for a stroke are: Age, cigarette smoking, diabetes, excessive alcohol consumption, family history, high blood pressure, overweight, physical inactivity, prior stroke, heart attack, diagnosis of carotid artery stenosis or other artery disease. Warning signs: Sudden numbness or weakness of the face, arm or leg; especially on one side of the body, sudden confusion, trouble speaking or understanding, sudden trouble seeing in one or both eyes, sudden trouble walking, dizziness, loss of balance or coordination, sudden severe headache with no cause. Call 911 or go to the Emergency Room. CONGESTIVE HEART FAILURE: If you have been diagnosed with Congestive Heart Failure (CHF) and your symptoms return, make an appointment with your physician Weigh yourself daily. Notify your physician if you have a weight gain of two or more pounds in one day or five or more pounds in one week. If you experience any difficulty breathing, please call 911 BLEEDING: Although the risk of bleeding is minimal, it can happen. If you have any bleeding from the site, apply firm pressure above the puncture site for 10-15 minutes. If the bleeding does not stop, continue manual pressure and call 911 Contact your physician if: You develop a fever greater than 101 degrees Fahrenheit Your site becomes reddened or has any drainage You have an increase in pain or burning at the site or if a large knot forms at the site. If you experience chest pain, shortness of breath, dizziness, or extreme tiredness, stop the activity and rest. Please notify your physicians office if you experience any of these symptoms and they are not relieved by rest please call 911! Interval History: Seen and examined at bedside, patient says she slept well and would like to discharge home today. She specifically denies chest pain, no shortness of breath. Right groin s/p site with mild tenderness to palpation, otherwise she has no complaints. She is aware of need to follow up with cardiology, GI and urology within 1-2 weeks. Hospital course: See assessment and plan for hospital course - Time Spent with Patient Total time spent providing and/or coordinating discharge services: - Constitutional Vitals: Temp Pulse Resp BP Pulse Ox 97.7 F 67 17 120/65 97 09/04/17 07:17 09/04/17 07:17 09/04/17 07:17 09/04/17 07:17 09/04/17 07:17 General appearance: Present: A&O X 3, no acute distress, answers questions appropriately - Head Head exam: Present: atraumatic, normocephalic - Eye Eye exam: Present: PERRL, conjuntiva pink, sclera anicteric Pupils: Present: PERRL - Neck Neck exam general surgery: Present: supple, trachea midline. Absent: lymphadenopathy - Respiratory Respiratory exam: Present: CTAB. Absent: accessory muscle use, rales, rhonchi, wheezes Additional comments: Right femoral s/p site with dressing clean dry and intact. No hematoma, ecchymosis. Mild tenderness to palpation. - Cardiovascular Cardiovascular exam: Present: RRR, +S1, +S2. Absent: diastolic murmur, gallop, rubs, systolic murmur - GI/Abdominal GI/Abdominal exam: Present: normal bowel sounds, soft, no peritoneal signs. Absent: distended, tenderness - Extremities Exam Extremities exam: Present: warm, radial pulses palpable and symmetrical. Absent : calf tenderness, cyanotic, pedal edema - Neurological Exam Neurological exam: Present: CN II-XII intact, oriented X3, no focal deficits. Absent: pronater drift, facial droop, speech deficit - Skin Skin exam: Present: dry, intact
== END 2017-09-04 12:16 | disposition home or self-care (01) ==
LOC: EMEROO 15:02 → 3BNU 15:02
PROVIDERS: ADMIT Family Medicine; ATTEND Registered Nurse

== ENCOUNTER 2017-09-23 17:24 | Inpatient (IN) ==
[2017-09-23] MEDS ORDERED: Nitroglycerin 0.4 MG TAB.SUBL SL ONE ×2 (17:38→17:52)
[2017-09-23] MEDS ORDERED: Aspirin 81 MG TAB.CHEW PO ONE (17:43)
[2017-09-23] MEDS ORDERED: *HR* LORazepam 2 MG/ML VIAL IVP ONE (17:44)
--- NOTE | 2017-09-23 17:49 | Emergency Department Note ---
Disposition Clinical Impression: Hydronephrosis with renal and ureteral calculous obstruction Chest pain Qualifiers: Chest pain type: chest pain due to myocardial ischemia Ischemic chest pain type : stable angina pectoris Qualified Code(s): I20.8 - Other forms of angina pectoris CAD (coronary artery disease) Qualifiers: Coronary Disease-Associated Artery/Lesion type: [place] artery [place] vs. transplanted heart: [place] heart Associated angina: with stable angina Qualified Code(s): I25.118 - Atherosclerotic heart disease of [place] coronary artery with other forms of angina pectoris Disposition: Admitted As Inpatient Condition: Good Time of Disposition: 20:13 General Adult HPI - General Chief complaint: ED Abdominal Pain Stated complaint: chest pain, kidney stone Time Seen by Provider: 09/23/17 17:31 Source: patient Mode of arrival: ambulatory Limitations: no limitations Nursing Notes Reviewed: Yes Vital Signs Reviewed: Yes - History of Present Illness HPI Narrative: Mrs. Seth is a 71-year-old woman with a complicated history of extensive CAD with a history of 11 stents, most recently August 28, as well as a history of a kidney stone which she has yet to pass, who presents the ED with a 24-hour history of acute chest pain. She says that the chest pain began as she was leaving a restaurant after dinner last night. At that time she took 3 nitroglycerin which was able to control the pain to an extent and she was able to sleep. However this morning when she woke up the patient noticed that the chest pain was still there, and became worse and that she became more active throughout the day. The pain is substernal with radiation to the left neck that is worse with exertion and is associated with shortness of breath. She says that the pain is relieved with rest and with nitroglycerin of which she took 2 today. The pain feels similar to those previous instances of ACS. She says that she does have some nausea now, however he has not had any vomiting. She also admits to having a lot of anxiety about this.in addition this chest pain, the patient says that she has had a kidney stone which has not been able to pass at this point. She says that she is having increased pain in her left abdomen and flank. She was apparently supposed to see a urologist about this tomorrow, however she does not believe that she will be able to make the appointment. She denies any [place] blood in her urine. He denies any fevers, chills, sweats. Pain Scale: 9 - Related Data Home Medications Medication Instructions Recorded Confirmed ALPRAZolam [Xanax 0.25 MG Tablet] 0.25 mg PO DAILY PRN 07/12/16 08/31/17 Aspirin 81 mg PO DAILY 07/12/16 08/31/17 Clopidogrel [Plavix] 75 mg PO DAILY 07/12/16 08/31/17 Isosorbide MONOnitrate [Isosorbide 240 mg PO DAILY 07/12/16 08/31/17 Mononitrate ER] Nitroglycerin [Nitrostat] 0.4 mg SL Q5M PRN 07/12/16 08/31/17 Pantoprazole Sodium [Protonix] 40 mg PO BID 07/12/16 08/31/17 Glimepiride 1 mg PO BID 08/16/16 08/31/17 metFORMIN [Glucophage] 500 mg PO BID 08/16/16 08/31/17 Cholecalciferol (D-3) [Vitamin D] 2,000 unit PO 1400 10/11/16 08/31/17 Loratadine [Allergy Relief] 10 mg PO DAILY PRN 10/11/16 08/31/17 Dicyclomine [Bentyl] 10 mg PO QID PRN 12/13/16 08/31/17 Sucralfate [Carafate] 1 gm PO TIDAC 12/13/16 08/31/17 Ezetimibe [Zetia] 10 mg PO DAILY 09/01/17 09/01/17 Metoprolol [Lopressor] 12.5 mg PO BID 09/01/17 09/01/17 Previous Rx's Medication Instructions Recorded Lisinopril [Zestril] 10 mg PO DAILY #15 tablet 07/14/16 Allergies Allergy/AdvReac Type Severity Reaction Status Date / Time atorvastatin [From Lipitor] Allergy Muscle Pain Verified 08/31/17 15:32 lovastatin Allergy Muscle Pain Verified 08/31/17 15:32 penicillin V Allergy Anaphylaxis Verified 08/31/17 15:32 Acpmvqz-Fef-Bdi Reductase Allergy Muscle Pain Verified 09/01/17 06:44 Inhibitor [Statins] Constitutional: Denies: fever, chills, weakness Eyes: Denies: vision change ENT ED: Denies: congestion Cardiovascular: Reports: chest pain, dyspnea on exertion. Denies: orthopnea, edema, syncope, paroxysmal nocturnal dyspnea Respiratory: Reports: dyspnea. Denies: cough, wheezes, hemoptysis Gastrointestinal: Reports: abdominal pain, nausea. Denies: vomiting, diarrhea, constipation Genitourinary: Denies: urgency, dysuria, frequency Musculoskeletal: Reports: neck pain. Denies: back pain Neurological: Denies: headache Psychiatric: Reports: anxiety Endocrine: Denies: fatigue Hematological/Lymphatic: Denies: easy bleeding Past Medical History - Past Medical History Medical history: Reports: coronary artery disease, hyperlipidemia, hypertension , myocardial infarction, osteoporosis, RA Surgical history: Reports: angioplasty/stent, hysterectomy, other Psychiatric history: Reports: depression FORENSIC IDENTIFICATION SPECIALIST history: Reports: no FORENSIC IDENTIFICATION SPECIALIST history - Social History Smoking Status: Never smoker Smokeless Tobacco Status: No Alcohol use: Reports: none Drug use: Reports: none Physical Exam Gen.: Vitals noted. Does not appear acutely distressed but does appear agitated. AAOx3 HEENT: Normocephalic, atraumatic Neck: Supple. No adenopathy. Cardiac: RRR, 2/6 systolic murmur, +S1/S2 Pulmonary: CTA bilaterally, no wheezes, rales or rhonchi, equal chest expansion Abdomen: Soft, tenderness to palpation of the left lower and upper quadrant without guarding or rebound tenderness Back: Tenderness with facial grimace on light tapping of CVAs bilaterally MSK: ROM intact, no joint swelling noted Extremities: no BLE edema, nontender calf, no cyanosis or clubbing Neuro: A&Ox3, moves all extremities, no focal deficits Psych: Appears anxious and agitated. Becomes teary-eyed while relaying history - General General appearance: alert, in no apparent distress Course Vital Signs Temperature 98.2 F 09/23/17 17:26 Pulse Rate 145 09/23/17 17:26 Respiratory Rate 18 09/23/17 17:26 Blood Pressure 211/98 09/23/17 17:26 O2 Sat by Pulse Oximetry 98 09/23/17 17:26 Temperature 98.2 F 09/23/17 17:26 Pulse Rate 90 09/23/17 20:00 Respiratory Rate 12 09/23/17 20:52 Blood Pressure 175/73 09/23/17 20:52 O2 Sat by Pulse Oximetry 98 09/23/17 20:00 Oxygen Delivery Oxygen Delivery Room Air Medical Decision Making - MDM Narrative Medical decision making narrative: I reviewed the patient's labs, imaging, medical record. The patient's symptoms are consistent with an extensive history of cardiac disease, and the patient feels concerned that this is similar to previous episodes of angina. The patient has had 11 stents in total, and is having difficulties pain which is substernal relieved by rest and nitroglycerin. The patient's initial troponin is negative and her EKG does not demonstrate any acute changes, however given the history I am inclined to have the patient watched overnight. I did give the patient aspirin and nitroglycerin on arrival, as well as 1 mg Ativan to help relieve some of the anxiety that she was experiencing. All of these treatments did not seem to help in the long run.based on the patient's history of renal calculi, I did have concerns given the patient's pain. CT of the abdomen and pelvis did demonstrate left hydronephrosis with an obstructing 1.2 cm ureteral calculi. The patient is ready seeing Dr. Panda, and was scheduled to see him later this week. I have put a consult into for her to be seen during this visit. I spoke with the hospitalist about this patient who accepted the patient. The patient agrees to be admitted. Vitals remained stable and chest pain that was used throughout the duration of her stay in the ED. - Medical Records Medical records reviewed: Yes I reviewed the patient's medical records. - Lab Data Lab results reviewed: Yes I reviewed the patient's lab results. Result diagrams: 09/23/17 17:54 09/23/17 17:54 Lab Results 09/23/17 09/23/17 09/23/17 Range/Units 17:54 17:54 17:54 WBC 5.6 (4.3-11.1) K/mcL RBC 3.56 L (3.82-4.97) M/mcL Hgb 11.6 (11.5-15.4) g/dL Hct 33.1 L (35.3-44.9) % MCV 93.0 (83.0-100.0) fL MCH 32.6 (28.0-33.3) pg MCHC 35.0 (31.6-35.5) g/dL RDW 12.4 (11.5-14.5) % Plt Count 302 (140-400) K/mcL MPV 8.5 L (9.4-12.4) fL Immature Gran % 0.2 (0-4) % Seg Neutrophils % 59.3 % Lymphocytes % 31.9 % Monocytes % 7.7 % Eosinophils % 0.7 % Basophils % 0.2 % Neutrophils # 3.3 (1.6-8.9) K/mcL Lymphocytes # 1.8 (0.6-4.6) K/mcL Monocytes # 0.4 (0.0-1.3) K/mcL Eosinophils # 0.0 (0.0-0.6) K/mcL Basophils # 0.0 (0.0-0.2) K/mcL PT 10.6 (9.4-12.1) Seconds INR 1.0 Sodium 136 (136-145) mEq/L Potassium 3.8 (3.5-5.1) mEq/L Chloride 103 (98-107) mEq/L Carbon Dioxide 24 (23-29) mEq/L BUN 10 (8-23) mg/dL Creatinine 0.72 (0.60-1.20) mg/dL Est GFR ( Amer) > 60 (> 60) Est GFR (Non-Af Amer) > 60 (> 60) BUN/Creatinine Ratio 14 (6-26) Glucose 198 H (70-105) mg/dL Calculated Osmolality 287 (280-300) Calcium 9.6 (8.6-10.3) mg/dL Troponin I (< 0.04) ng/mL Urine Color (Yellow) Urine Clarity (Clear) Urine pH (5.0-8.0) pH Units Ur Specific [place] (1.010-1.025) Urine Protein (Neg-Trace) mg/dL Urine Glucose (UA) (Normal) mg/dL Urine Ketones (Negative) mg/dL Urine Blood (Negative) Urine Nitrite (Negative) Urine Bilirubin (Negative) Urine Urobilinogen (Normal) mg/dL Ur Leukocyte Esterase (Negative) Urine Microscopic RBC (0-3) per hpf Urine Microscopic WBC (0-3) per hpf Ur Squamous Epith Cells (None-Few) per lpf Urine Bacteria (None-Few) per hpf Hyaline Casts (None-Few) per lpf Ur Culture Indicated? (NO) 09/23/17 09/23/17 Range/Units 17:54 18:38 WBC (4.3-11.1) K/mcL RBC (3.82-4.97) M/mcL Hgb (11.5-15.4) g/dL Hct (35.3-44.9) % MCV (83.0-100.0) fL MCH (28.0-33.3) pg MCHC (31.6-35.5) g/dL RDW (11.5-14.5) % Plt Count (140-400) K/mcL MPV (9.4-12.4) fL Immature Gran % (0-4) % Seg Neutrophils % % Lymphocytes % % Monocytes % % Eosinophils % % Basophils % % Neutrophils # (1.6-8.9) K/mcL Lymphocytes # (0.6-4.6) K/mcL Monocytes # (0.0-1.3) K/mcL Eosinophils # (0.0-0.6) K/mcL Basophils # (0.0-0.2) K/mcL PT (9.4-12.1) Seconds INR Sodium (136-145) mEq/L Potassium (3.5-5.1) mEq/L Chloride (98-107) mEq/L Carbon Dioxide (23-29) mEq/L BUN (8-23) mg/dL Creatinine (0.60-1.20) mg/dL Est GFR ( Amer) (> 60) Est GFR (Non-Af Amer) (> 60) BUN/Creatinine Ratio (6-26) Glucose (70-105) mg/dL Calculated Osmolality (280-300) Calcium (8.6-10.3) mg/dL Troponin I < 0.03 (< 0.04) ng/mL Urine Color Yellow (Yellow) Urine Clarity Clear (Clear) Urine pH 6.0 (5.0-8.0) pH Units Ur Specific [place] 1.017 (1.010-1.025) Urine Protein Negative (Neg-Trace) mg/dL Urine Glucose (UA) 100 H (Normal) mg/dL Urine Ketones Negative (Negative) mg/dL Urine Blood Negative (Negative) Urine Nitrite Negative (Negative) Urine Bilirubin Negative (Negative) Urine Urobilinogen Normal (Normal) mg/dL Ur Leukocyte Esterase Small H (Negative) Urine Microscopic RBC 3-5 H (0-3) per hpf Urine Microscopic WBC 5-15 H (0-3) per hpf Ur Squamous Epith Cells None Seen (None-Few) per lpf Urine Bacteria None Seen (None-Few) per hpf Hyaline Casts None Seen (None-Few) per lpf Ur Culture Indicated? YES A (NO) - Radiology Data Radiology results reviewed: Yes I reviewed the patient's radiology results. - EKG Data EKG #1 EKG attestation: Yes I reviewed and interpreted this EKG. EKG results narrative: EKG demonstrated sinus tachycardia with a ventricular rate of 1:15, LA interval 140, QRS duration 93, QTC 383, with no obvious ischemic changes at this time Critical Care Time Critical Care Time: Yes Total Critical Care Time: 35 Attestation: Critical care time 35 minutes managing the patient's chest pain. Attestation Statement - Attestation Attestation: Patient was seen with resident physician. I reviewed the history, physical, assessment and plan, and agree with the findings. I also personally evaluated this patient and had nonm-tg-lemr time with this patient. 71-year-old female with history of coronary artery disease has 11 stents most recently August 28 of this year. Patient states that she has had chest pain ever since leaving the hospital. She is also developed a kidney stone. Along that time frame. She said that she is here today is she once both fixed. She said her chest pain is gone worse this time is right-sided radiating to the left side of her neck. She is a pressure-like sensation she took some nitros last night and again today with some relief but not complete resolution. She also notes intermittent left-sided flank pain which is where she had her kidney stone. She said that this comes and goes and is not consistent. She denies fevers or chills. On exam vital signs initially showed hypertension and tachycardia although these resolved throughout her stay.. ENT is unremarkable. Heart and lungs are both normal. Abdomen is soft and nontender. Extremities are unremarkable. Neurologically intact. ED course EKG shows no acute ischemic changes nor any significant changes from prior EKG. Patient was very anxious on examination will give her some Ativan as well as some nitroglycerin. We will do cardiac workup and CT scan the abdomen and pelvis. CT did reveal an obstructing renal stone. Patient's pain was better with Ativan and nitroglycerin. Workup cardiac-reed was negative, which the patient says is not unusual for her initial workup. Spoke with the hospitalist service to arrange for admission for chest pain. We will also put in an order for urology consult for the renal stone. She started seeing Dr. Panda at some point throughout her stays with us. Hemodynamically she remained stable and comfortable on the emergency department critical care time 35 minutes.. I agree with resident physician assessment and plan.
[2017-09-23 18:00] LABS: Basophils % 0.2 %; Eosinophils % 0.7 %; Hematocrit 33.1 % (35.3-44.9); Hemoglobin 11.6 g/dL (11.5-15.4); Immature Granulocytes % 0.2 % (0-4); Lymphocytes # 1.8 K/mcL (0.6-4.6); Lymphocytes % 31.9 %; Mean Corpuscular Hemoglobin 32.6 pg (28.0-33.3); Mean Platelet Volume 8.5 fL (9.4-12.4); Monocytes # 0.4 K/mcL (0.0-1.3); Monocytes % 7.7 %; Neutrophils # 3.3 K/mcL (1.6-8.9); Platelet Count 302 K/mcL (140-400); Red Blood Count 3.56 M/mcL (3.82-4.97); Red Cell Distribution Width 12.4 % (11.5-14.5); Segmented Neutrophils % 59.3 %
[2017-09-23 18:05] LABS: Prothrombin Time 10.6 Seconds (9.4-12.1)
[2017-09-23 18:13] LABS: BUN/Creatinine Ratio 14 (6-26); Blood Urea Nitrogen 10 mg/dL (8-23); Calcium 9.6 mg/dL (8.6-10.3); Carbon Dioxide 24 mEq/L (23-29); Chloride 103 mEq/L (98-107); Glucose 198 mg/dL (70-105); Osmolality,Calculated 287 (280-300); Potassium 3.8 mEq/L (3.5-5.1); Sodium 136 mEq/L (136-145); eGFR For African Americans > 60 (> 60); eGFR For Non-African Americans > 60 (> 60)
[2017-09-23 18:53] LABS: Bilirubin,Urine Negative (Negative); Blood,Urine Negative (Negative); Clarity,Urine Clear (Clear); Color,Urine Yellow (Yellow); Glucose,Urine (UA) 100 mg/dL (Normal); Ketones,Urine Negative (Negative); Leukocyte Esterase,Urine Small (Negative); Nitrite,Urine Negative (Negative); Protein,Urine Negative (Neg-Trace); Specific Gravity,Urine 1.017 (1.010-1.025); Urobilinogen,Urine Normal (Normal)
[2017-09-23 18:56] LABS: Bacteria,Urine None Seen per hpf (None-Few); Hyaline Casts,Urine None Seen per lpf (None-Few); Squamous Epithelial Cell,Urine None Seen per lpf (None-Few)
[2017-09-23] MEDS ORDERED: Ondansetron 4 MG/2 ML VIAL IVP PRN (21:08)
[2017-09-23] MEDS ORDERED: Naloxone 0.4 MG/ML INJ IVP PRN (21:08)
[2017-09-23] MEDS ORDERED: *HR* Morphine 2 MG/ML SYRINGE IVP PRN (21:08)
[2017-09-23] MEDS ORDERED: Acetaminophen 325 MG TABLET PO PRN (21:08)
[2017-09-23] MEDS ORDERED: Dextrose Gel 15 GM/37.5 ML TUBE PO PRN ×2 (21:12)
[2017-09-23] MEDS ORDERED: D5% in Water 1,000 ML IVC PRN (21:12)
[2017-09-23] MEDS ORDERED: *HR* Dextrose 50 % in Water (Syg) 50 ML SYRINGE IVP PRN (21:12)
[2017-09-23] MEDS ORDERED: Nitroglycerin 0.4 MG TAB.SUBL SL PRN (21:13)
--- NOTE | 2017-09-23 22:01 | Internal Med History&Physical ---
Date of Encounter: 09/23/17 Time of Encounter: 20:30 Assessment and Plan (1) DVT prophylaxis Current visit: Yes Status: Acute EPCD, hold AC for possible urology procedure. (2) Chest pain Current visit: No Status: Acute Pt has hx of CAD s/p stent. Has intermittent chest pain, need to r/o ACS. - Continuous cardiac monitoring. - Track 3 sets of troponin. - Consult Cardio as pt has recent stent placed. - SL NTG prn Qualifiers: Chest pain type: unspecified Qualified Code(s): R07.9 - Chest pain, unspecified (3) Diabetes mellitus type 2, noninsulin dependent Current visit: No Status: Chronic Place pt on SSI (4) CAD (coronary artery disease) Current visit: Yes Status: Chronic Recent stent placed. Cont DAPT, BB, imdur. Pt is allergic to statin. Qualifiers: Coronary Disease-Associated Artery/Lesion type: [place] artery [place] vs. transplanted heart: [place] heart Associated angina: with stable angina Qualified Code(s): I25.118 - Atherosclerotic heart disease of [place] coronary artery with other forms of angina pectoris (5) Hypertension Current visit: No Status: Chronic Cont home med, monitor BP. Qualifiers: Hypertension type: essential hypertension Qualified Code(s): I10 - Essential (primary) hypertension (6) UTI (urinary tract infection) Current visit: No Status: Acute Will place Abx as pt c/o burning on urination and possible urology procedure. Qualifiers: Urinary tract infection type: acute cystitis Hematuria presence: without hematuria Qualified Code(s): N30.00 - Acute cystitis without hematuria (7) Left ureteral stone Current visit: No Status: Acute Urology consult. Possible procedure. - Consult cardio for risk evaluation as pt has CAD s/p recent stent and chest pain now. (8) Hydronephrosis with renal and ureteral calculous obstruction Current visit: Yes Status: Acute Management as above. Internal Medicine - H&P: HPI Chief complaint: Chest apin Admitted From: Home Plans for Post Hospital Care: Home History of present illness: Ms. Seth is a 71 year old female with Hx of CAD s/p stent, HTN, DM, kidney stone , present to ER for chest pain. Pt said she had stent placed on 09/03/17 and is on DAPT. Pt still has on and off chest pain after stenting. Pt start to have chest pain since last night, located on mid chest and radiated to right shoulder , constant but respond to SL NTG. Pt has nausea but she thinks that is due to her kidney stone. Pt has mild SOB, denies diaphoresis. Pt also has on and off left flank pain for weeks, with occasionally hematuria. She was diagnosed as kidney stone and plan to have urology procedure. Past Med Surg Social Fam HX - Past Medical History Medical history: coronary artery disease, hyperlipidemia, hypertension, myocardial infarction, osteoporosis, RA Psychiatric history: depression - Past Surgical History Surgical History: angioplasty/stent, hysterectomy, other - Social History Smoking Status: Never smoker Smokeless Tobacco Status: No Alcohol use: none Drug use: none - Family History Mother Living Status: Hx Family Cardiac Disorders: No Hx Family Respiratory Disorders: No Hx Family Cancer: No Hx Family GI Disorders: No Hx Family Endocrine Disorder: Yes (DM type 2) Hx Family Neuromuscular Disorders: No Hx Family Neurologic Disorders: No Hx Family HEENT Disorders: No Hx Family Autoimmune Disorders: No Father Adopted: No Family Member Ethnicity: Non- Living Status: Hx Family Cardiac Disorders: Yes (smoker) Hx Family Respiratory Disorders: Yes (smoker) Hx Family Cancer: No Hx Family GI Disorders: Yes (self) Hx Family Endocrine Disorder: Yes (self, cousin,mother) Hx Family Neuromuscular Disorders: No Hx Family Neurologic Disorders: Yes (grandfather) Hx Family HEENT Disorders: No Hx Family Autoimmune Disorders: No Grandmother Hx Family Endocrine Disorder: Yes (Diabetes) Internal Medicine - H&P: Meds ALPRAZolam [Xanax 0.25 MG Tablet] 0.25 mg PO DAILY PRN 07/12/16 [History] Aspirin 81 mg PO DAILY 07/12/16 [History] Clopidogrel [Plavix] 75 mg PO DAILY 07/12/16 [History] Isosorbide MONOnitrate [Isosorbide Mononitrate ER] 240 mg PO DAILY 07/12/16 [ History] Nitroglycerin [Nitrostat] 0.4 mg SL Q5M PRN 07/12/16 [History] Pantoprazole Sodium [Protonix] 40 mg PO BID 07/12/16 [History] Lisinopril [Zestril] 10 mg PO DAILY #15 tablet 07/14/16 [Rx] Glimepiride 1 mg PO BID 08/16/16 [History] metFORMIN [Glucophage] 500 mg PO BID 08/16/16 [History] Cholecalciferol (D-3) [Vitamin D] 2,000 unit PO 1400 10/11/16 [History] Loratadine [Allergy Relief] 10 mg PO DAILY PRN 10/11/16 [History] Dicyclomine [Bentyl] 10 mg PO QID PRN 12/13/16 [History] Sucralfate [Carafate] 1 gm PO TIDAC 12/13/16 [History] Ezetimibe [Zetia] 10 mg PO DAILY 09/01/17 [History] Metoprolol [Lopressor] 12.5 mg PO BID 09/01/17 [History] 3 Allergy/AdvReac Type Severity Reaction Status Date / Time atorvastatin [From Lipitor] Allergy Muscle Pain Verified 08/31/17 15:32 lovastatin Allergy Muscle Pain Verified 08/31/17 15:32 penicillin V Allergy Anaphylaxis Verified 08/31/17 15:32 Xrkmjof-Osq-Ndf Reductase Allergy Muscle Pain Verified 09/01/17 06:44 Inhibitor [Statins] All Systems PM: A 10-system review of systems was performed and is negative for pertinent findings except as documented above in the HPI. - Constitutional Vitals: Temp Pulse Resp BP Pulse Ox 98.2 F 90 12 175/73 98 09/23/17 17:26 09/23/17 20:00 09/23/17 20:52 09/23/17 20:52 09/23/17 20:00 General appearance: Present: A&O X 3, no acute distress, answers questions appropriately - Head Head exam: Present: atraumatic, normocephalic - Eye Eye exam: Present: PERRL, conjuntiva pink, sclera anicteric Pupils: Present: PERRL - Neck Neck exam general surgery: Present: supple, trachea midline. Absent: lymphadenopathy - Respiratory Respiratory exam: Present: CTAB. Absent: accessory muscle use, rales, rhonchi, wheezes - Cardiovascular Cardiovascular exam: Present: RRR, +S1, +S2. Absent: diastolic murmur, gallop, rubs, systolic murmur - GI/Abdominal GI/Abdominal exam: Present: normal bowel sounds, soft, no peritoneal signs. Absent: distended, tenderness Additional comments: Mild left flank tenderness - Extremities Exam Extremities exam: Present: warm, radial pulses palpable and symmetrical. Absent : calf tenderness, cyanotic, pedal edema - Neurological Exam Neurological exam: Present: CN II-XII intact, oriented X3, no focal deficits. Absent: pronater drift, facial droop, speech deficit - Skin Skin exam: Present: dry, intact Internal Med - H&P Results - Labs CBC & Chem 7: 09/23/17 17:54 09/23/17 17:54 - EKG Data -: EKG Interpreted by Myself EKG shows normal: sinus rhythm, ST-T waves (No significant ST-T changes) Rate: tachycardia
[2017-09-24 03:09] LABS: Basophils % 0.4 %; Eosinophils # 0.1 K/mcL (0.0-0.6); Eosinophils % 1.4 %; Hematocrit 29.7 % (35.3-44.9); Hemoglobin 10.6 g/dL (11.5-15.4); Immature Granulocytes % 0.2 % (0-4); Lymphocytes % 40.7 %; Mean Corpuscular HGB Conc 35.7 g/dL (31.6-35.5); Mean Corpuscular Hemoglobin 33.4 pg (28.0-33.3); Mean Corpuscular Volume 93.7 fL (83.0-100.0); Mean Platelet Volume 8.6 fL (9.4-12.4); Monocytes # 0.5 K/mcL (0.0-1.3); Monocytes % 9.4 %; Neutrophils # 2.4 K/mcL (1.6-8.9); Platelet Count 259 K/mcL (140-400); Red Blood Count 3.17 M/mcL (3.82-4.97); Red Cell Distribution Width 12.3 % (11.5-14.5); Segmented Neutrophils % 47.9 %
[2017-09-24 03:14] LABS: INR 1.1; Prothrombin Time 11.3 Seconds (9.4-12.1)
[2017-09-24 03:27] LABS: BUN/Creatinine Ratio 16 (6-26); Blood Urea Nitrogen 11 mg/dL (8-23); Carbon Dioxide 27 mEq/L (23-29); Chloride 106 mEq/L (98-107); Glucose 141 mg/dL (70-105); Osmolality,Calculated 286 (280-300); Potassium 3.8 mEq/L (3.5-5.1); Sodium 137 mEq/L (136-145); eGFR For African Americans > 60 (> 60); eGFR For Non-African Americans > 60 (> 60)
[2017-09-24] MEDS: Insulin LISPRO 300 UNITS/3 ML VIAL SQ SCH ×4 (08:10→20:50)
[2017-09-24] MEDS ORDERED: Isosorbide MONOnitrate (24 HR) 60 MG TAB.ER.24H PO SCH (09:00)
--- NOTE | 2017-09-24 09:50 | Electrocardiograph Report ---
[address] [place] [address] Test Date: 2017-09-23 Pat Name: Lidia Seth Department: 102 Room: 3B64 Gender: F Service Manager: : 1945 Requested By: Thanh Forbes Order Number: [id number] Reading MD: Georgette Veliz Measurements Intervals [place] Rate: 115 P: 60 AK: 140 QRS: 58 QRSD: 93 T: 59 QT: 315 QTc: 383 Interpretive Statements SINUS TACHYCARDIA NONSPECIFIC ST & T-WAVE ABNORMALITY ABNORMAL RHYTHM ECG Electronically Signed On 09-24-2017 9:48:30 EST by Georgette Veliz
--- NOTE | 2017-09-24 10:59 | Cardiology Consult Note ---
Addendum entered and electronically signed by Morgan Munoz CNP 09/24/17 12:00 : Patient now seen by urology with pending surgery tomorrow. Discussed with Dr. Glynn, plan for nuclear stress test for preoperative risk stratification tomorrow morning (no doses left today). We'll hold long-acting nitrate. Patient requests anti-anxiety med prior to test (had FL during last stress test). Original Note: <Morgan Munoz - Last Filed: 09/24/17 11:00> Date of Encounter: 09/24/17 Time of Encounter: 11:00 Assessment and Plan (1) Chest pain Current Visit: Yes Status: Acute Per Cardiology: Atypical chest pain symptoms occurring after eating food and at rest. Patient did have some chest discomfort with lifting wood at home. Troponins negative 3. ECG comparable to baseline. Patient reports symptoms never improved after recent stenting a few weeks ago. Seen recently by per primary sock mender and started on Ranexa, however unfortunately did not start taking due to cost constraints. On Imdur 120 mg by mouth twice a day. Patient reports takes statin on Saturdays only due to past intolerance of myalgias. Additionally, patient has previous declined exploring switching from Plavix to a different agent. Lengthy discussion with patient and she is agreeable to start Ranexa 500 mg by mouth twice a day. Patient will ambulate in the hallway during hospital stay and monitor for symptoms. No repeat catheterization warranted at this time. Assistance for Ranexa being evaluated by office staff. Assistance card provided. Patient was understanding and agreed with plan. Discussed and reviewed with Dr. Glynn. Cardiology will s/o, re-consult PRN, f/u scheduled. Patient aware she cannot discontinue Plavix or aspirin for at least 1 year. Qualifiers: Chest pain type: chest pain due to myocardial ischemia Ischemic chest pain type: stable angina pectoris Qualified Code(s): I20.8 - Other forms of angina pectoris (2) CAD (coronary artery disease) Current Visit: Yes Status: Chronic Per Cardiology: Known history of CAD with most recent catheterization September 03, 2017-- underwent PTCA with drug-eluting stent to mid LAD 80% in-stent restenosis, has remaining proximal RCA 40% in-stent restenosis. Ideally, patient would take statin daily. Continue with aspirin and Plavix. Has declined switching from Plavix to other agent. Qualifiers: Coronary Disease-Associated Artery/Lesion type: [place] artery [place] vs. transplanted heart: [place] heart Associated angina: with stable angina Qualified Code(s): I25.118 - Atherosclerotic heart disease of [place] coronary artery with other forms of angina pectoris Discussion w patient/family: The assessment and plan as outlined above was discussed with the patient who expressed understanding and agreement. All questions were answered. Thank you for involving us in the care of your patient. Please call with any questions. History of Present Illness Consult date: 09/24/17 Requesting physician: Brittney Nolasco Consult reason: CP Chief complaint: CP History of present illness: Ms. eSth is a 72 year old female with a relevant past medical history of hyperlipidemia, GERD, DM 2, hypertension, CAD, anxiety. Underwent recent catheterization with stenting August 2017. Seen by primary sock mender Dr. Irwin September 18, 2017 with Ranexa 500 mg by mouth twice a day started. Cardiology consult for chest pain. Patient reports did not start taking Ranexa due to cost constraints of over $ 300 per month. She indicates 2 days ago developed right-sided chest pain at rest after eating a meal. Additionally, developed right-sided midsternal chest soreness with picking up wood for her wood-burning stove yesterday. She reports on both occasions she took sublingual nitroglycerin pills 2 with slight improvement in symptoms. She denies any other concerns or complaints. Denies any increasing dyspnea on exertion or fatigue. Denies any palpitations, dizziness, falls. Reports compliance with medications. Denies any active bleeding or blood loss. Denies any recent infectious process. She does report pending evaluation for kidney stone by urology. She also reports pending outpatient GI evaluation as well. Past Med Surg Social Fam HX - Past Medical History Attestation: Yes The following information was validated with the patient. Source: patient, old records reviewed Medical history: coronary artery disease, hyperlipidemia, hypertension, myocardial infarction, osteoporosis, RA Psychiatric history: depression - Past Surgical History Surgical History: angioplasty/stent, hysterectomy, other - Social History Smoking Status: Never smoker Smokeless Tobacco Status: No Alcohol use: none Drug use: none - Family History Mother Living Status: Hx Family Cardiac Disorders: No Hx Family Respiratory Disorders: No Hx Family Cancer: No Hx Family GI Disorders: No Hx Family Endocrine Disorder: Yes (DM type 2) Hx Family Neuromuscular Disorders: No Hx Family Neurologic Disorders: No Hx Family HEENT Disorders: No Hx Family Autoimmune Disorders: No Father Adopted: No Family Member Ethnicity: Non- Living Status: Hx Family Cardiac Disorders: Yes (smoker) Hx Family Respiratory Disorders: Yes (smoker) Hx Family Cancer: No Hx Family GI Disorders: Yes (self) Hx Family Endocrine Disorder: Yes (self, cousin,mother) Hx Family Neuromuscular Disorders: No Hx Family Neurologic Disorders: Yes (grandfather) Hx Family HEENT Disorders: No Hx Family Autoimmune Disorders: No Grandmother Hx Family Endocrine Disorder: Yes (Diabetes) Medications and Allergies ALPRAZolam [Xanax 0.25 MG Tablet] 0.25 mg PO DAILY PRN 07/12/16 [History] Aspirin 81 mg PO DAILY 07/12/16 [History] Clopidogrel [Plavix] 75 mg PO DAILY 07/12/16 [History] Isosorbide MONOnitrate [Isosorbide Mononitrate ER] 240 mg PO DAILY 07/12/16 [ History] Nitroglycerin [Nitrostat] 0.4 mg SL Q5M PRN 07/12/16 [History] Pantoprazole Sodium [Protonix] 40 mg PO BID 07/12/16 [History] Lisinopril [Zestril] 10 mg PO DAILY #15 tablet 07/14/16 [Rx] Glimepiride 1 mg PO BID 08/16/16 [History] metFORMIN [Glucophage] 500 mg PO BID 08/16/16 [History] Cholecalciferol (D-3) [Vitamin D] 2,000 unit PO 1400 10/11/16 [History] Loratadine [Allergy Relief] 10 mg PO DAILY PRN 10/11/16 [History] Dicyclomine [Bentyl] 10 mg PO QID PRN 12/13/16 [History] Sucralfate [Carafate] 1 gm PO TIDAC 12/13/16 [History] Ezetimibe [Zetia] 10 mg PO DAILY 09/01/17 [History] Metoprolol [Lopressor] 12.5 mg PO BID 09/01/17 [History] 3 Allergy/AdvReac Type Severity Reaction Status Date / Time atorvastatin [From Lipitor] Allergy Muscle Pain Verified 12/15/17 15:32 lovastatin Allergy Muscle Pain Verified 08/31/17 15:32 penicillin V Allergy Anaphylaxis Verified 08/31/17 15:32 [id number] Reductase Allergy Muscle Pain Verified 09/01/17 06:44 Inhibitor [Statins] All Systems Review: A 10-system review of systems was performed and is negative for pertinent findings except as documented above in the HPI. - Cardiovascular Cardiovascular: as per HPI, chest pain at rest, chest pain with exertion Physical Examination Vital Signs, Last 4 Hours Temp Pulse Resp BP Pulse Ox 09/24/17 07:27 98.1 F 78 18 119/75 96 General: Conversant, No Apparent Distress HEENT: Atraumatic, Normocephaly, Mucus Membranes Moist Neck: No JVD, Normal carotid pulses Cardiac: Reg Rate and Rhythm, Normal S1 and S2, No Murmur Lungs: Normal Breath Sounds, No Wheeze, Rales, Rhonchi Neuro: Alert and responsive, No focal deficits noted Abdomen: Soft, Non-Tender Skin: No rashes noted on visualized skin Musculoskeletal: No Chest Wall Tenderness Extremities: No Clubbing, No Cyanosis, No Edema, Normal Pulses Results 09/24/17 03:01 09/24/17 03:01 Lab Results 09/23/17 09/24/17 09/24/17 22:49 03:01 03:01 WBC 4.9 Hgb 10.6 L Hct 29.7 L Plt Count 259 INR Sodium Potassium Chloride Carbon Dioxide BUN Creatinine Glucose Calcium Troponin I < 0.03 < 0.03 09/24/17 09/24/17 03:01 03:01 WBC Hgb Hct Plt Count INR 1.1 Sodium 137 Potassium 3.8 Chloride 106 Carbon Dioxide 27 BUN 11 Creatinine 0.68 Glucose 141 H Calcium 9.0 Troponin I - Imaging and Cardiology Echo: report reviewed Cardiac cath: report reviewed - EKG Interpretation EKG results cardiology: personally reviewed (Comparable baseline, sinus tachycardia), normal ECG, sinus rhythm, other (Sinus rhythm on telemetry) Consult Discharge Plan - Plan Referrals: Myranda Lauren DO [Primary Care Provider] - <Venice Glynn - Last Filed: 09/24/17 17:56> Date of Encounter: 09/24/17 - Attending Attestation I have personally performed a face to face evaluation on this patient. I have reviewed and agree with the care plan. History and Exam by me shows: 73 YOF with extensive hx of CAD and PCI last to mid LAD severe blockage States continues to have chest pain and TORRE Request for cardiac clearance due to kidney stone NST prior to surgery for non obstructive CAD in the proximal and mid LAD as well as moderate ISR in the RCA Assessment and Plan Discussion w patient/family: The assessment and plan as outlined above was discussed with the patient and/or family members who expressed understanding and agreement. All questions were answered. Thank you for involving us in the care of your patient. Please call with any questions. History of Present Illness History of present illness: Ms. Seth is a 72 year old female All Systems Review: A 10-system review of systems was performed and is negative for pertinent findings except as documented above in the HPI. Results 09/24/17 03:01 09/24/17 03:01 Lab Results 09/23/17 09/24/17 09/24/17 22:49 03:01 03:01 WBC 4.9 Hgb 10.6 L Hct 29.7 L Plt Count 259 INR Sodium Potassium Chloride Carbon Dioxide BUN Creatinine Glucose Calcium Troponin I < 0.03 < 0.03 09/24/17 09/24/17 03:01 03:01 WBC Hgb Hct Plt Count INR 1.1 Sodium 137 Potassium 3.8 Chloride 106 Carbon Dioxide 27 BUN 11 Creatinine 0.68 Glucose 141 H Calcium 9.0 Troponin I
[2017-09-24] MEDS ORDERED: *HR* LORazepam 0.5 MG TABLET PO ONE (12:02)
--- NOTE | 2017-09-24 12:16 | Urology - Consult Note ---
Date of Encounter: 09/24/17 Time of Encounter: 12:14 - Assessment and Plan (1) Hydronephrosis with renal and ureteral calculous obstruction Current Visit: Yes Status: Acute Assessment and plan: I reviewed the most recent CT scan and she has a 1.2 cm left mid ureteral calculi with hydronephrosis. This will some point require treatment. Only reasonable option is a ureteroscopic stone extraction with holmium laser lithotripsy as it does not require her to stop anticoagulation. We'll tentatively plan for tomorrow afternoon. Discussed with the cardiology service and they are electing to proceed with a repeat stress test tonight or in the morning to verify no unstable cardiac disease and that she is optimized as much as possible for the procedure. We discussed the risks of the procedure which includes injury to her urinary tract, stricture, stent discomfort, inability to retrieve the stone, infection. Urology CN:BRENNA Consult date: 09/24/17 History of present illness: pt well known to the service. known 1.2 cm left mid ureteral stone but unable to proceed with stone extraction bc of unstable cardiac dz, workup and cardiac stenting. admitted with possible chest pain. still with left flank pain. no fever Past Med Surg Social Fam HX - Past Medical History Medical history: coronary artery disease, hyperlipidemia, hypertension, myocardial infarction, osteoporosis, RA Psychiatric history: depression - Past Surgical History Surgical History: angioplasty/stent, hysterectomy, other - Social History Smoking Status: Never smoker Smokeless Tobacco Status: No Alcohol use: none Drug use: none - Family History Mother Living Status: Hx Family Cardiac Disorders: No Hx Family Respiratory Disorders: No Hx Family Cancer: No Hx Family GI Disorders: No Hx Family Endocrine Disorder: Yes (DM type 2) Hx Family Neuromuscular Disorders: No Hx Family Neurologic Disorders: No Hx Family HEENT Disorders: No Hx Family Autoimmune Disorders: No Father Adopted: No Family Member Ethnicity: Non- Living Status: Hx Family Cardiac Disorders: Yes (smoker) Hx Family Respiratory Disorders: Yes (smoker) Hx Family Cancer: No Hx Family GI Disorders: Yes (self) Hx Family Endocrine Disorder: Yes (self, cousin,mother) Hx Family Neuromuscular Disorders: No Hx Family Neurologic Disorders: Yes (grandfather) Hx Family HEENT Disorders: No Hx Family Autoimmune Disorders: No Grandmother Hx Family Endocrine Disorder: Yes (Diabetes) Medications and Allergies ALPRAZolam [Xanax 0.25 MG Tablet] 0.25 mg PO DAILY PRN 07/12/16 [History] Aspirin 81 mg PO DAILY 07/12/16 [History] Clopidogrel [Plavix] 75 mg PO DAILY 07/12/16 [History] Isosorbide MONOnitrate [Isosorbide Mononitrate ER] 240 mg PO DAILY 07/12/16 [ History] Nitroglycerin [Nitrostat] 0.4 mg SL Q5M PRN 07/12/16 [History] Pantoprazole Sodium [Protonix] 40 mg PO BID 07/12/16 [History] Lisinopril [Zestril] 10 mg PO DAILY #15 tablet 07/14/16 [Rx] Glimepiride 1 mg PO BID 08/16/16 [History] metFORMIN [Glucophage] 500 mg PO BID 08/16/16 [History] Cholecalciferol (D-3) [Vitamin D] 2,000 unit PO 1400 10/11/16 [History] Loratadine [Allergy Relief] 10 mg PO DAILY PRN 10/11/16 [History] Dicyclomine [Bentyl] 10 mg PO QID PRN 12/13/16 [History] Sucralfate [Carafate] 1 gm PO TIDAC 12/13/16 [History] Ezetimibe [Zetia] 10 mg PO DAILY 09/01/17 [History] Metoprolol [Lopressor] 12.5 mg PO BID 09/01/17 [History] 3 Allergy/AdvReac Type Severity Reaction Status Date / Time atorvastatin [From Lipitor] Allergy Muscle Pain Verified 08/31/17 15:32 lovastatin Allergy Muscle Pain Verified 08/31/17 15:32 penicillin V Allergy Anaphylaxis Verified 08/31/17 15:32 [id number]-Gdx Reductase Allergy Muscle Pain Verified 09/01/17 06:44 Inhibitor [Statins] Review of Systems - Constitutional no fever(s) - Cardiovascular chest pain - Genitourinary Genitourinary: flank pain Exam Initial Vital Signs Temp Pulse Resp BP Pulse Ox 98.2 F 145 18 211/98 98 09/23/17 17:26 18 17:26 09/23/17 17:26 09/23/17 17:26 09/23/17 17:26 - General physical appearance Present: well developed, no distress - Eyes Present: PERRL - ENT Present: normal nares - Neck Present: no masses - Respiratory Present: normal respiratory effort - Abdomen Abdomen: Present: soft - Integumentary Present: no rash - Neurologic Present: normal coordination. Absent: disoriented, confused Urology Results - Labs 09/24/17 03:01 09/24/17 03:01 Abnormal lab results RBC 3.17 M/mcL (3.82-4.97) L 09/24/17 03:01 Hgb 10.6 g/dL (11.5-15.4) L 09/24/17 03:01 Hct 29.7 % (35.3-44.9) L 09/24/17 03:01 MCH 33.4 pg (28.0-33.3) H 09/24/17 03:01 MCHC 35.7 g/dL (31.6-35.5) H 09/24/17 03:01 MPV 8.6 fL (9.4-12.4) L 09/24/17 03:01 Glucose 141 mg/dL (70-105) H 09/24/17 03:01 Urine Glucose (UA) 100 mg/dL (Normal) H 09/23/17 18:38 Ur Leukocyte Esterase Small (Negative) H 09/23/17 18:38 Urine Microscopic RBC 3-5 per hpf (0-3) H 09/23/17 18:38 Urine Microscopic WBC 5-15 per hpf (0-3) H 09/23/17 18:38 Ur Culture Indicated? YES (NO) A 09/23/17 18:38 Diabetes panel 09/24/17 Range/Units 03:01 Sodium 137 (136-145) mEq/L Potassium 3.8 (3.5-5.1) mEq/L Chloride 106 (98-107) mEq/L Carbon Dioxide 27 (23-29) mEq/L BUN 11 (8-23) mg/dL Creatinine 0.68 (0.60-1.20) mg/dL Glucose 141 H (70-105) mg/dL Calcium 9.0 (8.6-10.3) mg/dL Calcium panel 09/24/17 Range/Units 03:01 Calcium 9.0 (8.6-10.3) mg/dL Pituitary panel 09/24/17 Range/Units 03:01 Sodium 137 (136-145) mEq/L Potassium 3.8 (3.5-5.1) mEq/L Chloride 106 (98-107) mEq/L Carbon Dioxide 27 (23-29) mEq/L BUN 11 (8-23) mg/dL Creatinine 0.68 (0.60-1.20) mg/dL Glucose 141 H (70-105) mg/dL Calcium 9.0 (8.6-10.3) mg/dL Adrenal panel 09/24/17 Range/Units 03:01 Sodium 137 (136-145) mEq/L Potassium 3.8 (3.5-5.1) mEq/L Chloride 106 (98-107) mEq/L Carbon Dioxide 27 (23-29) mEq/L BUN 11 (8-23) mg/dL Creatinine 0.68 (0.60-1.20) mg/dL Glucose 141 H (70-105) mg/dL Calcium 9.0 (8.6-10.3) mg/dL All other labs normal. Consult Discharge Plan - Plan Referrals: Myranda Lauren DO [Primary Care Provider] -
[2017-09-24] MEDS: Aspirin 81 MG TAB.CHEW PO SCH (14:31)
[2017-09-24] MEDS: Ranolazine 500 MG TAB.ER.12H PO SCH ×2 (14:31→20:58)
--- NOTE | 2017-09-24 17:27 | Internal Med Progress Note ---
Date of Encounter: 09/24/17 Time of Encounter: 10:50 - Assessment and plan (1) Chest pain Current Visit: Yes Status: Acute Assessment and plan: Pt presents to ED with c/o continued chest pain and has had intermittent chest pain since stent placement last month. Pt is on DAPT. Pain began last night, is midsternal with radiation to right shoulder and is relieved witih ntg sl. Ptreports mild SOB but denies n/v or diaphoresis. Pt was seen by cardiology and will have stress test done for preoperative risk stratification. Troponins negative, chest xray negative, patient had echocardiogram in March, showed a preserved ejection fraction with mild LVEDD no significant valvular dysfunction. Compared to prior report, LV function had returned normal. Continue telemetry SL NTG prn chest pain Organic nitrate in the morning. Nothing by mouth after midnight. Continue DAPT Qualifiers: Chest pain type: unspecified Qualified Code(s): R07.9 - Chest pain, unspecified (2) CAD (coronary artery disease) Current Visit: Yes Status: Chronic Assessment and plan: Patient with recent stent placement, continued D aPTT, beta shlomo, Imdur. Patient is allergic to statins Hold Imdur for testing in the morning. Qualifiers: Coronary Disease-Associated Artery/Lesion type: [place] artery [place] vs. transplanted heart: [place] heart Associated angina: with stable angina Qualified Code(s): I25.118 - Atherosclerotic heart disease of [place] coronary artery with other forms of angina pectoris (3) Hypertension Current Visit: Yes Status: Chronic Assessment and plan: Controlled. Please continue home medications Qualifiers: Hypertension type: essential hypertension Qualified Code(s): I10 - Essential (primary) hypertension (4) UTI (urinary tract infection) Current Visit: Yes Status: Acute Assessment and plan: Patient presented with dysuria. Urine with small amount leukocyte esterase, 5- 15 microscopic white cells. Culture indicated and pending. Patient is being treated with Cipro 400 mg IV every 12 hours. Monitor for final culture and sensitivity. Qualifiers: Urinary tract infection type: acute cystitis Hematuria presence: without hematuria Qualified Code(s): N30.00 - Acute cystitis without hematuria (5) Left ureteral stone Current Visit: Yes Status: Acute Assessment and plan: Patient with obstructing 1.2 cm left ureteral calculi with hydronephrosis. She has been evaluated by urology. After patient is cleared by cardiology, she will have a ureteroscopic stone extraction with holmium laser lithotripsy. She will be able to continue her anticoagulation. Procedures tentatively scheduled for tomorrow based on cardiology results. Continue [place] for pain management. Antiemetics as needed. (6) Hydronephrosis with renal and ureteral calculous obstruction Current Visit: Yes Status: Acute Assessment and plan: Plan as above. (7) DVT prophylaxis Current Visit: Yes Status: Acute Assessment and plan: Continue D aPTT. Patient is ambulatory in her room. (8) Diabetes mellitus type 2, noninsulin dependent Current Visit: Yes Status: Chronic Assessment and plan: Chronic. Continue sliding scale insulin, Accu-Cheks before meals at bedtime, diabetic diet. Hemoglobin A1c 6.0% in August,. - Time Spent With Patient less than 15 minutes - Subjective Interval history: Pt was seen and assessed at bedside at 1050. She reports flank and back pain, as well as chest pain. She is due to have cardiac cath and stone retrieval tomorrow. She denies n/v/d, headache, dizziness, or abdominal pain. - Constitutional Vitals: Temp Pulse Resp BP Pulse Ox 98.0 F 80 18 154/73 98 09/24/17 11:47 09/24/17 11:47 09/24/17 11:47 09/24/17 11:47 09/24/17 11:47 General appearance: Present: cooperative, A&O X 3, pleasant, no acute distress, answers questions appropriately - Head Head exam: Present: atraumatic, normal inspection, normocephalic - Eye Eye exam: Present: normal appearance, conjuntiva pink, sclera anicteric - Neck Neck exam general surgery: Present: normal inspection, supple, trachea midline. Absent: lymphadenopathy, tenderness - Respiratory Respiratory exam: Present: CTAB. Absent: accessory muscle use, decreased breath sounds, rales, rhonchi, wheezes - Cardiovascular Cardiovascular exam: Present: RRR, +S1, +S2. Absent: diastolic murmur, gallop, rubs, systolic murmur - GI/Abdominal GI/Abdominal exam: Present: normal bowel sounds, soft. Absent: distended, guarding, hepatomegaly, tenderness - Extremities Exam Extremities exam: Present: normal capillary refill, normal inspection, warm, radial pulses palpable and symmetrical. Absent: calf tenderness, cyanotic, pedal edema, tenderness - Neurological Exam Neurological exam: Present: alert, oriented X3, no focal deficits. Absent: facial droop, speech deficit - Skin Skin exam: Present: dry, intact, normal color, warm. Absent: rash Internal Medicine: Result - Labs CBC & Chem 7: 09/24/17 03:01 09/24/17 03:01 Labs: Short CBC 09/24/17 Range/Units 03:01 WBC 4.9 (4.3-11.1) K/mcL Hgb 10.6 L (11.5-15.4) g/dL Hct 29.7 L (35.3-44.9) % Plt Count 259 (140-400) K/mcL Neutrophils # 2.4 (1.6-8.9) K/mcL BMP 09/24/17 03:01 Sodium 137 Potassium 3.8 Chloride 106 Carbon Dioxide 27 BUN 11 Creatinine 0.68 Glucose 141 H Calcium 9.0 Cardiac Enzymes 09/23/17 09/24/17 Range/Units 22:49 03:01 Troponin I < 0.03 < 0.03 (< 0.04) ng/mL - ABG Interpretation ABG results: PT/INR, D-dimer PT 11.3 Seconds (9.4-12.1) 09/24/17 03:01 Consult Discharge Plan - Plan Referrals: Myranda Lauren DO [Primary Care Provider] -
--- NOTE | 2017-09-24 18:26 | Anesthesia Evaluation PreOp ---
Date of Encounter: 09/24/17 Time of Encounter: 18:25 - Past History Planned Operation: Left USE with Laser Cardiac History: CHF ([place] cardiomyopathy , improved EF to 60% ), HTN, Hyperlipidemia, Cardiac Stent ( Stent X1 LAD), Other (CAD on Plavix and stent) Pulmonary History: Denies Any Significant HX PATIENT SERVICE ASSOCIATE History: Denies Any Significant HX Other Medical History: Diabetes Type II, Thyroid Anesthesia History: No Prior Anesthetic Complications Alcohol Use: none Drug use: none Medications and Allergies ALPRAZolam [Xanax 0.25 MG Tablet] 0.25 mg PO DAILY PRN 07/12/16 [History] Aspirin 81 mg PO DAILY 07/12/16 [History] Clopidogrel [Plavix] 75 mg PO DAILY 07/12/16 [History] Isosorbide MONOnitrate [Isosorbide Mononitrate ER] 240 mg PO DAILY 07/12/16 [ History] Nitroglycerin [Nitrostat] 0.4 mg SL Q5M PRN 07/12/16 [History] Pantoprazole Sodium [Protonix] 40 mg PO BID 07/12/16 [History] Lisinopril [Zestril] 10 mg PO DAILY #15 tablet 07/14/16 [Rx] Glimepiride 1 mg PO BID 08/16/16 [History] metFORMIN [Glucophage] 500 mg PO BID 08/16/16 [History] Cholecalciferol (D-3) [Vitamin D] 2,000 unit PO 1400 10/11/16 [History] Loratadine [Allergy Relief] 10 mg PO DAILY PRN 10/11/16 [History] Dicyclomine [Bentyl] 10 mg PO QID PRN 12/13/16 [History] Sucralfate [Carafate] 1 gm PO TIDAC 12/13/16 [History] Ezetimibe [Zetia] 10 mg PO DAILY 09/01/17 [History] Metoprolol [Lopressor] 12.5 mg PO BID 09/01/17 [History] 3 Allergy/AdvReac Type Severity Reaction Status Date / Time atorvastatin [From Lipitor] Allergy Muscle Pain Verified 08/31/17 15:32 lovastatin Allergy Muscle Pain Verified 08/31/17 15:32 penicillin V Allergy Anaphylaxis Verified 12/15/17 15:32 Xsvpjxa-Ruj-Whx Reductase Allergy Muscle Pain Verified 09/01/17 06:44 Inhibitor [Statins] - Meds/Allergy Pre-op Review Medications Reviewed: Yes Allergies Reviewed: Yes Anesthesia Results - Labs 09/24/17 03:01 09/24/17 03:01 - Imaging EKG: report reviewed (Sinus Tach non specific T wave chanes) Additional studies: Heart Cath severe LAD disease requiring PTCA/YOSELIN EF55%, Stress Test pending 09-25-2017 Anesthesia Exam O2 Sat O2 Sat by Pulse Oximetry 98 O2 Sat by Pulse Oximetry 96 O2 Sat by Pulse Oximetry 96 O2 Sat by Pulse Oximetry 94 O2 Sat by Pulse Oximetry 97 O2 Sat by Pulse Oximetry 96 O2 Sat by Pulse Oximetry 98 O2 Sat by Pulse Oximetry 95 O2 Sat by Pulse Oximetry 98 Vital Signs Temp Pulse Resp BP Pulse Ox 98.2 F 145 18 211/98 98 09/23/17 17:26 09/23/17 17:26 09/23/17 17:26 09/23/17 17:26 09/23/17 17:26 Height: 5'6 Weight: 150 lbs NPO (# of Hours): MN Pain Scale: 0 - HEENT Pupil (Motor): Pupils equal, EOMI Mallampati: II Teeth: Normal Oral Opening: Greater than 3 - PATIENT SERVICE ASSOCIATE LOC: Oriented PATIENT SERVICE ASSOCIATE Motor: Normal RUE, Normal LUE, Normal RLE, Normal LLE, Normal Face PATIENT SERVICE ASSOCIATE Sensory: Normal: RUE, LUE, RLE, LLE, Face - Cardiac Rhythm: Regular Murmur: None JVD: No Carotid Bruit: No - Pulmonary Breath Sounds: bilateral Clear Respiratory Effort: Symmetrical Anesthesia Assess/Plan ASA Score: 3 (CAD HTN) Anesthetic Plan: General Monitoring Plan: Standard Monitors Recovery Plan: PACU (Discussed GA, awaiting stress test result.)
[2017-09-25 04:45] LABS: Basophils % 0.4 %; Eosinophils # 0.1 K/mcL (0.0-0.6); Eosinophils % 1.4 %; Hematocrit 31.6 % (35.3-44.9); Hemoglobin 11.1 g/dL (11.5-15.4); Immature Granulocytes % 0.2 % (0-4); Immature Platelets 1.1 % (1.1-6.1); Lymphocytes # 1.7 K/mcL (0.6-4.6); Lymphocytes % 33.5 %; Mean Corpuscular HGB Conc 35.1 g/dL (31.6-35.5); Mean Platelet Volume 8.7 fL (9.4-12.4); Monocytes # 0.5 K/mcL (0.0-1.3); Monocytes % 10.3 %; Neutrophils # 2.8 K/mcL (1.6-8.9); Platelet Count 283 K/mcL (140-400); Red Blood Count 3.36 M/mcL (3.82-4.97); Red Cell Distribution Width 12.3 % (11.5-14.5); Segmented Neutrophils % 54.2 %
[2017-09-25 05:02] LABS: BUN/Creatinine Ratio 15 (6-26); Blood Urea Nitrogen 13 mg/dL (8-23); Calcium 9.1 mg/dL (8.6-10.3); Carbon Dioxide 26 mEq/L (23-29); Chloride 106 mEq/L (98-107); Glucose 155 mg/dL (70-105); Osmolality,Calculated 289 (280-300); Potassium 4.1 mEq/L (3.5-5.1); Sodium 138 mEq/L (136-145); eGFR For African Americans > 60 (> 60); eGFR For Non-African Americans > 60 (> 60)
[2017-09-25] MEDS ORDERED: Regadenoson 0.4 MG/5 ML SYRINGE IVP ONE (06:11)
[2017-09-25] MEDS: Insulin LISPRO 300 UNITS/3 ML VIAL SQ SCH ×4 (07:30→21:06)
[2017-09-25] MEDS: *HR* LORazepam 0.5 MG TABLET PO PRN (07:48)
--- NOTE | 2017-09-25 08:36 | Cardiology Progress Note ---
Date of Encounter: 09/25/17 Time of Encounter: 07:35 Assessment and Plan (1) Chest pain Current Visit: Yes Status: Acute Per Cardiology: Troponins negative 3. Stress test pending this morning for preoperative risk stratification. Further recommendations after stress test. Will resume long- acting nitrate once test completed. Remains on aspirin, Plavix, Ranexa. Only takes statin sparingly on Saturdays. Qualifiers: Chest pain type: chest pain due to myocardial ischemia Ischemic chest pain type: stable angina pectoris Qualified Code(s): I20.8 - Other forms of angina pectoris (2) CAD (coronary artery disease) Current Visit: Yes Status: Chronic Per Cardiology: Known history of CAD with most recent catheterization September 03, 2017-- underwent PTCA with drug-eluting stent to mid LAD 80% in-stent restenosis, has remaining proximal RCA 40% in-stent restenosis. Ideally, patient would take statin daily. Continue with aspirin and Plavix. Has declined switching from Plavix to other agent. Qualifiers: Coronary Disease-Associated Artery/Lesion type: [place] artery [place] vs. transplanted heart: [place] heart Associated angina: with stable angina Qualified Code(s): I25.118 - Atherosclerotic heart disease of [place] coronary artery with other forms of angina pectoris Discussion w patient/family: The assessment and plan as outlined above was discussed with the patient who expressed understanding and agreement. All questions were answered. Thank you for involving us in the care of your patient. Please call with any questions. Subjective Principal diagnosis: CP Interval history: Patient seen this morning during stress test. Reports mild chest tightness 3 out of 10. Denies any other concerns or complaints overnight. Objective Selected Entries 09/25/17 02:51 09/25/17 05:10 Temperature 98.0 F Pulse Rate 69 Respiratory Rate 15 Blood Pressure 141/71 O2 Sat by Pulse Oximetry 96 Oxygen Delivery Method Room Air General: Conversant, No Apparent Distress HEENT: Atraumatic, Normocephaly, Mucus Membranes Moist Neck: No JVD, Normal carotid pulses Cardiac: Reg Rate and Rhythm, Normal S1 and S2, No Murmur Lungs: Normal Breath Sounds, No Wheeze, Rales, Rhonchi Neuro: Alert and responsive, No focal deficits noted Abdomen: Soft, Non-Tender Skin: No rashes noted on visualized skin Musculoskeletal: No Chest Wall Tenderness Extremities: No Clubbing, No Cyanosis, No Edema, Normal Pulses Results 09/25/17 04:32 09/25/17 04:32 Lab Results Laboratory Tests 09/23/17 09/23/17 09/24/17 17:54 22:49 03:01 Troponin I < 0.03 < 0.03 < 0.03 Active Medications Acetaminophen (Tylenol) 650 mg PO Q6HR PRN PRN Reason: Mild Pain (1-3) Stop: 03/25/18 21:09 Last Admin: 09/24/17 06:16 Dose: 650 mg Hydrocodone Bitart/Acetaminophen ([place] 5-325 Mg) 1 tab PO Q4HR PRN PRN Reason: Moderate Pain (4-6) Stop: 03/25/18 21:09 Aspirin (Aspirin) 81 mg PO DAILY [facility] Stop: 03/26/18 09:01 Last Admin: 09/24/17 14:31 Dose: 81 mg Clopidogrel Bisulfate (Plavix) 75 mg PO DAILY [facility] Stop: 03/26/18 09:01 Last Admin: 09/24/17 14:31 Dose: 75 mg Dextrose/Water (Dextrose 50% (Syg)) 25 ml IVP AD PRN PRN Reason: Hypoglycemia Stop: 03/25/18 21:13 Glucagon (Glucagen) 1 mg IM ONCE PRN PRN Reason: Hypoglycemia Stop: 03/25/18 21:13 Glucose (Gluctose) 15 gm PO ONCE PRN PRN Reason: Hypoglycemia Stop: 03/25/18 21:13 Glucose (Gluctose) 30 gm PO ONCE PRN PRN Reason: Hypoglycemia Stop: 03/25/18 21:13 Dextrose (Dextrose 5%) 1,000 mls @ 100 mls/hr IVC .Q10H PRN PRN Reason: HYPOGLYCEMIA Stop: 03/25/18 21:13 Ciprofloxacin Lactate (Cipro Premix 400 Mg/200 Ml) 400 mg in 200 mls @ 200 mls/ hr IVPB Q12HR SUSAN Stop: 03/26/18 06:01 Last Infusion: 09/25/17 06:33 Dose: Infused Insulin Human Lispro (Humalog) 0 units SQ TIDAC SUSAN PRN Reason: Protocol Stop: 03/26/18 07:31 Last Admin: 09/24/17 17:37 Dose: 4 units Insulin Human Lispro (Humalog) 0 units SQ HS SUSAN PRN Reason: Protocol Stop: 03/26/18 21:01 Last Admin: 09/24/17 20:50 Dose: Not Given Lorazepam (Ativan) 0.5 mg PO Q4HR PRN PRN Reason: Anxiety Stop: 03/26/18 16:01 Last Admin: 09/25/17 07:48 Dose: 0.5 mg Metoprolol Tartrate (Lopressor) 12.5 mg PO BID [facility] Stop: 03/25/18 21:16 Last Admin: 09/24/17 20:59 Dose: 12.5 mg Morphine Sulfate (Morphine Sulfate) 2 mg IVP Q4HR PRN PRN Reason: Severe Pain (7-10) Stop: 03/25/18 21:09 Naloxone HCl (Narcan) 0.4 mg IVP Q2MIN PRN PRN Reason: Opioid Reversal Stop: 03/25/18 21:09 Ondansetron HCl (Zofran) 4 mg IVP Q8HR PRN PRN Reason: Nausea And Vomiting Stop: 03/25/18 21:09 Last Admin: 09/24/17 08:09 Dose: 4 mg Ranolazine (Ranexa) 500 mg PO BID [facility] Stop: 03/26/18 11:01 Last Admin: 09/24/17 20:58 Dose: 500 mg - Imaging and Cardiology Stress Test: pending - EKG Interpretation EKG results cardiology: other (SR) Consult Discharge Plan - Plan Referrals: Myranda Lauren DO [Primary Care Provider] -
[2017-09-25] MEDS: Ranolazine 500 MG TAB.ER.12H PO SCH ×2 (10:29→21:06)
[2017-09-25] MEDS: Aspirin 81 MG TAB.CHEW PO SCH (10:29)
--- NOTE | 2017-09-25 11:33 | Event Note ---
Date of Encounter: 09/25/17 Time of Encounter: 11:30 - Cardiology Event Note ST results showed: Impression: There is a moderate intensity stress perfusion defect involving the mid to distal anterior and anterolateral wall representing reversible ischemia. Pharmacologic stress ECG is negative for ischemia at level of heart rate achieved. Patient had chest pain/pressure during pharmacologic stress. Gated EF > 70%. Abnormal findings communicated to Cardiology service. Discussed with patient, Dr. Glynn, and Dr. Stella Payne. Plan for [facility] today. Will resume Imdur. Dr. Panda aware and surgery postponed today. All questions answered.
[2017-09-25] MEDS: Isosorbide MONOnitrate (24 HR) 30 MG TAB.ER.24H PO SCH ×2 (12:53→21:06)
[2017-09-25] MEDS: *HR* HYDROcodone/Acet 5/325 mg TABLET PO PRN ×2 (13:01→22:54)
[2017-09-25] MEDS ORDERED: 0.9 % Sodium Chloride 1,000 ML ONE ×2 (13:59→14:05)
[2017-09-25] MEDS ORDERED: Nitroglycerin 1,000 MCG/10 ML VIAL IV ONE (13:59)
[2017-09-25] MEDS ORDERED: Heparin 1,000 UNITS/500 mL 500 ML ONE (13:59)
[2017-09-25] MEDS ORDERED: *HR* Heparin 10,000 UNIT/10 ML VIAL ONE (13:59)
[2017-09-25] MEDS ORDERED: *HR* FentaNYL (PF) 100 MCG/2 ML VIAL ONE (14:30)
[2017-09-25] MEDS ORDERED: *HR* Midazolam HCl 2 MG/2 ML VIAL ONE (14:30)
--- NOTE | 2017-09-25 14:33 | Pre-Sedation Evaluation ---
Pre-sedation evaluation - Pre-sedation checklist Date of procedure: 09/25/17 Procedure: Heart cath Recent Vitals: Last Vital Signs Temp 97.8 F 09/25/17 11:47 Pulse 77 09/25/17 11:47 Resp 16 09/25/17 11:47 BP 134/78 09/25/17 11:47 Pulse Ox 96 09/25/17 11:47 H&P (including ROS) documented in medical record: Yes Previous reaction to sedatives/anesthetics: No Dietary Status: NPO after Midnight Airway Assessment: Patient can open mouth completely, TMJ function normal, Micrognathia (under-bite, receding chin) absent, Neck with adequate range of motion Dentition: No loose teeth or bridges Possible difficult airway: No ASA Classification *see protocol: CLASS II-Mild systemic disease Plan of Care: Pt appropriate candidate for procedure/moderate/conscious sedation , Risks/benefits of procedure/sedation discussed w/ patient/family
--- NOTE | 2017-09-25 15:18 | Event Note ---
Date of Encounter: 09/25/17 Time of Encounter: 15:15 - Cardiology Event Note Discussed with Dr. Glynn and Dr. Stella Payne, no intervention warranted to LAD. Can be considered moderate risk for low risk procedure from a cardiac standpoint. Needs to remain on asa and plavix-- recent stent a few weeks ago. Dr. Panda notified with planned surgery tomorrow. Cardiology will sign off, will require close outpatient follow-up, appt scheduled. All questions answered.
--- NOTE | 2017-09-25 15:33 | Invasive Diagnostic Lab Proc ---
Name: Lidia Seth Date of Study: 09/25/2017 Date: 1945 Ht: 66.1in Medical Record#: [id number] Age: 72 Wt: 145.51lb Gender: Female BSA: 1.75 Order #: [id number] BMI: 23.38 Physicians Procedure Physician: Alexandra Payne MD, [facility] Referring MD: Referring MD: Staff Name Position Time In Samir, Anupam RN Monitor 02:27 PM Kathrine White RN Chemical Machine Tender 02:27 PM Hyacinth, Rachell RT (R) Scrub 02:27 PM Indications Indication Abnormal Test - Stress Procedures Performed Procedure L HRT ARTERY/VENTRICLE ANGIO Pre-Procedure Checklist Informed consent is complete signed and on chart. H&P is on chart. ID band is on and ID verified with patient. Patient NPO for procedure The procedure was described for the patient and questions were answered. Blood Pressure: 141/71 ECG is on chart. Rhythm: NSR Plan of Care Patient will tolerate the procedure without complications. Adequate level of comfort will be maintained. Hemodynamics will remain stable Patient will recover from procedure without complications. Respiratory function will be maintained. Cardiac rhythm will remain stable. Patient temperature will be maintained. Patient and/or family have verbalized understanding of the procedure. Patient Education Chief Complaint/Reason for Test: Cardiac Cath Developmental Category: Geriatric (65+ years) Developmentally Appropriate for Age: Yes Learning Barriers: None Education Needs: Procedure Education Method: Verbal Information Taught: Cardiac Cath Educational Evaluation: Able to repeat information Intravenous Access Time IV Size Location DC'd Fluid/Drip Rate Units RN 01:06 PM 20g 1 09/20" Patent On Arrival Kathrine White RN Allergies lovastatin Iewcpwb-Sjq-Mgm Reductase Inhibitor Amoxicillin penicillin V atorvastatin Vital Signs Time BP (mmHg) HR (bpm) O2 Sat. RR (bpm) LOC 02:32 PM / % 5 = Fully awake and oriented or at pre-proc level 02:32 PM / % 4 = Oriented but drowsy 02:48 PM / % 4 = Oriented but drowsy 02:29 PM 150 / 79 86 98 % 10 02:34 PM 143 / 83 82 98 % 24 02:39 PM 123 / 68 81 95 % 18 02:44 PM 130 / 73 87 98 % 19 02:49 PM 140 / 76 90 100 % 15 02:54 PM 138 / 83 86 99 % 14 02:59 PM 133 / 75 84 100 % 19 03:04 PM 137 / 78 81 100 % 15 Procedural Medications Time Medication Dose Units Method Given By 02:32 PM Oxygen 2 L/min nasal cannula Kathrine White RN 02:32 PM Versed 2 mg Intravenous Kathrine White RN 02:32 PM Fentanyl 50 mcg Intravenous Kathrine White RN 02:44 PM Benadryl 25 mg Intravenous Kathrine White RN 02:45 PM Lidocaine 2% 13 ml Subcutaneous Alexandra Payne MD, [facility] ASA Classification: CLASS II- Mild systemic disease (i.e. well-controlled diabetes, hypertension, asthma, cigarette smoking) Truman Score Preprocedure Postprocedure Activity 2- Moves 4 extremities sustained head lift Activity 2- Moves 4 extremities sustained head lift Circulation 2- SBP +/= 20 points of pre-anesthetic level Circulation 2- SBP +/= 20 points of pre-anesthetic level Consciousness 2- Awake and alert oriented x 3 Consciousness 2- Awake and alert oriented x 3 O2 Saturation 2- Able to maintain O2 satruation of 92% on room air O2 Saturation 2- Able to maintain O2 satruation of 92% on room air Respiratory 2- Able to deep breathe and cough well Respiratory 2- Able to deep breathe and cough well Total Score 10 Total Score 10 Contrast Agent: Isovue Diagnostic Contrast: 81 ml Total Contrast: 81 ml Fluoro Dose: 129 mGy Procedure Log Time Note Enter By 01:55 PM CathStat 01:55 PM Case Start 02:27 PM Pt arrived to labor trainer 2 at 14:27 [facility] 02:27 PM Anupam Dawson RN Position: Monitor Time in: 14:27 [facility] 02:27 PM Kathrine White RN Position: Chemical Machine Tender Time in: 14:27 [facility] 02:28 PM Rachell Claros RT (R) Position: Scrub Time in: 14:27 [facility] 02:28 PM Patient charges- Angio tray pack, Navilyst 3mm J, Pulse Oximetry and ACIST tubing and transducer [facility] 02:28 PM Case Delayed no, inpatient [facility] 02:28 PM Hair removed from procedure site in procedure lab using clippers. Bilateral groin prepped with Chloraprep by Sites, Rachell RT (R), safety strap applied then patient was draped. Skin intact. [facility]: PM Physician arrived 14:28 [facility] : PM Meet and greet completed [facility]: PM Sign in performed according to hospital policy. : PM Procedure start 14:28 jcallihan : PM Vitals capture started with the following parameters, Patient=Adult, Interval=5 min, Initial Kgvytvsq=049 mmHg, Deflation Rate=5 mmHg, Cuff placed on Right Arm 02:29 PM HR=86 bpm, MQTS=966/79 mmhg, SpO2=98.0 %, Resp=10 B/min, Comment=nsr 02:32 PM Time: 14:32 Oxygen on at 2 L/min per nasal cannula by Kathrine White RN jude :32 PM Time: 14:32 Versed 2 mg Intravenous Given by Kathrine White RN 02:32 PM Time: 14:32 Fentanyl 50 mcg Intravenous Given by Kathrine White RN 02:32 PM Time: 14:32 Patient comfortable and pain free: Yes jc:32 PM Time: 14:32LOC: 5 = Fully awake and oriented or at pre-proc level jc 02:33 PM Clinical Presentation: Unstable angina jc 02:34 PM HR=82 bpm, IUII=063/83 mmhg, SpO2=98.0 %, Resp=24 B/min, Comment=nsr 02:38 PM Recorded ECG: HR=86 Condition=Condition 1 02:38 PM Pressure channel 1 zeroed. 02:39 PM HR=81 bpm, CWMI=063/68 mmhg, SpO2=95.0 %, Resp=18 B/min, Comment=nsr 02:39 PM ASA Class CLASS II- Mild systemic disease (i.e. well-controlled diabetes, hypertension, asthma, cigarette smoking) [facility] 02[facility]44 PM Time out performed according to hospital policy jcallih 02:44 PM HR=87 bpm, KXUE=761/73 mmhg, SpO2=98.0 %, Resp=19 B/min, Comment=nsr 02:45 PM Time: 14:44 Benadryl 25 mg Intravenous Given by Kathrine White RN 02:46 PM Time: 14:45 13 ml Lidocaine 2% to right groin Subcutaneous Given by Alexandra Payne MD, [facility] jcallihan 02:46 PM Access obtained by percutaneous puncture. 5Fr 10cm Terumo Rexford sheath placed in right Femoral artery. [id number] jcallihan 02:47 PM 5Fr FL 4 catheter inserted over the wire DN jcallihan 02:48 PM Time: 14:32LOC: 4 = Oriented but drowsy jcallihan 02:48 PM Time: 14:32 Patient comfortable and pain free: Yes jcallihan 02:48 PM LCA angiography performed in multiple views. jcallihan 02:48 PM Recorded Pressure: Ao, HR=90, Condition=Condition 1 (Aorta) Ao 124/80/101 02:49 PM HR=90 bpm, VXMV=493/76 mmhg, SxA9=279.0 %, Resp=15 B/min, Comment=nsr 02:50 PM Catheter removed jcallihan 02:50 PM 5Fr FR 4 catheter inserted over the wire DN jcallihan 02:51 PM Recorded Pressure: Ao, HR=87, Condition=Condition 1 (Aorta) Ao 126/81/103 02:52 PM RCA angiography performed in multiple views. jcallihan 02:53 PM Catheter removed jcallihan 02:54 PM HR=86 bpm, GAFM=140/83 mmhg, SpO2=99.0 %, Resp=14 B/min, Comment=nsr 02:59 PM 5Fr Pigtail catheter inserted over the wire DN jcallihan 02:59 PM HR=84 bpm, DVGH=846/75 mmhg, SpB0=468.0 %, Resp=19 B/min, Comment=nsr 03:00 PM Recorded Pressure: LV, HR=82, Condition=Condition 1 (Left Ventricle) LV 137/-4/1 03:00 PM Catheter selectively placed in left ventricle jcallihan 03:01 PM Bolus angiogram of left Ventricle complete: 8 ml/sec for a total of 24 mls jcallihan 03:01 PM Recorded Pressure: LV, Ao, HR=80, Condition=Condition 1 (Left Ventricle) LV 121/34/76, (Aorta) Ao 120/82/101 03:01 PM Catheter removed jcallihan 03:01 PM Wire removed jcallihan 03:02 PM Bolus angiogram of right Femoral complete: 4 ml/sec for a total of 7 mls jcallihan 03:03 PM Time: 14:48 Patient comfortable and pain free: Yes jcallihan 03:03 PM Time: 14:48LOC: 4 = Oriented but drowsy jcallihan 03:03 PM Procedure completed at 15:03 jcallihan 03:04 PM Sign out completed: Radiation Dose 129 mGy Fluoro Time: 2.3 Isovue 370 - 200ml contrast 81 ml given by Alexandra Payne MD, [facility]. Complications: NoneCardiac Rehab Consult needed: NoConfirmed administered medications: Yes jcallihan 03:04 PM Isovue 370 - 200ml,1 Bottle(s) used. jcallihan 03:04 PM Arterial sheath pulled, Mynx closure device used and was Successful [id number] S/N. jcallihan 03:04 PM Estimated Blood Loss: minimal jcallihan 03:04 PM Post ECG NSR jcallihan 03:04 PM Post Blood Pressure 133/75 jcallihan 03:04 PM HR=81 bpm, DVXE=100/78 mmhg, DvW9=842.0 %, Resp=15 B/min, Comment=nsr 03:04 PM 15:04 Post Pulses Bilateral DP & PT 2+ jcallihan 03:05 PM Information taught Cardiac Cath and Mynx jcallihan 03:05 PM Education needs Procedure, Plan of Care, and Responsibilities of Patient in Care jcallihan 03:05 PM Learning barriers :None jcallihan 03:05 PM Education Methods Verbal jcallihan 03:05 PM Education evaluation Able to repeat information jcallihan 03:05 PM Site status No bleeding/hematoma - Rt Groin as reported by Sites, Rachell RT (R) at 15:05 jcallihan 03:05 PM Opsite applied jcallihan 03:05 PM Plavix, Effient or Brilinta given No jcallihan 03:05 PM Delay to floor No jcallihan 03:05 PM No family at this time. jcallihan 03:06 PM Complications: None jcallihan 03:06 PM Fluoro Time: 2.3 jcallihan 03:06 PM Isovue 370 - 200ml contrast 81 ml given by Alexandra Payne MD, [facility]. jcallihan 03:06 PM Radiation Dose 129 mGy jcallihan 03:09 PM Vitals capture stopped. 03:15 PM Report given to 3B RN Pt taken to 3B Room #64. 15:15 jcallihan 03:15 PM Patient out of room: 15:15 jcallihan 03:15 PM Coronary Dominance: right jcallihan 03:16 PM Lesion found in Proximal RCA. Pre Stenosis: 40 Pre ZAC Flow: jcallihan 03:16 PM Lesion found in LMCA. Pre Stenosis: 15 Pre ZAC Flow: jcallihan 03:16 PM Lesion found in Proximal LAD. Pre Stenosis: 45 Pre ZAC Flow: jcallihan 03:16 PM Lesion found in Proximal Circumflex. Pre Stenosis: 30 Pre ZAC Flow: jcallihan 03:16 PM Left Main Coronary Artery with 15% stenosis jcallihan 03:18 PM Proximal Left Anterior Descending Coronary Artery with 45% stenosis. If graft is supplying this territory, 0 % stenosis. jcallihan 03:19 PM Circumflex, Obtuse Marginal, Left Posterior Descending, and Left Posterolateral Coronary Arteries with 30 % stenosis. If graft is supplying this area, 0 % stenosis jcallihan 03:19 PM Right Coronary, Right Posterior Descending Arteries with Right Posterolateral and Acute Marginal branches with 40 % stenosis. If graft is supplying this area, 0 % stenosis jcallihan Complications Complication None None Hemodynamics Pressures Site Systolic/A Wave Diastolic/V Wave Mean AO 124 80 101 AO 126 81 103 LV 137 -4 1 LV 121 34 76 AO 120 82 101 Post Procedure Information Blood Pressure: 133/75 mmHg Rhythm: NSR Post procedural instructions were given Closure Device Time Device Success/Fail 09/25/2017 3:13:00 PM MynxGrip Successful Site Checks Time Location Status Staff Sheath In? Note 03:05 PM Rt Groin No bleeding/hematoma Sites, Rachell RT (R) Pulses Time Site Pre-Procedure Post-Procedure Note 09/25/2017 1:06:00 PM Bilateral DP 2+ 09/25/2017 1:06:00 PM Bilateral radial 2+ 3:04:00 PM Bilateral DP & PT 2+ Updated by Anupam Dawson RN on 09/25/2017 3:23:43 PM electronically signed on 09/25/2017 3:27:44 PM with status of Final
--- NOTE | 2017-09-25 17:08 | Internal Med Progress Note ---
Date of Encounter: 09/25/17 Time of Encounter: 08:34 - Assessment and plan (1) CAD (coronary artery disease) Current Visit: Yes Status: Chronic Assessment and plan: with hx [place] and 10 stents. Had C that resulted in multivessel PCI. Repeat 09/03/2017 [facility] with mid LAD 80% stenosis; s/p PCI/YOSELIN. Has been compliant with medications. Now with increasing chest discomfort at rest and with activity concerning for unstable angina. Underwent another [facility] on 2017 with redemonstration of severe three-vessel CAD and patent stent to LAD and RCA. Continue dual antiplatelet therapy, BB, nitrate, low-dose statin. Qualifiers: Coronary Disease-Associated Artery/Lesion type: [place] artery [place] vs. transplanted heart: [place] heart Associated angina: with stable angina Qualified Code(s): I25.118 - Atherosclerotic heart disease of [place] coronary artery with other forms of angina pectoris (2) Left ureteral stone Current Visit: Yes Status: Acute Assessment and plan: Patient with obstructing 1.2 cm left ureteral calculi with hydronephrosis. Evaluated by Urology who is planning ureteroscopic stone extraction with holmium laser lithotripsy. NPO at midnight. Surgery planned actively planned (3) Diabetes mellitus type 2, noninsulin dependent Current Visit: Yes Status: Chronic Assessment and plan: Chronic. Continue sliding scale insulin, Accu-Cheks before meals at bedtime, diabetic diet. Hemoglobin A1c 6.0% in August,. (4) DVT prophylaxis Current Visit: Yes Status: Acute Assessment and plan: ambulation - Subjective Interval history: Seen and examined at bedside, patient is noted to me from previous admission. Says she feels well at this time. No further chest pain recurrence. She thinks chest pain is coming from kidney stone. - Constitutional Vitals: Temp Pulse Resp BP Pulse Ox 97.8 F 77 16 134/78 96 09/25/17 11:47 09/25/17 11:47 09/25/17 11:47 09/25/17 11:47 09/25/17 11:47 General appearance: Present: cooperative, A&O X 3, pleasant, no acute distress, answers questions appropriately - Head Head exam: Present: atraumatic, normocephalic - Eye Eye exam: Present: PERRL, conjuntiva pink, sclera anicteric Pupils: Present: PERRL - Neck Neck exam general surgery: Present: supple, trachea midline. Absent: lymphadenopathy - Respiratory Respiratory exam: Present: CTAB. Absent: accessory muscle use, rales, rhonchi, wheezes - Cardiovascular Cardiovascular exam: Present: RRR, +S1, +S2. Absent: diastolic murmur, gallop, rubs, systolic murmur - GI/Abdominal GI/Abdominal exam: Present: normal bowel sounds, soft, no peritoneal signs. Absent: distended, tenderness - Extremities Exam Extremities exam: Present: warm, radial pulses palpable and symmetrical. Absent : calf tenderness, cyanotic, pedal edema - Neurological Exam Neurological exam: Present: CN II-XII intact, oriented X3, no focal deficits. Absent: pronater drift, facial droop, speech deficit - Skin Skin exam: Present: dry, intact Internal Medicine: Result - Labs CBC & Chem 7: 09/25/17 04:32 09/25/17 04:32 Labs: Short CBC 09/25/17 Range/Units 04:32 WBC 5.1 (4.3-11.1) K/mcL Hgb 11.1 L (11.5-15.4) g/dL Hct 31.6 L (35.3-44.9) % Plt Count 283 (140-400) K/mcL Neutrophils # 2.8 (1.6-8.9) K/mcL BMP 09/25/17 04:32 Sodium 138 Potassium 4.1 Chloride 106 Carbon Dioxide 26 BUN 13 Creatinine 0.88 Glucose 155 H Calcium 9.1 - ABG Interpretation ABG results: PT/INR, D-dimer PT 11.3 Seconds (9.4-12.1) 09/24/17 03:01 Consult Discharge Plan - Plan Referrals: Myranda Lauren DO [Primary Care Provider] - 10/02/17 11:15 am
[2017-09-26] MEDS: *HR* LORazepam 0.5 MG TABLET PO PRN (04:43)
--- NOTE | 2017-09-26 07:02 | Urology Progress Note ---
Date of Encounter: 09/26/17 Time of Encounter: 07:01 - Assessment and Plan (1) Hydronephrosis with renal and ureteral calculous obstruction Current Visit: Yes Status: Acute Assessment and plan: plan to proceed with surgery at Noon today Progress Note Subjective: no new complaints Objective Initial Vital Signs Temp Pulse Resp BP Pulse Ox 98.2 F 145 18 211/98 98 09/23/17 17:26 09/23/17 17:26 09/23/17 17:26 09/23/17 17:26 09/23/17 17:26 - General physical appearance Present: no distress - Labs 09/25/17 04:32 09/25/17 04:32 Consult Discharge Plan - Plan Referrals: Myranda Lauren DO [Primary Care Provider] - 10/02/17 11:15 am
[2017-09-26] MEDS: Insulin LISPRO 300 UNITS/3 ML VIAL SQ SCH ×3 (08:36→16:51)
[2017-09-26] MEDS: Isosorbide MONOnitrate (24 HR) 30 MG TAB.ER.24H PO SCH ×2 (08:49→21:16)
[2017-09-26] MEDS: Aspirin 81 MG TAB.CHEW PO SCH (08:49)
[2017-09-26] MEDS: Ranolazine 500 MG TAB.ER.12H PO SCH ×3 (08:49→21:16)
[2017-09-26] MEDS ORDERED: Ondansetron 4 MG/2 ML VIAL ONE (10:53)
[2017-09-26] MEDS ORDERED: *HR* FentaNYL (PF) 100 MCG/2 ML VIAL ONE (10:53)
[2017-09-26] MEDS ORDERED: Lidocaine -MPF 2% 2 ML VIAL ONE (10:53)
[2017-09-26] MEDS ORDERED: Dexamethasone 4 MG/ML VIAL ONE (10:53)
[2017-09-26] MEDS ORDERED: *HR* Propofol 200 MG/20 ML VIAL IVP ONE (10:54)
--- NOTE | 2017-09-26 11:34 | Anesthesia Progress Note ---
Date of Encounter: 09/26/17 Time of Encounter: 11:32 Anesthesia Note - Note Note: 09/26/17 11:32 Patient scheduled for left USE today. Had anesthesia preop on 09/24/17 and was awaiting Stress test. Results are as below: 09/26/17 11:34 Date of Encounter: 09/25/17 Time of Encounter: 15:15 - Cardiology Event Note Discussed with Dr. Glynn and Dr. Stella Payne, no intervention warranted to LAD. Can be considered moderate risk for low risk procedure from a cardiac standpoint. Needs to remain on asa and plavix-- recent stent a few weeks ago. Dr. Panda notified with planned surgery tomorrow. Cardiology will sign off, will require close outpatient follow-up, appt scheduled. All questions answered. 09/26/17 11:34 Impression: There is a moderate intensity stress perfusion defect involving the mid to distal anterior and anterolateral wall representing reversible ischemia. Pharmacologic stress ECG is negative for ischemia at level of heart rate achieved. Patient had chest pain/pressure during pharmacologic stress. Gated EF > 70%. Abnormal findings communicated to Cardiology service. 09/26/17 11:35 Procedures Performed: LEFT HEART CATH Indications: Abnormal Test - Stress Impressions: There is severe three vessel coronary artery disease. Previously stented LAD, RCA patent. The left ventricle is normal and has normal contractility EF 65% Recommendations: Optimal medical therapy of patient's disease. Aggressive risk factor modification. 09/26/17 11:35 Will proceed with surgery today as planned
[2017-09-26] MEDS ORDERED: *HR* HYDROmorphone (PF) 1 MG/ML SYRINGE IVP PRN ×2 (12:15→13:47)
[2017-09-26] MEDS ORDERED: *HR* Promethazine 25 MG/ML VIAL IVP PRN ×2 (12:15→13:47)
[2017-09-26] MEDS ORDERED: Ondansetron 4 MG/2 ML VIAL IVP ONE ×2 (12:15→13:47)
--- NOTE | 2017-09-26 13:31 | Operative Note ---
Date of procedure: 09/26/17 Pre-op diagnosis: left mid ureteral 1.2 cm stone Post-op diagnosis: same Procedure: left ureteroscopic stone extraction with holmium laser left JJ stent left retrograde pyelogram Anesthesia: GETA Surgeon: Jose Panda Was there an public services assistant present: No Estimated blood loss (cc): 0 Specimen: stone fragmens Condition: stable Disposition: PACU Procedure in Detail: PROCEDURE IN DETAIL: Patient was taken back to the operating room, positioned supine on the operating table. Anesthesia was applied without complication. They were moved into dorsal lithotomy. Careful attention was maintained to cushion all pressure points for patient's safety. They were prepped and draped in sterile fashion. Time-out was performed with the proper patient and procedure. A 21-Algerian rigid cystoscope was inserted into the bladder without difficulty. Systematic examination of bladder revealed no abnormalities. The ureteral orifice was cannulated using a 5-Algerian ureteral Catheter and a retrograde pyelogram was performed using Isovue. A filling defect was identified which corresponded to the stone in the mid left ureter. At that point, a zip wire was placed through the 5-Algerian and confirmed in the renal pelvis with fluoroscopy. An 8-10 dilator was then placed over the zip wire to passively dilate the ureteral orifice. A semi-rigid ureteroscope was carefully inserted into the bladder and guided into the ureteral oriface. At that point, the stone was encountered and I felt that it required fragmentation for safe extraction. A 200 micron holmium laser fiber on a setting of 8 and 800 was used to fragment the stone into multiple pieces. The fragments were individually basketed out of the ureter with a 1.9 tipless basket. All stone in the ureter was removed. A 4.8 x 26 ureteral stent was placed over the zip wire under fluoroscopy without complication. The bladder was drained along with the stone fragments. They were collected and sent for stone analysis. No string was left attached to the stent. pt can be discharged from the floor when she is stable.
[2017-09-26] MEDS ORDERED: *HR* LORazepam 0.5 MG TABLET PO PRN (13:47)
[2017-09-26] MEDS ORDERED: *HR* Dextrose 50 % in Water (Syg) 50 ML SYRINGE IVP PRN (13:47)
[2017-09-26] MEDS ORDERED: Naloxone 0.4 MG/ML INJ IVP PRN (13:47)
[2017-09-26] MEDS ORDERED: Acetaminophen 325 MG TABLET PO PRN (13:47)
[2017-09-26] MEDS ORDERED: Dextrose Gel 15 GM/37.5 ML TUBE PO PRN ×2 (13:47)
[2017-09-26] MEDS ORDERED: ALPRAZolam 0.25 MG TABLET PO PRN (13:47)
[2017-09-26] MEDS ORDERED: D5% in Water 1,000 ML IVC PRN (13:47)
[2017-09-26] MEDS ORDERED: *HR* EPINEPHrine 0.3 MG/0.3 ML (PEN) IM PRN (13:47)
[2017-09-26] MEDS ORDERED: Loratadine 10 MG TABLET PO PRN (13:47)
[2017-09-26] MEDS ORDERED: Ondansetron 4 MG/2 ML VIAL IVP PRN (13:47)
--- NOTE | 2017-09-26 15:16 | Discharge Summary ---
Date of Encounter: 09/26/17 Time of Encounter: 15:09 - Discharge Diagnosis (1) Left ureteral stone Priority: Primary Status: Acute Comments: known hx ureteral stone. Evaluated by urology 08/2017 hospitalization who recommended outpatient follow-up. Now with recurrent ABD/chest pain. ABD CT showed 1.2 cm obstructing left ureteral calculi with hydronephrosis. S/p left ureteroscopic stone extraction with stent placement on 09/26/2017. Discussed with Dr. Panda and patient will need to follow-up with urology office in a couple weeks for stent removal (Dr. Panda's office to contact patient). Can take AZO over the counter PRN. Will discharge home with 1 week rx for Ruso. (2) CAD (coronary artery disease) Priority: Secondary Status: Chronic Comments: with hx [place] and 10 stents. Had LHC that resulted in multivessel PCI. Repeat 09/03/2017 [facility] with mid LAD 80% stenosis; s/p PCI/YOSELIN. Has been compliant with medications. Now with increasing chest discomfort at rest and with activity concerning for unstable angina. Underwent another [facility] on 2017 with redemonstration of severe three-vessel CAD and patent stent to LAD and RCA. Continue dual antiplatelet therapy, BB, nitrate, low-dose statin. Follow-up with cardiology as previously planned Qualifiers: Coronary Disease-Associated Artery/Lesion type: [place] artery [place] vs. transplanted heart: [place] heart Associated angina: with stable angina Qualified Code(s): I25.118 - Atherosclerotic heart disease of [place] coronary artery with other forms of angina pectoris (3) Diabetes mellitus type 2, noninsulin dependent Priority: Secondary Status: Chronic Comments: per hx. blood sugars controlled. Continue home diabetes medication regimen - Discharge Medications Prescriptions: Cranberry Fruit Extract/Vit C [Azo Cranberry Softgel] 1 each PO BID PRN #60 capsule PRN Reason: See Comments HYDROcodone/Acet 5/325 mg [R[place] 5-325 mg] 1 tab PO Q6H PRN #28 tab PRN Reason: Pain Home Medications: ALPRAZolam [Xanax 0.25 MG Tablet] 0.25 mg PO BID PRN 07/12/16 [History] Aspirin 81 mg PO DAILY 07/12/16 [History] Clopidogrel [Plavix] 75 mg PO DAILY 07/12/16 [History] Isosorbide MONOnitrate [Isosorbide Mononitrate ER] 240 mg PO DAILY 07/12/16 [ History] Nitroglycerin [Nitrostat] 0.4 mg SL Q5M PRN 07/12/16 [History] Lisinopril [Zestril] 10 mg PO DAILY #15 tablet 07/14/16 [Rx] Glimepiride 1 mg PO BID 08/16/16 [History] metFORMIN [Glucophage] 500 mg PO BID 08/16/16 [History] Cholecalciferol (D-3) [Vitamin D] 2,000 unit PO DAILY 10/11/16 [History] Loratadine [Allergy Relief] 10 mg PO DAILY PRN 10/11/16 [History] Dicyclomine [Bentyl] 10 mg PO QID PRN 12/13/16 [History] Ezetimibe [Zetia] 10 mg PO DAILY 09/01/17 [History] Metoprolol [Lopressor] 12.5 mg PO BID 09/01/17 [History] EPINEPHrine [Epipen] 0.3 mg IM ONCE PRN 09/25/17 [History] Ranolazine [Ranexa] 500 mg PO BID 09/25/17 [History] Cranberry Fruit Extract/Vit C [Azo Cranberry Softgel] 1 each PO BID PRN #60 capsule 09/26/17 [Rx] HYDROcodone/Acet 5/325 mg [Ruso 5-325 mg] 1 tab PO Q6H PRN #28 tab 09/26/17 [Rx ] Allergies/Adverse Reactions: 3 Allergy/AdvReac Type Severity Reaction Status Date / Time penicillin V Allergy Anaphylaxis Verified 09/25/17 10:20 atorvastatin [From Lipitor] AdvReac Muscle Pain Verified 09/25/17 10:20 lovastatin AdvReac Muscle Pain Verified 09/25/17 10:20 [id number] Reductase AdvReac Muscle Pain Verified 09/25/17 10:20 Inhibitor [Statins] Procedures/tests Complete & Pending: Procedures Performed prior 72 hours Category Date Time Status CL Cardiac Catheterization [CL] Routine Log Hauler 09/25/17 11:30 Completed NM yoandy perf SPECT multi [NM] Routine Exams 09/25/17 07:00 Taken SP pharm nuclear stress Routine Y 09/25/17 08:00 Completed Date of admission: 09/23/17 20:06 Primary care physician: Myranda Lauren DO Consults: 09/23/17 21:11 Consult to Cardiology [CONS] Routine Comment: Consulting Provider: Elizabeth Serrano Reason for Consult: Chest pain, recent stent, plan for urology procedure Call Completed: No - Patient Status Disposition: Home, Self-Care Condition: Good Functional capacity at discharge: independent ambulation Overall status at discharge: patient is back to baseline - Discharge Instructions Instructions: Kidney Stones (DC), Lithotripsy for Removal of Kidney Stones (DC) , Urethral Stent Placement (DC), Hydrocodone/Acetaminophen (By mouth) Follow Up With: Myranda Lauren DO [Primary Care Provider] - 10/02/17 11:15 am Jose Panda MD [Partnered Physician] - - Diet and Activity Activity: increase activity as tolerated Diet: diabetic diet, low fat, low cholesterol Interval History: Seen and examined at bedside. She just returned from ureteral stone removal. Complains of abdominal discomfort and dysuria but overall improved. She would like to go home later this evening if possible. This with Dr. Panda and toshaay to discharge home from neurological standpoint; will need to follow-up with Dr. Panda's office for stone removal in 2-3 weeks. Hospital course: See assessment and plan for hospital course - Time Spent with Patient Total time spent providing and/or coordinating discharge services: - Constitutional Vitals: Temp Pulse Resp BP Pulse Ox 98.0 F 77 16 127/74 95 09/26/17 13:34 09/26/17 13:34 09/26/17 13:34 09/26/17 13:34 09/26/17 13:34 General appearance: Present: cooperative, A&O X 3, pleasant, no acute distress, answers questions appropriately - Head Head exam: Present: atraumatic, normocephalic - Eye Eye exam: Present: PERRL, conjuntiva pink, sclera anicteric Pupils: Present: PERRL - Neck Neck exam general surgery: Present: supple, trachea midline. Absent: lymphadenopathy - Respiratory Respiratory exam: Present: CTAB. Absent: accessory muscle use, rales, rhonchi, wheezes - Cardiovascular Cardiovascular exam: Present: RRR, +S1, +S2. Absent: diastolic murmur, gallop, rubs, systolic murmur - GI/Abdominal GI/Abdominal exam: Present: normal bowel sounds, soft, no peritoneal signs. Absent: distended, tenderness - Extremities Exam Extremities exam: Present: warm, radial pulses palpable and symmetrical. Absent : calf tenderness, cyanotic, pedal edema - Neurological Exam Neurological exam: Present: CN II-XII intact, oriented X3, no focal deficits. Absent: pronater drift, facial droop, speech deficit - Skin Skin exam: Present: dry, intact - VTE Documentation of Mechanical Device: Intermittent pneumatic compression device
--- NOTE | 2017-09-26 15:24 | Anesthesia Evaluation Post Op ---
Date of Encounter: 09/26/17 Time of Encounter: 13:30 - Vital Signs Vital Signs: Vital Signs/O2 Sat/Glucose, Most Current Temp Pulse Resp BP Pulse Ox 09/26/17 13:34 98.0 F 77 16 127/74 95 09/26/17 13:24 78 16 127/68 94 09/26/17 13:14 78 16 126/72 93 09/26/17 13:04 98.0 F 80 16 132/76 95 - Lungs Lungs: Clear Ascult./Percussion - Airway Airway: Non-obstructed - Cardiovascular Regular Rate - Mental Status Mental Status: Alert & Oriented, Answers Appropriately - Pain Pain Scale: 0 - Nausea Vomiting Nausea Vomiting: Not Present - Hydration Hydration: Ice chips - Discharge PostOp Status: Transfer Patient to floor
[2017-09-26] MEDS: *HR* HYDROcodone/Acet 5/325 mg TABLET PO PRN ×2 (15:25→22:40)
[2017-09-26] MEDS: *HR* Morphine 2 MG/ML SYRINGE IVP PRN (17:11)
[2017-09-26] MEDS ORDERED: Insulin LISPRO 300 UNITS/3 ML VIAL SQ SCH (21:00)
[2017-09-26] MEDS: *HR* Glimepiride 2 MG TABLET PO SCH (21:15)
[2017-09-26] MEDS: *HR* Metformin 500 MG TABLET PO SCH (21:16)
[2017-09-27] MEDS: *HR* Morphine 2 MG/ML SYRINGE IVP PRN (03:29)
[2017-09-27] MEDS: *HR* Glimepiride 2 MG TABLET PO SCH (08:54)
[2017-09-27] MEDS: *HR* Metformin 500 MG TABLET PO SCH (08:54)
[2017-09-27] MEDS: Isosorbide MONOnitrate (24 HR) 30 MG TAB.ER.24H PO SCH (08:55)
[2017-09-27] MEDS: Ranolazine 500 MG TAB.ER.12H PO SCH ×2 (08:58→11:38)
[2017-09-27] MEDS ORDERED: Aspirin 81 MG TAB.CHEW PO SCH (09:00)
[2017-09-27] MEDS ORDERED: Cholecalciferol (D-3) 1,000 UNIT TABLET PO SCH (09:00)
[2017-09-27] MEDS ORDERED: (Ezetimibe [Zetia] 10 MG) PO SCH (09:00)
[2017-09-27] MEDS: Insulin LISPRO 300 UNITS/3 ML VIAL SQ SCH ×2 (09:01→11:44)
[2017-09-27] MEDS: *HR* HYDROcodone/Acet 5/325 mg TABLET PO PRN (09:45)
[2017-09-27 11:31] VITALS: BP 148/86
[2017-09-27] MEDS ORDERED: *HR* Belladonna Alkaloids/Opium 30 MG RECTAL SUPPOSITORY RC PRN (11:59)
[2017-09-27 13:38] LABS: Hematocrit 30.9 % (35.3-44.9); Hemoglobin 10.7 g/dL (11.5-15.4)
--- NOTE | 2017-09-27 13:57 | Discharge Summary ---
Date of Encounter: 09/27/17 Time of Encounter: 13:57 - Discharge Diagnosis (1) Left ureteral stone Priority: Primary Status: Acute Comments: known hx ureteral stone. Evaluated by urology 08/2017 hospitalization who recommended outpatient follow-up. Now with recurrent ABD/chest pain. ABD CT showed 1.2 cm obstructing left ureteral calculi with hydronephrosis. S/p left ureteroscopic stone extraction with stent placement on 09/26/[address] Panda. Hospitalization prolonged due to uncontrolled pain postprocedure requiring IV pain control and hematuria. Discussed with Dr. Panda on 09/27/17 and hematuria is to be expected as it was difficult to extract stone and she is on dual antiplatelet therapy which cannot be stopped due to recent PCI. Pain controlled at time of discharge. Discharge home on PRN [place], Pyridium, belladonna rectal suppository. Will need to follow up with urology for stent removal (2) CAD (coronary artery disease) Priority: Secondary Status: Chronic Comments: with hx [place] and 10 stents. Had LHC that resulted in multivessel PCI. Repeat 09/03/2017 [facility] with mid LAD 80% stenosis; s/p PCI/YOSELIN. Has been compliant with medications. Now with increasing chest discomfort at rest and with activity concerning for unstable angina. Underwent another [facility] on 2017 with redemonstration of severe three-vessel CAD and patent stent to LAD and RCA. Continue dual antiplatelet therapy, BB, nitrate, low-dose statin. Follow-up with cardiology as previously planned Qualifiers: Coronary Disease-Associated Artery/Lesion type: [place] artery [place] vs. transplanted heart: [place] heart Associated angina: with stable angina Qualified Code(s): I25.118 - Atherosclerotic heart disease of [place] coronary artery with other forms of angina pectoris (3) Diabetes mellitus type 2, noninsulin dependent Priority: Secondary Status: Chronic Comments: per hx. blood sugars controlled. Continue home diabetes medication regimen - Discharge Medications Prescriptions: Belladonna Alkaloids/Opium [B + O] 30 mg RC Q6HR PRN #14 supp.rect PRN Reason: Spasms Phenazopyridine [Pyridium] 200 mg PO TID PRN #90 tablet PRN Reason: See Comments Home Medications: ALPRAZolam [Xanax 0.25 MG Tablet] 0.25 mg PO BID PRN 07/12/16 [History] Aspirin 81 mg PO DAILY 07/12/16 [History] Clopidogrel [Plavix] 75 mg PO DAILY 07/12/16 [History] Isosorbide MONOnitrate [Isosorbide Mononitrate ER] 240 mg PO DAILY 07/12/16 [ History] Nitroglycerin [Nitrostat] 0.4 mg SL Q5M PRN 07/12/16 [History] Lisinopril [Zestril] 10 mg PO DAILY #15 tablet 07/14/16 [Rx] Glimepiride 1 mg PO BID 08/16/16 [History] metFORMIN [Glucophage] 500 mg PO BID 08/16/16 [History] Cholecalciferol (D-3) [Vitamin D] 2,000 unit PO DAILY 10/11/16 [History] Loratadine [Allergy Relief] 10 mg PO DAILY PRN 10/11/16 [History] Dicyclomine [Bentyl] 10 mg PO QID PRN 12/13/16 [History] Ezetimibe [Zetia] 10 mg PO DAILY 09/01/17 [History] Metoprolol [Lopressor] 12.5 mg PO BID 09/01/17 [History] EPINEPHrine [Epipen] 0.3 mg IM ONCE PRN 09/25/17 [History] Ranolazine [Ranexa] 500 mg PO BID 09/25/17 [History] Cranberry Fruit Extract/Vit C [Azo Cranberry Softgel] 1 each PO BID PRN #60 capsule 09/26/17 [Rx] HYDROcodone/Acet 5/325 mg [[place] 5-325 mg] 1 tab PO Q6H PRN #28 tab 09/26/17 [Rx ] Belladonna Alkaloids/Opium [B + O] 30 mg RC Q6HR PRN #14 supp.rect 09/27/17 [Rx] Phenazopyridine [Pyridium] 200 mg PO TID PRN #90 tablet 09/27/17 [Rx] Allergies/Adverse Reactions: 3 Allergy/AdvReac Type Severity Reaction Status Date / Time penicillin V Allergy Anaphylaxis Verified 09/25/17 10:20 atorvastatin [From Lipitor] AdvReac Muscle Pain Verified 09/25/17 10:20 lovastatin AdvReac Muscle Pain Verified 09/25/17 10:20 [id number]-[id number]-Ghz Reductase AdvReac Muscle Pain Verified 09/25/17 10:20 Inhibitor [Statins] Date of admission: 09/26/17 19:04 Primary care physician: Myranda Lauren DO Discharging clinician: Brenda Bustamante Anticipated date of discharge: 09/27/17 - Patient Status Disposition: Home, Self-Care Condition: Good Functional capacity at discharge: independent ambulation Overall status at discharge: patient is progressing back to baseline - Discharge Instructions Instructions: Hydrocodone/Acetaminophen (By mouth), Kidney Stones (DC), Lithotripsy for Removal of Kidney Stones (DC), Urethral Stent Placement (DC), Phenazopyridine (By mouth) Follow Up With: Myranda Lauren DO [Primary Care Provider] - 10/02/17 11:15 am Jose Panda MD [Partnered Physician] - 10/19/17 3:00 pm - Diet and Activity Activity: increase activity as tolerated Diet: advance to your usual diet Interval History: Seen and examined at bedside; still with moderate ABD discomfort and dysuria. Discussed case with Dr. Panda who recommended adding pyridium and belladonna rectal suppository. Advised patient that she should return to ER if she is passing multiple clots or unable to void. Hospital course: See assessment and plan for hospital course - Time Spent with Patient Total time spent providing and/or coordinating discharge services: Greater than 30 minutes (38 minutes spent on discharge) - Constitutional Vitals: Temp Pulse Resp BP Pulse Ox 98.1 F 89 16 148/86 96 09/27/17 11:30 09/27/17 11:30 09/27/17 11:30 09/27/17 11:30 09/27/17 06:37 General appearance: Present: cooperative, A&O X 3, pleasant, no acute distress, answers questions appropriately - Head Head exam: Present: atraumatic, normocephalic - Eye Eye exam: Present: PERRL, conjuntiva pink, sclera anicteric Pupils: Present: PERRL - Neck Neck exam general surgery: Present: supple, trachea midline. Absent: lymphadenopathy - Respiratory Respiratory exam: Present: CTAB. Absent: accessory muscle use, rales, rhonchi, wheezes - Cardiovascular Cardiovascular exam: Present: RRR, +S1, +S2. Absent: diastolic murmur, gallop, rubs, systolic murmur - GI/Abdominal GI/Abdominal exam: Present: normal bowel sounds, soft, no peritoneal signs. Absent: distended, tenderness - Extremities Exam Extremities exam: Present: warm, radial pulses palpable and symmetrical. Absent : calf tenderness, cyanotic, pedal edema - Neurological Exam Neurological exam: Present: CN II-XII intact, oriented X3, no focal deficits. Absent: pronater drift, facial droop, speech deficit - Skin Skin exam: Present: dry, intact - VTE Documentation of Mechanical Device: Intermittent pneumatic compression device
== END 2017-09-27 17:17 | disposition home or self-care (01) | DRG 988 ==
LOC: 3BNU 17:24 → EMEROO 17:24 → 3BNU 21:09
PROVIDERS: ADMIT Internal Medicine; ATTEND Registered Nurse

== ENCOUNTER 2018-05-15 09:22 | Observation (INO) ==
[2018-05-15] MEDS ORDERED: Aspirin 81 MG TAB.CHEW PO STA (09:57)
--- NOTE | 2018-05-15 10:01 | Emergency Department Note ---
Disposition Clinical Impression: Chest pain Disposition: Admitted As Inpatient Condition: Fair Forms: ED Satisfaction Letter General Adult HPI - General Chief complaint: ED Chest Pain Stated complaint: CP/back pain Time Seen by Provider: 05/15/18 09:56 - History of Present Illness HPI Narrative: Chest pain replicating her prior ischemic pain is intensified over the last couple of days. Pain is intermittent, a retrosternal heaviness with radiation to her left arm and neck. Associated with nausea, diaphoresis and shortness of breath. Worse with exertion and breathing. She has not had a cough or fever. She complains of some leg cramping and some twitching of her eye. No symptoms of GI bleeding or other abnormal bleeding. Her last heart catheter demonstrated to 40% blockages. She has needed stents about once a year. She has an appointment to see Dr. Irwin this morning was Dr. Irwin had to cancel. Pain Scale: 8 - Related Data Home Medications Medication Instructions Recorded Confirmed ALPRAZolam [Xanax 0.25 MG Tablet] 0.25 mg PO BID PRN 07/12/16 10/31/17 Aspirin 81 mg PO DAILY 07/12/16 10/31/17 Clopidogrel [Plavix] 75 mg PO DAILY 07/12/16 10/31/17 Isosorbide MONOnitrate [Isosorbide 120 mg PO BID 07/12/16 10/31/17 Mononitrate ER] Nitroglycerin [Nitrostat] 0.4 mg SL Q5M PRN 07/12/16 10/31/17 Glimepiride 1 mg PO BID 08/16/16 10/31/17 metFORMIN [Glucophage] 500 mg PO BID 08/16/16 10/31/17 Cholecalciferol (D-3) [Vitamin D] 2,000 unit PO DAILY 10/11/16 10/31/17 Loratadine [Allergy Relief] 10 mg PO DAILY PRN 10/11/16 10/31/17 Dicyclomine [Bentyl] 10 mg PO QID PRN 12/13/16 10/31/17 Ezetimibe [Zetia] 10 mg PO DAILY 09/01/17 10/31/17 Metoprolol [Lopressor] 12.5 mg PO BID 09/01/17 10/31/17 EPINEPHrine [Epipen] 0.3 mg IM ONCE PRN 09/25/17 10/31/17 Pantoprazole Sodium [Protonix] 40 mg PO BID 10/18/17 10/31/17 Rosuvastatin Calcium [Crestor] 2.5 mg PO SA 10/31/17 10/31/17 Sucralfate [Carafate] 1 gm PO TID 10/31/17 10/31/17 Ranexa 500 mg PO BID 01/23/18 01/23/18 Previous Rx's Medication Instructions Recorded Lisinopril [Zestril] 10 mg PO DAILY #15 tablet 07/14/16 Cranberry Fruit Extract/Vit C [Azo 1 each PO BID PRN #60 capsule 09/26/17 Cranberry Softgel] Allergies Allergy/AdvReac Type Severity Reaction Status Date / Time penicillin V Allergy Anaphylaxis Verified 05/15/18 09:32 atorvastatin [From Lipitor] AdvReac Muscle Pain Verified 05/15/18 09:32 lovastatin AdvReac Muscle Pain Verified 05/15/18 09:32 Ojjwebk-[id number]-[id number] Reductase AdvReac Muscle Pain Verified 05/15/18 09:32 Inhibitor [Statins] All systems ED: reviewed and negative except as stated. 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 Gen.: Well-developed, well-nourished patient lying in bed who appears nontoxic. Head: Atraumatic, normocephalic. Eyes: Sclerae anicteric. ENT: Mucous membranes moist. Neck: No JVD or hepatojugular reflux. Heart: Regular rate and rhythm without appreciable murmur. Lungs: Normal respiratory pattern without respiratory distress, lungs clear to auscultation bilaterally. Abdomen: Soft, nontender, nondistended, no guarding or peritoneal signs. Skin: Warm and dry without rash. Neurologic: Awake, alert with normal speech and mental status. Cranial nerves grossly intact. No focal deficits or lateralizing signs. Psychiatric: Normal mood and affect. Muscular skeletal: No peripheral edema. No signs of trauma or DVT. Course Vital Signs Temperature 98.4 F 05/15/18 09:28 Pulse Rate 81 05/15/18 09:28 Respiratory Rate 16 05/15/18 09:28 Blood Pressure 154/86 05/15/18 09:28 O2 Sat by Pulse Oximetry 96 05/15/18 09:28 Temperature 98.4 F 05/15/18 11:20 Pulse Rate 77 05/15/18 11:30 Respiratory Rate 16 05/15/18 11:30 Blood Pressure 132/68 05/15/18 11:30 O2 Sat by Pulse Oximetry 96 05/15/18 11:30 Oxygen Delivery Oxygen Delivery Room Air Medical Decision Making - Lab Data Result diagrams: 05/15/18 09:45 05/15/18 09:45 Lab Results 05/15/18 05/15/18 05/15/18 Range/Units 09:45 09:45 09:45 WBC 3.2 L (4.3-11.1) K/mcL RBC 3.63 L (3.82-4.97) M/mcL Hgb 12.4 (11.5-15.4) g/dL Hct 35.0 L (35.3-44.9) % MCV 96.4 (83.0-100.0) fL MCH 34.2 H (28.0-33.3) pg MCHC 35.4 (31.6-35.5) g/dL RDW 13.0 (11.5-14.5) % Plt Count 241 (140-400) K/mcL MPV 8.7 L (9.4-12.4) fL Immature Gran % 0.3 (0-4) % Seg Neutrophils % 50.9 % Lymphocytes % 36.3 % Monocytes % 11.6 % Eosinophils % 0.6 % Basophils % 0.3 % Neutrophils # 1.6 (1.6-8.9) K/mcL Lymphocytes # 1.2 (0.6-4.6) K/mcL Monocytes # 0.4 (0.0-1.3) K/mcL Eosinophils # 0.0 (0.0-0.6) K/mcL Basophils # 0.0 (0.0-0.2) K/mcL Sodium 135 L (136-145) mEq/L Potassium 4.1 (3.5-5.1) mEq/L Chloride 103 (98-107) mEq/L Carbon Dioxide 24 (23-29) mEq/L BUN 13 (8-23) mg/dL Creatinine 0.73 (0.60-1.20) mg/dL Est GFR ( Amer) > 60 (> 60) Est GFR (Non-Af Amer) > 60 (> 60) BUN/Creatinine Ratio 18 (6-26) Glucose 150 H (70-105) mg/dL Calculated Osmolality 283 (280-300) Calcium 9.4 (8.6-10.3) mg/dL Total Bilirubin 0.4 (0.3-1.0) mg/dL Direct Bilirubin 0.1 (0.0-0.2) mg/dL Indirect Bilirubin 0.3 (0.0-1.2) mg/dL AST 14 (13-39) Units/L ALT 15 (7-52) Units/L Alkaline Phosphatase 69 (34-104) Units/L Troponin I < 0.03 (< 0.04) ng/mL B-Natriuretic Peptide 9 (Less than 100) pg/mL Serum Total Protein 7.4 (6.4-8.9) g/dL Albumin 4.5 (3.5-5.7) g/dL Globulin 2.9 (2.4-3.5) g/dL Albumin/Globulin Ratio 1.6 (1.1-2.2) - EKG Data EKG #1 EKG results narrative: Per my interpretation shows rate of 83, normal intervals and QRS duration. Some nonspecific T-wave flattening in leads [address] segment changes.
[2018-05-15 10:05] LABS: Basophils % 0.3 %; Eosinophils % 0.6 %; Hemoglobin 12.4 g/dL (11.5-15.4); Immature Granulocytes % 0.3 % (0-4); Lymphocytes # 1.2 K/mcL (0.6-4.6); Lymphocytes % 36.3 %; Mean Corpuscular HGB Conc 35.4 g/dL (31.6-35.5); Mean Corpuscular Hemoglobin 34.2 pg (28.0-33.3); Mean Corpuscular Volume 96.4 fL (83.0-100.0); Mean Platelet Volume 8.7 fL (9.4-12.4); Monocytes # 0.4 K/mcL (0.0-1.3); Monocytes % 11.6 %; Neutrophils # 1.6 K/mcL (1.6-8.9); Platelet Count 241 K/mcL (140-400); Red Blood Count 3.63 M/mcL (3.82-4.97); Segmented Neutrophils % 50.9 %
[2018-05-15 10:25] LABS: Alanine Aminotransferase 15 Units/L (7-52); Albumin 4.5 g/dL (3.5-5.7); Albumin/Globulin Ratio 1.6 (1.1-2.2); Alkaline Phosphatase 69 Units/L (34-104); Aspartate Amino Transferase 14 Units/L (13-39); BUN/Creatinine Ratio 18 (6-26); Bilirubin,Direct 0.1 mg/dL (0.0-0.2); Bilirubin,Indirect 0.3 mg/dL (0.0-1.2); Bilirubin,Total 0.4 mg/dL (0.3-1.0); Blood Urea Nitrogen 13 mg/dL (8-23); Calcium 9.4 mg/dL (8.6-10.3); Carbon Dioxide 24 mEq/L (23-29); Chloride 103 mEq/L (98-107); Globulin 2.9 g/dL (2.4-3.5); Glucose 150 mg/dL (70-105); Osmolality,Calculated 283 (280-300); Potassium 4.1 mEq/L (3.5-5.1); Sodium 135 mEq/L (136-145); Total Protein 7.4 g/dL (6.4-8.9); Troponin I < 0.03 ng/mL (< 0.04); eGFR For Non-African Americans > 60 (> 60)
[2018-05-15] MEDS: Nitroglycerin 0.4 MG TAB.SUBL SL PRN (11:25)
[2018-05-15] MEDS ORDERED: *HR* HYDROcodone/Acet 5/325 mg TABLET PO PRN (16:59)
[2018-05-15] MEDS ORDERED: Acetaminophen 325 MG TABLET PO PRN (16:59)
[2018-05-15] MEDS ORDERED: Naloxone 0.4 MG/ML INJ IVP PRN (16:59)
[2018-05-15] MEDS ORDERED: Pantoprazole 40 MG VIAL IVP ONE (17:10)
[2018-05-15] MEDS ORDERED: Dextrose Gel 15 GM/37.5 ML TUBE PO PRN ×2 (17:21)
[2018-05-15] MEDS ORDERED: D5% in Water 1,000 ML IVC PRN (17:21)
[2018-05-15] MEDS ORDERED: *HR* Dextrose 50 % in Water (Syg) 50 ML SYRINGE IVP PRN (17:21)
--- NOTE | 2018-05-15 17:27 | Internal Med History&Physical ---
Date of Encounter: 05/15/18 Time of Encounter: 16:30 Internal Medicine - H&P: HPI Chief complaint: CP Admitted From: Emergency Dept Plans for Post Hospital Care: Home History of present illness: Ms. Seth is a 72 year old female w/PMH of CAD, diabetes controlled w/oral medications, GERD, HLD, HTN, hx of kidney stones, hx of previous NE, RA, macular hole in right eye, and recent eye twitching, and hx of stents x11 presents from the the ED w/CC of CP since April 17 that pt. describes as intermittent and has become progressively worse over the past two weeks. Worse w /exertion. Associated sx: SOB. Pt. describes CP as centralized pressure w/ radiation to right shoulder and back. Pt. denies recent illness, fever, chills, nausea, vomiting, headache, changes in vision, unusual bleeding, cough, chest congestion, abdominal pain, diarrhea, constipation, dizziness, lightheadedness, numbness, tingling, pre-syncope, and syncope. Past Med Surg Social Fam HX - Past Medical History Source: patient, old records reviewed Medical history: coronary artery disease, diabetes, GERD, hyperlipidemia, hypertension, kidney stones, myocardial infarction, RA Additional medical history: cataracts, Recurrent UTI, Fatty Liver, Psychiatric history: anxiety, depression - Past Surgical History Surgical History: angioplasty/stent (x 11) Additional surgical history: broken ankle, macular hole in Right eye, carpal tunnel, 11 cardiac stents - Social History Smoking Status: Never smoker Smokeless Tobacco Status: No Alcohol use: none Drug use: none Current living situation: Home, With Family Activity Level: Independent ambulation, Very active Recent Out of Country Travel Within the Last 8 Weeks: No Exposure or Possible Exposure to Illness During Travel: No - Family History Mother Adopted: No Race: Family Member Ethnicity: Non- Living Status: Age at : 69 Cause of : Esophageal varices Hx Family Cardiac Disorders: Yes (Esophageal varices) Hx Family Endocrine Disorder: Yes (Cirrhosis) Hx Family Psychosocial Disorders: Yes (Alcoholism) Father Adopted: No Race: Family Member Ethnicity: Non- Living Status: Age at : 47 Cause of : NE Hx Family Cardiac Disorders: Yes (NE) Hx Family Respiratory Disorders: Yes (Smoker) Grandmother Race: Family Member Ethnicity: Non- Hx Family Endocrine Disorder: Yes (Diabetes) Internal Medicine - H&P: Meds ALPRAZolam [Xanax 0.25 MG Tablet] 0.25 mg PO BID PRN 07/12/16 [History] Aspirin 81 mg PO DAILY 07/12/16 [History] Clopidogrel [Plavix] 75 mg PO DAILY 07/12/16 [History] Isosorbide MONOnitrate [Isosorbide Mononitrate ER] 120 mg PO BID 07/12/16 [ History] Nitroglycerin [Nitrostat] 0.4 mg SL Q5M PRN 07/12/16 [History] Lisinopril [Zestril] 10 mg PO DAILY #15 tablet 07/14/16 [Rx] Glimepiride 1 mg PO BID 08/16/16 [History] metFORMIN [Glucophage] 500 mg PO BID 08/16/16 [History] Cholecalciferol (D-3) [Vitamin D] 2,000 unit PO DAILY 10/11/16 [History] Loratadine [Allergy Relief] 10 mg PO DAILY PRN 10/11/16 [History] Dicyclomine [Bentyl] 10 mg PO QID PRN 12/13/16 [History] Ezetimibe [Zetia] 10 mg PO DAILY 09/01/17 [History] Metoprolol [Lopressor] 12.5 mg PO BID 09/01/17 [History] EPINEPHrine [Epipen] 0.3 mg IM ONCE PRN 09/25/17 [History] Cranberry Fruit Extract/Vit C [Azo Cranberry Softgel] 1 each PO BID PRN #60 capsule 09/26/17 [Rx] Pantoprazole Sodium [Protonix] 40 mg PO BID 10/18/17 [History] Rosuvastatin Calcium [Crestor] 2.5 mg PO SA 10/31/17 [History] Sucralfate [Carafate] 1 gm PO TID 10/31/17 [History] Ranexa 500 mg PO BID 01/23/18 [History] 3 Allergy/AdvReac Type Severity Reaction Status Date / Time penicillin V Allergy Anaphylaxis Verified 05/15/18 09:32 atorvastatin [From Lipitor] AdvReac Muscle Pain Verified 05/15/18 09:32 lovastatin AdvReac Muscle Pain Verified 05/15/18 09:32 [id number]-[id number]-Pqz Reductase AdvReac Muscle Pain Verified 05/15/18 09:32 Inhibitor [Statins] All Systems PM: A 10-system review of systems was performed and is negative for pertinent findings except as documented above in the HPI. - Constitutional Constitutional: no chills, no fever(s), no night sweats - EENT Eyes: no change in vision, no discharge, no pain, no photophobia Ears: no ear discharge, no ear pain, no tinnitus Nose, mouth and throat: no dysphagia, no nasal discharge, no neck pain, no sore throat - Breasts Breasts: as per HPI - Cardiovascular Cardiovascular ROS IM: as per HPI, chest pain (Centralized pressure), dyspnea, dyspnea on exertion, no diaphoresis, no lightheadedness, no palpitations, no syncope - Respiratory Respiratory: as per HPI, dyspnea, dyspnea on exertion, no cough, no wheezing, no excessive phlegm production - Gastrointestinal Gastrointestinal: as per HPI, heartburn, no abdominal pain, no diarrhea, no hematemesis, no hematochezia, no melena, no nausea, no vomiting - Genitourinary Genitourinary: no change in urinary stream, no dysuria, no flank pain, no hematuria Menstruation: as per HPI - Musculoskeletal Musculoskeletal ROS IM: arthralgias, no numbness, no tingling - Integumentary Integumentary IM: no rash, no unusual bruising - Neurological Neurological ROS: no confusion, no convulsions, no focal weakness, no numbness, no tingling, no tremor(s) - Psychiatric Psychiatric: as per HPI, anxiety, depression - Endocrine Endocrine IM: as per HPI - Hematologic/Lymphatic Hematologic/Lymphatic: no easy bruising - Allergic/Immunologic Allergic/Immunologic: as per HPI - Constitutional Vitals: Temp Pulse Resp BP Pulse Ox 98.6 F 76 16 151/68 96 05/15/18 17:11 05/15/18 17:11 05/15/18 17:11 05/15/18 17:11 05/15/18 17:11 General appearance: Present: cooperative, A&O X 3, pleasant, underweight, answers questions appropriately Exam: Pt. examined at bedside. States her CP has been intermittent since April 17 and worsened over the past two weeks. Pt. describes pain as centralized pressure w/ radiation to right shoulder and back. Worse w/exertion. Accompanying SOB. Pt. denies any other sx on exam. HR RRR, RR 17. Pt. is alert, oriented, and at ease/ conversational during exam. - Head Head exam: Present: atraumatic, normocephalic - Eye Eye exam: Present: PERRL, conjuntiva pink, sclera anicteric Pupils: Present: PERRL - ENT ENT exam: Present: normal exam - Neck Neck exam general surgery: Present: supple, trachea midline. Absent: lymphadenopathy - Respiratory Respiratory exam: Present: CTAB. Absent: accessory muscle use, rales, rhonchi, wheezes - Cardiovascular Cardiovascular exam: Present: RRR, +S1, +S2. Absent: diastolic murmur, gallop, rubs, systolic murmur - GI/Abdominal GI/Abdominal exam: Present: normal bowel sounds, soft, no peritoneal signs. Absent: distended, tenderness - Rectal Rectal exam: Present: deferred - Additional comments: exam deferred. - Extremities Exam Extremities exam: Present: warm, radial pulses palpable and symmetrical. Absent : calf tenderness, cyanotic, pedal edema - Back Exam Back exam: Present: normal inspection - Neurological Exam Neurological exam: Present: alert, CN II-XII intact, oriented X3, no focal deficits. Absent: pronater drift, facial droop, speech deficit - Psychiatric Psychiatric exam: Present: normal affect, normal mood - Skin Skin exam: Present: dry, intact Internal Med - H&P Results - Labs CBC & Chem 7: 05/15/18 09:45 05/15/18 09:45 - Diagnostic Studies Chest x-ray Additional comments: Impressions Chest X-Ray 05/15/18 09:32 IMPRESSION: No radiographic evidence of acute cardiopulmonary disease. D/ / Guicho Turner / Guicho Turner Interpreting Provider: Guicho Turner - Assessment and plan (1) Chest pain Current Visit: Yes Status: Acute Assessment and plan: Acute on chronic CP that began April 17 and pt. describes as intermittent and has become progressively worse over the past two weeks. Worse w/exertion. Associated sx: SOB. Pt. describes CP as centralized pressure w/radiation to right shoulder and back. Hx of previous NE and stent placement x11 (last two in September 2017). Reports two blockages of 40%. Last stress test in September 2017. Cardiology consult ordered and discussed w/ Dr. Irwin w/recommendation to trend troponins and order Echocardiogram. I appreciate the consult and recommendations as always. Initial troponin <0.03. Aspirin. SL nitro PRN. Cardiology to decide about stress test. Will keep pt. NPO @ midnight. Pt. discussed w/Dr. Pace who agrees w/plan of care. Pt. is high risk for cardiac event and further morbidity d/t current worsening CP for the past month , hx of previous NE and stent placement x11, hx; and risk factors of CAD, DM, HLD, HTN, and previous NE. Observation. Qualifiers: Chest pain type: other chest pain Qualified Code(s): R07.89 - Other chest pain; R07.8 - Other chest pain (2) SOB (shortness of breath) Current Visit: Yes Status: Acute Assessment and plan: Acute SOB accompanying CP sx. Denies home O2 use. Supplemental O2 w/titration and SpO2 monitoring PRN. (3) HLD (hyperlipidemia) Current Visit: Yes Status: Chronic Assessment and plan: Hx of chronic HLD. Lipid panel in a.m. labs. Continue pts. Zetia and Crestor. Qualifiers: Hyperlipidemia type: pure hypercholesterolemia Qualified Code(s): E78.00 - Pure hypercholesterolemia, unspecified; E78.0 - Pure hypercholesterolemia (4) HTN (hypertension) Current Visit: Yes Status: Chronic Assessment and plan: Hx of chronic HTN. Monitor pt. and VS. Continue pts. Zestril, Lopressor, and isosorbide. Qualifiers: Hypertension type: essential hypertension Qualified Code(s): I10 - Essential (primary) hypertension (5) CAD (coronary artery disease) Current Visit: Yes Status: Chronic Assessment and plan: Hx of chronic CAD w// stents x11 and previous NE. Pt. reports stent placement x2 in September 2017 w/two more areas that had 40% blockages. Continuous cardiac telemetry. Echocardiogram. Continue pts. Aspirin therapy, Plavix, isosorbide, Zestril, Lopressor, and Crestor. Qualifiers: Coronary Disease-Associated Artery/Lesion type: [place] artery [place] vs. transplanted heart: [place] heart Associated angina: with stable angina Qualified Code(s): I25.118 - Atherosclerotic heart disease of [place] coronary artery with other forms of angina pectoris (6) Diabetes mellitus type 2, noninsulin dependent Current Visit: Yes Status: Chronic Assessment and plan: Hx of chronic diabetes controlled w/oral anti-hyperglycemic medications. Hold oral medication and administer low-dose correction sliding scale insulin w/ hypoglycemic protocol. BG checks ACHS. A1c in a.m. labs. (7) GERD (gastroesophageal reflux disease) Current Visit: Yes Status: Chronic Assessment and plan: Hx of chronic GERD. IVP Zofran 4 mg Q6HR PRN for N/V. IVP Protonix 40 mg ONCE now. Continue pts. PO Protonix tomorrow. Qualifiers: Esophagitis presence: without esophagitis Qualified Code(s): K21.9 - Gastro -esophageal reflux disease without esophagitis (8) DVT prophylaxis Current Visit: Yes Status: Acute Assessment and plan: Heparin 5,000 units SQ Q8HR for DVT prophylaxis. Monitor pt. for signs of bleeding. - Time Spent With Patient Total time spent is greater than 50% in coordination of care (as documented) at patient's floor/unit and/or counseling patient: Greater than 35 minutes
[2018-05-15] MEDS ORDERED: Ondansetron 4 MG/2 ML VIAL IVP PRN (17:46)
[2018-05-15] MEDS: Insulin LISPRO 300 UNITS/3 ML VIAL SQ SCH (22:03)
[2018-05-15] MEDS: *HR* Heparin 5,000 UNIT/ML VIAL SQ SCH (22:56)
[2018-05-15] MEDS ORDERED: ALPRAZolam 0.25 MG TABLET PO PRN (23:36)
[2018-05-15] MEDS ORDERED: Loratadine 10 MG TABLET PO PRN (23:36)
[2018-05-16 04:39] LABS: Basophils % 0.3 %; Eosinophils % 0.8 %; Hematocrit 30.1 % (35.3-44.9); Immature Granulocytes % 0.3 % (0-4); Lymphocytes % 48.9 %; Mean Corpuscular HGB Conc 35.5 g/dL (31.6-35.5); Mean Corpuscular Hemoglobin 34.1 pg (28.0-33.3); Mean Corpuscular Volume 95.9 fL (83.0-100.0); Mean Platelet Volume 8.8 fL (9.4-12.4); Monocytes # 0.4 K/mcL (0.0-1.3); Monocytes % 9.3 %; Neutrophils # 1.6 K/mcL (1.6-8.9); Platelet Count 216 K/mcL (140-400); Red Blood Count 3.14 M/mcL (3.82-4.97); Segmented Neutrophils % 40.4 %
[2018-05-16 04:48] LABS: Hemoglobin 10.7 g/dL (11.5-15.4)
[2018-05-16 04:59] LABS: Alanine Aminotransferase 11 Units/L (7-52); Albumin 3.9 g/dL (3.5-5.7); Albumin/Globulin Ratio 1.4 (1.1-2.2); Alkaline Phosphatase 59 Units/L (34-104); Aspartate Amino Transferase 11 Units/L (13-39); BUN/Creatinine Ratio 18 (6-26); Bilirubin,Total 0.4 mg/dL (0.3-1.0); Blood Urea Nitrogen 14 mg/dL (8-23); Calcium 9.2 mg/dL (8.6-10.3); Carbon Dioxide 25 mEq/L (23-29); Chloride 105 mEq/L (98-107); Chol/HDL Ratio 5.3 (0-4.9); Cholesterol 202 mg/dL (< 200); Globulin 2.7 g/dL (2.4-3.5); Glucose 105 mg/dL (70-105); HDL Cholesterol 38 mg/dL (40-59); Magnesium 1.8 mg/dL (1.6-2.6); Osmolality,Calculated 283 (280-300); Potassium 3.9 mEq/L (3.5-5.1); Sodium 136 mEq/L (136-145); Total Protein 6.6 g/dL (6.4-8.9); Triglycerides 403 mg/dL (< 150); eGFR For Non-African Americans > 60 (> 60)
[2018-05-16] MEDS: *HR* Heparin 5,000 UNIT/ML VIAL SQ SCH ×3 (05:32→21:16)
[2018-05-16] MEDS: Nitroglycerin 0.4 MG TAB.SUBL SL PRN ×2 (06:59→07:07)
[2018-05-16 07:38] LABS: Estimated Average Glucose 137 mg/dl; Hemoglobin A1C 6.4 %
[2018-05-16] MEDS: Insulin LISPRO 300 UNITS/3 ML VIAL SQ SCH ×4 (08:13→21:15)
[2018-05-16] MEDS: Sucralfate 1 GM TABLET PO SCH ×3 (08:15→21:16)
[2018-05-16] MEDS: Aspirin Enteric Coated 81 MG Tablet PO SCH (08:16)
[2018-05-16] MEDS: Isosorbide MONOnitrate (24 HR) 60 MG TAB.ER.24H PO SCH ×2 (08:16→21:16)
[2018-05-16] MEDS: Cholecalciferol (D-3) 1,000 UNIT TABLET PO SCH (08:16)
[2018-05-16] MEDS ORDERED: CRANBERRY FRUIT EXTRACT PO PRN (08:25)
[2018-05-16] MEDS ORDERED: VIT C PO PRN (08:25)
--- NOTE | 2018-05-16 08:34 | Internal Med Progress Note ---
Hospitalist Progress Note - Encounter Date of Encounter: 05/16/18 Time of Encounter: 08:00 - Subjective Interval History: Pt was seen and assessed at 0800. Pt sitting up in bed, joking with staff. Reports chest pain since April 17 and states that it is located in the upper chest and is described as heaviness with some radiation to left shoulder and arm. Pt states this is different from her normal chest pain since it normally radiates into her neck. Pt states that she has had chest pain since 0 today. Pt was to see Dr. Rubi on 05/13, but the appointment was cancelled. She denies SOB, headache, n/v, abdominal pain, peripheral edema, or dizziness. - Exam Vitals: Temp Pulse Resp BP Pulse Ox 98.0 F 80 16 102/67 97 05/16/18 07:39 05/16/18 07:39 05/16/18 07:39 05/16/18 07:39 05/16/18 07:39 Exam: General: Pt resting quietly on bed, no distress. Skin: pwd, no rashes, lesions, redness Neurological: Pt is alert and awake, oriented x 3, Speech is clear, PERRLA, EOMI , no nystagmus, no pronator drift. strength equal x 4 extremities HEENT: mucous mumbranes moist, no conjuctival pallor Neck: supple, no tracheal deviation, no lymphadenopathy, tenderness, no thyromegaly Heart: S1S2 heard without gallops, clicks, murmurs, no bradycardia or tachycardia, pt has no peripheral edema, pedal and radial pulses palpable bilaterally. Lungs: clear throughout without wheezing, rales, or ronchi, respirations are unlabored Abdomen: soft and non tender with bowel sound present, no hepatomegaly. Psych: Normal affect with good eye contact - Assessment and Plan (1) Diabetes mellitus type 2, noninsulin dependent Current Visit: Yes Status: Chronic Assessment and Plan: Chronic. Well controlled. A1c 6.4%. SSI, accuchecks achs, diabetic diet. Hold home medications. (2) CAD (coronary artery disease) Current Visit: Yes Status: Chronic Assessment and Plan: Chronic. LHC in September, showed severe 3 vessel CAD. Previously stented LAD and RCA were patent, LVEF 65%. Bedtime is recommended optimal medical therapy and aggressive risk factor modification. Echocardiogram in March, showed LVEF of 60-65%, mild LV DD, no significant valvular dysfunction. Compared to prior report, LV function had returned to normal. Continue aspirin, Plavix, Imdur, beta shlomo. Telemetry (3) GERD (gastroesophageal reflux disease) Current Visit: Yes Status: Chronic Assessment and Plan: Chronic. Continue home medications. (4) Chest pain Current Visit: Yes Status: Acute Assessment and Plan: Acute on chronic CP that began April 17 and pt. describes as intermittent and has become progressively worse over the past two weeks. Worse w/exertion. Associated sx: SOB. Pt. describes CP as centralized pressure w/radiation to left shoulder and upper back. Hx of previous [place] and stent placement x11 (last two in September 2017). Last stress test in September 2017. Cardiology consult ordered and admitter discussed w/ Dr. Irwin w/ recommendation to trend troponins and order Echocardiogram. Troponins negative, EKG without ischemic changes Pt having intermittent chest pain this a.m. Cardiology consult pending. (5) SOB (shortness of breath) Current Visit: Yes Status: Acute Assessment and Plan: Acute. Associated with chest pain. Pt in no distress and is on room air. Lungs clear. Chest X-Ray 05/15/18 09:32 IMPRESSION: No radiographic evidence of acute cardiopulmonary disease. D/ / Guicho Turner / Guicho Turner Interpreting Provider: Guicho Turner (6) HLD (hyperlipidemia) Current Visit: Yes Status: Chronic Assessment and Plan: Chronic. Triglycerides and cholesterol both elevated. HDL is low. Continue Zetia and Crestor. (7) HTN (hypertension) Current Visit: Yes Status: Chronic Assessment and Plan: Chronic. Continue home medications. (8) DVT prophylaxis Current Visit: Yes Status: Acute Assessment and Plan: Heparin SQ, pt is ambulatory. - Time Spent with Patient Total time spent is greater than 50% in coordination of care (as documented) at patient's floor/unit and/or counseling patient: less than 15 minutes Plan of Care Discussed with: patient Internal Medicine: Result - Labs CBC & Chem 7: 05/16/18 03:53 05/16/18 03:53 Labs: Short CBC 05/16/18 Range/Units 03:53 WBC 4.0 L (4.3-11.1) K/mcL Hgb 10.7 L D (11.5-15.4) g/dL Hct 30.1 L (35.3-44.9) % Plt Count 216 (140-400) K/mcL Neutrophils # 1.6 (1.6-8.9) K/mcL BMP 05/16/18 03:53 Sodium 136 Potassium 3.9 Chloride 105 Carbon Dioxide 25 BUN 14 Creatinine 0.77 Glucose 105 Calcium 9.2 Cardiac Enzymes 05/15/18 05/15/18 Range/Units 17:32 22:56 Troponin I < 0.03 < 0.03 (< 0.04) ng/mL Liver Function 05/16/18 Range/Units 03:53 Total Bilirubin 0.4 (0.3-1.0) mg/dL AST 11 L (13-39) Units/L ALT 11 (7-52) Units/L Alkaline Phosphatase 59 (34-104) Units/L Albumin 3.9 (3.5-5.7) g/dL Consult Discharge Plan - Plan Referrals: Myranda Lauren, [Primary Care Provider] - (2) CAD (coronary artery disease) Qualifiers: Coronary Disease-Associated Artery/Lesion type: [place] artery [place] vs. transplanted heart: [place] heart Associated angina: with stable angina Qualified Code(s): I25.118 - Atherosclerotic heart disease of [place] coronary artery with other forms of angina pectoris (3) GERD (gastroesophageal reflux disease) Qualifiers: Esophagitis presence: without esophagitis Qualified Code(s): K21.9 - Gastro- esophageal reflux disease without esophagitis (4) Chest pain Qualifiers: Chest pain type: other chest pain Qualified Code(s): R07.89 - Other chest pain; R07.8 - Other chest pain (6) HLD (hyperlipidemia) Qualifiers: Hyperlipidemia type: pure hypercholesterolemia Qualified Code(s): E78.00 - Pure hypercholesterolemia, unspecified; E78.0 - Pure hypercholesterolemia (7) HTN (hypertension) Qualifiers: Hypertension type: essential hypertension Qualified Code(s): I10 - Essential (primary) hypertension
--- NOTE | 2018-05-16 08:57 | Cardiology Consult Note ---
Date of Encounter: 05/16/18 Time of Encounter: 09:00 Assessment and Plan (1) Chest pain Current Visit: Yes Status: Acute Per Cardiology: Troponins negative 3. Experiencing increased exertional chest burning/ heaviness. Has utilized nitroglycerin some pills on 3 separate occasions over the past one month. ECG with no acute findings. Echo shows: Impressions: LVEF 60%. Normal LV chamber size, wall thickness and function. Mild left ventricular diastolic dysfunction. Normal right ventricular structure and function. Mild tricuspid regurgitation. No pulmonary hypertension. No evidence of a PFO with agitated saline contrast. No significant valvular dysfunction. Left Ventricular Wall Motion: Rest Echo Findings All wall segments showed normal motion. Discussed and reviewed with Dr. Garner. Will increase Ranexa 1000mg by mouth twice a day. We will discuss with patient potential further ischemic evaluation. Qualifiers: Chest pain type: other chest pain Qualified Code(s): R07.89 - Other chest pain; R07.8 - Other chest pain (2) CAD (coronary artery disease) Current Visit: Yes Status: Chronic Per Cardiology: Known history of CAD, per Dr. Irwin's last clinic note: "significant history of CAD, prior PCI to RCA (3 Brant 2014, 1 YOSELIN 2013), and prior PCI to LAD (1 YOSELIN 2013, 1 YOSELIN 09/2016). During a stress test in 12/2016, she was diagnosed with a STEMI; [facility] suggested Takotsubo CMP, but resulted in PCI to the circumflex (YOSELIN x1), proximal RCA (PTCA only), and distal RCA (YOSELIN x1). [facility] 08/2017 performed due to recurrent chest discomfort and resulted in PCI to the mid LAD due to severe ISR (YOSELIN x1). Patient would return to the hopsital in 09/2017, [facility] recommended again, medical therapy recommended. On aspirin, Plavix, AISHA inhibitor, BB, long-acting nitrate, will resume home Ranexa with increased dose. Past intolerance to statin therapy. Qualifiers: Coronary Disease-Associated Artery/Lesion type: [place] artery [place] vs. transplanted heart: [place] heart Associated angina: with stable angina Qualified Code(s): I25.118 - Atherosclerotic heart disease of [place] coronary artery with other forms of angina pectoris Discussion w patient/family: The assessment and plan as outlined above was discussed with the patient who expressed understanding and agreement. All questions were answered. Thank you for involving us in the care of your patient. Please call with any questions. History of Present Illness Consult date: 05/16/18 Requesting physician: Alphonso Hendrickson Consult reason: CP Chief complaint: CP History of present illness: Ms. Seth is a 72 year old female with a relevant past medical history of CAD, hyperlipidemia, GERD, rheumatoid arthritis. Last seen by Dr. Irwin January 2018. Cardiology consult for chest pain. Patient reports over the past 1 month overall increase in fatigue. She also reports increased exertional chest pressure/tightness symptoms last a few minutes and subside with rest. She reports overall increase in frequency. She has utilized nitroglycerin glycerin pills on 3 separate occurrences. Reports awakened this morning with the sternal chest tightness with radiation down her left arm now relieved with 2 subungual nitroglycerin pills. She denies any dyspnea on exertion. Denies any other concerns or complaints. Reports taking Ranexa occasionally she feels it does not necessarily help her much. Additionally, reports no longer taking Zetia due to causing foot cramps. Past Med Surg Social Fam HX - Past Medical History Attestation: Yes The following information was validated with the patient. Source: patient, old records reviewed Medical history: coronary artery disease, diabetes, GERD, hyperlipidemia, hypertension, kidney stones, myocardial infarction, RA Additional medical history: cataracts, Recurrent UTI, Fatty Liver, Psychiatric history: anxiety, depression - Past Surgical History Surgical History: angioplasty/stent (x 11) Additional surgical history: broken ankle, macular hole in Right eye, carpal tunnel, 11 cardiac stents - Social History Smoking Status: Never smoker Smokeless Tobacco Status: No Alcohol use: none Drug use: none - Family History Mother Adopted: No Race: Family Member Ethnicity: Non- Living Status: Age at : 69 Cause of : Esophageal varices Hx Family Cardiac Disorders: Yes (Esophageal varices) Hx Family Respiratory Disorders: No Hx Family Cancer: No Hx Family GI Disorders: No Hx Family Endocrine Disorder: Yes (Cirrhosis) Hx Family Neuromuscular Disorders: No Hx Family Neurologic Disorders: No Hx Family HEENT Disorders: No Hx Family Autoimmune Disorders: No Hx Family Psychosocial Disorders: Yes (Alcoholism) Father Adopted: No Race: Family Member Ethnicity: Non- Living Status: Age at : 47 Cause of : OR Hx Family Cardiac Disorders: Yes (OR) Hx Family Respiratory Disorders: Yes (Smoker) Hx Family Cancer: No Hx Family GI Disorders: Yes (self) Hx Family Endocrine Disorder: Yes (self, cousin,mother) Hx Family Neuromuscular Disorders: No Hx Family Neurologic Disorders: Yes (grandfather) Hx Family HEENT Disorders: No Hx Family Autoimmune Disorders: No Grandmother Race: Family Member Ethnicity: Non- Hx Family Endocrine Disorder: Yes (Diabetes) Medications and Allergies ALPRAZolam [Xanax 0.25 MG Tablet] 0.25 mg PO BID PRN 07/12/16 [History] Aspirin 81 mg PO DAILY 07/12/16 [History] Clopidogrel [Plavix] 75 mg PO DAILY 07/12/16 [History] Isosorbide MONOnitrate [Isosorbide Mononitrate ER] 120 mg PO BID 07/12/16 [ History] Nitroglycerin [Nitrostat] 0.4 mg SL Q5M PRN MDD X3 DOSES CALL 911 07/12/16 [ History] Lisinopril [Zestril] 10 mg PO DAILY #15 tablet 07/14/16 [Rx] metFORMIN [Glucophage] 500 mg PO BID 08/16/16 [History] Cholecalciferol (D-3) [Vitamin D] 2,000 unit PO DAILY 10/11/16 [History] Loratadine [Allergy Relief] 10 mg PO DAILY PRN 10/11/16 [History] Dicyclomine [Bentyl] 10 mg PO QID PRN 12/13/16 [History] Metoprolol [Lopressor] 12.5 mg PO BID 09/01/17 [History] EPINEPHrine [Epipen] 0.3 mg IM ONCE PRN 09/25/17 [History] Cranberry Fruit Extract/Vit C [Azo Cranberry Softgel] 1 each PO BID PRN #60 capsule 09/26/17 [Rx] Pantoprazole Sodium [Protonix] 40 mg PO BID 10/18/17 [History] Sucralfate [Carafate] 1 gm PO TID 10/31/17 [History] Glimepiride [Amaryl] 1 mg PO BID 05/16/18 [History] 3 Allergy/AdvReac Type Severity Reaction Status Date / Time penicillin V Allergy Anaphylaxis Verified 05/16/18 09:46 atorvastatin [From Lipitor] AdvReac Muscle Pain Verified 05/16/18 09:46 lovastatin AdvReac Muscle Pain Verified 05/16/18 09:46 Vwoyxha-Szy-Ayx Reductase AdvReac Muscle Pain Verified 05/16/18 09:46 Inhibitor [Statins] All Systems Review: The remainder of the systems were reviewed and are negative - Constitutional Constitutional: fatigue - Cardiovascular Cardiovascular: as per HPI, chest pain with exertion Physical Examination Vital Signs, Last 4 Hours Temp Pulse Resp BP Pulse Ox 05/16/18 07:39 98.0 F 80 16 102/67 97 05/16/18 07:12 82 97 126/78 05/16/18 07:06 86 16 125/72 96 05/16/18 06:59 78 16 118/72 98 General: Conversant, No Apparent Distress HEENT: Atraumatic, Normocephaly, Mucus Membranes Moist Neck: No JVD, Normal carotid pulses Cardiac: Reg Rate and Rhythm, Normal S1 and S2, No Murmur Lungs: Normal Breath Sounds, No Wheeze, Rales, Rhonchi Neuro: Alert and responsive, No focal deficits noted Abdomen: Soft, Non-Tender Skin: No rashes noted on visualized skin Musculoskeletal: No Chest Wall Tenderness Extremities: No Clubbing, No Cyanosis, No Edema, Normal Pulses Results 05/16/18 03:53 05/16/18 03:53 Lab Results Laboratory Tests 05/15/18 05/15/18 05/15/18 09:45 09:45 17:32 Magnesium AST ALT Troponin I < 0.03 < 0.03 B-Natriuretic Peptide 9 Triglycerides 05/15/18 05/16/18 22:56 03:53 Magnesium 1.8 AST 11 L ALT 11 Troponin I < 0.03 B-Natriuretic Peptide Triglycerides 403 H ITS Impressions Chest X-Ray 05/15/18 09:32 IMPRESSION: No radiographic evidence of acute cardiopulmonary disease. D/ / Guicho Turner / Guicho Turner Interpreting Provider: Guicho Turner Active Medications Acetaminophen (Tylenol) 650 mg PO Q6HR PRN PRN Reason: Mild Pain/Fever Stop: 11/14/18 17:00 Hydrocodone Bitart/Acetaminophen ([place] 5-325 Mg) 1 tab PO Q6HR PRN PRN Reason: Moderate Pain Stop: 11/14/18 17:00 Last Admin: 05/16/18 08:15 Dose: 1 tab Alprazolam (Xanax) 0.25 mg PO BID PRN; Protocol PRN Reason: Anxiety Stop: 11/14/18 23:37 Aspirin (Aspirin Ec) 81 mg PO DAILY [facility] Stop: 11/15/18 09:01 Last Admin: 05/16/18 08:16 Dose: 81 mg Clopidogrel Bisulfate (Plavix) 75 mg PO DAILY [facility] Stop: 11/15/18 09:01 Last Admin: 05/16/18 08:16 Dose: Not Given Dextrose/Water (Dextrose 50% (Syg)) 25 ml IVP AD PRN PRN Reason: Hypoglycemia Stop: 11/14/18 17:22 Dicyclomine HCl (Bentyl) 10 mg PO DAILY [facility] Stop: 11/15/18 09:01 Last Admin: 05/16/18 08:15 Dose: 10 mg Glucagon (Glucagen) 1 mg IM ONCE PRN PRN Reason: Hypoglycemia Stop: 11/14/18 17:22 Glucose (Gluctose) 15 gm PO ONCE PRN PRN Reason: Hypoglycemia Stop: 11/14/18 17:22 Glucose (Gluctose) 30 gm PO ONCE PRN PRN Reason: Hypoglycemia Stop: 11/14/18 17:22 Heparin Sodium (Porcine) (Heparin) 5,000 unit SQ Q8HCO [facility] Stop: 11/14/18 22:01 Last Admin: 05/16/18 05:32 Dose: 5,000 unit Hydralazine HCl (Hydralazine) 10 mg IVP Q6HR PRN PRN Reason: Hypertension Stop: 11/14/18 23:40 Dextrose (Dextrose 5%) 1,000 mls @ 100 mls/hr IVC .Q10H PRN PRN Reason: HYPOGLYCEMIA Stop: 11/14/18 17:22 Insulin Human Lispro (Humalog) 0 units SQ TIDAC [facility] PRN Reason: Protocol Stop: 11/15/18 07:31 Last Admin: 05/16/18 08:13 Dose: Not Given Insulin Human Lispro (Humalog) 0 units SQ HS [facility] PRN Reason: Protocol Stop: 11/14/18 21:01 Last Admin: 05/15/18 22:03 Dose: Not Given Isosorbide Mononitrate (Imdur) 120 mg PO BID [facility] Stop: 11/15/18 09:01 Last Admin: 05/16/18 08:16 Dose: 120 mg Lisinopril (Zestril) 10 mg PO DAILY [facility] PRN Reason: Protocol Stop: 11/15/18 09:01 Last Admin: 05/16/18 08:17 Dose: Not Given Loratadine (Claritin) 10 mg PO DAILY PRN; Protocol PRN Reason: Allergy Symptoms Stop: 11/14/18 23:37 Metoprolol Tartrate (Lopressor) 12.5 mg PO BID [facility] Stop: 11/15/18 09:01 Last Admin: 05/16/18 08:16 Dose: 12.5 mg Naloxone HCl (Narcan) 0.4 mg IVP Q2MIN PRN PRN Reason: SEE COMMENTS Stop: 11/14/18 17:00 Nitroglycerin (Nitroglycerin) 0.4 mg SL Q5MIN PRN PRN Reason: Chest Pain Stop: 11/14/18 09:58 Last Admin: 05/16/18 07:07 Dose: 0.4 mg Omeprazole (Prilosec) 20 mg PO BID [facility] Stop: 11/15/18 09:01 Last Admin: 05/16/18 08:15 Dose: 20 mg Ondansetron HCl (Zofran) 4 mg IVP Q6HR PRN; Protocol PRN Reason: Nausea And Vomiting Stop: 11/14/18 17:47 Pharmacy Profile Note (Patient Taking Own Medication) 0 each PO BID PRN PRN Reason: SEE COMMENTS Sucralfate (Carafate) 1 gm PO TID [facility] Stop: 11/15/18 09:01 Last Admin: 05/16/18 08:15 Dose: 1 gm Vitamin D (Vitamin D) 1,000 unit PO DAILY [facility] Stop: 11/15/18 09:01 Last Admin: 05/16/18 08:16 Dose: 1,000 unit - Imaging and Cardiology Echo: pending, report reviewed Cardiac cath: report reviewed - EKG Interpretation EKG results cardiology: personally reviewed, normal ECG, sinus rhythm, no diagnostic ischemia Consult Discharge Plan - Plan Referrals: Myranda Lauren, [Primary Care Provider] -
[2018-05-16] MEDS ORDERED: Ranolazine 500 MG TAB.ER.12H PO SCH (10:15)
--- NOTE | 2018-05-16 13:10 | Event Note ---
Date of Encounter: 05/16/18 Time of Encounter: 13:10 - Cardiology Event Note Per Dr. Garner, patient to proceed with Ranexa optimization in follow-up in outpatient setting. No further recommendations, cardiology will sign off, reconsult as needed, follow-up arranged.
[2018-05-16] MEDS: Ranolazine 500 MG TAB.ER.12H PO SCH (21:16)
[2018-05-17 05:37] LABS: Basophils % 0.3 %; Eosinophils % 1.1 %; Hematocrit 29.3 % (35.3-44.9); Hemoglobin 10.3 g/dL (11.5-15.4); Lymphocytes # 1.9 K/mcL (0.6-4.6); Lymphocytes % 53.6 %; Mean Corpuscular HGB Conc 35.2 g/dL (31.6-35.5); Mean Corpuscular Hemoglobin 33.2 pg (28.0-33.3); Mean Corpuscular Volume 94.5 fL (83.0-100.0); Mean Platelet Volume 8.8 fL (9.4-12.4); Monocytes # 0.4 K/mcL (0.0-1.3); Monocytes % 9.8 %; Neutrophils # 1.3 K/mcL (1.6-8.9); Platelet Count 201 K/mcL (140-400); Segmented Neutrophils % 35.2 %
[2018-05-17 05:59] LABS: Alanine Aminotransferase 11 Units/L (7-52); Albumin 4.1 g/dL (3.5-5.7); Albumin/Globulin Ratio 1.5 (1.1-2.2); Alkaline Phosphatase 59 Units/L (34-104); Aspartate Amino Transferase 12 Units/L (13-39); BUN/Creatinine Ratio 20 (6-26); Bilirubin,Total 0.4 mg/dL (0.3-1.0); Blood Urea Nitrogen 16 mg/dL (8-23); Carbon Dioxide 26 mEq/L (23-29); Chloride 107 mEq/L (98-107); Globulin 2.7 g/dL (2.4-3.5); Glucose 141 mg/dL (70-105); Osmolality,Calculated 282 (280-300); Potassium 4.3 mEq/L (3.5-5.1); Sodium 134 mEq/L (136-145); Total Protein 6.8 g/dL (6.4-8.9); eGFR For Non-African Americans > 60 (> 60)
[2018-05-17] MEDS: *HR* Heparin 5,000 UNIT/ML VIAL SQ SCH (06:11)
[2018-05-17 07:52] VITALS: BP 124/66
--- NOTE | 2018-05-17 08:28 | Discharge Summary ---
- NOTES TO OUTPATIENT PROVIDER Notes to Outpatient Provider: Pt started on Ranexa 500mg po BID Date of Encounter: 05/17/18 Time of Encounter: 08:40 - Discharge Diagnosis (1) Diabetes mellitus type 2, noninsulin dependent Priority: Secondary Status: Chronic Assessment and Plan: Chronic. Well controlled. A1c 6.4%. Continue home medications. (2) CAD (coronary artery disease) Priority: Secondary Status: Chronic Assessment and Plan: Chronic. C in September, showed severe 3 vessel CAD. Previously stented LAD and RCA were patent, LVEF 65%. Bedtime is recommended optimal medical therapy and aggressive risk factor modification. Echocardiogram in March, showed LVEF of 60-65%, mild LV DD, no significant valvular dysfunction. Compared to prior report, LV function had returned to normal. Continue aspirin, Plavix, Imdur, beta shlomo, Ranexa 500mg BID. Qualifiers: Coronary Disease-Associated Artery/Lesion type: [place] artery [place] vs. transplanted heart: [place] heart Associated angina: with stable angina Qualified Code(s): I25.118 - Atherosclerotic heart disease of [place] coronary artery with other forms of angina pectoris (3) GERD (gastroesophageal reflux disease) Priority: Secondary Status: Chronic Assessment and Plan: Chronic. Continue home medications. Qualifiers: Esophagitis presence: without esophagitis Qualified Code(s): K21.9 - Gastro -esophageal reflux disease without esophagitis (4) Chest pain Priority: Secondary Status: Acute Assessment and Plan: Resolved. Pt denies chest pain this a.m. Acute on chronic CP that began April 17 and pt. describes as intermittent and has become progressively worse over the past two weeks. Worse w/exertion. Associated sx: SOB. Pt. describes CP as centralized pressure w/radiation to left shoulder and upper back. Hx of previous [place] and stent placement x11 (last two in September 2017). Last stress test in September 2017. Cardiology consult ordered and admitter discussed w/ Dr. Irwin w/ recommendation to trend troponins and order Echocardiogram. Troponins negative, EKG without ischemic changes Cardiology consulted, they have started pt on Ranexa 500mg po BID. I appreciate their recommendations. Qualifiers: Chest pain type: other chest pain Qualified Code(s): R07.89 - Other chest pain; R07.8 - Other chest pain (5) SOB (shortness of breath) Priority: Secondary Status: Acute Assessment and Plan: Acute. Associated with chest pain. Resolved. Pt in no distress and is on room air. Lungs clear. Chest X-Ray 05/15/18 09:32 IMPRESSION: No radiographic evidence of acute cardiopulmonary disease. D/ / Guicho Turner / Guicho Turner Interpreting Provider: Guicho Turner (6) HLD (hyperlipidemia) Priority: Secondary Status: Chronic Assessment and Plan: Chronic. Triglycerides and cholesterol both elevated. HDL is low. Continue Zetia and Crestor. Qualifiers: Hyperlipidemia type: pure hypercholesterolemia Qualified Code(s): E78.00 - Pure hypercholesterolemia, unspecified; E78.0 - Pure hypercholesterolemia (7) HTN (hypertension) Priority: Secondary Status: Chronic Assessment and Plan: Chronic. Well controlled. Continue home medications. Qualifiers: Hypertension type: essential hypertension Qualified Code(s): I10 - Essential (primary) hypertension (8) DVT prophylaxis Priority: Secondary Status: Acute Assessment and Plan: Heparin SQ, pt is ambulatory. Hospital course: Please see assessment and plan for hospital course. Discharge discussed with: patient, nurse - Time Spent with Patient Total time spent providing and/or coordinating discharge services: Less than 30 minutes - Discharge Medications Prescriptions: Ranolazine [Ranexa] 500 mg PO BID #60 tab.er.12h Home Medications: ALPRAZolam [Xanax 0.25 MG Tablet] 0.25 mg PO BID PRN 07/12/16 [History] Aspirin 81 mg PO DAILY 07/12/16 [History] Clopidogrel [Plavix] 75 mg PO DAILY 07/12/16 [History] Isosorbide MONOnitrate [Isosorbide Mononitrate ER] 120 mg PO BID 07/12/16 [ History] Nitroglycerin [Nitrostat] 0.4 mg SL Q5M PRN MDD X3 DOSES CALL 911 07/12/16 [ History] Lisinopril [Zestril] 10 mg PO DAILY #15 tablet 07/14/16 [Rx] metFORMIN [Glucophage] 500 mg PO BID 08/16/16 [History] Cholecalciferol (D-3) [Vitamin D] 2,000 unit PO DAILY 10/11/16 [History] Loratadine [Allergy Relief] 10 mg PO DAILY PRN 10/11/16 [History] Dicyclomine [Bentyl] 10 mg PO QID PRN 12/13/16 [History] Metoprolol [Lopressor] 12.5 mg PO BID 09/01/17 [History] EPINEPHrine [Epipen] 0.3 mg IM ONCE PRN 09/25/17 [History] Cranberry Fruit Extract/Vit C [Azo Cranberry Softgel] 1 each PO BID PRN #60 capsule 09/26/17 [Rx] Pantoprazole Sodium [Protonix] 40 mg PO BID 10/18/17 [History] Sucralfate [Carafate] 1 gm PO TID 10/31/17 [History] Glimepiride [Amaryl] 1 mg PO BID 05/16/18 [History] Ranolazine [Ranexa] 500 mg PO BID #60 tab.er.12h 05/17/18 [Rx] Allergies/Adverse Reactions: 3 Allergy/AdvReac Type Severity Reaction Status Date / Time penicillin V Allergy Anaphylaxis Verified 05/16/18 09:46 atorvastatin [From Lipitor] AdvReac Muscle Pain Verified 05/16/18 09:46 lovastatin AdvReac Muscle Pain Verified 05/16/18 09:46 Bfdzure-Kzq-Dio Reductase AdvReac Muscle Pain Verified 05/16/18 09:46 Inhibitor [Statins] Date of admission: 05/15/18 13:10 Primary care physician: Myranda Lauren DO Consults: 05/15/18 17:01 Consult to Manager Philosophy [CONS] Routine Reason for SW Consult: Please assess patient for possible home needs for post -discharge planning. 05/15/18 17:09 Consult to Cardiology [CONS] Routine Comment: Consulting Provider: Cardiology Maggie Reason for Consult: Patient being admitted w/CP that began April 17 as intermittent and has progressively worsened w/i the past two weeks. Worse w/exertion. Centralized pressure w/radiation to right shoulder and back. Hx of stents x11. Last stress test in September 2017. Call Completed: Yes Discharging clinician: Yesenia Queen Anticipated date of discharge: 05/17/18 - Constitutional Vitals: Temp Pulse Resp BP Pulse Ox 98.7 F 74 15 124/66 96 05/17/18 07:51 05/17/18 07:51 05/17/18 07:51 05/17/18 07:51 05/17/18 07:51 General appearance: Present: cooperative, A&O X 3, pleasant, underweight, answers questions appropriately Exam: as above - Head Head exam: Present: atraumatic, normal inspection, normocephalic - Eye Eye exam: Present: normal appearance, conjuntiva pink, sclera anicteric - Neck Neck exam general surgery: Present: supple, trachea midline. Absent: lymphadenopathy, tenderness - Respiratory Respiratory exam: Present: CTAB. Absent: accessory muscle use, chest wall tenderness, rales, respiratory distress, rhonchi, wheezes - Cardiovascular Cardiovascular exam: Present: RRR, +S1, +S2. Absent: diastolic murmur, gallop, rubs, systolic murmur - GI/Abdominal GI/Abdominal exam: Present: normal bowel sounds, soft. Absent: distended, hepatomegaly, tenderness - Extremities Exam Extremities exam: Present: normal capillary refill, normal inspection, warm, radial pulses palpable and symmetrical. Absent: calf tenderness, cyanotic, pedal edema, tenderness - Neurological Exam Neurological exam: Present: alert, oriented X3, no focal deficits. Absent: facial droop, speech deficit - Skin Skin exam: Present: dry, intact, normal color, warm. Absent: rash - Patient Status Disposition: Home, Self-Care Condition: Good Functional capacity at discharge: independent ambulation Overall status at discharge: patient is back to baseline - Discharge Instructions Follow Up With: Myranda Lauren DO [Primary Care Provider] - Additional Instructions: Please see your PCP in the next 3-5 days Follow up with cardiology as schedules Return to the ER as needed for any other problems or concerns Take your medications as directed Your new prescription is at your pharmacy Return to your normal diet and activities as tolerated. - Diet and Activity Activity: increase activity as tolerated Diet: advance to your usual diet
[2018-05-17] MEDS: Isosorbide MONOnitrate (24 HR) 60 MG TAB.ER.24H PO SCH (09:50)
[2018-05-17] MEDS: Ranolazine 500 MG TAB.ER.12H PO SCH (09:51)
[2018-05-17] MEDS: Cholecalciferol (D-3) 1,000 UNIT TABLET PO SCH (09:51)
[2018-05-17] MEDS: Aspirin Enteric Coated 81 MG Tablet PO SCH (09:51)
[2018-05-17] MEDS: Sucralfate 1 GM TABLET PO SCH (09:51)
[2018-05-17] MEDS: Insulin LISPRO 300 UNITS/3 ML VIAL SQ SCH (09:54)
--- NOTE | 2018-05-20 13:30 | Electrocardiograph Report ---
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
--- NOTE | 2018-05-20 13:48 | Electrocardiograph Report ---
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
--- NOTE | 2018-05-20 14:23 | Electrocardiograph Report ---
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
== END 2018-05-17 11:47 | disposition home or self-care (01) ==
LOC: 3BNU 09:22 → EMEROOARM 09:22 → 3BNU 16:05
PROVIDERS: ADMIT Student in an Organized Health Care Education/Training Program; ATTEND Student in an Organized Health Care Education/Training Program

== ENCOUNTER 2018-09-18 15:39 | Inpatient (IN) ==
[2018-09-18] MEDS ORDERED: Aspirin 325 MG TABLET PO ONE (16:02)
--- NOTE | 2018-09-18 16:04 | Emergency Department Note ---
Disposition Clinical Impression: Unstable angina Disposition: Admitted As Inpatient General Adult HPI - General Chief complaint: ED Chest Pain Stated complaint: Chest pain Time Seen by Provider: 09/18/18 15:54 Source: patient Limitations: no limitations Nursing Notes Reviewed: Yes Vital Signs Reviewed: Yes - History of Present Illness HPI Narrative: Attestation note I examined this patient and my medical decision-making was reviewed with the Resident Physician/INFORMATION SYSTEMS AUDITOR/PA. I agree with the documented findings, disposition and treatment plan as described except to the extent set forth below Patient seen with emergency medicine resident Goldie Johnson, please see copy of his note for details of this patient encounter Briefly: 70-year-old female complex long-standing history of coronary artery disease. She has 11 stents she is to coronary artery vessels were blocked at 40% in 2017. She has been having chest pain which is not relieved by her nitroglycerin and is worse with exertion that is different for her. EKG shows no acute ischemic changes. Patient with a chest x-ray troponin screening labs and admission. Admission disposition pending Pain Scale: 7 - Related Data Home Medications Medication Instructions Recorded Confirmed ALPRAZolam [Xanax 0.25 MG Tablet] 0.25 mg PO BID PRN 07/12/16 05/16/18 Aspirin 81 mg PO DAILY 07/12/16 05/15/18 Clopidogrel [Plavix] 75 mg PO DAILY 07/12/16 05/16/18 Isosorbide MONOnitrate [Isosorbide 120 mg PO BID 07/12/16 05/16/18 Mononitrate ER] Nitroglycerin [Nitrostat] 0.4 mg SL Q5M PRN MDD X3 DOSES 07/12/16 05/16/18 CALL 911 metFORMIN [Glucophage] 500 mg PO BID 08/16/16 05/16/18 Cholecalciferol (D-3) [Vitamin D] 2,000 unit PO DAILY 10/11/16 05/15/18 Loratadine [Allergy Relief] 10 mg PO DAILY PRN 10/11/16 05/16/18 Dicyclomine [Bentyl] 10 mg PO QID PRN 12/13/16 05/16/18 Metoprolol [Lopressor] 12.5 mg PO BID 09/01/17 05/16/18 EPINEPHrine [Epipen] 0.3 mg IM ONCE PRN 09/25/17 05/16/18 Pantoprazole Sodium [Protonix] 40 mg PO BID 10/18/17 05/16/18 Sucralfate [Carafate] 1 gm PO TID 10/31/17 05/16/18 Glimepiride [Amaryl] 1 mg PO BID 05/16/18 05/16/18 Previous Rx's Medication Instructions Recorded Lisinopril [Zestril] 10 mg PO DAILY #15 tablet 07/14/16 Cranberry Fruit Extract/Vit C [Azo 1 each PO BID PRN #60 capsule 09/26/17 Cranberry Softgel] Ranolazine [Ranexa] 500 mg PO BID #60 tab.er.12h 05/17/18 Ciprofloxacin [Cipro] 500 mg PO BID #20 tablet 06/07/18 Phenazopyridine HCl [Pyridium] 200 mg PO TID #6 tab 06/07/18 metroNIDAZOLE [Flagyl] 500 mg PO TID #30 tablet 06/07/18 Allergies Allergy/AdvReac Type Severity Reaction Status Date / Time penicillin V Allergy Anaphylaxis Verified 06/07/18 09:17 atorvastatin [From Lipitor] AdvReac Muscle Pain Verified 06/07/18 09:17 lovastatin AdvReac Muscle Pain Verified 06/07/18 09:17 [id number] Reductase AdvReac Muscle Pain Verified 06/07/18 09:17 Inhibitor [Statins] Past Medical History - Past Medical History Medical history: Reports: coronary artery disease, diabetes, GERD, hyperlipidemia, hypertension, kidney stones, myocardial infarction, RA Surgical history: Reports: angioplasty/stent (x 11) Psychiatric history: Reports: anxiety, depression GAMES 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 history: Reports: no GAMES DEALER history - Social History Smoking Status: 2nd Hand Smoke Exposure Smokeless Tobacco Status: No Alcohol use: Reports: none Drug use: Reports: none Physical Exam - General Limitations: no limitations General appearance: alert, in no apparent distress Course Vital Signs Temperature 98.6 F 09/18/18 15:42 Pulse Rate 99 09/18/18 15:42 Respiratory Rate 16 09/18/18 15:42 Blood Pressure 159/97 09/18/18 15:42 O2 Sat by Pulse Oximetry 98 09/18/18 15:42 Temperature 98.6 F 09/18/18 15:45 Pulse Rate 99 09/18/18 15:45 Respiratory Rate 16 09/18/18 15:45 Blood Pressure 159/97 09/18/18 15:45 O2 Sat by Pulse Oximetry 98 09/18/18 15:45 Oxygen Delivery Oxygen Delivery Room Air
--- NOTE | 2018-09-18 16:06 | Emergency Department Note ---
Disposition Clinical Impression: Unstable angina Chest pain Qualifiers: Chest pain type: unspecified Qualified Code(s): R07.9 - Chest pain, unspecified Disposition: Admitted As Inpatient Condition: Fair Referrals: Myranda Lauren DO [Primary Care Provider] - Forms: ED Satisfaction Letter Time of Disposition: 18:07 Chest Pain HPI - General Chief Complaint: ED Chest Pain Stated Complaint: Chest pain Time Seen by Provider: 09/18/18 15:54 Source: patient Mode of arrival: ambulatory Limitations: no limitations Vital Signs Reviewed: Yes Nursing Notes Reviewed: Yes - History of Present Illness HPI Narrative: 72-year-old female with extensive cardiovascular history with 11 stents presents for evaluation of chest pain. Patient states she has unstable angina. She describes exertional chest pain that radiates to her back that does not entirely related with rest or nitroglycerin. States this become more more frequent. Does follow with cardiology here. Patient denies any nausea vomiting diaphoresis or fevers. Patient is on aspirin and Plavix. No abdominal pain. She states that she has to no coronary center approximately 40% stenosed following left heart catheter from 2017. Severity scale (1-10): 7 - Related Data Home Medications Medication Instructions Recorded Confirmed ALPRAZolam [Xanax 0.25 MG Tablet] 0.25 mg PO BID PRN 07/12/16 05/16/18 Aspirin 81 mg PO DAILY 07/12/16 05/15/18 Clopidogrel [Plavix] 75 mg PO DAILY 07/12/16 05/16/18 Isosorbide MONOnitrate [Isosorbide 120 mg PO BID 07/12/16 05/16/18 Mononitrate ER] Nitroglycerin [Nitrostat] 0.4 mg SL Q5M PRN MDD X3 DOSES 07/12/16 05/16/18 CALL 911 metFORMIN [Glucophage] 500 mg PO BID 08/16/16 05/16/18 Cholecalciferol (D-3) [Vitamin D] 2,000 unit PO DAILY 10/11/16 05/15/18 Loratadine [Allergy Relief] 10 mg PO DAILY PRN 10/11/16 05/16/18 Dicyclomine [Bentyl] 10 mg PO QID PRN 12/13/16 05/16/18 Metoprolol [Lopressor] 12.5 mg PO BID 09/01/17 05/16/18 EPINEPHrine [Epipen] 0.3 mg IM ONCE PRN 09/25/17 05/16/18 Pantoprazole Sodium [Protonix] 40 mg PO BID 10/18/17 05/16/18 Sucralfate [Carafate] 1 gm PO TID 10/31/17 05/16/18 Glimepiride [Amaryl] 1 mg PO BID 05/16/18 05/16/18 Previous Rx's Medication Instructions Recorded Lisinopril [Zestril] 10 mg PO DAILY #15 tablet 07/14/16 Cranberry Fruit Extract/Vit C [Azo 1 each PO BID PRN #60 capsule 09/26/17 Cranberry Softgel] Ranolazine [Ranexa] 500 mg PO BID #60 tab.er.12h 05/17/18 Ciprofloxacin [Cipro] 500 mg PO BID #20 tablet 06/07/18 Phenazopyridine HCl [Pyridium] 200 mg PO TID #6 tab 06/07/18 metroNIDAZOLE [Flagyl] 500 mg PO TID #30 tablet 06/07/18 Allergies Allergy/AdvReac Type Severity Reaction Status Date / Time penicillin V Allergy Anaphylaxis Verified 06/07/18 09:17 atorvastatin [From Lipitor] AdvReac Muscle Pain Verified 06/07/18 09:17 lovastatin AdvReac Muscle Pain Verified 06/07/18 09:17 [id number]-[id number] Reductase AdvReac Muscle Pain Verified 06/07/18 09:17 Inhibitor [Statins] All systems ED: reviewed and negative except as stated. 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: Reports: no MANAGER AVIATION history - Social History Smoking Status: 2nd Hand Smoke Exposure Alcohol use: Reports: none Drug use: Reports: none Physical Exam - General Limitations: no limitations General appearance: alert, in no apparent distress - Head Head exam: atraumatic, normocephalic, normal inspection - Eye Eye exam: Present: normal appearance, PERRL, EOMI - ENT ENT exam: normal exam, normal oropharynx, mucous membranes moist - Neck Neck exam: Present: normal inspection - Chest Chest inspection: Present: normal inspection, symmetric chest wall rise - Respiratory Respiratory exam: Present: normal lung sounds bilaterally. Absent: respiratory distress - Cardiovascular Cardiovascular exam: Present: regular rate, normal rhythm. Absent: systolic murmur - Abdominal Exam Abdominal exam: Present: soft, Non-Tender - Extremities Exam Extremities exam: Present: normal inspection. Absent: pedal edema - Expanded Lower Extremity Exam Neurovascular/Tendon exam: Present: normal capillary refill - Back Exam Back exam: Present: normal inspection - Neurological Exam Neurological exam: Present: alert, oriented X3, CN II-XII intact - Skin Skin exam: Present: warm, dry, intact, normal color Course Course Narrative: Patient seen and examined. Patient's heart score is high. Patient will get cardiopulmonary evaluation with EKG chest x-ray troponin. Disposition admission. Vital Signs Temperature 98.6 F 09/18/18 15:42 Pulse Rate 99 09/18/18 15:42 Respiratory Rate 16 09/18/18 15:42 Blood Pressure 159/97 09/18/18 15:42 O2 Sat by Pulse Oximetry 98 09/18/18 15:42 Temperature 98.6 F 09/18/18 15:45 Pulse Rate 86 09/18/18 16:57 Respiratory Rate 18 09/18/18 16:57 Blood Pressure 124/78 09/18/18 16:57 O2 Sat by Pulse Oximetry 100 09/18/18 16:57 Oxygen Delivery Oxygen Delivery Room Air Chest Pain - MDM Narrative Medical decision making narrative: Patient seen and examined. Patient's known coronary disease with known blockages. Patient's been having unstable anginal symptoms throughout the holidays. Patient would likely need admission to further evaluate and treat her known coronary disease. Patient's agreeable with admission. Chest pain-free in the ED. Aspirin given. Nitroglycerin available. Patient's symptoms not consistent with a PE - Lab Data Lab results reviewed: Yes I reviewed the patient's lab results. Result diagrams: 09/18/18 16:54 09/18/18 16:23 Lab Results 09/18/18 09/18/18 09/18/18 Range/Units 16:23 16:23 16:44 WBC (4.3-11.1) K/mcL RBC (3.82-4.97) M/mcL Hgb (11.5-15.4) g/dL Hct (35.3-44.9) % MCV (83.0-100.0) fL MCH (28.0-33.3) pg MCHC (31.6-35.5) g/dL RDW (11.5-14.5) % Plt Count (140-400) K/mcL MPV (9.4-12.4) fL Immature Gran % (0-4) % Seg Neutrophils % % Lymphocytes % % Monocytes % % Eosinophils % % Basophils % % Neutrophils # (1.6-8.9) K/mcL Lymphocytes # (0.6-4.6) K/mcL Monocytes # (0.0-1.3) K/mcL Eosinophils # (0.0-0.6) K/mcL Basophils # (0.0-0.2) K/mcL PT 10.0 (9.4-12.1) Seconds INR 0.9 Sodium 137 (136-145) mEq/L Potassium 4.0 (3.5-5.1) mEq/L Chloride 104 (98-107) mEq/L Carbon Dioxide 23 (23-29) mEq/L BUN 10 (8-23) mg/dL Creatinine 0.74 (0.60-1.20) mg/dL Est GFR ( Amer) > 60 (> 60) Est GFR (Non-Af Amer) > 60 (> 60) BUN/Creatinine Ratio 14 (6-26) Glucose 174 H (70-105) mg/dL Calculated Osmolality 287 (280-300) Calcium 9.7 (8.6-10.3) mg/dL Troponin I < 0.03 (< 0.04) ng/mL Specimen Rejected Clotted 09/18/18 Range/Units 16:54 WBC 4.1 L (4.3-11.1) K/mcL RBC 3.36 L (3.82-4.97) M/mcL Hgb 10.9 L (11.5-15.4) g/dL Hct 31.6 L (35.3-44.9) % MCV 94.0 (83.0-100.0) fL MCH 32.4 (28.0-33.3) pg MCHC 34.5 (31.6-35.5) g/dL RDW 12.0 (11.5-14.5) % Plt Count 213 (140-400) K/mcL MPV 9.1 L (9.4-12.4) fL Immature Gran % 0.2 (0-4) % Seg Neutrophils % 51.9 % Lymphocytes % 35.8 % Monocytes % 10.7 % Eosinophils % 1.2 % Basophils % 0.2 % Neutrophils # 2.1 (1.6-8.9) K/mcL Lymphocytes # 1.5 (0.6-4.6) K/mcL Monocytes # 0.4 (0.0-1.3) K/mcL Eosinophils # 0.1 (0.0-0.6) K/mcL Basophils # 0.0 (0.0-0.2) K/mcL PT (9.4-12.1) Seconds INR Sodium (136-145) mEq/L Potassium (3.5-5.1) mEq/L Chloride (98-107) mEq/L Carbon Dioxide (23-29) mEq/L BUN (8-23) mg/dL Creatinine (0.60-1.20) mg/dL Est GFR ( Amer) (> 60) Est GFR (Non-Af Amer) (> 60) BUN/Creatinine Ratio (6-26) Glucose (70-105) mg/dL Calculated Osmolality (280-300) Calcium (8.6-10.3) mg/dL Troponin I (< 0.04) ng/mL Specimen Rejected - Radiology Data Radiology results reviewed: Yes I reviewed the patient's radiology results. Chest X-Ray 09/18/18 16:03 IMPRESSION: No evidence of acute cardiopulmonary disease. D/ / Salvador Ravi MD / Salvador Ravi MD Interpreting Provider: Salvador Ravi MD - EKG Data EKG attestation: Yes I reviewed and interpreted this EKG. EKG shows normal: sinus rhythm Rate: normal Rhythm: NSR [place]/QRS: normal Interpretation: no acute changes, nonspecific ST-T wave changes Heart Score - Score History: Highly Suspicious EKG: Non Specific repolarisation Disturbance Age: Greater than 65 Risk Factors: Equal/Greater than 3 risk factor or history of atherosclerotic disease Troponin: Less than normal limit HEART Score Total: 7
[2018-09-18 16:44] LABS: INR 0.9
[2018-09-18 16:58] LABS: Troponin I < 0.03 ng/mL (< 0.04)
[2018-09-18 17:04] LABS: BUN/Creatinine Ratio 14 (6-26); Blood Urea Nitrogen 10 mg/dL (8-23); Calcium 9.7 mg/dL (8.6-10.3); Carbon Dioxide 23 mEq/L (23-29); Chloride 104 mEq/L (98-107); Glucose 174 mg/dL (70-105); Osmolality,Calculated 287 (280-300); Sodium 137 mEq/L (136-145); eGFR For Non-African Americans > 60 (> 60)
[2018-09-18 17:09] LABS: Basophils % 0.2 %; Eosinophils # 0.1 K/mcL (0.0-0.6); Eosinophils % 1.2 %; Hematocrit 31.6 % (35.3-44.9); Hemoglobin 10.9 g/dL (11.5-15.4); Immature Granulocytes % 0.2 % (0-4); Lymphocytes # 1.5 K/mcL (0.6-4.6); Lymphocytes % 35.8 %; Mean Corpuscular HGB Conc 34.5 g/dL (31.6-35.5); Mean Corpuscular Hemoglobin 32.4 pg (28.0-33.3); Mean Platelet Volume 9.1 fL (9.4-12.4); Monocytes # 0.4 K/mcL (0.0-1.3); Monocytes % 10.7 %; Neutrophils # 2.1 K/mcL (1.6-8.9); Platelet Count 213 K/mcL (140-400); Red Blood Count 3.36 M/mcL (3.82-4.97); Segmented Neutrophils % 51.9 %
[2018-09-18] MEDS ORDERED: Nitroglycerin 0.4 MG TAB.SUBL SL PRN (19:58)
[2018-09-18] MEDS ORDERED: Loratadine 10 MG TABLET PO PRN (19:58)
[2018-09-18] MEDS ORDERED: Dextrose Gel 15 GM/37.5 ML TUBE PO PRN ×2 (20:01)
[2018-09-18] MEDS: Nitroglycerin 0.4 MG TAB.SUBL SL PRN (20:29)
[2018-09-18] MEDS ORDERED: Nitroglycerin 0.3 MG PATCH.TD24 TD STA (20:34)
--- NOTE | 2018-09-18 20:45 | Internal Med History&Physical ---
Date of Encounter: 09/18/18 Time of Encounter: 20:42 Internal Medicine - H&P: HPI Chief complaint: chest pain Admitted From: Home Plans for Post Hospital Care: Home History of present illness: Lidia Seth is a 72-year-old woman with a history of coronary artery disease and diabetes who reports having 11 stents in her heart, last stent placement in August 2017 and last cardiac catheter in September 2017 which found 2 areas with 40% stenoses. She has been having intermittent episodes of chest pain since then but states that now for the past 2 months they have become more frequent and more severe which finally prompted her to seek attention tonight. She was seen clinically and hemodynamically stable in the ER. Her pain is modestly relieved with SL NTG. Her EKG was non-ischemic and troponin within n ormal limits. She is admitted for ongoing observation. Although she admits adherence to her medications and not being a smoker, she says she was never able to get ranolazine filled as it was cost-prohibitive. Past Med Surg Social Fam HX - Past Medical History Medical history: coronary artery disease, diabetes, GERD, hyperlipidemia, hypertension, kidney stones, myocardial infarction, RA Additional medical history: Type II Diabetic Psychiatric history: anxiety, depression - Past Surgical History Surgical History: angioplasty/stent Additional surgical history: 11 cardiac stents. lithotripsy. left ankle, bilateral carpal tunnel - Social History Smoking Status: 2nd Hand Smoke Exposure Smokeless Tobacco Status: No Alcohol use: none Drug use: none - Family History Mother Adopted: No Family Member Ethnicity: Non- Living Status: Age at : 62 Cause of : bleed to Hx Family Cardiac Disorders: Yes (Esophageal varices) Hx Family Respiratory Disorders: No Hx Family Cancer: No Hx Family GI Disorders: No Hx Family Endocrine Disorder: Yes (Cirrhosis) Hx Family Neuromuscular Disorders: No Hx Family Neurologic Disorders: No Hx Family HEENT Disorders: No Hx Family Autoimmune Disorders: No Father Adopted: No Family Member Ethnicity: Non- Living Status: Age at : 47 Cause of : heart attack Hx Family Cardiac Disorders: Yes (MS) Hx Family Respiratory Disorders: Yes (Smoker) Hx Family Cancer: No Hx Family GI Disorders: Yes (self) Hx Family Endocrine Disorder: Yes (self, cousin,mother) Hx Family Neuromuscular Disorders: No Hx Family Neurologic Disorders: Yes (grandfather) Hx Family HEENT Disorders: No Hx Family Autoimmune Disorders: No Grandmother Family Member Ethnicity: Non- Hx Family Endocrine Disorder: Yes (Diabetes) Internal Medicine - H&P: Meds ALPRAZolam [Xanax 0.25 MG Tablet] 0.25 mg PO BID PRN 07/12/16 [History] Aspirin 81 mg PO DAILY 07/12/16 [History] Clopidogrel [Plavix] 75 mg PO DAILY 07/12/16 [History] Isosorbide MONOnitrate [Isosorbide Mononitrate ER] 120 mg PO BID 07/12/16 [History] Nitroglycerin [Nitrostat] 0.4 mg SL Q5M PRN MDD X3 DOSES CALL 911 07/12/16 [History] Lisinopril [Zestril] 10 mg PO DAILY #15 tablet 07/14/16 [Rx] metFORMIN [Glucophage] 500 mg PO BID 08/16/16 [History] Cholecalciferol (D-3) [Vitamin D] 2,000 unit PO DAILY 10/11/16 [History] Loratadine [Allergy Relief] 10 mg PO DAILY PRN 10/11/16 [History] Dicyclomine [Bentyl] 10 mg PO QID PRN 12/13/16 [History] Metoprolol [Lopressor] 12.5 mg PO BID 09/01/17 [History] EPINEPHrine [Epipen] 0.3 mg IM ONCE PRN 09/25/17 [History] Cranberry Fruit Extract/Vit C [Azo Cranberry Softgel] 1 each PO BID PRN #60 capsule 09/26/17 [Rx] Pantoprazole Sodium [Protonix] 40 mg PO BID 10/18/17 [History] Sucralfate [Carafate] 1 gm PO TID 10/31/17 [History] Glimepiride [Amaryl] 1 mg PO BID 05/16/18 [History] Ranolazine [Ranexa] 500 mg PO BID #60 tab.er.12h 05/17/18 [Rx] Ciprofloxacin [Cipro] 500 mg PO BID #20 tablet 06/07/18 [Rx] Phenazopyridine HCl [Pyridium] 200 mg PO TID #6 tab 06/07/18 [Rx] metroNIDAZOLE [Flagyl] 500 mg PO TID #30 tablet 06/07/18 [Rx] Allergy/AdvReac Type Severity Reaction Status Date / Time penicillin V Allergy Anaphylaxis Verified 06/07/18 09:17 atorvastatin [From Lipitor] AdvReac Muscle Pain Verified 06/07/18 09:17 lovastatin AdvReac Muscle Pain Verified 06/07/18 09:17 [id number]-Shu Reductase AdvReac Muscle Pain Verified 06/07/18 09:17 Inhibitor [Statins] All Systems PM: A 10-system review of systems was performed and is negative for pertinent findings except as documented above in the HPI. - Constitutional Vitals: Temp Pulse Resp BP Pulse Ox 97.6 F 79 14 177/76 97 09/18/18 19:01 09/18/18 19:01 09/18/18 19:01 09/18/18 19:01 09/18/18 20:05 Exam: Vitals: Reviewed General: Well-developed white female sitting up in bed in no acute distress. Skin: Warm and supple. HEENT: Moist mucous membranes. No conjunctivae pallor. Neck: No lymphadenopathy. No JVD. No carotid bruits. No palpable thyroid. Chest: Normal thoracic expansion. Normal breath sounds. Clear to auscultation. Heart: Normal S1 & S2; rhythmic. No rubs or murmurs. Abdomen: Non-distended, soft and non-tender to palpation. No peritoneal reaction. Extremities: No clubbing, cyanosis or edema. No calf tenderness. Normal distal pulses. Neurological: Awake, alert and oriented to person, place and time. No focal deficits. Psych: Affect appropriate. Internal Med - H&P Results - Labs CBC & Chem 7: 09/18/18 16:54 09/18/18 16:23 Labs: Short CBC 09/18/18 Range/Units 16:54 WBC 4.1 L (4.3-11.1) K/mcL Hgb 10.9 L (11.5-15.4) g/dL Hct 31.6 L (35.3-44.9) % Plt Count 213 (140-400) K/mcL Neutrophils # 2.1 (1.6-8.9) K/mcL BMP 09/18/18 16:23 Sodium 137 Potassium 4.0 Chloride 104 Carbon Dioxide 23 BUN 10 Creatinine 0.74 Glucose 174 H Calcium 9.7 Cardiac Enzymes 09/18/18 Range/Units 16:23 Troponin I < 0.03 (< 0.04) ng/mL - Impressions ITS Impressions Chest X-Ray 09/18/18 16:03 IMPRESSION: No evidence of acute cardiopulmonary disease. D/ / Salvador Ravi MD / Salvador Ravi MD Interpreting Provider: Salvador Ravi MD - Assessment and plan (1) Unstable angina Current Visit: Yes Status: Acute Assessment and plan: Angina increasing in frequency and intensity in a patient with significant underlying CAD. Will observe on telemetry overnight, continue to trend troponins and assess for increasing pain. If increasing, may require NTG drip and/or heparin. In the interim will relieve with SL tablets and a patch. Cardiology consult will be beneficial. Continue ASA, Plavix, Imdur and start ranolazine. Keep her NPO PMN in the gnosticist she may require LHC. (2) Diabetes mellitus type 2, noninsulin dependent Current Visit: Yes Status: Chronic Assessment and plan: Will hold oral agents for now and place on insulin sliding scale. Well controlled. (3) GERD (gastroesophageal reflux disease) Current Visit: Yes Status: Chronic Assessment and plan: Continue PPI as needed. Qualifiers: Esophagitis presence: esophagitis presence not specified Qualified Code(s): K21.9 - Gastro-esophageal reflux disease without esophagitis (4) Cholelithiases Current Visit: No Status: Chronic Assessment and plan: Currently asymptomatic and being controlled with dietary discretion. Qualifiers: Cholelithiasis location: gallbladder Cholecystitis presence: without cholecystitis Biliary obstruction: without biliary obstruction Qualified Code(s): K80.20 - Calculus of gallbladder without cholecystitis without obstruction (5) DVT prophylaxis Current Visit: Yes Status: Acute Assessment and plan: SubQ heparin ordered. - Time Spent With Patient Total time spent is greater than 50% in coordination of care (as documented) at patient's floor/unit and/or counseling patient: Greater than 35 minutes
[2018-09-18] MEDS ORDERED: Insulin LISPRO 300 UNITS/3 ML VIAL SQ SCH (21:00)
[2018-09-18] MEDS: Ranolazine 500 MG TAB.ER.12H PO SCH (21:30)
[2018-09-18] MEDS: *HR* Heparin 5,000 UNIT/ML VIAL SQ SCH (21:30)
[2018-09-19] MEDS: Insulin LISPRO 300 UNITS/3 ML VIAL SQ SCH ×5 (00:08→23:51)
[2018-09-19] MEDS: *HR* Heparin 5,000 UNIT/ML VIAL SQ SCH ×3 (05:08→20:55)
[2018-09-19] MEDS ORDERED: Insulin LISPRO 300 UNITS/3 ML VIAL SQ SCH (07:30)
--- NOTE | 2018-09-19 09:18 | Internal Med Progress Note ---
Hospitalist Progress Note - Encounter Date of Encounter: 09/19/18 Time of Encounter: 09:18 - Subjective Interval History: Patient seen and examined at bedside Complains of some chest heaviness 7/10 EKG ordered as well as PRN nitroglycerine - Exam Vitals: Temp Pulse Resp BP Pulse Ox 97.5 F L 65 14 135/68 98 09/19/18 07:04 09/19/18 07:04 09/19/18 07:04 09/19/18 07:04 09/19/18 07:04 Exam: Vitals: Reviewed General: Well-developed white female sitting up in bed in no acute distress. Skin: Warm and supple. HEENT: Moist mucous membranes. No conjunctivae pallor. Neck: No lymphadenopathy. No JVD. No carotid bruits. No palpable thyroid. Chest: Normal thoracic expansion. Normal breath sounds. Clear to auscultation. Heart: Normal S1 & S2; rhythmic. No rubs or murmurs. Abdomen: Non-distended, soft and non-tender to palpation. No peritoneal reaction. Extremities: No clubbing, cyanosis or edema. No calf tenderness. Normal distal pulses. Neurological: Awake, alert and oriented to person, place and time. No focal deficits. Psych: Affect appropriate. - Assessment and Plan (1) Unstable angina Current Visit: Yes Status: Acute Assessment and Plan: Angina increasing in frequency and intensity in a patient with significant underlying CAD. Will observe on telemetry overnight, continue to trend troponins and assess for increasing pain. If increasing, may require NTG drip and/or heparin. In the interim will relieve with SL tablets and a patch. Cardiology consult will be beneficial. Continue ASA, Plavix, Imdur and start ranolazine. Keep her NPO PMN in the [facility] she may require LHC. 09/19/2018 Hx of CAD s/p LHC and stenting x 11, most recently in September 2017: Left Heart Cath (09/25/17): Severe Three Vessel CAD; Previously Stented LAD, RCA patent; LV normal and has normal contractility EF 65% Cont to experience chest heaviness rating 7/10 nitroglycerine PRN EKG cardiology consulted and recommending LHC today or tomorrow restart renexa - consult social media project manager concerning financial difficulty cont ASA plavix cont cardiac monitoring (2) Diabetes mellitus type 2, noninsulin dependent Current Visit: Yes Status: Chronic Assessment and Plan: Will hold oral agents for now and place on insulin sliding scale. Well controlled. 09/19/2017 cont accucheck AC/HS SSI hold oral agents (3) GERD (gastroesophageal reflux disease) Current Visit: Yes Status: Chronic Assessment and Plan: Continue PPI as needed. (4) Cholelithiases Current Visit: No Status: Chronic Assessment and Plan: Currently asymptomatic and being controlled with dietary discretion. (5) DVT prophylaxis Current Visit: Yes Status: Acute Assessment and Plan: SubQ heparin ordered. - Time Spent with Patient Total time spent is greater than 50% in coordination of care (as documented) at patient's floor/unit and/or counseling patient: Internal Medicine: Result - Labs CBC & Chem 7: 09/18/18 16:54 09/18/18 16:23 Labs: Short CBC 09/18/18 Range/Units 16:54 WBC 4.1 L (4.3-11.1) K/mcL Hgb 10.9 L (11.5-15.4) g/dL Hct 31.6 L (35.3-44.9) % Plt Count 213 (140-400) K/mcL Neutrophils # 2.1 (1.6-8.9) K/mcL BMP 09/18/18 16:23 Sodium 137 Potassium 4.0 Chloride 104 Carbon Dioxide 23 BUN 10 Creatinine 0.74 Glucose 174 H Calcium 9.7 Cardiac Enzymes 09/18/18 09/18/18 09/19/18 Range/Units 16:23 21:55 04:20 Troponin I < 0.03 < 0.03 < 0.03 (< 0.04) ng/mL - ABG Interpretation ABG results: PT/INR, D-dimer PT 10.0 Seconds (9.4-12.1) 09/18/18 16:23 - Impressions Impressions Chest X-Ray 09/18/18 16:03 IMPRESSION: No evidence of acute cardiopulmonary disease. D/ / Salvador Ravi MD / Salvador Ravi MD Interpreting Provider: Salvador Ravi MD Consult Discharge Plan - Plan Referrals: Maninder Hodgson [Partnered Physician] - 09/26/18 10:00 am (3) GERD (gastroesophageal reflux disease) Qualifiers: Esophagitis presence: esophagitis presence not specified Qualified Code(s): K21.9 - Gastro-esophageal reflux disease without esophagitis (4) Cholelithiases Qualifiers: Cholelithiasis location: gallbladder Cholecystitis presence: without cholecystitis Biliary obstruction: without biliary obstruction Qualified Code(s): K80.20 - Calculus of gallbladder without cholecystitis without obstruction
[2018-09-19] MEDS: Nitroglycerin 0.4 MG TAB.SUBL SL PRN ×3 (09:26→09:36)
--- NOTE | 2018-09-19 10:33 | Cardiology Consult Note ---
<NarinderRommellinda - Last Filed: 09/19/18 14:04> Date of Encounter: 09/19/18 Time of Encounter: 10:15 Assessment and Plan (1) Chest pain Current Visit: Yes Status: Acute Ms. Seth is a 72 year old female with PMHx significant for CAD s/p stenting x 11, HTN, HLD, DM who presents from PCP office with chest pain on exertion. Heavy Chest Pain in center of chest; Chronic - comes and goes, about once every 2 days for the past few weeks; increasing in frequency over the past few months; relieved with 1-2 minutes rest, nitroglycerin; associated with dyspnea on exertion Had been started on Ranexa for anginal symptoms - however, unable to afford medication (notes Ranexa did help while she was able to take it); Also, has not been able to tolerate Statins in the past due to myalgias; however, recently restarted on Crestor 10mg qWeekly On presentation to ED: Vitals hemodynamically stable EKG (09/19/17): HR = 67; OR = 180; QRS = 101; QTc = 398; Normal [place]bon; Normal Sinus Rhythm; No acute ST Changes Chest XR: No evidence of acute cardiopulmonary disease Trop: Negative x 3 Hx of CAD s/p LHC and stenting x 11, most recently in September 2017: Left Heart Cath (09/25/17): Severe Three Vessel CAD; Previously Stented LAD, RCA patent; LV normal and has normal contractility EF 65% Most recent Echo (05/15/18): Impressions: LVEF 60%. Normal LV chamber size, wall thickness and function. Mild left ventricular diastolic dysfunction. Normal right ventricular structure and function. Mild tricuspid regurgitation. No pulmonary hypertension. No evidence of a PFO with agitated saline contrast. No significant valvular dysfunction. PLAN: Likely Unstable Angina due to worsening exercise function and worsening symptoms Cont Aspirin, Plavix Cont Nitroglycerin PRN LHC today or tomorrow - NPO prior to procedure Restart Ranexa - consider SW consult due to financial difficulty Qualifiers: Chest pain type: chest pain due to myocardial ischemia Ischemic chest pain type: stable angina pectoris Qualified Code(s): I20.8 - Other forms of angina pectoris (2) CAD (coronary artery disease) Current Visit: Yes Status: Chronic Hx of CAD - s/p multiple stents --> pt reports 11 in total Currently reporting stable angina, dyspnea with exertion - increasing episodes, nearly once every 2 days over the past few weeks Improved with nitroglycerin and rest Has not been able to obtain Ranexa due to financial difficulty Had not been taking statin due to myalgias; only recently restarted Crestor 10mg qWeekly Left Heart Cath (09/25/17): Severe Three Vessel CAD Previously Stented LAD, RCA patent LV normal and has normal contractility EF 65% PLAN: Cont Dual Antiplatelet Therapy - Asprin Plavix Cont Imdur Cont lisinopril, lopressor, crestor Nitroglycerin PRN for chest pain Consider restarting Ranexa Qualifiers: Coronary Disease-Associated Artery/Lesion type: [place] artery [place] vs. transplanted heart: [place] heart Associated angina: with stable angina Qualified Code(s): I25.118 - Atherosclerotic heart disease of [place] coronary artery with other forms of angina pectoris (3) HLD (hyperlipidemia) Current Visit: No Status: Chronic Most recent Lipid profile (09/14/18): Trig = 344 Chol = 222 LDL = 112 HDL = 41 Had not been taking statin due to associated myalgias; recently restarted on Crestor 10mg qweekly per PCP PLAN: Cont Crestor Qualifiers: Hyperlipidemia type: mixed hyperlipidemia Qualified Code(s): E78.2 - Mixed hyperlipidemia (4) HTN (hypertension) Current Visit: Yes Status: Chronic BP on Admission = 159/97 PLAN: Monitor Vitals Cont Lisinopril Qualifiers: Hypertension type: essential hypertension Qualified Code(s): I10 - Essential (primary) hypertension Discussion w patient/family: The assessment and plan as outlined above was discussed with the patient and/or family members who expressed understanding and agreement. All questions were answered. Thank you for involving us in the care of your patient. Please call with any questions. History of Present Illness Consult date: 09/19/18 Requesting physician: Dwaine Munson Consult reason: Angina, Chest Pain Chief complaint: Chest Pain History of present illness: Ms. Seth is a 72 year old female with PMHx significant for CAD s/p stenting x 11, HTN, HLD, DM who presents from PCP office with chest pain on exertion. Pt states that she was hustling to get to her PCP appt yesterday, when she began feeling heavy chest pain in the center of her chest. Chest pain resolved with rest after 1-2 minutes, and is not dissimilar from that she has felt in the past. However, she notes that in the past 2 months, she has been feeling chest pain and dyspnea with exertion more frequently than usual. Particularly, in the last few weeks, she has been having chest pain about once every 2 days, which resolves when she rests for about 1-2 minutes. PCP recommended that pt come to [facility] to be further evaluated. Pt states she has an extensive cardiac history since 2014, and has followed up with Dr. Garner and Dr. Irwin during that time. Has had multiple stenting procedures, last in Aug 2017. States previous LHC was in Sep 2017. Notes compliance with medications, aside from Ranexa which she states she has not been able to afford. Additionally, has not been taking statin because she has muscle cramping when she does so, but recently started Crestor per PCP which she has been able to tolerate thus far. Maintained on Plavix, aspirin, lopressor, lisinopril, imdur. Has required use of Nitroglyerin more frequently over the past few weeks, and has been using nitro patch in place of sublingual tabs. At time of examination, patient had episode of chest pain that she initially reported to be 7-8/10, and which subsided to 4/10 after 3 SL Nitroglycerin tabs. Denies headache, blurry vision, palpitations, dyspnea, abdominal pain, nausea, vomiting, diarrhea, weakness at this time. EKG (09/19/17): HR = 67; OR = 180; QRS = 101; QTc = 398; Normal Gibbon; Normal Sinus Rhythm; No acute ST Changes Chest XR: No evidence of acute cardiopulmonary disease Trop: Negative Most recent Echo (05/15/18): Impressions: LVEF 60%. Normal LV chamber size, wall thickness and function. Mild left ventricular diastolic dysfunction. Normal right ventricular structure and function. Mild tricuspid regurgitation. No pulmonary hypertension. No evidence of a PFO with agitated saline contrast. No significant valvular dysfunction. Left Heart Cath (09/25/17): Severe Three Vessel CAD Previously Stented LAD, RCA patent LV normal and has normal contractility EF 65% Past Med Surg Social Fam HX - Past Medical History Attestation: Yes The following information was validated with the patient. Source: old records reviewed Medical history: coronary artery disease, diabetes, GERD, hyperlipidemia, hypertension, kidney stones, myocardial infarction, RA Additional medical history: Type II Diabetic Psychiatric history: anxiety, depression - Past Surgical History Surgical History: angioplasty/stent Additional surgical history: 11 cardiac stents. lithotripsy. left ankle, bilateral carpal tunnel - Social History Smoking Status: 2nd Hand Smoke Exposure Smokeless Tobacco Status: No Alcohol use: none Drug use: none - Family History Mother Adopted: No Family Member Ethnicity: Non- Living Status: Age at : 62 Cause of : bleed to Hx Family Cardiac Disorders: Yes (Esophageal varices) Hx Family Respiratory Disorders: No Hx Family Cancer: No Hx Family GI Disorders: No Hx Family Endocrine Disorder: Yes (Cirrhosis) Hx Family Neuromuscular Disorders: No Hx Family Neurologic Disorders: No Hx Family HEENT Disorders: No Hx Family Autoimmune Disorders: No Father Adopted: No Family Member Ethnicity: Non- Living Status: Age at : 47 Cause of : heart attack Hx Family Cardiac Disorders: Yes (OR) Hx Family Respiratory Disorders: Yes (Smoker) Hx Family Cancer: No Hx Family GI Disorders: Yes (self) Hx Family Endocrine Disorder: Yes (self, cousin,mother) Hx Family Neuromuscular Disorders: No Hx Family Neurologic Disorders: Yes (grandfather) Hx Family HEENT Disorders: No Hx Family Autoimmune Disorders: No Grandmother Family Member Ethnicity: Non- Hx Family Endocrine Disorder: Yes (Diabetes) Medications and Allergies Aspirin 81 mg PO QPM 07/12/16 [History] Clopidogrel [Plavix] 75 mg PO 1400 07/12/16 [History] Isosorbide MONOnitrate [Isosorbide Mononitrate ER] 240 mg PO DAILY 07/12/16 [History] Nitroglycerin [Nitrostat] 0.4 mg SL Q5M PRN MDD X3 DOSES CALL 911 07/12/16 [History] Lisinopril [Zestril] 10 mg PO DAILY #15 tablet 07/14/16 [Rx] metFORMIN [Glucophage] 500 mg PO BID 08/16/16 [History] Cholecalciferol (D-3) [Vitamin D] 2,000 unit PO DAILY 10/11/16 [History] Loratadine [Allergy Relief] 10 mg PO DAILY PRN 10/11/16 [History] Dicyclomine [Bentyl] 10 mg PO QID PRN 12/13/16 [History] Metoprolol [Lopressor] 25 mg PO HS 09/01/17 [History] EPINEPHrine [Epipen] 0.3 mg IM ONCE PRN 09/25/17 [History] Pantoprazole Sodium [Protonix] 40 mg PO DAILY 10/18/17 [History] Sucralfate [Carafate] 1 gm PO TID PRN 10/31/17 [History] Glimepiride [Amaryl] 1 mg PO DAILY 05/16/18 [History] Rosuvastatin Calcium 10 mg PO SA 09/19/18 [History] Allergy/AdvReac Type Severity Reaction Status Date / Time penicillin V Allergy Anaphylaxis Verified 06/07/18 09:17 atorvastatin [From Lipitor] AdvReac Muscle Pain Verified 06/07/18 09:17 lovastatin AdvReac Muscle Pain Verified 06/07/18 09:17 Rtdiico-Byg-Vhz Reductase AdvReac Muscle Pain Verified 06/07/18 09:17 Inhibitor [Statins] All Systems Review: The remainder of the systems were reviewed and are negative - Constitutional Constitutional: no chills, no fatigue, no fever(s), no headache(s), no lethargy, no malaise, no weakness - EENT Eyes: no blurred vision, no loss of vision - Cardiovascular Cardiovascular: chest pain with exertion, dyspnea on exertion, no chest pain at rest, no diaphoresis, no dyspnea at rest, no irregular heart rhythm, no radiating jaw, neck or arm pain, no leg edema, no lightheadedness, no palpitations, no rapid heart rate, no syncope - Respiratory Respiratory: no cough, no dyspnea - Gastrointestinal Gastrointestinal: no abdominal pain, no nausea - Genitourinary Genitourinary: no dysuria - Musculoskeletal Musculoskeletal: no back pain, no myalgias - Integumentary Integumentary: no rash - Neurological Neurological: no dizziness, no syncope - Psychiatric Psychiatric: no anxiety Physical Examination Vital Signs, Last 4 Hours Temp Pulse Resp BP Pulse Ox 09/19/18 07:04 97.5 F L 65 14 135/68 98 General: Conversant, No Apparent Distress HEENT: Atraumatic, Normocephaly, Mucus Membranes Moist Neck: Normal carotid pulses Cardiac: Reg Rate and Rhythm, Normal S1 and S2, No Murmur Lungs: Normal Breath Sounds, No Wheeze, Rales, Rhonchi Neuro: Alert and responsive, No focal deficits noted Abdomen: Soft, Non-Tender Skin: No rashes noted on visualized skin Extremities: No Edema, Normal Pulses Results 09/18/18 16:54 09/18/18 16:23 Lab Results 09/18/18 09/18/18 09/18/18 16:23 16:23 16:54 WBC 4.1 L Hgb 10.9 L Hct 31.6 L Plt Count 213 INR 0.9 Sodium 137 Potassium 4.0 Chloride 104 Carbon Dioxide 23 BUN 10 Creatinine 0.74 Glucose 174 H Calcium 9.7 Troponin I < 0.03 09/18/18 09/19/18 21:55 04:20 WBC Hgb Hct Plt Count INR Sodium Potassium Chloride Carbon Dioxide BUN Creatinine Glucose Calcium Troponin I < 0.03 < 0.03 Consult Discharge Plan - Plan Referrals: Maninder Hodgson [Partnered Physician] - 09/26/18 10:00 am <Farhan Silva - Last Filed: 09/20/18 12:33> Date of Encounter: 09/20/18 - Attending Attestation I examined this patient and my medical decision-making was reviewed with the Resident Physician. I agree with the documented findings, disposition and alexander tment plan as described except to the extent set forth below. CC: Chest pain HPI: Pt reports increasing mid epigastric chest pain, 8/10 at most severe, initially occurring with exertion, associated with mild shortness of breath and diaphoresis, lasting up to ten minutes, relieved with rest or one sl ntg, now occurring at rest, requiring up to two sublingual nitroglycerin for relief. Pt reports chest pain typical for her anginal symptoms. She has long cardiac history, undergoing multiple PCIs since 2013, with total of 11 stents placed. ROS: reviewed PHM: reviewed Labs, Xrays, LHC 04/03 images reviewed. PE: pt seen and examined, agree with findings as documented. IMP/Plan: 1. Unstable angina, cresendo symptoms, now having 2/10 chest pain at rest, recommend LHC/poss, risk and benefits discussed, pt elects to proceed. 2. CAD: severe triple vessel dx with multiple previous stents in LAD and RCA 3. hperlipidemia: not at goal, pt self discontinued statin tx, now started back on rosuvastatin. 4. Hyptn: controlled on current meds. Assessment and Plan Discussion w patient/family: The assessment and plan as outlined above was discussed with the patient and/or family members who expressed understanding and agreement. All questions were answered. Thank you for involving us in the care of your patient. Please call with any questions. History of Present Illness History of present illness: Ms. Seth is a 72 year old female All Systems Review: The remainder of the systems were reviewed and are negative Results 09/20/18 03:31 09/20/18 03:31 Lab Results 09/20/18 09/20/18 03:31 03:31 WBC 4.3 Hgb 10.9 L Hct 31.3 L Plt Count 223 Sodium 138 Potassium 3.8 Chloride 103 Carbon Dioxide 26 BUN 12 Creatinine 0.79 Glucose 92 Calcium 9.7
[2018-09-19] MEDS: Acetaminophen 325 MG TABLET PO PRN ×2 (13:05→20:55)
--- NOTE | 2018-09-19 15:05 | Pre-Sedation Evaluation ---
Pre-sedation evaluation - Pre-sedation checklist Date of procedure: 09/19/18 Procedure: [facility] Recent Vitals: Last Vital Signs Temp 97.7 F 09/19/18 11:24 Pulse 74 09/19/18 11:24 Resp 14 09/19/18 11:24 BP 125/81 09/19/18 11:24 Pulse Ox 97 09/19/18 11:24 H&P (including ROS) documented in medical record: Yes Previous reaction to sedatives/anesthetics: No Dietary Status: NPO after Midnight Dentition: No loose teeth or bridges ASA Classification *see protocol: CLASS II-Mild systemic disease Plan of Care: Pt appropriate candidate for procedure/moderate/conscious sedation, Risks/benefits of procedure/sedation discussed w/ patient/family Cardiac Registry (Cardio Only) - Functional Capacity Functional Capacity: >=4 METS with symptoms - Clincal Frailty Scale Clinical Frailty Scale: Managing Well
[2018-09-19] MEDS: Ranolazine 500 MG TAB.ER.12H PO SCH ×2 (15:47→20:55)
[2018-09-19] MEDS: Aspirin 81 MG TAB.CHEW PO SCH (15:47)
[2018-09-19] MEDS: Cholecalciferol (D-3) 1,000 UNIT TABLET PO SCH (15:48)
[2018-09-19] MEDS: Isosorbide MONOnitrate (24 HR) 60 MG TAB.ER.24H PO SCH (15:48)
--- NOTE | 2018-09-19 15:58 | Electrocardiograph Report ---
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
[2018-09-19] MEDS ORDERED: 0.9 % Sodium Chloride 1,000 ML ONE ×2 (16:12→16:15)
[2018-09-19] MEDS ORDERED: Nitroglycerin 1,000 MCG/10 ML VIAL IV ONE (16:12)
[2018-09-19] MEDS ORDERED: Heparin 1,000 UNITS/500 mL 500 ML ONE (16:12)
[2018-09-19] MEDS ORDERED: *HR* Heparin 10,000 UNIT/10 ML VIAL ONE (16:12)
[2018-09-19] MEDS ORDERED: ISOVUE-370 200 ML INFUS..BTL ONE (16:20)
[2018-09-19] MEDS ORDERED: *HR* FentaNYL (PF) 100 MCG/2 ML VIAL ONE (16:37)
[2018-09-19] MEDS ORDERED: *HR* Midazolam HCl 5 MG/5 ML VIAL IVP ONE (16:37)
--- NOTE | 2018-09-19 16:53 | Electrocardiograph Report ---
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
--- NOTE | 2018-09-19 17:36 | Invasive Diagnostic Lab Proc ---
Name: Lidia Seth Date of Study: 09/19/2018 Date: 1945 Ht: 66.1in Medical Record#: [id number] Age: 72 Wt: 154.54lb Gender: Female BSA: 1.8 Order #: [id number] BMI: 24.84 Physicians Procedure Physician: Jerod Garner MD, [facility] Referring MD: Referring MD: Staff Name Position Time In Kylah Roe RN Monitor 04:40 PM Sujatha Stovall RN Rotor Plate Washer 04:40 PM Rocío Hanley RT (R) Scrub 04:40 PM Indications Indication Unstable Angina Procedures Performed Procedure L HRT ARTERY/VENTRICLE ANGIO Pre-Procedure Checklist Informed consent is complete signed and on chart. H&P is on chart. ID band is on and ID verified with patient. Patient NPO for procedure The procedure was described for the patient and questions were answered. Blood Pressure: 125/81 ECG is on chart. Rhythm: NSR Plan of Care Patient will tolerate the procedure without complications. Adequate level of comfort will be maintained. Hemodynamics will remain stable Patient will recover from procedure without complications. Respiratory function will be maintained. Cardiac rhythm will remain stable. Patient temperature will be maintained. Patient and/or family have verbalized understanding of the procedure. Patient Education Chief Complaint/Reason for Test: Cardiac Cath Developmental Category: Adult (18-64 years) Developmentally Appropriate for Age: Yes Learning Barriers: None Education Needs: Procedure Education Method: Verbal Information Taught: Cardiac Cath Educational Evaluation: Able to repeat information Intravenous Access Time IV Size Location DC'd Fluid/Drip Rate Units RN 20g 1 09/20" Patent On Arrival Lt Arm Allergies lovastatin Qipkxxi-Rve-Box Reductase Inhibitor Amoxicillin penicillin V atorvastatin Vital Signs Time BP (mmHg) HR (bpm) O2 Sat. RR (bpm) LOC 04:27 PM / % 5 = Fully awake and oriented or at pre-proc level 04:27 PM / % 4 = Oriented but drowsy 04:42 PM / % 4 = Oriented but drowsy 04:58 PM / % 4 = Oriented but drowsy 04:40 PM 151 / 80 74 96 % 15 04:45 PM 137 / 69 76 97 % 12 04:50 PM 144 / 78 82 99 % 18 04:55 PM 140 / 70 80 98 % 13 05:00 PM 145 / 78 79 98 % 13 05:05 PM 140 / 75 73 97 % 9 Procedural Medications Time Medication Dose Units Method Given By 04:39 PM Oxygen 2 L/min nasal cannula Sujatha Stovall RN 04:39 PM Versed 3 mg Intravenous Sujatha Stovall RN 04:39 PM Fentanyl 50 mcg Intravenous Sujatha Stovall RN 04:49 PM Lidocaine 2% 20 ml Subcutaneous Jerod Garner MD, [facility] 04:50 PM Versed 1 mg Intravenous Sujatha Stovall RN Truman Score Preprocedure Postprocedure Activity 2- Moves 4 extremities sustained head lift Activity 2- Moves 4 extremities sustained head lift Circulation 2- SBP +/= 20 points of pre-anesthetic level Circulation 2- SBP +/= 20 points of pre-anesthetic level Consciousness 2- Awake and alert oriented x 3 Consciousness 2- Awake and alert oriented x 3 O2 Saturation 2- Able to maintain O2 satruation of 92% on room air O2 Saturation 2- Able to maintain O2 satruation of 92% on room air Respiratory 2- Able to deep breathe and cough well Respiratory 2- Able to deep breathe and cough well Total Score 10 Total Score 10 Contrast Agent: Isovue Diagnostic Contrast: 55 ml Total Contrast: 55 ml Fluoro Dose: 16 mGy Procedure Log Time Note Enter By 04:15 PM CathStat 04:27 PM Pt arrived to laborer [place] 1 at 16:27 scoates 04:27 PM Physician arrived 16:27 scoates 04:27 PM Meet and greet completed scoates 04:27 PM Sign in performed according to hospital policy. Informed consent was obtained. scoates 04:27 PM Procedure start 16:27 scoates 04:27 PM Time: 16:27 Patient comfortable and pain free: Yes scoates 04:27 PM Time: 16:27LOC: 5 = Fully awake and oriented or at pre-proc level scoates 04:39 PM Vitals capture started with the following parameters, Patient=Adult, Interval=5 min, Initial Cejrusxv=320 mmHg, Deflation Rate=3 mmHg, Cuff placed on Right Arm 04:39 PM Time: 16:39 Oxygen on at 2 L/min per nasal cannula by Sujatha Stovall RN scoates 04:39 PM Time: 16:39 Versed 3 mg Intravenous Given by Sujatha Stovall RN scoates 04:39 PM Time: 16:39 Fentanyl 50 mcg Intravenous Given by Mavis, Sujatha RN scoates 04:40 PM Recorded ECG: HR=76 Condition=Condition 1 04:40 PM Case Delayed no, inpatient scoates 04:40 PM Hair removed from procedure site in procedure lab using clippers. Bilateral groin prepped with Chloraprep by Kylah Roe RN, then patient was draped. Skin intact. scoates 04:40 PM Kylah Roe RN Position: Monitor Time in: 16:40 scoates 04:40 PM Sujatha Stovall RN Position: Rotor Plate Washer Time in: 16:40 scoates 04:40 PM Rocío Hanley RT (R) Position: Scrub Time in: 16:40 scoates 04:40 PM HR=74 bpm, DQGR=077/80 mmhg, SpO2=96.0 %, Resp=15 B/min, Comment=nsr 04:42 PM Time: 16:27LOC: 4 = Oriented but drowsy scoates 04:42 PM Time: 16:27 Patient comfortable and pain free: Yes scoates 04:43 PM Clinical Presentation: Unstable angina scoates 04:45 PM HR=76 bpm, GZGC=600/69 mmhg, SpO2=97.0 %, Resp=12 B/min, Comment=nsr 04:48 PM Time out was performed according to hospital policy. Conscious sedation and anesthesia was achieved (see medication log with in this report above) scoates 04:49 PM Time: 16:49 20 ml Lidocaine 2% to right groin Subcutaneous Given by Jerod Garner MD, [facility] scoates 04:50 PM HR=82 bpm, HVZY=745/78 mmhg, SpO2=99.0 %, Resp=18 B/min, EtCO2=44 mmHg, Comment=nsr 04:50 PM Access obtained by percutaneous puncture. 5Fr 10cm Terumo [place] sheath placed in right Femoral artery. [id number] scoates 04:51 PM 5Fr FL 4 catheter inserted over the wire DN scoates 04:51 PM Recorded Pressure: Ao, HR=78, Condition=Condition 1 (Aorta) Ao 143/92/116 04:52 PM LCA angiography performed in multiple views. scoates 04:53 PM Catheter removed scoates 04:53 PM 5Fr FR 4 catheter inserted over the wire DN scoates 04:54 PM Recorded Pressure: Ao, HR=78, Condition=Condition 1 (Aorta) Ao 142/100/120 04:55 PM HR=80 bpm, ZEOY=223/70 mmhg, SpO2=98.0 %, Resp=13 B/min, EtCO2=42 mmHg, Comment=nsr 04:56 PM Pressure channel 1 zeroed. 04:56 PM Recorded Pressure: LV, HR=78, Condition=Condition 1 (Left Ventricle) LV 137/-6/6 04:57 PM Time: 16:50 Versed 1 mg Intravenous Given by Sujatha Stovall RN scoates 04:57 PM Recorded Pressure: LV, Ao, HR=92, Condition=Condition 1 (Left Ventricle) LV 133/23/10, (Aorta) Ao 101/43/69 04:57 PM RCA angiography performed in multiple views. scoates 04:57 PM Catheter removed scoates 04:57 PM 5Fr Pigtail catheter inserted over the wire C scoates 04:57 PM Catheter crossed the aortic valve and was selectively placed in the left ventricle. Pressures recorded on pullback for left heart catheterization. scoates 04:58 PM Bolus angiogram of left Ventricle complete: 8 ml/sec for a total of 24 mls scoates 04:58 PM Time: 16:42LOC: 4 = Oriented but drowsy scoates 04:58 PM Time: 16:42 Patient comfortable and pain free: Yes scoates 04:58 PM Catheter removed scoates 04:59 PM Bolus angiogram of right Femoral complete: 4 ml/sec for a total of 7 mls scoates 04:59 PM Procedure completed at 16:59 09/19/2018 scoates 04:59 PM Coronary Dominance: right scoates 05:00 PM HR=79 bpm, EUFF=218/78 mmhg, SpO2=98.0 %, Resp=13 B/min, Comment=nsr 05:01 PM Sign out completed: Radiation Dose 131 mGy, 16 Gy/cm2 Fluoro Time: 0.9 Isovue 370 - 200ml contrast 55 ml given by Jerod Garner MD, [facility]. Complications: None. 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 Cardiac Rehab Consult needed: YesConfirmed administered medications: Yes scoates 05:01 PM Isovue 370 - 200ml,1 Bottle(s) used. scoates 05:01 PM Arterial sheath pulled, Mynx closure device used and was Successful S/N. scoates 05:01 PM Estimated Blood Loss: minimal scoates 05:02 PM Post ECG NSR scoates 05:02 PM Post Blood Pressure 145/78 scoates 05:02 PM 17:02 Post Pulses Bilateral DP & PT 1+ scoates 05:02 PM Information taught Cardiac Cath scoates 05:02 PM Education needs Procedure, Plan of Care, and Responsibilities of Patient in Care scoates 05:02 PM Education needs Procedure, Plan of Care, and Responsibilities of Patient in Care scoates 05:02 PM Learning barriers :None scoates 05:02 PM Education Methods Verbal scoates 05:02 PM Education evaluation Able to repeat information scoates 05:03 PM Site status No bleeding/hematoma - Rt Groin as reported by Rocío Hanley RT (R) at 17:02 scoates 05:03 PM Opsite applied scoates 05:03 PM Plavix, Effient or Brilinta given No scoates 05:03 PM Delay to floor No scoates 05:03 PM family not here at this time scoates 05:[address] surgery consulted, aware and has reviewed films scoates 05:04 PM Coronary Dominance: right scoates 05:05 PM Lesion found in Proximal RCA. Pre Stenosis: 70 Pre ZAC Flow: scoates 05:05 PM HR=73 bpm, IRXL=572/75 mmhg, SpO2=97 %, Resp=9 B/min 05:05 PM Lesion found in Proximal LAD. Pre Stenosis: 50 Pre ZAC Flow: scoates 05:05 PM Lesion found in Mid LAD. Pre Stenosis: 80 Pre ZAC Flow: scoates 05:05 PM Lesion found in Proximal Circumflex. Pre Stenosis: 80 Pre ZAC Flow: scoates 05:05 PM Lesion found in Right PDA. Pre Stenosis: 95 Pre ZAC Flow: scoates 05:13 PM Time: 16:58 Patient comfortable and pain free: Yes scoates 05:13 PM Time: 16:58LOC: 4 = Oriented but drowsy scoates 05:13 PM Proximal Left Anterior Descending Coronary Artery with 50% stenosis. If graft is supplying this territory, 0 % stenosis. scoates 05:13 PM Mid/Distal Left Anterior Descending Coronary Artery and diagonal branches with 80% stenosis. If graft is supplying this area, 0 % stenosis scoates 05:13 PM Circumflex, Obtuse Marginal, Left Posterior Descending, and Left Posterolateral Coronary Arteries with 80 % stenosis. If graft is supplying this area, 0 % stenosis scoates 05:13 PM Right Coronary, Right Posterior Descending Arteries with Right Posterolateral and Acute Marginal branches with 95 % stenosis. If graft is supplying this area, 0 % stenosis scoates Complications Complication None Hemodynamics Pressures Site Systolic/A Wave Diastolic/V Wave Mean AO 143 92 116 AO 142 100 120 LV 137 -6 6 LV 133 23 10 AO 101 43 69 Post Procedure Information Blood Pressure: 145/78 mmHg Rhythm: NSR Post procedural instructions were not given Surgery consult for CABG Closure Device Time Device Success/Fail 09/19/2018 5:03:00 PM MynxGrip Successful Site Checks Time Location Status Staff Sheath In? Note 05:02 PM Rt Groin No bleeding/hematoma Rocío Hanley RT (R) Pulses Time Site Pre-Procedure Post-Procedure Note Bilateral DP 2+ Bilateral radial 2+ 5:02:00 PM Bilateral DP & PT 1+ Updated by Kylah Lees RN on 09/19/2018 5:22:04 PM electronically signed on 09/19/2018 5:28:49 PM with status of Final
[2018-09-20] MEDS ORDERED: Ondansetron 4 MG/2 ML VIAL ONE (03:55)
[2018-09-20] MEDS: Insulin LISPRO 300 UNITS/3 ML VIAL SQ SCH ×4 (05:43→22:13)
[2018-09-20] MEDS: *HR* Heparin 5,000 UNIT/ML VIAL SQ SCH ×3 (05:43→22:14)
[2018-09-20 05:59] LABS: Basophils % 0.2 %; Eosinophils # 0.1 K/mcL (0.0-0.6); Eosinophils % 1.4 %; Hematocrit 31.3 % (35.3-44.9); Hemoglobin 10.9 g/dL (11.5-15.4); Immature Granulocytes % 0.2 % (0-4); Mean Corpuscular HGB Conc 34.8 g/dL (31.6-35.5); Mean Corpuscular Hemoglobin 33.4 pg (28.0-33.3); Mean Platelet Volume 9.2 fL (9.4-12.4); Monocytes # 0.4 K/mcL (0.0-1.3); Monocytes % 9.2 %; Neutrophils # 1.8 K/mcL (1.6-8.9); Platelet Count 223 K/mcL (140-400); Red Blood Count 3.26 M/mcL (3.82-4.97); Red Cell Distribution Width 12.3 % (11.5-14.5)
[2018-09-20 06:21] LABS: BUN/Creatinine Ratio 15 (6-26); Blood Urea Nitrogen 12 mg/dL (8-23); Calcium 9.7 mg/dL (8.6-10.3); Carbon Dioxide 26 mEq/L (23-29); Chloride 103 mEq/L (98-107); Glucose 92 mg/dL (70-105); Osmolality,Calculated 285 (280-300); Potassium 3.8 mEq/L (3.5-5.1); Sodium 138 mEq/L (136-145); eGFR For Non-African Americans > 60 (> 60)
--- NOTE | 2018-09-20 08:09 | Cardiothoracic Consult Note ---
Date of Encounter: 09/20/18 Time of Encounter: 07:16 Assessment and Plan (1) Unstable angina Current Visit: Yes Status: Acute The patient is a 72-year-old type II diabetic, hypertensive lady with known CAD and hypercholesterolemia. She has undergone 5 previous PCI's with a total of 11 stents. Recently, the patient began experiencing exertional, nonradiating substernal chest pain and heart palpitations. She underwent cardiac catheterization yesterday was found to have severe 3 vessel CAD and an LVEF 60%. In particular, the patient has a 50% proximal LAD lesion, an 80% mid LAD lesion, a 7080% proximal LCx lesion, a 70% proximal RCA in-stent restenosis, and a 9095% proximal PDA lesion. Patient has been recommended for CABG. I concur with this recommendation. The STS risk calculator reveals an operative mortality risk 0.85%, renal failure risk 0.51%, permanent stroke risk 0.81%, deep sternal wound infection 0.13%, and reoperation risk 2.41%. The patient understands procedure, benefits, alternatives, and risks as outlined above. She is currently on Plavix for her stents and this will need to be stopped 5 days prior to CABG. Tentatively, she is scheduled for CABG on 09/24/2018. The assessment and plan as outlined above was discussed with the patient and/or family members who expressed understanding and agreement. All questions were answered. - History of Present Illness Consult date: 09/19/18 Requesting physician: Jerod Garner Consult reason: CABG evaluation Chief complaint: Unstable angina History of present illness: Ms. Seth is a 72 year old type II diabetic, hypertensive lady with known CAD. The patient's cardiac history dates back to 2014 which time she began exper iencing exertional substernal chest pain. She was scheduled for an outpatient exercise stress test and suffered a myocardial infarction (according to the patient). She was taken to the cardiac catheterization lab and underwent PCI with stent placement. Since that time the patient has had for additional cardiac catheterizations and now has a total of 11 cardiac stents. During the last 2-3 weeks patient has had exertional, nonradiating substernal chest pain and palpitations. She underwent cardiac catheterization yesterday was found to have severe 3 vessel CAD and an LVEF 60%. In particular, the patient has a 50% proximal LAD lesion, an 80% mid LAD lesion, a 70-80% proximal LCx lesion, a 70% proximal RCA in-stent restenosis, and a 9095% proximal PDA lesion. She has been recommended for CABG. Past Med Surg Social Fam HX - Past Medical History Medical history: coronary artery disease, diabetes, GERD, hyperlipidemia, h ypertension, kidney stones, myocardial infarction, RA, other (Cholelithiasis, diverticulosis) Additional medical history: Type II Diabetic Psychiatric history: anxiety, depression - Past Surgical History Surgical History: angioplasty/stent, hysterectomy, other (Bilateral carpal tunnel release, left ankle ORIF, removal of left ankle hardware, left ureteroscopic stone extraction) Additional surgical history: 11 cardiac stents. lithotripsy. left ankle, bilateral carpal tunnel - Social History Smoking Status: 2nd Hand Smoke Exposure Smokeless Tobacco Status: No Alcohol use: none Drug use: none Occupational status: employed Current living situation: Home - Independent Activity Level: Independent ambulation, Very active Recent Out of Country Travel Within the Last 8 Weeks: No Exposure or Possible Exposure to Illness During Travel: No - Family History Mother Adopted: No Family Member Ethnicity: Non- Living Status: Age at : 62 Cause of : bleed to Hx Family Cardiac Disorders: Yes (Esophageal varices) Hx Family Respiratory Disorders: No Hx Family Cancer: No Hx Family GI Disorders: No Hx Family Endocrine Disorder: Yes (Cirrhosis) Hx Family Neuromuscular Disorders: No Hx Family Neurologic Disorders: No Hx Family HEENT Disorders: No Hx Family Autoimmune Disorders: No Father Adopted: No Family Member Ethnicity: Non- Living Status: Age at : 47 Cause of : heart attack Hx Family Cardiac Disorders: Yes ([place]) Hx Family Respiratory Disorders: Yes (Smoker) Hx Family Cancer: No Hx Family GI Disorders: Yes (self) Hx Family Endocrine Disorder: Yes (self, cousin,mother) Hx Family Neuromuscular Disorders: No Hx Family Neurologic Disorders: Yes (grandfather) Hx Family HEENT Disorders: No Hx Family Autoimmune Disorders: No Grandmother Family Member Ethnicity: Non- Hx Family Endocrine Disorder: Yes (Diabetes) Medications and Allergies Aspirin 81 mg PO QPM 07/12/16 [History] Clopidogrel [Plavix] 75 mg PO 1400 07/12/16 [History] Isosorbide MONOnitrate [Isosorbide Mononitrate ER] 240 mg PO DAILY 07/12/16 [History] Nitroglycerin [Nitrostat] 0.4 mg SL Q5M PRN MDD X3 DOSES CALL 911 07/12/16 [History] Lisinopril [Zestril] 10 mg PO DAILY #15 tablet 07/14/16 [Rx] metFORMIN [Glucophage] 500 mg PO BID 08/16/16 [History] Cholecalciferol (D-3) [Vitamin D] 2,000 unit PO DAILY 10/11/16 [History] Loratadine [Allergy Relief] 10 mg PO DAILY PRN 10/11/16 [History] Dicyclomine [Bentyl] 10 mg PO QID PRN 12/13/16 [History] Metoprolol [Lopressor] 25 mg PO HS 09/01/17 [History] EPINEPHrine [Epipen] 0.3 mg IM ONCE PRN 09/25/17 [History] Pantoprazole Sodium [Protonix] 40 mg PO DAILY 10/18/17 [History] Sucralfate [Carafate] 1 gm PO TID PRN 10/31/17 [History] Glimepiride [Amaryl] 1 mg PO DAILY 05/16/18 [History] Rosuvastatin Calcium 10 mg PO SA 09/19/18 [History] Allergy/AdvReac Type Severity Reaction Status Date / Time penicillin V Allergy Anaphylaxis Verified 06/07/18 09:17 atorvastatin [From Lipitor] AdvReac Muscle Pain Verified 06/07/18 09:17 lovastatin AdvReac Muscle Pain Verified 06/07/18 09:17 Dkuvomo-Ufa-Xjc Reductase AdvReac Muscle Pain Verified 06/07/18 09:17 Inhibitor [Statins] All Systems Review: The remainder of the systems were reviewed and are negative Physical Examination Vital Signs, Last 4 Hours Temp Pulse Resp BP Pulse Ox 09/20/18 08:02 97.5 F L 73 16 144/74 96 General: Conversant, No Apparent Distress HEENT: Atraumatic, Normocephaly, Trachea midline Neck: No JVD, Normal carotid pulses Cardiac: Reg Rate and Rhythm Lungs: Normal Breath Sounds, No Wheeze, Rales, Rhonchi Neuro: Alert and responsive, No focal deficits noted, Motor nerves intact, Sensory nerves intact Vascular: Normal capillary refill Abdomen: Soft, Non-tender Skin: No rashes noted on visualized skin Musculoskeletal: No Chest Wall Tenderness Extremities: No Clubbing, No Cyanosis, No Edema, Normal Pulses Results 09/20/18 03:31 09/20/18 03:31 Lab Results, Last 24 hours 09/20/18 09/20/18 03:31 03:31 WBC 4.3 Hgb 10.9 L Hct 31.3 L Plt Count 223 Sodium 138 Potassium 3.8 Chloride 103 Carbon Dioxide 26 BUN 12 Creatinine 0.79 Glucose 92 Calcium 9.7 - Imaging Chest Xray: image reviewed (Normal cardiac size. No active pulmonary disease.) Consult Discharge Plan - Plan Referrals: Maninder Hodgson [Partnered Physician] - 09/26/18 10:00 am
[2018-09-20] MEDS: Cholecalciferol (D-3) 1,000 UNIT TABLET PO SCH (08:24)
[2018-09-20] MEDS: Aspirin 81 MG TAB.CHEW PO SCH (08:24)
[2018-09-20] MEDS: Ranolazine 500 MG TAB.ER.12H PO SCH ×2 (08:24→20:47)
[2018-09-20] MEDS: Isosorbide MONOnitrate (24 HR) 60 MG TAB.ER.24H PO SCH (08:24)
--- NOTE | 2018-09-20 09:09 | Cardiology Progress Note ---
Addendum entered and electronically signed by Farhan Silva DO 09/26/18 18:00: Reviewed addendum, appears in error, no new infromation added, please see my previous notation this date. Addendum entered and electronically signed by Ivette Barcenas 09/20/18 13:38: Original Note: <Ivette Barcenas - Last Filed: 09/20/18 11:36> Date of Encounter: 09/20/18 Time of Encounter: 11:36 Assessment and Plan (1) Chest pain Current Visit: Yes Status: Acute Ms. Seth is a 72 year old female with PMHx significant for CAD s/p stenting x 11, HTN, HLD, DM who presents from PCP office with chest pain on exertion. Heavy Chest Pain in center of chest; Chronic - comes and goes, about once every 2 days for the past few weeks; increasing in frequency over the past few months; relieved with 1-2 minutes rest, nitroglycerin; associated with dyspnea on exertion Had been started on Ranexa for anginal symptoms - however, unable to afford medication (notes Ranexa did help while she was able to take it); Also, has not been able to tolerate Statins in the past due to myalgias; however, recently restarted on Crestor 10mg qWeekly On presentation to ED: Vitals hemodynamically stable EKG (09/19/17): HR = 67; UT = 180; QRS = 101; QTc = 398; Normal [place]; Normal Sinus Rhythm; No acute ST Changes Chest XR: No evidence of acute cardiopulmonary disease Trop: Negative x 3 Hx of CAD s/p LHC and stenting x 11, most recently in September 2017: Left Heart Cath (09/25/17): Severe Three Vessel CAD; Previously Stented LAD, RCA patent; LV normal and has normal contractility EF 65% Most recent Echo (05/15/18): Impressions: LVEF 60%. Normal LV chamber size, wall thickness and function. Mild left ventricular diastolic dysfunction. Normal right ventricular structure and function. Mild tricuspid regurgitation. No pulmonary hypertension. No evidence of a PFO with agitated saline contrast. No significant valvular dysfunction. LHC (09/20/18): Impressions: There is severe three vessel coronary artery disease (further mid LAD stents may block SHEPHERD target). The left ventricle is normal and has normal contractility EF 60% Recommendations: Optimal medical therapy of patient's disease. Aggressive risk factor modification. Suggest patient have Elective coronary artery bypass surgery. Per CT Surgery - agree with Plan for CABG on 09/24/18. Plan to hold Plavix for 5 days prior to Surgery. PLAN: Likely Unstable Angina due to worsening exercise function and worsening symptoms Plan for CABG on Sunday09/25/18 Hold Plavix for 5 days prior to CABG Cont with Heparin prior to Surgery Cont Aspirin Cont Nitroglycerin PRN Qualifiers: Chest pain type: chest pain due to myocardial ischemia Ischemic chest pain type: stable angina pectoris Qualified Code(s): I20.8 - Other forms of angina pectoris (2) CAD (coronary artery disease) Current Visit: Yes Status: Chronic Hx of CAD - s/p multiple stents --> pt reports 11 in total Currently reporting stable angina, dyspnea with exertion - increasing episodes, nearly once every 2 days over the past few weeks Improved with nitroglycerin and rest Has not been able to obtain Ranexa due to financial difficulty Had not been taking statin due to myalgias; only recently restarted Crestor 10mg qWeekly Left Heart Cath (09/25/17): Severe Three Vessel CAD Previously Stented LAD, RCA patent LV normal and has normal contractility EF 65% Left Heart Cath (09/19/18): Severe Three vessel CAD (further mid LAD stents may block SHEPHERD target) LV Normal and has normal contractility EF 60% Recomendations: Optimal Medical Therapy of patient's disease; Aggressive risk factor modification; Suggested to have elective CABG CT Surgery consulted - recommends CABG PLAN: CABG on 09/25/18 Cont Aspirin, Hold Plavix Cont Imdur Cont lisinopril, lopressor, crestor Nitroglycerin PRN for chest pain Consider restarting Ranexa Qualifiers: Coronary Disease-Associated Artery/Lesion type: [place] artery [place] vs. transplanted heart: [place] heart Associated angina: with stable angina Qualified Code(s): I25.118 - Atherosclerotic heart disease of [place] coronary artery with other forms of angina pectoris (3) HLD (hyperlipidemia) Current Visit: No Status: Chronic Most recent Lipid profile (09/14/18): Trig = 344 Chol = 222 LDL = 112 HDL = 41 Had not been taking statin due to associated myalgias; recently restarted on Crestor 10mg qweekly per PCP PLAN: Cont Crestor Qualifiers: Hyperlipidemia type: mixed hyperlipidemia Qualified Code(s): E78.2 - Mixed hyperlipidemia (4) HTN (hypertension) Current Visit: Yes Status: Chronic BP on Admission = 159/97 PLAN: Monitor Vitals Cont Lisinopril Qualifiers: Hypertension type: essential hypertension Qualified Code(s): I10 - Essential (primary) hypertension Discussion w patient/family: The assessment and plan as outlined above was discussed with the patient and/or family members who expressed understanding and agreement. All questions were answered. Thank you for involving us in the care of your patient. Please call w ith any questions. Subjective Principal diagnosis: Unstable Angina Interval history: Pt seen and examined resting comfortably at bedside in no acute distress. Had LHC procedure done yesterday showing severe three vessel CAD. Per Dr. Garner, further mid LAD stents may block SHEPHERD targets. Suggested patient have Elective Coronary Artery Bypass Graft Surgery. CT Surgery was consulted, and after discussion with patient, plan was made to proceed with CABG on 09/24/18. Plavix will need to be stopped for 5 days prior to surgery. Per discussion with Dr. Silva, patient will remain inpatient to continue Heparin until surgery given patient's unstable angina. Pt is agreeable to this plan. Objective Vital Signs, Last 4 Hours Temp Pulse Resp BP Pulse Ox 09/20/18 08:02 97.5 F L 73 16 144/74 96 General: Conversant, No Apparent Distress HEENT: Atraumatic, Normocephaly, Mucus Membranes Moist Neck: Normal carotid pulses Cardiac: Reg Rate and Rhythm, Normal S1 and S2, No Murmur Lungs: Normal Breath Sounds, No Wheeze, Rales, Rhonchi Neuro: Alert and responsive, No focal deficits noted Abdomen: Soft, Non-Tender Skin: No rashes noted on visualized skin Extremities: No Edema, Normal Pulses Results 09/20/18 03:31 09/20/18 03:31 Lab Results 09/20/18 09/20/18 03:31 03:31 WBC 4.3 Hgb 10.9 L Hct 31.3 L Plt Count 223 Sodium 138 Potassium 3.8 Chloride 103 Carbon Dioxide 26 BUN 12 Creatinine 0.79 Glucose 92 Calcium 9.7 Consult Discharge Plan - Plan Referrals: Maninder Hodgson [Partnered Physician] - 09/26/18 10:00 am <Farhan Silva - Last Filed: 09/20/18 12:40> Date of Encounter: 09/20/18 Assessment and Plan Discussion w patient/family: The assessment and plan as outlined above was discussed with the patient and/or family members who expressed understanding and agreement. All questions were answered. Thank you for involving us in the care of your patient. Please call with any questions. Objective Vital Signs, Last 4 Hours Temp Pulse Resp BP Pulse Ox 09/20/18 12:33 98.0 F 73 16 120/67 95 Results 09/20/18 03:31 09/20/18 03:31 Lab Results 09/20/18 09/20/18 03:31 03:31 WBC 4.3 Hgb 10.9 L Hct 31.3 L Plt Count 223 Sodium 138 Potassium 3.8 Chloride 103 Carbon Dioxide 26 BUN 12 Creatinine 0.79 Glucose 92 Calcium 9.7 - Attending Attestation I examined this patient and my medical decision-making was reviewed with the Resident Physician. I agree with the documented findings, disposition and treatment plan as described except to the extent set forth below. CC: Chest pain HPI: Pt reports chest pain has resolved. She has been ambulatory in room without symptoms. ROS: Reviewed PMH: reviewed Labs, Xray, Cath films reviewed. PE: Pt seen and examined, agree with findings as documented. IMP:Plan 1. Unstable angina: reviewed cath films, discussed with Patsy Merchant, agree with recs for CABG, discussed with pt, she requests copies of most recent angio images, dc'd dual antiplatelet tx in anticipation of CABG. Pt is at increased risk for acute stent thrombosis off DAP, with cresendo pattern anginal symptoms and pain at rest recommend she continue hospitalization on heparin until CABG early next week. Orders written.
[2018-09-20 09:46] LABS: Estimated Average Glucose 134 mg/dl; Hemoglobin A1C 6.3 %
--- NOTE | 2018-09-20 18:36 | Internal Med Progress Note ---
Hospitalist Progress Note - Encounter Date of Encounter: 09/20/18 Time of Encounter: 11:00 - Subjective Interval History: Patient seen and examined at bedside Complains of some chest heaviness 7/10 EKG ordered as well as PRN nitroglycerine - Exam Vitals: Temp Pulse Resp BP Pulse Ox 98.0 F 75 16 121/71 97 09/20/18 18:26 09/20/18 18:26 09/20/18 18:26 09/20/18 18:26 09/20/18 18:26 Exam: Patient seen and examined at bedside- complains of L lower abd pain - states she has not had a BM in a couple of days and has had issues with constipation in the past- also requesing Cipro states that she has diverticulitis and that she needs cipro when she has abd pain- she has no white count loose stools or fever tolerating oral intake advised patient that we will give stool softeners first for BM if no improvement will explore diverticulitis dx - Assessment and Plan (1) Unstable angina Current Visit: Yes Status: Acute Assessment and Plan: Angina increasing in frequency and intensity in a patient with significant underlying CAD. Will observe on telemetry overnight, continue to trend troponins and assess for increasing pain. If increasing, may require NTG drip and/or heparin. In the interim will relieve with SL tablets and a patch. Cardiology consult will be beneficial. Continue ASA, Plavix, Imdur and start ranolazine. Keep her NPO PMN in the christian she may require LHC. 09/19/2018 Hx of CAD s/p LHC and stenting x 11, most recently in September 2017: Left Heart Cath (09/25/17): Severe Three Vessel CAD; Previously Stented LAD, RCA patent; LV normal and has normal contractility EF 65% Cont to experience chest heaviness rating 7/10 nitroglycerine PRN EKG cardiology consulted and recommending LHC today or tomorrow restart renexa - consult social human services assistants concerning financial difficulty cont ASA plavix cont cardiac monitoring 09/20/2018 underwent cardiac catheterization 09/19/2018 was found to have severe 3 vessel CAD and an LVEF 60%. In particular, the patient has a 50% proximal LAD lesion, an 80% mid LAD lesion, a 70-80% proximal LCx lesion, a 70% proximal RCA in-stent restenosis, and a 90-95% proximal PDA lesion. Patient has been recommended for CABG.She is currently on Plavix for her stents and this will need to be stopped 5 days prior to CABG. Currently Held Tentatively, she is scheduled for CABG on 09/24/2018. restart renexa - consult social human services assistants concerning financial difficulty cont ASA Imdur cont cardiac monitoring (2) Diabetes mellitus type 2, noninsulin dependent Current Visit: Yes Status: Chronic Assessment and Plan: Will hold oral agents for now and place on insulin sliding scale. Well controlled. 09/19/2017 cont accucheck AC/HS SSI hold oral agents 09/20/2018 stable cont accucheck Ac/hs SSI (3) GERD (gastroesophageal reflux disease) Current Visit: Yes Status: Chronic Assessment and Plan: Continue PPI as needed. (4) Cholelithiases Current Visit: No Status: Chronic Assessment and Plan: Currently asymptomatic and being controlled with dietary discretion. (5) DVT prophylaxis Current Visit: Yes Status: Acute Assessment and Plan: SubQ heparin ordered. - Time Spent with Patient Total time spent is greater than 50% in coordination of care (as documented) at patient's floor/unit and/or counseling patient: Internal Medicine: Result - Labs CBC & Chem 7: 09/20/18 03:31 09/20/18 03:31 Labs: Short CBC 09/20/18 Range/Units 03:31 WBC 4.3 (4.3-11.1) K/mcL Hgb 10.9 L (11.5-15.4) g/dL Hct 31.3 L (35.3-44.9) % Plt Count 223 (140-400) K/mcL Neutrophils # 1.8 (1.6-8.9) K/mcL BMP 09/20/18 03:31 Sodium 138 Potassium 3.8 Chloride 103 Carbon Dioxide 26 BUN 12 Creatinine 0.79 Glucose 92 Calcium 9.7 - ABG Interpretation ABG results: PT/INR, D-dimer PT 10.0 Seconds (9.4-12.1) 09/18/18 16:23 Consult Discharge Plan - Plan Referrals: Maninder Hodgson [Partnered Physician] - 09/26/18 10:00 am (3) GERD (gastroesophageal reflux disease) Qualifiers: Esophagitis presence: esophagitis presence not specified Qualified Code(s): K21.9 - Gastro-esophageal reflux disease without esophagitis (4) Cholelithiases Qualifiers: Cholelithiasis location: gallbladder Cholecystitis presence: without cholecystitis Biliary obstruction: without biliary obstruction Qualified Code(s): K80.20 - Calculus of gallbladder without cholecystitis without obstruction
[2018-09-21] MEDS: *HR* Heparin 5,000 UNIT/ML VIAL SQ SCH ×3 (05:56→21:38)
[2018-09-21 07:12] LABS: Basophils % 0.2 %; Eosinophils # 0.1 K/mcL (0.0-0.6); Eosinophils % 2.1 %; Hematocrit 31.5 % (35.3-44.9); Immature Granulocytes % 0.2 % (0-4); Lymphocytes # 2.2 K/mcL (0.6-4.6); Lymphocytes % 52.1 %; Mean Corpuscular HGB Conc 34.9 g/dL (31.6-35.5); Mean Corpuscular Hemoglobin 32.7 pg (28.0-33.3); Mean Corpuscular Volume 93.8 fL (83.0-100.0); Mean Platelet Volume 9.4 fL (9.4-12.4); Monocytes # 0.4 K/mcL (0.0-1.3); Monocytes % 9.8 %; Neutrophils # 1.5 K/mcL (1.6-8.9); Platelet Count 224 K/mcL (140-400); Red Blood Count 3.36 M/mcL (3.82-4.97); Red Cell Distribution Width 12.3 % (11.5-14.5); Segmented Neutrophils % 35.6 %
[2018-09-21 07:33] LABS: BUN/Creatinine Ratio 15 (6-26); Blood Urea Nitrogen 13 mg/dL (8-23); Calcium 9.4 mg/dL (8.6-10.3); Carbon Dioxide 26 mEq/L (23-29); Chloride 105 mEq/L (98-107); Glucose 180 mg/dL (70-105); Osmolality,Calculated 293 (280-300); Potassium 4.2 mEq/L (3.5-5.1); Sodium 139 mEq/L (136-145); eGFR For Non-African Americans > 60 (> 60)
--- NOTE | 2018-09-21 08:00 | Cardiothoracic Progress Note ---
Date of Encounter: 09/21/18 Time of Encounter: 07:41 - Assessment and plan (1) Unstable angina Current Visit: Yes Status: Acute The patient is a 72-year-old type II diabetic, hypertensive lady with known CAD and hypercholesterolemia. She has undergone 5 previous PCI's with a total of 11 stents. Recently, the patient began experiencing exertional, nonradiating substernal chest pain and heart palpitations. She underwent cardiac catheterization yesterday was found to have severe 3 vessel CAD and an LVEF 60%. In particular, the patient has a 50% proximal LAD lesion, an 80% mid LAD lesion, a 7080% proximal LCx lesion, a 70% proximal RCA in-stent restenosis, and a 9095% proximal PDA lesion. Patient has been recommended for CABG. I concur with this recommendation. The STS risk calculator reveals an operative mortality risk 0.85%, renal failure risk 0.51%, permanent stroke risk 0.81%, deep sternal wound infection 0.13%, and reoperation risk 2.41%. The patient understands procedure, benefits, alternatives, and risks as outlined above. She is currently on Plavix for her stents and this will need to be stopped 5 days prior to CABG. Tentatively, she is scheduled for CABG on 09/24/2018. The assessment and plan as outlined above was discussed with the patient and/or family members who expressed understanding and agreement. All questions were answered. - Subjective Interval history: The patient remained hemodynamically stable overnight. She has no complaints. Vital Signs, Last 4 Hours Temp Pulse Resp BP Pulse Ox 09/21/18 07:12 97.5 F L 62 16 123/69 97 Clinical Data, last 8 Hours Output, Urine Amount 700 Weight 09/19/18 09/20/18 09/21/18 23:59 23:59 23:59 Weight 70.1 kg 70.3 kg - Physical Examination General: Conversant, No Apparent Distress Neck: No JVD, Normal carotid pulses Cardiac: Reg Rate and Rhythm, Normal S1 and S2, No Murmur Lungs: Normal Breath Sounds, No Wheeze, Rales, Rhonchi Neuro: Alert and responsive, No focal deficits noted Vascular: Normal capillary refill Extremities: No Clubbing, No Cyanosis, No Edema, Normal Pulses - Labs 09/21/18 06:07 09/21/18 06:07 Lab Results, Last 24 hours 09/21/18 09/21/18 06:07 06:07 WBC 4.2 L Hgb 11.0 L Hct 31.5 L Plt Count 224 Sodium 139 Potassium 4.2 Chloride 105 Carbon Dioxide 26 BUN 13 Creatinine 0.87 Glucose 180 H Calcium 9.4 Consult Discharge Plan - Plan Referrals: Maninder Hodgson [Partnered Physician] - 09/26/18 10:00 am
[2018-09-21] MEDS: Cholecalciferol (D-3) 1,000 UNIT TABLET PO SCH (08:42)
[2018-09-21] MEDS: *HR* LORazepam 0.5 MG TABLET PO PRN (08:42)
[2018-09-21] MEDS: Isosorbide MONOnitrate (24 HR) 60 MG TAB.ER.24H PO SCH (08:42)
[2018-09-21] MEDS: Ranolazine 500 MG TAB.ER.12H PO SCH ×2 (08:42→21:37)
[2018-09-21] MEDS: Aspirin 81 MG TAB.CHEW PO SCH (08:43)
[2018-09-21] MEDS: Insulin LISPRO 300 UNITS/3 ML VIAL SQ SCH ×4 (08:43→21:39)
--- NOTE | 2018-09-21 13:40 | Internal Med Progress Note ---
Hospitalist Progress Note - Encounter Date of Encounter: 09/21/18 Time of Encounter: 13:38 - Subjective Interval History: Pt reported that her bowel has not moved for a week. Tried Miralax yesterday and still not go yet. She has no chest pain now. C/o noise the pt made cross the hallway. wants to be transfer to a quiet room. - Exam Vitals: Temp Pulse Resp BP Pulse Ox 97.4 F L 72 16 110/67 97 09/21/18 11:40 09/21/18 11:40 09/21/18 11:40 09/21/18 11:40 09/21/18 11:40 Exam: PHYSICAL EXAMINATION: GENERAL APPEARANCE: The patient is alert, oriented and in no acute distress. HEENT: Head is normocephalic. The sinuses are nontender. Pupils are equal and reactive. The nares are patent. Oropharynx clear without lesions. NECK: Supple without lymphadenopathy. HEART: Regular rate and rhythm. LUNGS: No crackles or wheezes are heard. ABDOMEN: Soft, nontender, nondistended with good bowel sounds heard. Inguinal area is normal. EXTREMITIES: Without cyanosis, clubbing or edema. NEUROLOGICAL: Gross nonfocal. SKIN: Warm and dry without any rash. - Assessment and Plan (1) Unstable angina Current Visit: Yes Status: Acute Assessment and Plan: Angina increasing in frequency and intensity in a patient with significant underlying CAD. Will observe on telemetry overnight, continue to trend troponins and assess for increasing pain. If increasing, may require NTG drip and/or heparin. In the interim will relieve with SL tablets and a patch. Cardiology consult will be beneficial. Continue ASA, Plavix, Imdur and start ranolazine. Keep her NPO PMN in the cheondoism she may require LHC. 09/19/2018 Hx of CAD s/p LHC and stenting x 11, most recently in September 2017: Left Heart Cath (09/25/17): Severe Three Vessel CAD; Previously Stented LAD, RCA patent; LV normal and has normal contractility EF 65% Cont to experience chest heaviness rating 7/10 nitroglycerine PRN EKG cardiology consulted and recommending LHC today or tomorrow restart renexa - consult social work administrator concerning financial difficulty cont ASA plavix cont cardiac monitoring 09/20/2018 underwent cardiac catheterization 09/19/2018 was found to have severe 3 vessel CAD and an LVEF 60%. In particular, the patient has a 50% proximal LAD lesion, an 80% mid LAD lesion, a 70-80% proximal LCx lesion, a 70% proximal RCA in-stent restenosis, and a 90-95% proximal PDA lesion. Patient has been recommended for CABG.She is currently on Plavix for her stents and this will need to be stopped 5 days prior to CABG. Currently Held Tentatively, she is scheduled for CABG on 09/24/2018. restart renexa - consult social work administrator concerning financial difficulty cont ASA Imdur cont cardiac monitoring 09/21 Await CABG next week (09/24/2018). No chest pain, continue monitoring. (2) Diabetes mellitus type 2, noninsulin dependent Current Visit: Yes Status: Chronic Assessment and Plan: Will hold oral agents for now and place on insulin sliding scale. Well controlled. 09/19/2017 cont accucheck AC/HS SSI hold oral agents 09/20/2018 stable cont accucheck Ac/hs SSI 09/21 controlled, (3) GERD (gastroesophageal reflux disease) Current Visit: Yes Status: Chronic Assessment and Plan: Continue PPI as needed. (4) Cholelithiases Current Visit: No Status: Chronic Assessment and Plan: Currently asymptomatic and being controlled with dietary discretion. (5) DVT prophylaxis Current Visit: Yes Status: Acute Assessment and Plan: SubQ heparin ordered. (6) Constipation Current Visit: Yes Status: Acute Assessment and Plan: Tried Miralax, if no BM today, will try enema or Mag citrate. - Time Spent with Patient Total time spent is greater than 50% in coordination of care (as documented) at patient's floor/unit and/or counseling patient: Greater than 35 minutes Plan of Care Discussed with: patient Internal Medicine: Result - Labs CBC & Chem 7: 09/21/18 06:07 09/21/18 06:07 Labs: Short CBC 09/21/18 Range/Units 06:07 WBC 4.2 L (4.3-11.1) K/mcL Hgb 11.0 L (11.5-15.4) g/dL Hct 31.5 L (35.3-44.9) % Plt Count 224 (140-400) K/mcL Neutrophils # 1.5 L (1.6-8.9) K/mcL BMP 09/21/18 06:07 Sodium 139 Potassium 4.2 Chloride 105 Carbon Dioxide 26 BUN 13 Creatinine 0.87 Glucose 180 H Calcium 9.4 - ABG Interpretation ABG results: PT/INR, D-dimer PT 10.0 Seconds (9.4-12.1) 09/18/18 16:23 Consult Discharge Plan - Plan Referrals: Maninder Hodgson [Partnered Physician] - 09/26/18 10:00 am (3) GERD (gastroesophageal reflux disease) Qualifiers: Esophagitis presence: esophagitis presence not specified Qualified Code(s): K21.9 - Gastro-esophageal reflux disease without esophagitis (4) Cholelithiases Qualifiers: Cholelithiasis location: gallbladder Cholecystitis presence: without cholecystitis Biliary obstruction: without biliary obstruction Qualified Code(s): K80.20 - Calculus of gallbladder without cholecystitis without obstruction (6) Constipation Qualifiers: Constipation type: unspecified constipation type Qualified Code(s): K59.00 - Constipation, unspecified
[2018-09-22] MEDS: Acetaminophen 325 MG TABLET PO PRN (04:12)
[2018-09-22] MEDS: *HR* Heparin 5,000 UNIT/ML VIAL SQ SCH ×3 (05:50→21:04)
[2018-09-22] MEDS: *HR* LORazepam 0.5 MG TABLET PO PRN ×2 (05:50→21:03)
[2018-09-22 07:22] LABS: Basophils % 0.5 %; Eosinophils # 0.1 K/mcL (0.0-0.6); Eosinophils % 2.4 %; Hematocrit 31.5 % (35.3-44.9); Immature Granulocytes % 0.3 % (0-4); Lymphocytes # 1.7 K/mcL (0.6-4.6); Lymphocytes % 45.8 %; Mean Corpuscular HGB Conc 34.9 g/dL (31.6-35.5); Mean Corpuscular Hemoglobin 33.2 pg (28.0-33.3); Mean Corpuscular Volume 95.2 fL (83.0-100.0); Mean Platelet Volume 9.3 fL (9.4-12.4); Monocytes # 0.4 K/mcL (0.0-1.3); Monocytes % 10.6 %; Neutrophils # 1.5 K/mcL (1.6-8.9); Platelet Count 216 K/mcL (140-400); Red Blood Count 3.31 M/mcL (3.82-4.97); Red Cell Distribution Width 12.3 % (11.5-14.5); Segmented Neutrophils % 40.4 %
[2018-09-22 07:44] LABS: BUN/Creatinine Ratio 17 (6-26); Blood Urea Nitrogen 14 mg/dL (8-23); Calcium 9.3 mg/dL (8.6-10.3); Carbon Dioxide 23 mEq/L (23-29); Chloride 103 mEq/L (98-107); Glucose 200 mg/dL (70-105); Osmolality,Calculated 288 (280-300); Potassium 4.1 mEq/L (3.5-5.1); Sodium 136 mEq/L (136-145); eGFR For Non-African Americans > 60 (> 60)
[2018-09-22] MEDS: Insulin LISPRO 300 UNITS/3 ML VIAL SQ SCH ×4 (08:52→21:04)
[2018-09-22] MEDS: Isosorbide MONOnitrate (24 HR) 60 MG TAB.ER.24H PO SCH (08:55)
[2018-09-22] MEDS: Ranolazine 500 MG TAB.ER.12H PO SCH ×2 (08:55→21:02)
[2018-09-22] MEDS: Cholecalciferol (D-3) 1,000 UNIT TABLET PO SCH (08:55)
[2018-09-22] MEDS: Aspirin 81 MG TAB.CHEW PO SCH (08:55)
[2018-09-22] MEDS ORDERED: Lactulose Oral Soln 20 GM/30 ML UDC PO ONE (11:01)
--- NOTE | 2018-09-22 15:25 | Internal Med Progress Note ---
Hospitalist Progress Note - Encounter Date of Encounter: 09/22/18 Time of Encounter: 09:00 - Subjective Interval History: Patient laying on bed comfortably. Denies chest pain. Had intermittent chest pain sometimes, relieved by nitroglycerin. Vitals are stable. Waiting for CABG. Complain of no bowel movement for 3 days - Exam Vitals: Temp Pulse Resp BP Pulse Ox 98.1 F 81 19 149/73 98 09/22/18 11:52 09/22/18 11:52 09/22/18 11:52 09/22/18 11:52 09/22/18 11:52 Exam: PHYSICAL EXAMINATION: GENERAL APPEARANCE: The patient is alert, oriented and in no acute distress. HEENT: Head is normocephalic. The sinuses are nontender. Pupils are equal and reactive. The nares are patent. Oropharynx clear without lesions. NECK: Supple without lymphadenopathy. HEART: Regular rate and rhythm. LUNGS: No crackles or wheezes are heard. ABDOMEN: Soft, nontender, nondistended with good bowel sounds heard. Inguinal area is normal. EXTREMITIES: Without cyanosis, clubbing or edema. NEUROLOGICAL: Gross nonfocal. SKIN: Warm and dry without any rash. - Assessment and Plan (1) Unstable angina Current Visit: Yes Status: Acute Assessment and Plan: Await CABG next week (09/24/2018). No chest pain, continue monitoring. Continue current treatment (2) Diabetes mellitus type 2, noninsulin dependent Current Visit: Yes Status: Chronic Assessment and Plan: Continue sliding-scale insulin coverage (3) GERD (gastroesophageal reflux disease) Current Visit: Yes Status: Chronic Assessment and Plan: Continue PPI as needed. (4) Cholelithiases Current Visit: No Status: Chronic Assessment and Plan: Currently asymptomatic and being controlled with dietary discretion. (5) DVT prophylaxis Current Visit: Yes Status: Acute Assessment and Plan: SubQ heparin ordered. (6) Constipation Current Visit: Yes Status: Acute Assessment and Plan: Will give lactulose po once, if doesn't work, consider enema. - Time Spent with Patient Total time spent is greater than 50% in coordination of care (as documented) at patient's floor/unit and/or counseling patient: 30 min 25 - 35 minutes Plan of Care Discussed with: patient Internal Medicine: Result - Labs CBC & Chem 7: 09/22/18 06:23 09/22/18 06:23 Labs: Short CBC 09/22/18 Range/Units 06:23 WBC 3.7 L (4.3-11.1) K/mcL Hgb 11.0 L (11.5-15.4) g/dL Hct 31.5 L (35.3-44.9) % Plt Count 216 (140-400) K/mcL Neutrophils # 1.5 L (1.6-8.9) K/mcL BMP 09/22/18 06:23 Sodium 136 Potassium 4.1 Chloride 103 Carbon Dioxide 23 BUN 14 Creatinine 0.84 Glucose 200 H Calcium 9.3 - ABG Interpretation ABG results: PT/INR, D-dimer PT 10.0 Seconds (9.4-12.1) 09/18/18 16:23 Consult Discharge Plan - Plan Referrals: Maninder Hodgson [Partnered Physician] - 09/26/18 10:00 am (3) GERD (gastroesophageal reflux disease) Qualifiers: Esophagitis presence: esophagitis presence not specified Qualified Code(s): K21.9 - Gastro-esophageal reflux disease without esophagitis (4) Cholelithiases Qualifiers: Cholelithiasis location: gallbladder Cholecystitis presence: without cholecystitis Biliary obstruction: without biliary obstruction Qualified Code(s): K80.20 - Calculus of gallbladder without cholecystitis without obstruction (6) Constipation Qualifiers: Constipation type: unspecified constipation type Qualified Code(s): K59.00 - Constipation, unspecified
[2018-09-23] MEDS: *HR* Heparin 5,000 UNIT/ML VIAL SQ SCH (05:52)
[2018-09-23] MEDS: Insulin LISPRO 300 UNITS/3 ML VIAL SQ SCH ×4 (08:28→22:54)
[2018-09-23] MEDS: Ranolazine 500 MG TAB.ER.12H PO SCH ×2 (08:29→22:55)
[2018-09-23] MEDS: Cholecalciferol (D-3) 1,000 UNIT TABLET PO SCH (08:29)
[2018-09-23] MEDS: *HR* LORazepam 0.5 MG TABLET PO PRN ×2 (08:29→23:55)
[2018-09-23] MEDS: Isosorbide MONOnitrate (24 HR) 60 MG TAB.ER.24H PO SCH (08:30)
[2018-09-23] MEDS: Chlorhexidine Rinse 15 ML MOUTHWASH MM SCH ×2 (08:30→22:53)
[2018-09-23] MEDS: Aspirin 81 MG TAB.CHEW PO SCH (08:30)
--- NOTE | 2018-09-23 09:18 | Cardiothoracic Progress Note ---
Date of Encounter: 09/23/18 Time of Encounter: 09:15 - Assessment and plan (1) CAD (coronary artery disease) Current Visit: Yes Status: Chronic The assessment and plan as outlined above was discussed with the patient and/or family members who expressed understanding and agreement. All questions were answered. The patient is scheduled for coronary artery bypass grafting tomorrow. Cardiac catheterization revealed in 80% LAD lesion. A 70-80% circumflex lesion. There is a 70% right coronary artery lesion with a 90-95% stenosis at the origin of the posterior descending artery. Echocardiogram done in April 2018 revealed no significant valvular disease. Operative consent was obtained. Risks of surgery include , infection, stroke, bleeding, myocardial infarction, clots around the heart, acute or chronic graft closure, phrenic nerve injury and sternal dehiscence. The procedure, its risks, benefits and alternatives were explained and she does wish to proceed. At this point she has no further questions. Qualifiers: Coronary Disease-Associated Artery/Lesion type: [place] artery [place] vs. transplanted heart: [place] heart Associated angina: with stable angina Qualified Code(s): I25.118 - Atherosclerotic heart disease of [place] coronary artery with other forms of angina pectoris - Subjective Interval history: The patient is a 72-year-old female who returns 73 tomorrow. She has a history of a previous myocardial infarction and up to 11 stents. She presented with chest pain which was in her chest and went into her neck and back. She does have diabetes on oral agents, hypertension and hyperlipidemia. She does have a history of diverticulosis and request to start Cipro for this. She also has a history of headaches, anxiety and kidney stones. Social history. She lives in [place] with her . Has never smoked. She has been off Plavix since Sunday. She does have numerous allergies including penicillin, but states that she has taken Cipro frequently without problems. Review of systems is negative for stroke or TIA. Negative for saphenous vein varicosities or strippings. Vital Signs, Last 4 Hours Temp Pulse Resp BP Pulse Ox 09/23/18 06:37 97.8 F 72 17 134/75 96 Weight 09/21/18 09/22/18 09/23/18 23:59 23:59 23:59 Weight 70.325 kg 70.8 kg Lungs are clear to percussion and auscultation. Heart is in a regular rate and rhythm. - Labs 09/22/18 06:23 09/22/18 06:23 Consult Discharge Plan - Plan Referrals: Maninder Hodgson [Partnered Physician] - 09/26/18 10:00 am
--- NOTE | 2018-09-23 11:35 | Anesthesia Evaluation PreOp ---
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 History: Denies Any Significant HX Other Medical History: Diabetes Type II, GERD Anesthesia History: No Prior Anesthetic Complications, Past Anesthesia (hysterectomy, Bilateral carpal tunnel release, left ankle ORIF, removal of left ankle hardware, left ureteroscopic stone extraction, eye surgery for macular degeneration) : No Alcohol Use: none Drug use: none Medications and Allergies RX: Aspirin 81 mg PO QPM 07/12/16 [History] RX: Clopidogrel [Plavix] 75 mg PO 1400 07/12/16 [History] RX: Isosorbide MONOnitrate [Isosorbide Mononitrate ER] 240 mg PO DAILY 07/12/16 [History] RX: Nitroglycerin [Nitrostat] 0.4 mg SL Q5M PRN MDD X3 DOSES CALL 911 07/12/16 [History] RX: Lisinopril [Zestril] 10 mg PO DAILY #15 tablet 07/14/16 [Rx] RX: metFORMIN [Glucophage] 500 mg PO BID 08/16/16 [History] RX: Cholecalciferol (D-3) [Vitamin D] 2,000 unit PO DAILY 10/11/16 [History] RX: Loratadine [Allergy Relief] 10 mg PO DAILY PRN 10/11/16 [History] RX: Dicyclomine [Bentyl] 10 mg PO QID PRN 12/13/16 [History] RX: Metoprolol [Lopressor] 25 mg PO HS 09/01/17 [History] RX: EPINEPHrine [Epipen] 0.3 mg IM ONCE PRN 09/25/17 [History] RX: Pantoprazole Sodium [Protonix] 40 mg PO DAILY 10/18/17 [History] RX: Sucralfate [Carafate] 1 gm PO TID PRN 10/31/17 [History] RX: Glimepiride [Amaryl] 1 mg PO DAILY 05/16/18 [History] Rosuvastatin Calcium 10 mg PO SA 09/19/18 [History] Allergy/AdvReac Type Severity Reaction Status Date / Time penicillin V Allergy Anaphylaxis Verified 06/07/18 09:17 atorvastatin [From Lipitor] AdvReac Muscle Pain Verified 06/07/18 09:17 lovastatin AdvReac Muscle Pain Verified 06/07/18 09:17 [id number]-Vlm Reductase AdvReac Muscle Pain Verified 06/07/18 09:17 Inhibitor [Statins] - Meds/Allergy Pre-op Review Medications Reviewed: Yes Allergies Reviewed: Yes Beta Blockers on Current Med List: Yes If Beta Blockers taken, Date/Time (Last Dose taken): 0530 Anesthesia Results - Labs 09/24/18 03:54 09/24/18 03:54 - Imaging EKG: report reviewed Additional studies: 09/19/2018 LEFT HEART CATH Right iliofemoral angiography Indications: Unstable Angina New Onset Angina <= 2 months Impressions: There is severe three vessel coronary artery disease (further mid LAD stents may block SHEPHERD target) The left ventricle is normal and has normal contractility EF 60% Recommendations: Optimal medical therapy of patient's disease. Aggressive risk factor modification. Suggest patient have Elective coronary artery bypass surgery. LV Ventriculography Ejection Method: LV Gram Ejection Fraction: 60% Wall Motion: MAYEN Anterobasal Normal Anterolateral Normal Apical: Normal Inferoapical Normal Inferobasal Normal Coronary Dominance: right Lesion Findings/Interventions * Left Main Coronary Artery The LMCA is angiographically free of disease. * Left Anterior Descending There is a 50% stenosis in the Proximal LAD. Patent mid LAD stent. There is a 80% stenosis in the Mid LAD, stenosis is at the edge of the stent * Circumflex There is a 70-80% stenosis in the Proximal Circumflex. * Right Coronary Artery There is a 70% instent stenosis in the Proximal RCA. There is a patent stent in the mid RCA. There is a 90-95% stenosis in the Right PDA. Echo 04/2018 Impressions: LVEF 60%. Normal LV chamber size, wall thickness and function. Mild left ventricular diastolic dysfunction. Normal right ventricular structure and function. Mild tricuspid regurgitation. No pulmonary hypertension. No evidence of a PFO with agitated saline contrast. No significant valvular dysfunction. Left Ventricular Wall Motion: Rest Echo Findings All wall segments showed normal motion. Findings: Study Quality * Technically adequate exam. ECG Findings * Normal sinus rhythm. Left Ventricle * LVEF 60%. * Normal LV chamber size, wall thickness and function. * Mild left ventricular diastolic dysfunction. Right Ventricle * Normal right ventricular structure and function. Left Atrium * Mildly dilated left atrium. Right Atrium * Normal right atrial size. Aortic Valve * Aortic valve not well visualized. * Trace aortic regurgitation. * No aortic stenosis. Mitral Valve * Normal mitral valve structure and function. * No mitral stenosis. * Trace mitral regurgitation. Tricuspid Valve * Normal tricuspid valve structure. * Mild tricuspid regurgitation. * No pulmonary hypertension. Pulmonic Valve * Normal pulmonic valve structure and function. * No pulmonic regurgitation. Aorta * Normally sized aortic root. Pericardium * The pericardium appears normal. IVC * Normal IVC dimensions and inspiratory collapse. Interatrial Septum * No evidence of a PFO with agitated saline contrast. Pulmonary Artery * Normal visualized portions of the main pulmonary artery. Anesthesia Exam Vital Signs/O2 Sat/Glucose, Most Recent Temp Pulse Resp BP Pulse Ox 97.7 F 72 15 124/65 97 09/24/18 03:28 09/24/18 03:28 09/24/18 03:28 09/24/18 03:28 09/24/18 03:28 Blood Glucose* 250 Weight: 70 kg NPO (# of Hours): > 8 hr - HEENT Pupil (Motor): Pupils equal Mallampati: II Teeth: Normal Oral Opening: Greater than 3 - WIRE DRAWING MACHINE OPERATOR LOC: Oriented WIRE DRAWING MACHINE OPERATOR Motor: Normal RUE, Normal LUE, Normal RLE, Normal LLE, Normal Face WIRE DRAWING MACHINE OPERATOR Sensory: Normal: RUE, LUE, RLE, LLE, Face - Cardiac Rhythm: Regular Murmur: None - Pulmonary Breath Sounds: bilateral Clear Respiratory Effort: Symmetrical Anesthesia Assess/Plan ASA Score: 4 Level of consciousness: Cooperative, Oriented, Tranquil Anesthetic Plan: General Monitoring Plan: Standard Monitors, A-Line, PAC, MIKAEL Recovery Plan: ICU
--- NOTE | 2018-09-23 14:08 | Internal Med Progress Note ---
Hospitalist Progress Note - Encounter Date of Encounter: 09/23/18 Time of Encounter: 09:00 - Subjective Interval History: Patient laying on bed comfortably. Denies chest pain. Had intermittent chest pain sometimes, relieved by nitroglycerin. Vitals are stable. Waiting for CABG. Had BM yesterday after lactulose. - Exam Vitals: Temp Pulse Resp BP Pulse Ox 98.2 F 71 15 119/70 98 09/23/18 10:51 09/23/18 10:51 09/23/18 10:51 09/23/18 10:51 09/23/18 10:51 Exam: PHYSICAL EXAMINATION: GENERAL APPEARANCE: The patient is alert, oriented and in no acute distress. HEENT: Head is normocephalic. The sinuses are nontender. Pupils are equal and reactive. The nares are patent. Oropharynx clear without lesions. NECK: Supple without lymphadenopathy. HEART: Regular rate and rhythm. LUNGS: No crackles or wheezes are heard. ABDOMEN: Soft, nontender, nondistended with good bowel sounds heard. Inguinal area is normal. EXTREMITIES: Without cyanosis, clubbing or edema. NEUROLOGICAL: Gross nonfocal. SKIN: Warm and dry without any rash. - Assessment and Plan (1) Unstable angina Current Visit: Yes Status: Acute Assessment and Plan: Await CABG tomorrow (09/24/2018). No chest pain, continue monitoring. Continue current treatment (2) Diabetes mellitus type 2, noninsulin dependent Current Visit: Yes Status: Chronic Assessment and Plan: Continue sliding-scale insulin coverage (3) GERD (gastroesophageal reflux disease) Current Visit: Yes Status: Chronic Assessment and Plan: Continue PPI as needed. (4) Cholelithiases Current Visit: No Status: Chronic Assessment and Plan: Currently asymptomatic and being controlled with dietary discretion. (5) DVT prophylaxis Current Visit: Yes Status: Acute Assessment and Plan: SubQ heparin ordered. (6) Constipation Current Visit: Yes Status: Acute Assessment and Plan: Had BM. Resolved DVT Prophylaxis: Heparin SC - Time Spent with Patient Total time spent is greater than 50% in coordination of care (as documented) at patient's floor/unit and/or counseling patient: 30 min 25 - 35 minutes Plan of Care Discussed with: patient Internal Medicine: Result - Labs CBC & Chem 7: 09/22/18 06:23 09/22/18 06:23 - ABG Interpretation ABG results: PT/INR, D-dimer PT 10.0 Seconds (9.4-12.1) 09/18/18 16:23 Consult Discharge Plan - Plan Referrals: Maninder Hodgson [Partnered Physician] - 09/26/18 10:00 am (3) GERD (gastroesophageal reflux disease) Qualifiers: Esophagitis presence: esophagitis presence not specified Qualified Code(s): K21.9 - Gastro-esophageal reflux disease without esophagitis (4) Cholelithiases Qualifiers: Cholelithiasis location: gallbladder Cholecystitis presence: without cholecystitis Biliary obstruction: without biliary obstruction Qualified Code(s): K80.20 - Calculus of gallbladder without cholecystitis without obstruction (6) Constipation Qualifiers: Constipation type: unspecified constipation type Qualified Code(s): K59.00 - Constipation, unspecified
[2018-09-24] MEDS ORDERED: Clindamycin 900 MG/50 ML 900 MG/50 ML IV.SOLN IVPB ONE (05:02)
[2018-09-24] MEDS: Aspirin 81 MG TAB.CHEW PO SCH (05:28)
[2018-09-24 05:40] LABS: Basophils % 0.5 %; Eosinophils # 0.1 K/mcL (0.0-0.6); Eosinophils % 2.1 %; Hematocrit 30.3 % (35.3-44.9); Hemoglobin 10.6 g/dL (11.5-15.4); Immature Granulocytes % 0.3 % (0-4); Lymphocytes # 1.6 K/mcL (0.6-4.6); Lymphocytes % 43.6 %; Mean Corpuscular Hemoglobin 33.1 pg (28.0-33.3); Mean Corpuscular Volume 94.7 fL (83.0-100.0); Mean Platelet Volume 9.4 fL (9.4-12.4); Monocytes # 0.5 K/mcL (0.0-1.3); Neutrophils # 1.6 K/mcL (1.6-8.9); Platelet Count 210 K/mcL (140-400); Red Cell Distribution Width 12.2 % (11.5-14.5); Segmented Neutrophils % 41.5 %
[2018-09-24 05:57] LABS: BUN/Creatinine Ratio 19 (6-26); Blood Urea Nitrogen 16 mg/dL (8-23); Calcium 9.4 mg/dL (8.6-10.3); Carbon Dioxide 26 mEq/L (23-29); Chloride 103 mEq/L (98-107); Glucose 156 mg/dL (70-105); Osmolality,Calculated 286 (280-300); Sodium 136 mEq/L (136-145); eGFR For Non-African Americans > 60 (> 60)
[2018-09-24] MEDS ORDERED: Verapamil 5 MG/2 ML VIAL ONE (06:41)
[2018-09-24] MEDS ORDERED: Nitroglycerin 25 MG/250 ML INFUS..BTL IVC ONE (06:56)
[2018-09-24] MEDS ORDERED: *HR* Midazolam HCl 5 MG/5 ML VIAL IVP ONE (06:59)
[2018-09-24] MEDS ORDERED: *HR* Propofol 200 MG/20 ML VIAL IVP ONE (06:59)
[2018-09-24] MEDS ORDERED: *HR* FentaNYL (PF) 1,000 MCG/20 ML VIAL ONE (06:59)
[2018-09-24] MEDS ORDERED: *HR* Magnesium Sulfate 1 GM/2 ML VIAL ONE (07:01)
[2018-09-24] MEDS ORDERED: Tranexamic Acid 1,000 MG/10 ML VIAL ONE (07:01)
[2018-09-24] MEDS ORDERED: Famotidine 20 MG/2 ML VIAL ONE (07:01)
[2018-09-24] MEDS ORDERED: *HR* Rocuronium Bromide 50 MG/5 ML VIAL ONE ×2 (07:02→09:43)
[2018-09-24] MEDS ORDERED: *HR* EPINEPHrine 1 MG/ML AMPUL ONE (07:02)
[2018-09-24] MEDS ORDERED: Dexamethasone 4 MG/ML VIAL ONE (07:08)
[2018-09-24] MEDS ORDERED: *HR* PHENYLEPHRINE 1,000 MCG/10 ML SYRINGE IVP ONE (07:08)
[2018-09-24] MEDS ORDERED: Heparin 15,000 UNIT in 0.9 % Sodium Chloride 500 ML IV ONE (07:45)
[2018-09-24] MEDS ORDERED: Insulin Human Regular 100 UNIT in 0.9 % Sodium Chloride 100 ML IV PRN (07:45)
[2018-09-24] MEDS ORDERED: Dextrose 50 % in Water (Vial) 30 ML, Sodium Bicarbonate 20 MEQ, Lidocaine 1% 5 ML, Insu... TH ONE ×3 (07:45)
[2018-09-24] MEDS ORDERED: Dextrose 50 % in Water (Vial) 30 ML, Sodium Bicarbonate 20 MEQ, Potassium Chloride 15 M... TH ONE (07:45)
[2018-09-24] MEDS ORDERED: Norepinephrine 4 MG in D5% in Water 250 ML IVC PRN (07:45)
[2018-09-24 08:18] LABS: ABG Base Excess -4 mEq/L (-2 to 3); ABG Chloride 106 mEq/L (98-107); ABG Glucose 166 mg/dL (60-95); ABG HCO3 24 mEq/L (21-27); ABG Ionized Calcium 1.16 mmol/L (1.15-1.35); ABG Oxygen Saturation 100 % (95-98); ABG PCO2 56 mmHg (35-45); ABG PH 7.23 pH Units (7.32-7.45); ABG PO2 418 mmHg (85-104); ABG TCO2 25 mEq/L (20-26)
[2018-09-24] MEDS ORDERED: Albumin Human 5% 50.0 GM/1,000 ML VIAL ONE (09:04)
[2018-09-24 09:41] LABS: ABG Base Excess -2 mEq/L (-2 to 3); ABG Chloride 104 mEq/L (98-107); ABG Glucose 194 mg/dL (60-95); ABG HCO3 22 mEq/L (21-27); ABG Ionized Calcium 1.21 mmol/L (1.15-1.35); ABG Oxygen Saturation 100 % (95-98); ABG PCO2 35 mmHg (35-45); ABG PH 7.42 pH Units (7.32-7.45); ABG PO2 272 mmHg (85-104); ABG TCO2 23 mEq/L (20-26)
[2018-09-24] MEDS ORDERED: *HR* Heparin 10,000 UNIT/10 ML VIAL IV ONE (09:51)
[2018-09-24] MEDS ORDERED: Mannitol 25% vial 12.5 GM/50 ML VIAL IVP ONE (09:51)
[2018-09-24] MEDS ORDERED: *HR* Phenylephrine 10 MG/ML VIAL IVC ONE (09:51)
[2018-09-24] MEDS ORDERED: Lidocaine 2% Syringe 100 MG/5 ML IV ONE (09:51)
[2018-09-24] MEDS ORDERED: Tranexamic Acid 1,000 MG/10 ML VIAL IVPB ONE (09:51)
[2018-09-24] MEDS ORDERED: *HR* Magnesium Sulfate 2 GM/50 ML PIGGYBACK IVPB ONE (09:51)
[2018-09-24] MEDS ORDERED: Albumin Human 25% 25 GM/100 ML IV.SOLN IV ONE (09:51)
[2018-09-24] MEDS ORDERED: Sodium Bicarbonate 50 MEQ/50 ML VIAL IVC ONE (09:51)
--- NOTE | 2018-09-24 10:11 | Anesthesia Procedures ---
Date of Encounter: 09/24/18 Time of Encounter: 08:00 Procedures: Anesthesia - Arterial Line Consent obtained: written consent Time out performed: Yes Sedation: Versed (mg): 2 Sedation: Fentanyl (mcg): 100 Supplemental Oxygen via Nasal Cannula (L/min): 6 Local Anesthetic: Lidocaine 1% Amount of Anesthetic used (mls): 0.2 Size (Gauge): 20 Length (inches): 1 3/4 Technique Used: sterile prep, direct puncture technique Post-Procedure: line taped into place, dry sterile dressing placed Patient tolerated procedure: well, no complications Complications: none Site: Radial L Vitals: see anesthesia chart - Central Line Placement Right IJ Consent obtained: written consent Time out performed: Yes Patient placed on monitor/pulse ox: Yes prep: mask, gown, gloves Central line prep: Chlorhexidine scrub Local Anesthetic Used: Other (general anesthesia ) Ultrasound used for placement: Yes Technique: Seldinger Lumen Inserted: single Size / Length: 9 Fr / 10 cm Post procedure: sutured in place, good blood return, all ports aspirated, flushed, capped, sterile dressing applied Patient tolerated procedure: well, no complications Complications: none Vitals: see anesthesia chart Comments: PAC inserted with pressure waveform analysis. Secured at 41 cm
[2018-09-24 10:14] LABS: ABG Base Excess 3 mEq/L (-2 to 3); ABG Chloride 98 mEq/L (98-107); ABG Glucose 314 mg/dL (60-95); ABG HCO3 28 mEq/L (21-27); ABG Ionized Calcium 0.89 mmol/L (1.15-1.35); ABG Oxygen Saturation 100 % (95-98); ABG PCO2 39 mmHg (35-45); ABG PH 7.46 pH Units (7.32-7.45); ABG PO2 561 mmHg (85-104); ABG TCO2 29 mEq/L (20-26)
[2018-09-24] MEDS ORDERED: Protamine Sulfate 250 MG/25 ML VIAL IVP ONE (10:34)
[2018-09-24] MEDS ORDERED: *HR* FentaNYL (PF) 250 MCG/5 ML VIAL ONE (10:37)
[2018-09-24 10:43] LABS: ABG Base Excess 1 mEq/L (-2 to 3); ABG Chloride 97 mEq/L (98-107); ABG Glucose 274 mg/dL (60-95); ABG HCO3 26 mEq/L (21-27); ABG Ionized Calcium 0.97 mmol/L (1.15-1.35); ABG Oxygen Saturation 100 % (95-98); ABG PCO2 41 mmHg (35-45); ABG PH 7.41 pH Units (7.32-7.45); ABG PO2 434 mmHg (85-104); ABG TCO2 27 mEq/L (20-26)
[2018-09-24 11:30] LABS: ABG Base Excess -3 mEq/L (-2 to 3); ABG Chloride 102 mEq/L (98-107); ABG Glucose 213 mg/dL (60-95); ABG HCO3 22 mEq/L (21-27); ABG Ionized Calcium 1.12 mmol/L (1.15-1.35); ABG Oxygen Saturation 100 % (95-98); ABG PCO2 39 mmHg (35-45); ABG PH 7.35 pH Units (7.32-7.45); ABG PO2 177 mmHg (85-104); ABG TCO2 23 mEq/L (20-26)
[2018-09-24] MEDS: Nitroglycerin 25 MG/250 ML INFUS..BTL IVC SCH (12:05)
[2018-09-24] MEDS: Insulin Human Regular 100 UNIT in 0.9 % Sodium Chloride 100 ML IVC SCH (12:05)
[2018-09-24] MEDS ORDERED: *HR* Promethazine 25 MG/ML VIAL IVP PRN (12:08)
[2018-09-24] MEDS ORDERED: *HR* Dextrose 50 % in Water (Syg) 50 ML SYRINGE IVP PRN (12:08)
[2018-09-24] MEDS ORDERED: Insulin Regular, Human 100 UNIT/ML IV PRN (12:08)
[2018-09-24] MEDS ORDERED: Potassium Chloride 40 MEQ/200 ML BAG IVPB PRN (12:08)
[2018-09-24] MEDS ORDERED: Norepinephrine 4 MG in D5% in Water 250 ML IVC SCH (12:15)
[2018-09-24 12:28] LABS: ABG Base Excess 0 mEq/L (-2 to 3); ABG HCO3 24 mEq/L (21-27); ABG Oxygen Saturation 99 % (95-98); ABG PCO2 39 mmHg (35-45); ABG PH 7.41 pH Units (7.32-7.45); ABG PO2 126 mmHg (85-104); ABG TCO2 26 mEq/L (20-26); Blood Gas PEEP 5 cm H2O; Blood Gas Respiration Rate 12; Blood Gas VT 500 cc
[2018-09-24 12:39] LABS: Basophils % 0.1 %; Eosinophils % 0.3 %; Hematocrit 34.7 % (35.3-44.9); Immature Granulocytes % 0.5 % (0-4); Lymphocytes # 1.2 K/mcL (0.6-4.6); Lymphocytes % 12.2 %; Mean Corpuscular HGB Conc 35.4 g/dL (31.6-35.5); Mean Corpuscular Volume 90.4 fL (83.0-100.0); Mean Platelet Volume 9.1 fL (9.4-12.4); Monocytes # 0.7 K/mcL (0.0-1.3); Monocytes % 7.3 %; Platelet Count 111 K/mcL (140-400); Red Blood Count 3.84 M/mcL (3.82-4.97); Red Cell Distribution Width 13.1 % (11.5-14.5); Segmented Neutrophils % 79.6 %
[2018-09-24] MEDS: *HR* FentaNYL (PF) 100 MCG/2 ML VIAL IVP PRN ×4 (12:40→21:10)
[2018-09-24] MEDS ORDERED: *HR* LORazepam 2 MG/ML VIAL IVP PRN (12:44)
[2018-09-24 12:46] LABS: Hemoglobin 12.3 g/dL (11.5-15.4)
[2018-09-24 12:48] LABS: INR 1.2
[2018-09-24 12:54] LABS: Prothrombin Time 13.2 Seconds (9.4-12.1)
[2018-09-24 12:57] LABS: BUN/Creatinine Ratio 16 (6-26); Blood Urea Nitrogen 11 mg/dL (8-23); Calcium 7.7 mg/dL (8.6-10.3); Carbon Dioxide 26 mEq/L (23-29); Chloride 106 mEq/L (98-107); Glucose 157 mg/dL (70-105); Osmolality,Calculated 287 (280-300); Sodium 137 mEq/L (136-145); eGFR For Non-African Americans > 60 (> 60)
--- NOTE | 2018-09-24 12:59 | Operative Note ---
Date of procedure: 09/24/18 Pre-op diagnosis: Coronary artery disease Post-op diagnosis: same Procedure: Coronary artery bypass grafting 3 with the left internal mammary artery to the LAD and saphenous vein grafts to the posterior descending branch of the right coronary artery and the obtuse marginal branch of the circumflex coronary artery. Surgeon: Eleuterio Santiago Was there an curatorial assistant present: Yes Supervisor Electronics Processing: Henry Leiva Estimated blood loss (cc): 750 Specimen: none Condition: critical Disposition: ICU Procedure in Detail: The patient is a 73-year-old female who is had numerous stents in the past. She presented with chest pain. Cardiac catheterization revealed severe triple vessel disease and she was referred for surgery. She had been on Plavix and this was stopped for 5 days prior to surgery. She did have episodes of chest back and neck pain yesterday. Preoperatively, she was anemic with a hemoglobin of 10. She was brought to the operating room where she was prepped and draped in standard fashion. The right greater saphenous vein was harvested from below the right knee to the right groin. This was done through 2 small incisions using the scope. These incisions were subsequently closed using a deep layer of 2-0 Vicryl and a 3-0 Vicryl subcuticular stitch. Standard median sternotomy was performed. The left internal mammary artery retractor was inserted and the left internal mammary artery was harvested in standard fashion using the Bovie shawn ctrocoagulation. The mammary retractor was removed and the standard sternal forest fire officer was inserted. Pericardium was opened in the midline and suspended with 2-0 silk stay sutures. A double pursestring of 200 Surgilon was placed in the aorta for the aortic cannulation site. Pursestring of 20 Surgilon was placed in the right atrial appendage for the venous uptake. The patient was heparinized. The aorta was cannulated without difficulty. 2 stage venous uptake cannula was inserted through the right atrial appendage. A pursestring of 3-0 silk was placed in the aorta and the cardioplegia needle was inserted through here. This was also used is an active and passive aortic vent. The patient was placed on cardioplegia bypass and cooled to 34.5 degrees. At this point, the aorta was crossclamped and a liter of antegrade cardioplegia was given. Topical cooling with iced saline slush was also done. Attention was first turned to the right coronary artery. The posterior descending branch was dissected free with the Sycuan blade and opened with the Sycuan blade and the Knight scissors. It had a lumen of 1-1/2 mm and was relatively free of disease. A standard end-to-side anastomosis was constructed using the saphenous vein and a 7-0 Prolene. When this is completed, the patient received an additional dose of antegrade cardioplegia. Attention was turned to the circumflex. Proximally the obtuse marginal branch had many stents. We dissected it out distally. Here it was intra-myocardial. It was opened with a Sy[place]uan blade and the Knight scissors. It had a lumen of 1-1/2 mm with mild to moderate diffuse disease. A standard end-to-side anastomosis was constructed using the saphenous vein and a 7-0 Prolene. At this point, the patient received the last dose of antegrade card ioplegia. The LAD was dissected free distally to the stents. It was opened with the [place]uan blade and the Knight scissors. He was found to have a lumen of 1-1/2 mm with mild to moderate diffuse disease. A standard end-to-side anastomosis was constructed using the mammary artery and a 7-0 Prolene. When this was completed, the previously placed bulldog clamp was removed. The pedicle was tacked the surface of the heart using 2 interrupted 5-0 silk sutures. Cross-clamp was removed and rewarming was begun. Total cross-clamp time was 47 minutes. A side-biting clamp was placed on the aorta and the cardioplegia needle was removed. 2 holes were made in the aorta using the Sycuan blade and the 4.4 mm aortic punch. 2 proximal anastomoses were constructed in standard fashion using the saphenous veins and 6-0 Prolene's. When this is completed, the side-biting clamp was removed. Grafts were de-aired is #25-gauge needle and the previously placed bulldog clamps were removed. Distal anastomoses were inspected and found to be hemostatic. Proximal anastomoses were marked with markers and Ray-Delphine sponge. I did place some FloSeal around the proximal and distal anastomoses. A pair of ventricular pacing wires was left. A total of 3 chest tubes. A 32 angle chest tube to the left pleural space. A 32 right angle chest tube to the pericardial well. A 42 mediastinal chest tube. The patient was weaned from bypass and decannulated. I did place an additional suture of 3-0 Prolene with pledgets of background around the aortic cannulation site. The pericardium was left open. We did use platelet rich and platelet poor plasma on the sternum and tissues above the sternum. The sternum was closed with #7 sternal wires in simple and [id number] fashion. Fascia was run with #1 Vicryl. Subcutaneous tissues with 2-0 Vicryl. Skin was closed with 3-0 Vicryl subcuticular stitch. The patient tolerated the procedure well and was returned intensive care unit in satisfactory and stable condition. Total bypass time was 84 minutes. Total cross-clamp time was 47 minutes. She been cooled to 34.5 degrees.
[2018-09-24] MEDS: Insulin LISPRO 300 UNITS/3 ML VIAL SQ SCH ×4 (13:22→22:29)
[2018-09-24] MEDS: Cholecalciferol (D-3) 1,000 UNIT TABLET PO SCH (13:25)
[2018-09-24] MEDS: Ranolazine 500 MG TAB.ER.12H PO SCH ×2 (13:25→22:30)
[2018-09-24] MEDS: Isosorbide MONOnitrate (24 HR) 60 MG TAB.ER.24H PO SCH (13:25)
[2018-09-24] MEDS: *HR* OxyCODONE/APAP 5/325 TABLET PO PRN ×3 (13:37→22:28)
[2018-09-24] MEDS: Clindamycin 900 MG/50 ML 900 MG/50 ML IV.SOLN IVPB SCH (15:46)
[2018-09-24] MEDS: 0.9 % Sodium Chloride 1,000 ML IVC SCH (16:02)
[2018-09-24 16:27] LABS: ABG Base Excess -1 mEq/L (-2 to 3); ABG HCO3 24 mEq/L (21-27); ABG Oxygen Saturation 98 % (95-98); ABG PCO2 41 mmHg (35-45); ABG PH 7.38 pH Units (7.32-7.45); ABG PO2 104 mmHg (85-104); ABG TCO2 26 mEq/L (20-26); Blood Gas PEEP 5 cm H2O; Blood Gas Respiration Rate 12; Blood Gas VT 500 cc
[2018-09-24 16:33] LABS: Hematocrit 32.2 % (35.3-44.9); Hemoglobin 11.6 g/dL (11.5-15.4); Mean Corpuscular Hemoglobin 32.4 pg (28.0-33.3); Mean Corpuscular Volume 89.9 fL (83.0-100.0); Mean Platelet Volume 8.9 fL (9.4-12.4); Platelet Count 103 K/mcL (140-400); Red Blood Count 3.58 M/mcL (3.82-4.97); Red Cell Distribution Width 13.3 % (11.5-14.5)
[2018-09-24 16:53] LABS: BUN/Creatinine Ratio 18 (6-26); Blood Urea Nitrogen 12 mg/dL (8-23); Calcium 7.7 mg/dL (8.6-10.3); Carbon Dioxide 25 mEq/L (23-29); Chloride 107 mEq/L (98-107); Glucose 195 mg/dL (70-105); Osmolality,Calculated 289 (280-300); Potassium 3.6 mEq/L (3.5-5.1); Sodium 137 mEq/L (136-145); eGFR For Non-African Americans > 60 (> 60)
[2018-09-24] MEDS: niCARdipine 40 MG/200 ML MLS IVC SCH (17:55)
[2018-09-24 19:53] LABS: ABG Base Excess -2 mEq/L (-2 to 3); ABG HCO3 23 mEq/L (21-27); ABG Oxygen Saturation 97 % (95-98); ABG PCO2 39 mmHg (35-45); ABG PH 7.37 pH Units (7.32-7.45); ABG PO2 93 mmHg (85-104); ABG TCO2 24 mEq/L (20-26); Blood Gas Modality CPAP/PS
[2018-09-24] MEDS: Chlorhexidine Rinse 15 ML MOUTHWASH MM SCH (20:02)
[2018-09-24] MEDS: Ondansetron 4 MG/2 ML VIAL IVP PRN (21:09)
[2018-09-24 21:12] LABS: ABG Base Excess -2 mEq/L (-2 to 3); ABG HCO3 23 mEq/L (21-27); ABG Oxygen Saturation 94 % (95-98); ABG PCO2 37 mmHg (35-45); ABG PH 7.39 pH Units (7.32-7.45); ABG PO2 72 mmHg (85-104); ABG TCO2 24 mEq/L (20-26)
[2018-09-24] MEDS: *HR* LORazepam 0.5 MG TABLET PO PRN (22:28)
[2018-09-25] MEDS: *HR* FentaNYL (PF) 100 MCG/2 ML VIAL IVP PRN ×5 (00:09→08:01)
[2018-09-25] MEDS: Nitroglycerin 25 MG/250 ML INFUS..BTL IVC SCH (00:10)
[2018-09-25] MEDS: Clindamycin 900 MG/50 ML 900 MG/50 ML IV.SOLN IVPB SCH (00:13)
[2018-09-25] MEDS: niCARdipine 40 MG/200 ML MLS IVC SCH ×2 (00:17→07:41)
[2018-09-25] MEDS: Insulin Human Regular 100 UNIT in 0.9 % Sodium Chloride 100 ML IVC SCH (01:25)
[2018-09-25 03:22] LABS: Basophils % 0.1 %; Hematocrit 30.6 % (35.3-44.9); Hemoglobin 10.8 g/dL (11.5-15.4); Immature Granulocytes % 0.5 % (0-4); Lymphocytes # 0.5 K/mcL (0.6-4.6); Lymphocytes % 4.1 %; Mean Corpuscular HGB Conc 35.3 g/dL (31.6-35.5); Mean Corpuscular Hemoglobin 32.6 pg (28.0-33.3); Mean Corpuscular Volume 92.4 fL (83.0-100.0); Mean Platelet Volume 9.2 fL (9.4-12.4); Monocytes # 1.3 K/mcL (0.0-1.3); Monocytes % 9.8 %; Neutrophils # 11.2 K/mcL (1.6-8.9); Platelet Count 107 K/mcL (140-400); Red Blood Count 3.31 M/mcL (3.82-4.97); Red Cell Distribution Width 13.7 % (11.5-14.5); Segmented Neutrophils % 85.5 %
[2018-09-25] MEDS: Ondansetron 4 MG/2 ML VIAL IVP PRN (03:30)
[2018-09-25 03:37] LABS: INR 1.1
[2018-09-25 03:39] LABS: Activated Partial Thrombo Time 25.4 Seconds (26.0-36.0)
[2018-09-25 03:43] LABS: BUN/Creatinine Ratio 21 (6-26); Blood Urea Nitrogen 14 mg/dL (8-23); Calcium 7.9 mg/dL (8.6-10.3); Carbon Dioxide 20 mEq/L (23-29); Chloride 108 mEq/L (98-107); Glucose 159 mg/dL (70-105); Osmolality,Calculated 288 (280-300); Potassium 3.8 mEq/L (3.5-5.1); Sodium 137 mEq/L (136-145); eGFR For Non-African Americans > 60 (> 60)
[2018-09-25] MEDS: 0.9 % Sodium Chloride 1,000 ML IVC SCH (05:19)
[2018-09-25] MEDS: *HR* OxyCODONE/APAP 5/325 TABLET PO PRN ×4 (06:16→21:42)
[2018-09-25] MEDS: Insulin LISPRO 300 UNITS/3 ML VIAL SQ SCH ×4 (07:19→16:56)
--- NOTE | 2018-09-25 07:56 | Anesthesia Evaluation Post Op ---
Date of Encounter: 09/25/18 Time of Encounter: 07:55 - Vital Signs Vital Signs: Vital Signs/O2 Sat/Glucose, Most Recent Temp Pulse Resp BP Pulse Ox 97.7 F 99 14 124/57 94 09/25/18 06:00 09/25/18 07:38 09/25/18 07:38 09/25/18 07:38 09/25/18 07:38 Blood Glucose* 135 - Lungs Lungs: Clear Ascult./Percussion - Airway Airway: Non-obstructed - Cardiovascular Regular Rate - Mental Status Mental Status: Alert & Oriented, Answers Appropriately - Pain Pain Scale used: Duke-Martinez (Faces) - Nausea Vomiting Nausea Vomiting: Not Present - Hydration Hydration: Ice chips - Discharge Attestation: patient seen and examined. Extubated and remains in ICU in stable condition
[2018-09-25] MEDS: Isosorbide MONOnitrate (24 HR) 60 MG TAB.ER.24H PO SCH (08:00)
[2018-09-25] MEDS: Chlorhexidine Rinse 15 ML MOUTHWASH MM SCH ×2 (08:00→20:47)
[2018-09-25] MEDS: Cholecalciferol (D-3) 1,000 UNIT TABLET PO SCH (08:00)
[2018-09-25] MEDS: Ranolazine 500 MG TAB.ER.12H PO SCH ×2 (08:01→20:43)
[2018-09-25] MEDS: Aspirin 81 MG TAB.CHEW PO SCH (08:01)
--- NOTE | 2018-09-25 09:12 | Cardiothoracic Progress Note ---
Date of Encounter: 09/25/18 Time of Encounter: 09:10 - Assessment and plan (1) CAD (coronary artery disease) Current Visit: Yes Status: Chronic We will discontinue the Gill-Derick catheter, IV fluids and arterial line. We will give her 1 dose of Lasix. We will leave the Osorio per the patient's request until the chest tubes come out tomorrow. We will transfer the patient out of the ICU when a bed becomes available. Qualifiers: Coronary Disease-Associated Artery/Lesion type: [place] artery [place] vs. transplanted heart: [place] heart Associated angina: with stable angina Qualified Code(s): I25.118 - Atherosclerotic heart disease of [place] coronary artery with other forms of angina pectoris - Subjective Interval history: The patient is extubated and complains of mild postoperative pain. Vital Signs, Last 4 Hours Temp Pulse Resp BP Pulse Ox 09/25/18 08:23 101 16 124/45 93 09/25/18 07:38 97.9 F 99 14 124/57 94 09/25/18 07:32 16 92 09/25/18 07:00 92 12 115/54 94 09/25/18 06:00 97.7 F 98 14 135/57 94 Oxgyen Flow Rate Oxygen Flow Rate (LPM) 2 Clinical Data, last 8 Hours Output, Chest Tube Drainage 0 Amount [Chest tube #3] Output, Chest Tube Drainage 0 Amount [Chest tube #3] Output, Chest Tube Drainage 20 Amount [Chest tube #3] Output, Chest Tube Drainage 0 Amount [Chest tube #3] Output, Chest Tube Drainage 20 Amount [Chest tube #3] Output, Chest Tube Drainage 20 Amount [Chest tube #3] Output, Chest Tube Drainage 20 Amount [Chest tube #3] Output, Chest Tube Drainage 0 Amount [Chest tube #2] Output, Chest Tube Drainage 0 Amount [Chest tube #2] Output, Chest Tube Drainage 10 Amount [Chest tube #2] Output, Chest Tube Drainage 0 Amount [Chest tube #2] Output, Chest Tube Drainage 15 Amount [Chest tube #2] Output, Chest Tube Drainage 0 Amount [Chest tube #2] Output, Chest Tube Drainage 0 Amount [Chest tube #2] Output, Chest Tube Drainage 0 Amount [Chest tube #1] Output, Chest Tube Drainage 0 Amount [Chest tube #1] Output, Chest Tube Drainage 0 Amount [Chest tube #1] Output, Chest Tube Drainage 0 Amount [Chest tube #1] Output, Chest Tube Drainage 20 Amount [Chest tube #1] Output, Chest Tube Drainage 0 Amount [Chest tube #1] Output, Chest Tube Drainage 0 Amount [Chest tube #1] Weight 09/23/18 09/24/18 09/25/18 23:59 23:59 23:59 Weight 70.8 kg 69.5 kg 71.6 kg Lungs are clear to percussion and auscultation. Heart is in a regular rate and rhythm. All incisions are healing well without signs of infection and the sternum is stable. - Labs 09/25/18 03:08 09/25/18 03:08 Lab Results, Last 24 hours 09/24/18 09/24/18 09/24/18 12:22 12:22 12:22 WBC 10.0 D Hgb 12.3 D Hct 34.7 L Plt Count 111 L INR 1.2 APTT 26.0 Sodium 137 Potassium 4.0 Chloride 106 Carbon Dioxide 26 BUN 11 Creatinine 0.68 Glucose 157 H Calcium 7.7 L Magnesium 3.0 H 09/24/18 09/24/18 09/25/18 16:22 16:22 03:08 WBC 10.3 13.1 H Hgb 11.6 10.8 L Hct 32.2 L 30.6 L Plt Count 103 L 107 L INR APTT Sodium 137 Potassium 3.6 Chloride 107 Carbon Dioxide 25 BUN 12 Creatinine 0.66 Glucose 195 H Calcium 7.7 L Magnesium 09/25/18 09/25/18 03:08 03:08 WBC Hgb Hct Plt Count INR 1.1 APTT 25.4 L Sodium 137 Potassium 3.8 Chloride 108 H Carbon Dioxide 20 L BUN 14 Creatinine 0.68 Glucose 159 H Calcium 7.9 L Magnesium 2.0 - VTE Documentation of Mechanical Device: Graduated compression elastic hosiery Consult Discharge Plan - Plan Referrals: Maninder Hodgson [Partnered Physician] - 09/26/18 10:00 am
[2018-09-25] MEDS ORDERED: *HR* FentaNYL (PF) 100 MCG/2 ML VIAL IVP PRN (10:10)
[2018-09-25] MEDS ORDERED: Dextrose Gel 15 GM/37.5 ML TUBE PO PRN ×2 (10:10)
[2018-09-25] MEDS ORDERED: Nitroglycerin 0.4 MG TAB.SUBL SL PRN (10:10)
[2018-09-25] MEDS ORDERED: Ondansetron 4 MG/2 ML VIAL IVP PRN (10:10)
[2018-09-25] MEDS ORDERED: Insulin Regular, Human 100 UNIT/ML IV PRN (10:10)
[2018-09-25] MEDS ORDERED: Loratadine 10 MG TABLET PO PRN (10:10)
[2018-09-25] MEDS ORDERED: *HR* Dextrose 50 % in Water (Syg) 50 ML SYRINGE IVP PRN (10:10)
[2018-09-25] MEDS: *HR* Heparin 5,000 UNIT/ML VIAL SQ SCH (16:56)
[2018-09-25] MEDS ORDERED: Insulin LISPRO 300 UNITS/3 ML VIAL SQ SCH (21:00)
[2018-09-26] MEDS: *HR* OxyCODONE/APAP 5/325 TABLET PO PRN ×5 (01:35→23:40)
[2018-09-26 03:45] LABS: Basophils % 0.1 %; Red Cell Distribution Width 14.6 % (11.5-14.5)
[2018-09-26 03:47] LABS: Hematocrit 28.4 % (35.3-44.9); Hemoglobin 9.4 g/dL (11.5-15.4); Immature Granulocytes % 0.4 % (0-4); Immature Platelets 2.4 % (1.1-6.1); Lymphocytes # 1.2 K/mcL (0.6-4.6); Lymphocytes % 11.7 %; Mean Corpuscular HGB Conc 33.1 g/dL (31.6-35.5); Mean Corpuscular Hemoglobin 31.9 pg (28.0-33.3); Mean Corpuscular Volume 96.3 fL (83.0-100.0); Mean Platelet Volume 9.8 fL (9.4-12.4); Monocytes % 9.9 %; Neutrophils # 8.1 K/mcL (1.6-8.9); Platelet Count 103 K/mcL (140-400); Red Blood Count 2.95 M/mcL (3.82-4.97); Segmented Neutrophils % 77.9 %
[2018-09-26] MEDS: *HR* Heparin 5,000 UNIT/ML VIAL SQ SCH ×2 (06:15→17:06)
--- NOTE | 2018-09-26 07:22 | Cardiothoracic Progress Note ---
Date of Encounter: 09/26/18 Time of Encounter: 07:20 - Assessment and plan (1) CAD (coronary artery disease) Current Visit: Yes Status: Chronic The chest tubes were removed. We will check a stat portable chest x-ray. I will order milk of magnesia for constipation. The patient is awaiting a transfer to the floor when a bed becomes available. Qualifiers: Coronary Disease-Associated Artery/Lesion type: [place] artery [place] vs. transplanted heart: [place] heart Associated angina: with stable angina Qualified Code(s): I25.118 - Atherosclerotic heart disease of [place] coronary artery with other forms of angina pectoris - Subjective Interval history: The patient complains of mild postoperative pain and mild constipation. Vital Signs, Last 4 Hours Temp Pulse Resp BP Pulse Ox 09/26/18 07:00 91 16 127/56 97 09/26/18 04:31 16 97 09/26/18 04:00 98.2 F 86 8 120/64 96 09/26/18 03:54 86 Oxgyen Flow Rate Oxygen Flow Rate (LPM) 2 Clinical Data, last 8 Hours Output, Chest Tube Drainage 0 Amount [Chest tube #3] Output, Chest Tube Drainage 0 Amount [Chest tube #3] Output, Chest Tube Drainage 20 Amount [Chest tube #3] Output, Chest Tube Drainage 0 Amount [Chest tube #2] Output, Chest Tube Drainage 0 Amount [Chest tube #2] Output, Chest Tube Drainage 14 Amount [Chest tube #2] Output, Chest Tube Drainage 0 Amount [Chest tube #1] Output, Chest Tube Drainage 0 Amount [Chest tube #1] Output, Chest Tube Drainage 20 Amount [Chest tube #1] Weight 09/24/18 09/25/18 09/26/18 23:59 23:59 23:59 Weight 69.5 kg 71.6 kg Lungs are clear to percussion and auscultation. Heart is in a normal sinus rhythm. All incisions are healing well without signs of infection and the sternum is stable. - Labs 09/26/18 03:07 09/25/18 03:08 Lab Results, Last 24 hours 09/26/18 03:07 WBC 10.4 Hgb 9.4 L Hct 28.4 L Plt Count 103 L - VTE Documentation of Mechanical Device: Graduated compression elastic hosiery Consult Discharge Plan - Plan Referrals: Maninder Hodgson [Partnered Physician] - 09/26/18 10:00 am
[2018-09-26] MEDS: Ranolazine 500 MG TAB.ER.12H PO SCH ×2 (08:02→20:26)
[2018-09-26] MEDS: Aspirin 81 MG TAB.CHEW PO SCH (08:03)
[2018-09-26] MEDS: Isosorbide MONOnitrate (24 HR) 60 MG TAB.ER.24H PO SCH (08:03)
[2018-09-26] MEDS: Cholecalciferol (D-3) 1,000 UNIT TABLET PO SCH (08:03)
[2018-09-26] MEDS: Chlorhexidine Rinse 15 ML MOUTHWASH MM SCH ×2 (08:04→20:26)
[2018-09-26] MEDS: Insulin LISPRO 300 UNITS/3 ML VIAL SQ SCH ×5 (08:05→20:27)
--- NOTE | 2018-09-26 17:26 | Electrocardiograph Report ---
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
[2018-09-27 04:36] LABS: Basophils % 0.1 %; Hematocrit 25.8 % (35.3-44.9); Hemoglobin 8.6 g/dL (11.5-15.4); Immature Granulocytes % 0.3 % (0-4); Lymphocytes # 1.2 K/mcL (0.6-4.6); Lymphocytes % 13.8 %; Mean Corpuscular HGB Conc 33.3 g/dL (31.6-35.5); Mean Corpuscular Hemoglobin 32.1 pg (28.0-33.3); Mean Corpuscular Volume 96.3 fL (83.0-100.0); Mean Platelet Volume 9.8 fL (9.4-12.4); Monocytes # 0.9 K/mcL (0.0-1.3); Monocytes % 9.6 %; Neutrophils # 6.7 K/mcL (1.6-8.9); Platelet Count 122 K/mcL (140-400); Red Blood Count 2.68 M/mcL (3.82-4.97); Red Cell Distribution Width 13.9 % (11.5-14.5); Segmented Neutrophils % 76.2 %
[2018-09-27 04:43] LABS: BUN/Creatinine Ratio 17 (6-26); Blood Urea Nitrogen 11 mg/dL (8-23); Calcium 8.5 mg/dL (8.6-10.3); Carbon Dioxide 26 mEq/L (23-29); Chloride 102 mEq/L (98-107); Glucose 195 mg/dL (70-105); Osmolality,Calculated 281 (280-300); Potassium 4.5 mEq/L (3.5-5.1); Sodium 133 mEq/L (136-145); eGFR For Non-African Americans > 60 (> 60)
[2018-09-27] MEDS: *HR* Heparin 5,000 UNIT/ML VIAL SQ SCH ×2 (05:25→17:02)
[2018-09-27] MEDS: *HR* OxyCODONE/APAP 5/325 TABLET PO PRN ×4 (07:30→23:14)
[2018-09-27] MEDS: Insulin LISPRO 300 UNITS/3 ML VIAL SQ SCH ×4 (07:31→20:42)
[2018-09-27] MEDS: Ranolazine 500 MG TAB.ER.12H PO SCH ×2 (07:54→20:42)
[2018-09-27] MEDS: Chlorhexidine Rinse 15 ML MOUTHWASH MM SCH ×2 (07:54→20:42)
[2018-09-27] MEDS: Cholecalciferol (D-3) 1,000 UNIT TABLET PO SCH (07:55)
[2018-09-27] MEDS: Aspirin 81 MG TAB.CHEW PO SCH (07:55)
--- NOTE | 2018-09-27 08:47 | Cardiothoracic Progress Note ---
Date of Encounter: 09/27/18 Time of Encounter: 08:45 - Assessment and plan (1) CAD (coronary artery disease) Current Visit: Yes Status: Chronic I will increase the patient's Lopressor dosage to 25 mg twice a day and give her an extra dose this morning. Qualifiers: Coronary Disease-Associated Artery/Lesion type: [place] artery [place] vs. transplanted heart: [place] heart Associated angina: with stable angina Qualified Code(s): I25.118 - Atherosclerotic heart disease of [place] coronary artery with other forms of angina pectoris - Subjective Interval history: The patient complains of mild to moderate postoperative pain. This is well controlled with narcotics. Vital Signs, Last 4 Hours Temp Pulse Resp BP Pulse Ox 09/27/18 07:38 98.9 F 09/27/18 06:00 89 12 117/60 100 Oxgyen Flow Rate Oxygen Flow Rate (LPM) 2 Clinical Data, last 8 Hours Output, Urine Amount 0 Weight 09/25/18 09/26/18 09/27/18 23:59 23:59 23:59 Weight 71.6 kg 71 kg Lungs are clear to percussion and auscultation. Heart is in a sinus tachycardia. All incisions are healing well without signs of infection and the sternum is stable. - Labs 09/27/18 03:18 09/27/18 03:18 Lab Results, Last 24 hours 09/27/18 09/27/18 03:18 03:18 WBC 8.8 Hgb 8.6 L Hct 25.8 L Plt Count 122 L Sodium 133 L Potassium 4.5 Chloride 102 Carbon Dioxide 26 BUN 11 Creatinine 0.64 Glucose 195 H Calcium 8.5 L - VTE Documentation of Mechanical Device: Graduated compression elastic hosiery Consult Discharge Plan - Plan Referrals: Maninder Hodgson [Partnered Physician] - 09/26/18 10:00 am
[2018-09-27] MEDS: Isosorbide MONOnitrate (24 HR) 60 MG TAB.ER.24H PO SCH (09:08)
[2018-09-27] MEDS: Acetaminophen 325 MG TABLET PO PRN (09:11)
[2018-09-27] MEDS: MOM Conc 10 ML UD.LIQ PO PRN (14:49)
[2018-09-28] MEDS: *HR* OxyCODONE/APAP 5/325 TABLET PO PRN ×4 (05:11→19:53)
[2018-09-28] MEDS: *HR* Heparin 5,000 UNIT/ML VIAL SQ SCH ×2 (05:11→17:20)
[2018-09-28] MEDS: Isosorbide MONOnitrate (24 HR) 60 MG TAB.ER.24H PO SCH (08:03)
[2018-09-28] MEDS: Aspirin 81 MG TAB.CHEW PO SCH (08:03)
[2018-09-28] MEDS: Cholecalciferol (D-3) 1,000 UNIT TABLET PO SCH (08:03)
[2018-09-28] MEDS: Insulin LISPRO 300 UNITS/3 ML VIAL SQ SCH ×4 (08:04→20:23)
[2018-09-28] MEDS: Chlorhexidine Rinse 15 ML MOUTHWASH MM SCH ×2 (08:04→19:48)
[2018-09-28] MEDS: MOM Conc 10 ML UD.LIQ PO PRN (08:04)
[2018-09-28] MEDS: Ranolazine 500 MG TAB.ER.12H PO SCH ×2 (08:04→19:48)
--- NOTE | 2018-09-28 09:33 | Cardiothoracic Progress Note ---
Date of Encounter: 09/28/18 Time of Encounter: 09:31 - Assessment and plan (1) CAD (coronary artery disease) Current Visit: Yes Status: Chronic The patient is doing well and we will be increasing her ambulation. Qualifiers: Coronary Disease-Associated Artery/Lesion type: [place] artery [place] vs. transplanted heart: [place] heart Associated angina: with stable angina Qualified Code(s): I25.118 - Atherosclerotic heart disease of [place] coronary artery with other forms of angina pectoris - Subjective Interval history: The patient's postoperative pain is improving. She is sitting in a chair and tolerating her diet. Vital Signs, Last 4 Hours Temp Pulse Resp BP Pulse Ox 09/28/18 07:58 18 97 09/28/18 07:28 98.3 F 84 18 113/62 98 Oxgyen Flow Rate Oxygen Flow Rate (LPM) 2 Weight 09/26/18 09/27/18 09/28/18 23:59 23:59 23:59 Weight 71 kg 71 kg Lungs are clear to percussion and auscultation. Heart is in a regular rate and rhythm. All incisions are healing well without signs of infection and [place] sternum is stable. - Labs 09/27/18 03:18 09/27/18 03:18 - VTE Documentation of Mechanical Device: Graduated compression elastic hosiery Consult Discharge Plan - Plan Referrals: Maninder Hodgson [Partnered Physician] - 10/04/18 1:50 pm () Eleuterio Santiago MD [Partnered Physician] - 10/24/18 1:00 pm () Héctor Irwin DO [Partnered Physician] - 10/18/18 9:15 am
[2018-09-28] MEDS: *HR* LORazepam 0.5 MG TABLET PO PRN (22:56)
[2018-09-29 00:40] LABS: Basophils % 0.2 %; Eosinophils # 0.1 K/mcL (0.0-0.6); Eosinophils % 1.5 %; Hematocrit 26.3 % (35.3-44.9); Immature Granulocytes % 0.8 % (0-4); Lymphocytes # 1.4 K/mcL (0.6-4.6); Lymphocytes % 23.5 %; Mean Corpuscular HGB Conc 34.2 g/dL (31.6-35.5); Mean Corpuscular Hemoglobin 32.4 pg (28.0-33.3); Mean Corpuscular Volume 94.6 fL (83.0-100.0); Mean Platelet Volume 9.2 fL (9.4-12.4); Monocytes # 0.6 K/mcL (0.0-1.3); Monocytes % 10.7 %; Neutrophils # 3.8 K/mcL (1.6-8.9); Platelet Count 198 K/mcL (140-400); Red Blood Count 2.78 M/mcL (3.82-4.97); Red Cell Distribution Width 13.3 % (11.5-14.5); Segmented Neutrophils % 63.3 %
[2018-09-29 00:58] LABS: BUN/Creatinine Ratio 13 (6-26); Blood Urea Nitrogen 9 mg/dL (8-23); Calcium 8.7 mg/dL (8.6-10.3); Carbon Dioxide 27 mEq/L (23-29); Chloride 99 mEq/L (98-107); Glucose 210 mg/dL (70-105); Osmolality,Calculated 281 (280-300); Potassium 4.5 mEq/L (3.5-5.1); Sodium 133 mEq/L (136-145); eGFR For Non-African Americans > 60 (> 60)
[2018-09-29] MEDS: *HR* OxyCODONE/APAP 5/325 TABLET PO PRN ×4 (04:13→19:43)
[2018-09-29] MEDS: *HR* Heparin 5,000 UNIT/ML VIAL SQ SCH ×2 (05:12→17:06)
[2018-09-29] MEDS: Chlorhexidine Rinse 15 ML MOUTHWASH MM SCH ×2 (08:36→19:44)
[2018-09-29] MEDS: Isosorbide MONOnitrate (24 HR) 60 MG TAB.ER.24H PO SCH (08:36)
[2018-09-29] MEDS: Cholecalciferol (D-3) 1,000 UNIT TABLET PO SCH (08:37)
[2018-09-29] MEDS: Insulin LISPRO 300 UNITS/3 ML VIAL SQ SCH ×4 (08:37→19:44)
[2018-09-29] MEDS: Ranolazine 500 MG TAB.ER.12H PO SCH ×2 (08:37→19:43)
[2018-09-29] MEDS: Aspirin 81 MG TAB.CHEW PO SCH (08:37)
--- NOTE | 2018-09-29 09:22 | Cardiothoracic Progress Note ---
Date of Encounter: 09/29/18 Time of Encounter: 09:21 - Assessment and plan (1) CAD (coronary artery disease) Current Visit: Yes Status: Chronic Hopefully, the patient can be discharged in 1-2 days. Qualifiers: Coronary Disease-Associated Artery/Lesion type: [place] artery [place] vs. transplanted heart: [place] heart Associated angina: with stable angina [place] lified Code(s): I25.118 - Atherosclerotic heart disease of [place] coronary artery with other forms of angina pectoris - Subjective Interval history: The patient is ambulating and has no complaints. Vital Signs, Last 4 Hours Temp Pulse Resp BP Pulse Ox 09/29/18 07:33 98.2 F 93 20 132/70 95 Oxgyen Flow Rate Oxygen Flow Rate (LPM) 2 Clinical Data, last 8 Hours Output, Urine Amount 200 Output, Urine Amount 500 Weight 09/27/18 09/28/18 09/29/18 23:59 23:59 23:59 Weight 71 kg 70.7 kg Lungs are clear to percussion and auscultation. Heart is in a normal sinus rhythm. All incisions are healing well without signs of infection and the sternum is stable. - Labs 09/29/18 00:28 09/29/18 00:28 Lab Results, Last 24 hours 09/29/18 09/29/18 00:28 00:28 WBC 6.0 Hgb 9.0 L Hct 26.3 L Plt Count 198 D Sodium 133 L Potassium 4.5 Chloride 99 Carbon Dioxide 27 BUN 9 Creatinine 0.67 Glucose 210 H Calcium 8.7 - VTE Documentation of Mechanical Device: Graduated compression elastic hosiery Consult Discharge Plan - Plan Referrals: Maninder Hodgson [Partnered Physician] - 10/04/18 1:50 pm () Eleuterio Santiago MD [Partnered Physician] - 10/24/18 1:00 pm () Héctor Irwin DO [Partnered Physician] - 10/18/18 9:15 am
[2018-09-29] MEDS: *HR* LORazepam 0.5 MG TABLET PO PRN (23:17)
[2018-09-30] MEDS: *HR* OxyCODONE/APAP 5/325 TABLET PO PRN ×3 (04:17→16:35)
[2018-09-30] MEDS: Acetaminophen 325 MG TABLET PO PRN (05:26)
[2018-09-30] MEDS: *HR* Heparin 5,000 UNIT/ML VIAL SQ SCH (05:27)
--- NOTE | 2018-09-30 07:17 | Discharge Summary ---
Orders not resulted at time of discharge: Pending orders 09/20/18 08:36 Red Blood Cells [BBK] Routine Type and Screen [BBK] Routine Date of Encounter: 09/30/18 Time of Encounter: 07:11 - Discharge Diagnosis (1) CAD (coronary artery disease) Priority: Primary Status: Chronic Qualifiers: Coronary Disease-Associated Artery/Lesion type: [place] artery [place] vs. transplanted heart: [place] heart Associated angina: with stable angina Qualified Code(s): I25.118 - Atherosclerotic heart disease of [place] coronary artery with other forms of angina pectoris - Hospital Course Hospital course: Ms. Seth is a 73 year old female The patient is a 73-year-old female with a history of hypertension, diabetes and hypercholesterolemia. She has had 5 previous PTCAs with a total of 11 stents. She presented with chest pain and cardiac catheterization revealed severe coronary artery disease. She had been on Plavix and this was stopped prior to surgery. On 09/24/2018, I took her to the operating room for coronary artery bypass grafting 3, utilizing the left internal mammary artery. On September 25, transfer orders were written. On September 26, the chest tubes were removed. The patient otherwise did well and was discharged on September 30. At that time, she was afebrile. Lungs were clear to percussion and auscultation. Heart was in a regular rate and rhythm. All incisions are healing well without signs of infection and the sternum was stable. Discharge medications are on the med rec and include narcotics for pain. I did check the [place] automated Rx reporting system. She was postoperative and was given a one-week supply. Appropriate precautions were given. She was to return to her previous and regular diet. She was to avoid heavy lifting for a total of 3 months after surgery, but to walk as much as possible. She was to avoid driving for 1 month. She was to follow-up and see me in the office in 4 weeks as directed. She is to follow-up with her primary care doctor and [facility] as directed. She was to call sooner for any difficulties. - Time Spent with Patient Total time spent providing and/or coordinating discharge services: - Discharge Medications Prescriptions: OxyCODONE/APAP 5/325 [Percocet 5/325 MG] 1 each PO Q4HR PRN 7 Days #20 tablet PRN Reason: Severe Pain Metoprolol [Lopressor] 25 mg PO BID #60 tablet Home Medications: Aspirin 81 mg PO QPM 07/12/16 [History] Clopidogrel [Plavix] 75 mg PO 1400 07/12/16 [History] Isosorbide MONOnitrate [Isosorbide Mononitrate ER] 240 mg PO DAILY 07/12/16 [History] Nitroglycerin [Nitrostat] 0.4 mg SL Q5M PRN MDD X3 DOSES CALL 911 07/12/16 [History] Lisinopril [Zestril] 10 mg PO DAILY #15 tablet 07/14/16 [Rx] Cholecalciferol (D-3) [Vitamin D] 2,000 unit PO DAILY 10/11/16 [History] Loratadine [Allergy Relief] 10 mg PO DAILY PRN 10/11/16 [History] Dicyclomine [Bentyl] 10 mg PO QID PRN 12/13/16 [History] EPINEPHrine [Epipen] 0.3 mg IM ONCE PRN 09/25/17 [History] Pantoprazole Sodium [Protonix] 40 mg PO DAILY 10/18/17 [History] Sucralfate [Carafate] 1 gm PO TID PRN 10/31/17 [History] Metoprolol [Lopressor] 25 mg PO BID #60 tablet 09/30/18 [Rx] OxyCODONE/APAP 5/325 [Percocet 5/325 MG] 1 each PO Q4HR PRN 7 Days #20 tablet 09/30/18 [Rx] Allergies/Adverse Reactions: Allergy/AdvReac Type Severity Reaction Status Date / Time penicillin V Allergy Anaphylaxis Verified 06/07/18 09:17 atorvastatin [From Lipitor] AdvReac Muscle Pain Verified 06/07/18 09:17 lovastatin AdvReac Muscle Pain Verified 06/07/18 09:17 [id number] Reductase AdvReac Muscle Pain Verified 06/07/18 09:17 Inhibitor [Statins] Date of admission: 09/20/18 18:51 Primary care physician: Myranda Lauren DO Consults: 09/18/18 20:47 Consult to Cardiology [CONS] Routine Comment: Consulting Provider: Cardiology Maggie Reason for Consult: 72 y/o F w/ extensive CAD presenting with unstable angina. Call Completed: No 09/19/18 17:08 Consult to Cardiothoracic Surgery [CONS] Routine Consulting Provider: Cardiothoracic Surgery Maggie Reason for Consult: open heart Call Completed: Yes 09/24/18 12:08 Consult to Cardiac Rehabilitation-Phase1 [CONS] Routine Comment: Reason for Consult: Post open heart Call Completed: Yes Consult to Bookkeeping Manager [CONS] Routine Reason for SW Consult: open heart 09/25/18 10:10 Consult for Pharmacy Education [CONS] Routine Reason for Consult: Post-Op Heart Call Completed: Yes Consult to Occupational Therapy [CONS] Routine Comment: Evaluate, develop and implement POC Reason for Consult: Post-Op Heart Does patient have active BEDREST order?: No Is patient medically & hemodynamically stable?: Yes Consult to Physical Therapy [CONS] Routine Comment: Evaluate, develop and implement POC Reason for Consult: Post open heart Does patient have active BEDREST order?: No Is patient medically & hemodynamically stable?: Yes Procedure(s) Performed: 09/24/2018. Coronary artery bypass grafting 3, utilizing the left internal mammary artery. Discharging clinician: Eleuterio Santiaog Anticipated date of discharge: 09/30/18 Physical Examination Vital Signs, Last 4 Hours Temp Pulse Resp BP Pulse Ox 09/30/18 04:15 99 09/30/18 04:13 98.1 F 96 20 130/78 92 09/30/18 04:05 16 93 - Patient Status Disposition: Home, Self-Care Condition: Fair Functional capacity at discharge: independent ambulation Overall status at discharge: patient is progressing back to baseline - Discharge Instructions Follow Up With: Maninder Hodgson [Partnered Physician] - 10/04/18 1:50 pm () Eleuterio Santiago MD [Partnered Physician] - 10/24/18 1:00 pm () Héctor Irwin DO [Partnered Physician] - 10/18/18 9:15 am [facility] Aspirin Cont/Prescribed at DC: Yes Beta Gaby Cont/Prescribed at DC: Yes Statin Cont/Prescribed at DC: No (allergic) AISHA/ARB Cont/Prescribed at DC: Not indicated - VTE Documentation of Mechanical Device: Graduated compression elastic hosiery
[2018-09-30] MEDS: Chlorhexidine Rinse 15 ML MOUTHWASH MM SCH (08:16)
[2018-09-30] MEDS: Ranolazine 500 MG TAB.ER.12H PO SCH (08:16)
[2018-09-30] MEDS: Cholecalciferol (D-3) 1,000 UNIT TABLET PO SCH (08:16)
[2018-09-30] MEDS: Aspirin 81 MG TAB.CHEW PO SCH (08:16)
[2018-09-30] MEDS: Isosorbide MONOnitrate (24 HR) 60 MG TAB.ER.24H PO SCH (08:17)
[2018-09-30] MEDS: Insulin LISPRO 300 UNITS/3 ML VIAL SQ SCH ×3 (08:26→16:48)
[2018-09-30 16:41] VITALS: BP 136/80
== END 2018-09-30 18:40 | disposition home or self-care (01) | DRG 234 ==
LOC: 3BNU 15:39 → EMEROOARM 15:39 → 3BNU 18:41 → ICNU 09-24 07:31 → 2NNU 09-27 15:24
PROVIDERS: ADMIT Internal Medicine; ATTEND Internal Medicine

== ENCOUNTER 2020-07-06 13:58 | Observation (INO) ==
[2020-07-06] MEDS ORDERED: Nitroglycerin 0.4 MG TAB.SUBL SL PRN ×2 (14:36→19:04)
[2020-07-06] MEDS ORDERED: Aspirin 325 MG TABLET PO ONE (14:36)
[2020-07-06 14:54] LABS: Basophils % 0.4 %; Eosinophils % 0.6 %; Hematocrit 37.1 % (35.3-44.9); Hemoglobin 12.4 g/dL (11.5-15.4); Immature Granulocytes % 0.4 % (0-4); Lymphocytes # 1.9 K/mcL (0.6-4.6); Lymphocytes % 36.3 %; Mean Corpuscular HGB Conc 33.4 g/dL (31.6-35.5); Mean Corpuscular Hemoglobin 33.3 pg (28.0-33.3); Mean Corpuscular Volume 99.7 fL (83.0-100.0); Mean Platelet Volume 8.9 fL (9.4-12.4); Monocytes # 0.5 K/mcL (0.0-1.3); Neutrophils # 2.8 K/mcL (1.6-8.9); Platelet Count 240 K/mcL (140-400); Red Blood Count 3.72 M/mcL (3.82-4.97); Red Cell Distribution Width 12.1 % (11.5-14.5); Segmented Neutrophils % 53.3 %; White Blood Count 5.2 K/mcL (4.3-11.1)
[2020-07-06 15:04] LABS: INR 1.1; Prothrombin Time 12.2 Seconds (9.4-12.1)
[2020-07-06 15:07] LABS: Activated Partial Thrombo Time 26.9 Seconds (26.0-36.0)
[2020-07-06 15:15] LABS: BUN/Creatinine Ratio 18 (6-26); Blood Urea Nitrogen 13 mg/dL (8-23); Calcium 9.7 mg/dL (8.6-10.3); Carbon Dioxide 25 mEq/L (23-29); Chloride 103 mEq/L (98-107); Glucose 115 mg/dL (70-105); Osmolality,Calculated 285 (280-300); Potassium 4.3 mEq/L (3.5-5.1); Sodium 137 mEq/L (136-145); Troponin I 0.03 ng/mL (< 0.04); eGFR For African Americans > 60 (> 60); eGFR For Non-African Americans > 60 (> 60)
[2020-07-06] MEDS ORDERED: Acetaminophen 325 MG TABLET PO PRN (16:32)
[2020-07-06] MEDS ORDERED: Naloxone 0.4 MG/ML INJ IVP PRN (16:32)
[2020-07-06] MEDS ORDERED: *HR* HYDROcodone/Acet 5/325 mg TABLET PO PRN (16:32)
[2020-07-06] MEDS ORDERED: Ondansetron 4 MG/2 ML VIAL IVP PRN (16:32)
[2020-07-06 16:54] LABS: Chol/HDL Ratio 4.8 (0-4.9); Cholesterol 219 mg/dL (< 200); HDL Cholesterol 46 mg/dL (40-59); LDL Cholesterol,Calculated 107 mg/dL (< 100); Triglycerides 330 mg/dL (< 150)
[2020-07-06] MEDS ORDERED: Loratadine 10 MG TABLET PO PRN (19:04)
[2020-07-06] MEDS ORDERED: Sucralfate 1 GM TABLET PO PRN (19:04)
[2020-07-06] MEDS ORDERED: ALPRAZolam 0.25 MG TABLET PO PRN (19:04)
[2020-07-06] MEDS ORDERED: *HR* Dextrose 50 % in Water (Vial) 50 ML VIAL IVP PRN (19:07)
[2020-07-06] MEDS ORDERED: Dextrose Gel 15 GM/37.5 ML TUBE PO PRN ×2 (19:07)
[2020-07-06] MEDS ORDERED: D5% in Water 1,000 ML IVC PRN (19:07)
[2020-07-06] MEDS: Ranolazine 500 MG TAB.ER.12H PO SCH (20:51)
[2020-07-06] MEDS: *HR* Heparin 5,000 UNIT/ML VIAL SQ SCH (20:53)
[2020-07-07] MEDS: *HR* Heparin 5,000 UNIT/ML VIAL SQ SCH (04:52)
[2020-07-07 05:04] LABS: Basophils % 0.4 %; Eosinophils # 0.1 K/mcL (0.0-0.6); Eosinophils % 1.5 %; Hematocrit 33.5 % (35.3-44.9); Hemoglobin 11.6 g/dL (11.5-15.4); Immature Granulocytes % 0.2 % (0-4); Lymphocytes # 2.5 K/mcL (0.6-4.6); Lymphocytes % 52.9 %; Mean Corpuscular HGB Conc 34.6 g/dL (31.6-35.5); Mean Corpuscular Hemoglobin 34.3 pg (28.0-33.3); Mean Corpuscular Volume 99.1 fL (83.0-100.0); Mean Platelet Volume 9.1 fL (9.4-12.4); Monocytes # 0.4 K/mcL (0.0-1.3); Monocytes % 8.7 %; Neutrophils # 1.7 K/mcL (1.6-8.9); Platelet Count 217 K/mcL (140-400); Red Blood Count 3.38 M/mcL (3.82-4.97); Red Cell Distribution Width 12.3 % (11.5-14.5); Segmented Neutrophils % 36.3 %; White Blood Count 4.7 K/mcL (4.3-11.1)
[2020-07-07 05:19] LABS: BUN/Creatinine Ratio 19 (6-26); Blood Urea Nitrogen 15 mg/dL (8-23); Calcium 9.4 mg/dL (8.6-10.3); Carbon Dioxide 26 mEq/L (23-29); Chloride 105 mEq/L (98-107); Glucose 124 mg/dL (70-105); Osmolality,Calculated 286 (280-300); Phosphorous 3.5 mg/dL (2.7-4.5); Potassium 4.2 mEq/L (3.5-5.1); Sodium 137 mEq/L (136-145); eGFR For African Americans > 60 (> 60); eGFR For Non-African Americans > 60 (> 60)
[2020-07-07] MEDS ORDERED: Insulin LISPRO 300 UNITS/3 ML VIAL SQ SCH (07:30)
[2020-07-07] MEDS: Ranolazine 500 MG TAB.ER.12H PO SCH (08:11)
[2020-07-07] MEDS ORDERED: Aspirin 81 MG TAB.CHEW PO SCH (09:00)
[2020-07-07] MEDS ORDERED: Ascorbic Acid 500 MG TABLET PO SCH (09:00)
[2020-07-07] MEDS ORDERED: lisinopriL 5 MG TABLET PO SCH (09:00)
[2020-07-07] MEDS ORDERED: Isosorbide MONOnitrate (24 HR) 60 MG TAB.ER.24H PO SCH (09:00)
[2020-07-07] MEDS ORDERED: ALPRAZolam 0.25 MG TABLET PO SCH (09:01)
[2020-07-07] MEDS ORDERED: 0.9 % Sodium Chloride 2,000 ML ONE (10:18)
[2020-07-07] MEDS ORDERED: Heparin 1,000 UNITS/500 mL 500 ML ONE (10:18)
[2020-07-07] MEDS ORDERED: Nitroglycerin 1,000 MCG/10 ML VIAL IV ONE (10:19)
[2020-07-07] MEDS ORDERED: ISOVUE-370 200 ML INFUS..BTL ONE (10:19)
[2020-07-07] MEDS ORDERED: *HR* Heparin 10,000 UNIT/10 ML VIAL ONE (10:19)
[2020-07-07] MEDS ORDERED: *HR* Midazolam HCl 2 MG/2 ML VIAL ONE (11:01)
[2020-07-07] MEDS ORDERED: *HR* FentaNYL (PF) 100 MCG/2 ML VIAL ONE (11:02)
[2020-07-07] MEDS ORDERED: GI Cocktail 40 ML EACH PO ONE (12:07)
[2020-07-07] MEDS ORDERED: Cholecalciferol (D-3) 1,000 UNIT (25MCG) TABLET PO SCH (14:00)
[2020-07-07 14:40] VITALS: BP 102/62
== END 2020-07-07 15:24 | disposition home or self-care (01) ==
LOC: 3BNU 13:58 → EMEROOARM 13:58 → SUATTDRO 16:25 → 3BNU 17:19
PROVIDERS: ADMIT Internal Medicine; ATTEND Internal Medicine

== ENCOUNTER 2021-01-21 10:23 | Inpatient (IN) ==
[2021-01-21 10:52] LABS: Basophils % 0.2 %; Eosinophils # 0.1 K/mcL (0.0-0.6); Eosinophils % 2.2 %; Hematocrit 32.5 % (35.3-44.9); Hemoglobin 11.3 g/dL (11.5-15.4); Immature Granulocytes % 0.5 % (0-4); Lymphocytes # 1.2 K/mcL (0.6-4.6); Lymphocytes % 29.7 %; Mean Corpuscular HGB Conc 34.8 g/dL (31.6-35.5); Mean Corpuscular Hemoglobin 33.7 pg (28.0-33.3); Mean Platelet Volume 8.9 fL (9.4-12.4); Monocytes # 0.5 K/mcL (0.0-1.3); Neutrophils # 2.3 K/mcL (1.6-8.9); Platelet Count 241 K/mcL (140-400); Red Blood Count 3.35 M/mcL (3.82-4.97); Red Cell Distribution Width 12.5 % (11.5-14.5); Segmented Neutrophils % 55.4 %; White Blood Count 4.2 K/mcL (4.3-11.1)
[2021-01-21] MEDS ORDERED: *HR* Metoprolol 5 MG/5 ML VIAL IVP ONE (11:00)
[2021-01-21] MEDS ORDERED: Aspirin 81 MG TAB.CHEW PO ONE (11:00)
[2021-01-21 11:01] LABS: INR 1.1; Prothrombin Time 12.3 Seconds (9.4-12.1)
[2021-01-21 11:03] LABS: Activated Partial Thrombo Time 27.6 Seconds (26.0-36.0)
[2021-01-21 11:23] LABS: BUN/Creatinine Ratio 14 (6-26); Blood Urea Nitrogen 11 mg/dL (8-23); Calcium 9.6 mg/dL (8.6-10.3); Carbon Dioxide 25 mEq/L (23-29); Chloride 103 mEq/L (98-107); Glucose 127 mg/dL (70-105); Osmolality,Calculated 283 (280-300); Potassium 4.3 mEq/L (3.5-5.1); Sodium 136 mEq/L (136-145); Troponin I < 0.03 ng/mL (< 0.04); eGFR For African Americans > 60 (> 60); eGFR For Non-African Americans > 60 (> 60)
[2021-01-21] MEDS ORDERED: GI Cocktail 40 ML EACH PO ONE (13:55)
[2021-01-21] MEDS ORDERED: Nitroglycerin 0.4 MG TAB.SUBL SL PRN (14:24)
[2021-01-21] MEDS ORDERED: Naloxone 0.4 MG/ML INJ IVP PRN ×2 (14:26→14:32)
[2021-01-21] MEDS ORDERED: Dextrose Gel 15 GM/37.5 ML TUBE PO PRN ×2 (14:28)
[2021-01-21] MEDS ORDERED: D5% in Water 1,000 ML IVC PRN (14:28)
[2021-01-21] MEDS ORDERED: *HR* Dextrose 50 % in Water (Vial) 50 ML VIAL IVP PRN (14:28)
[2021-01-21] MEDS ORDERED: Loratadine 10 MG TABLET PO PRN (14:32)
[2021-01-21] MEDS ORDERED: Sucralfate 1 GM TABLET PO PRN (15:00)
[2021-01-21 15:50] LABS: Estimated Average Glucose 140 mg/dl; Hemoglobin A1C 6.5 %
[2021-01-21] MEDS ORDERED: ALPRAZolam 0.25 MG TABLET PO PRN (16:27)
[2021-01-21] MEDS: Insulin LISPRO 300 UNITS/3 ML VIAL SUBQ SCH (17:06)
[2021-01-21] MEDS ORDERED: (Ezetimibe [Zetia] 10 MG Tablet) PO SCH (21:00)
[2021-01-21] MEDS: Ranolazine 500 MG TAB.ER.12H PO SCH (21:37)
[2021-01-21] MEDS: *HR* Heparin 5,000 UNIT/ML VIAL SQ SCH (21:37)
[2021-01-21] MEDS: Metoprolol XL (24 HR) Succ 50 MG TAB.ER.24H PO SCH (21:40)
[2021-01-22] MEDS: Insulin LISPRO 300 UNITS/3 ML VIAL SUBQ SCH ×4 (00:58→17:01)
[2021-01-22 02:43] LABS: Basophils % 0.2 %; Eosinophils # 0.1 K/mcL (0.0-0.6); Hematocrit 29.8 % (35.3-44.9); Hemoglobin 10.3 g/dL (11.5-15.4); Immature Granulocytes % 0.2 % (0-4); Lymphocytes % 49.3 %; Mean Corpuscular HGB Conc 34.6 g/dL (31.6-35.5); Mean Corpuscular Hemoglobin 33.7 pg (28.0-33.3); Mean Corpuscular Volume 97.4 fL (83.0-100.0); Mean Platelet Volume 9.1 fL (9.4-12.4); Monocytes # 0.4 K/mcL (0.0-1.3); Monocytes % 10.2 %; Neutrophils # 1.6 K/mcL (1.6-8.9); Platelet Count 226 K/mcL (140-400); Red Blood Count 3.06 M/mcL (3.82-4.97); Red Cell Distribution Width 12.8 % (11.5-14.5); Segmented Neutrophils % 38.1 %; White Blood Count 4.1 K/mcL (4.3-11.1)
[2021-01-22 02:48] LABS: INR 1.1; Prothrombin Time 12.8 Seconds (9.4-12.1)
[2021-01-22 03:05] LABS: Alanine Aminotransferase 11 Units/L (7-52); Albumin/Globulin Ratio 1.5 (1.1-2.2); Alkaline Phosphatase 48 Units/L (34-104); Aspartate Amino Transferase 13 Units/L (13-39); BUN/Creatinine Ratio 14 (6-26); Bilirubin,Total 0.4 mg/dL (0.3-1.0); Blood Urea Nitrogen 11 mg/dL (8-23); Calcium 9.2 mg/dL (8.6-10.3); Carbon Dioxide 24 mEq/L (23-29); Chloride 103 mEq/L (98-107); Globulin 2.7 g/dL (2.4-3.5); Glucose 115 mg/dL (70-105); Magnesium 1.7 mg/dL (1.6-2.6); Osmolality,Calculated 280 (280-300); Sodium 135 mEq/L (136-145); Total Protein 6.7 g/dL (6.4-8.9); eGFR For African Americans > 60 (> 60); eGFR For Non-African Americans > 60 (> 60)
[2021-01-22] MEDS: *HR* Heparin 5,000 UNIT/ML VIAL SQ SCH ×3 (06:23→22:36)
[2021-01-22] MEDS ORDERED: NON-FORMULARY MEDICATION 1 EACH EACH (Isosorbide Mononitrate [Isosorbide Mononitrate Er] 1 PO SCH (09:00)
[2021-01-22] MEDS ORDERED: Metoprolol XL (24 HR) Succ 25 MG TAB.ER.24H PO ONE (09:24)
[2021-01-22] MEDS: Metoprolol XL (24 HR) Succ 50 MG TAB.ER.24H PO SCH ×2 (09:25→22:37)
[2021-01-22] MEDS: Ranolazine 500 MG TAB.ER.12H PO SCH ×2 (09:25→22:37)
[2021-01-22] MEDS: lisinopriL 5 MG TABLET PO SCH (09:25)
[2021-01-22] MEDS: Aspirin 81 MG TAB.CHEW PO SCH (09:25)
[2021-01-22] MEDS: Isosorbide MONOnitrate (24 HR) 30 MG TAB.ER.24H PO SCH ×2 (10:25→22:37)
[2021-01-23] MEDS: Insulin LISPRO 300 UNITS/3 ML VIAL SUBQ SCH ×2 (02:59→08:11)
[2021-01-23] MEDS: *HR* Heparin 5,000 UNIT/ML VIAL SQ SCH (06:32)
[2021-01-23 07:13] LABS: Basophils % 0.6 %; Eosinophils # 0.1 K/mcL (0.0-0.6); Eosinophils % 2.8 %; Hematocrit 33.4 % (35.3-44.9); Hemoglobin 11.6 g/dL (11.5-15.4); Immature Granulocytes % 0.3 % (0-4); Lymphocytes # 1.4 K/mcL (0.6-4.6); Lymphocytes % 38.8 %; Mean Corpuscular HGB Conc 34.7 g/dL (31.6-35.5); Mean Corpuscular Hemoglobin 34.3 pg (28.0-33.3); Mean Corpuscular Volume 98.8 fL (83.0-100.0); Mean Platelet Volume 9.2 fL (9.4-12.4); Monocytes # 0.4 K/mcL (0.0-1.3); Monocytes % 11.1 %; Neutrophils # 1.7 K/mcL (1.6-8.9); Platelet Count 246 K/mcL (140-400); Red Blood Count 3.38 M/mcL (3.82-4.97); Red Cell Distribution Width 12.7 % (11.5-14.5); Segmented Neutrophils % 46.4 %; White Blood Count 3.6 K/mcL (4.3-11.1)
[2021-01-23 07:38] LABS: BUN/Creatinine Ratio 19 (6-26); Blood Urea Nitrogen 15 mg/dL (8-23); Calcium 9.5 mg/dL (8.6-10.3); Carbon Dioxide 24 mEq/L (23-29); Chloride 102 mEq/L (98-107); Glucose 150 mg/dL (70-105); Osmolality,Calculated 286 (280-300); Sodium 136 mEq/L (136-145); eGFR For African Americans > 60 (> 60); eGFR For Non-African Americans > 60 (> 60)
[2021-01-23 07:48] VITALS: BP 138/76
[2021-01-23] MEDS: Ranolazine 500 MG TAB.ER.12H PO SCH (08:04)
[2021-01-23] MEDS: Aspirin 81 MG TAB.CHEW PO SCH (08:04)
[2021-01-23] MEDS: Isosorbide MONOnitrate (24 HR) 30 MG TAB.ER.24H PO SCH (08:04)
[2021-01-23] MEDS: lisinopriL 5 MG TABLET PO SCH (08:04)
[2021-01-23] MEDS: Metoprolol XL (24 HR) Succ 50 MG TAB.ER.24H PO SCH (08:04)
== END 2021-01-23 11:16 | disposition home or self-care (01) | DRG 313 ==
LOC: 3BNU 10:23 → EMEROOARM 10:23 → SUATTDRO 13:38 → 3BNU 14:42
PROVIDERS: ADMIT Student in an Organized Health Care Education/Training Program; ATTEND Family Medicine